=== PATIENT | female | born 1975 | race Two or more races ===

== ENCOUNTER 2024-12-10 07:24 | Emergency (ER) | payer MEDICAID ==
[~2024-12-10] VITALS: Ht 152.4 cm; Wt 82.6 kg
--- NOTE | 2024-12-10 08:17 | ED.PDOC ---
General HPI Comments 49 y/o F, with PMHX of kidney stones and ulcerative colitis presents to the ED for CC of flank pain. Patient states, that she has been experiencing right flank pain with associated hematuria due to displaced nephrostomy tube x5 days. Patient relays, that nephrostomy tube was first placed in August of 2024 at [facility] and was replaced u7ixxal ago. Patient comments on, adequate urinary output that is dark in appearance. Patient endorses that she is allergic to morphine and codeine. Patient denies nausea, vomiting, diarrhea, fever, or chills. No other associated symptoms, modifiers, recent injuries or sick contacts present at this time. Chief Complaint: Flank Pain Time Seen by MD: 07:50 Reviewed notes: Nurses Notes, Medications, Allergies Allergies: Coded Allergies: Codeine (Verified Allergy, Unknown, 12/10/24) Morphine (Verified Allergy, Unknown, 12/10/24) Information Source: Patient Mode of Arrival: Ambulatory Severity: Moderate Inability to void: None Timing: Days Duration: Since onset Prehospital treatment: None Onset: Spontaneous Symptoms: Hematuria History of: Kidney stone Location: (R) Flank Modifying factors: None associated signs and symptoms: Hematuria Past Medical History PAST MEDICAL HISTORY: Kidney Stones Past Medical History (Other): ulcerative colitis Surgical History (Other): right nephrostomy ACCESS LEAD History: Denies all ACCESS LEAD Hx Family History Family History: Unknown Social History Smoker: Non-Smoker Alcohol: Denies ETOH Use Drugs: Denies Drug Use Lives In: Home Constitutional: reports: chills; denies: diaphoresis, fatigue, fever, malaise, sweats, weakness, others EENTM: denies: blurred vision, double vision, ear bleeding, ear discharge, ear drainage, ear pain, ear ringing, eye pain, eye redness, hearing loss, mouth pain, mouth swelling, nasal discharge, nose bleeding, nose congestion, nose pain, photophobia, tearing, throat pain, throat swelling, voice changes, others Respiratory: denies: cough, hemoptysis, orthopnea, SOB at rest, shortness of breath, SOB with excertion, stridor, wheezing, others Cardiovascular: denies: chest pain, dizzy spells, diaphoresis, Dyspnea on exertion, edema, irregular heart beat, left arm pain, lightheadedness, palpitations, PND, syncope, others Gastrointestinal: reports: abdomen distended, constipated, nausea; denies: abdominal pain, blood streaked bowels, diarrhea, dysphagia, difficulty swallowing, hematemesis, melena, poor appetite, poor fluid intake, rectal bleeding, rectal pain, vomiting, others Genitourinary: reports: flank pain; denies: abnormal vagina bleeding, burning, dyspareunia, dysuria, frequency, hematuria, incontinence, pain, , vagina discharge, urgency, others Neurological: denies: dizziness, fainting, headache, left sided numbness, left sided weakness, numbness, paresthesia, pre-existing deficit, right sided numbness, right sided weakness, seizure, speech problems, tingling, tremors, w eakness, others Musculoskeletal: denies: back pain, gout, joint pain, joint swelling, muscle pain, muscle stiffness, neck pain, others Integumetry: denies: bruises, change in color, change in hair/nails, dryness, laceration, lesions, lumps, rash, wounds, others Allergic/Immunocompromised: denies: Difficulty Healing, Frequent Infections, Hives, Itching, others Hematologic/Lymphatic: denies: anemia, blood clots, easy bleeding, easy bruising, swollen glands, others Endocrine: denies: excessive hunger, excessive sweating, excessive thirst, excessive urination, flushing, intolerance to cold, intolerance to heat, unexplained weight gain, unexplained weight loss, others Psychiatric: denies: anxiety, bipolar disorder, depression, hopeless, panic disorder, schizophrenia, sleepless, suicidal, others All Other Systems: Reviewed and Negative Physical Exam General Appearance: No Apparent Distress, Normal HEENT: Normal ENT Inspection, Pharynx Normal, TMs Normal Neck: Full Range of Motion, Non-Tender, Normal, Normal Inspection Respiratory: Chest Non-Tender, Lungs Clear, No Accessory Muscle Use, No Respiratory Distress, Normal Breath Sounds Cardiovascular: No Edema, No Murmur, No Gallop, Normal Peripheral Pulses, Regular Rate/Rhythm Breast Exam: Deferred Gastrointestinal: No Organomegaly, Non Tender, No Pulsatile Mass, Normal Bowel Sounds, Soft, Other (palpable stool in the transverse colon. ) Genitalia: Deferred Pelvic: Deferred Rectal: Deferred Extremities: Normal range of motion, No pedal edema Musculoskeletal : Apperance: Normal Neurologic: No Motor Deficits, Normal Affect, Normal Mood, Other (grossly normal exam) Cerebellar Function: Other (grossly normal) Reflexes: NOT DONE Skin: Normal Color, Warm Lymphatic: NOT DONE Was a procedure done? Was a procedure done?: No Differential Diagnosis Kidney stone (Female): Bowel obstruction, Cholelithiasis, Musculoskeletal pain, Pyelonephritis, Urinary obstruction, Urolithiasis, Other (constipation) X-Ray, Labs, Meds, VS Vital Signs Date Time Temp Pulse Resp B/P (MAP) Pulse Ox O2 Delivery O2 Flow Rate FiO2 12/10/24 08:33 111 20 95 Room Air* 0 21 12/10/24 08:23 111 20 95 Room Air 12/10/24 08:23 98.1 111 20 128/66 (86) 95 98.1 12/10/24 07:30 98.0 117 18 125/78 (94) 96 Lab Test 12/10/24 08:20 12/10/24 08:07 Range/Units Urine Color Light-yellow Yellow Urine Clarity Clear Clear Urine pH 6.5 5.0-9.0 Urine Specific [place] 1.018 1.001-1.035 Urine Protein Trace H Negative Urine Ketones Negative Negative Urine Blood Negative Negative /uL Urine Nitrite Negative Negative Urine Bilirubin Negative Negative Urine Urobilinogen Normal Negative mg/dL Urine Leukocyte Esterase 2+ Negative /uL Urine RBC 3 0 - 4 /hpf Urine Microscopic WBC 15 H 0-5 /HPF Urine Squamous Epithelial Cells Few <5 /hpf Urine Bacteria None seen None Seen /hpf Urine Glucose Normal Normal mg/dL Urine Test Negative Negative White Blood Count 6.3 4.4-10.8 10^3/uL Red Blood Count 4.43 4.0-5.20 10^6/uL Hemoglobin 13.9 12.2-16.2 g/dL Hematocrit 40.5 36.0-46.0 % Mean Corpuscular Volume 91.5 80.0-100.0 fL Mean Corpuscular Hemoglobin 31.5 28.0-32.0 pg Mean Corpuscular Hemoglobin Concent 34.4 32.0-36.0 g/dL Red Cell Distribution Width 13.8 11.8-14.3 % Platelet Count 349 140-450 10^3/uL Mean Platelet Volume 7.4 6.9-10.8 fL Neutrophils (%) (Auto) 57.2 37.0-80.0 % Lymphocytes (%) (Auto) 29.0 10.0-50.0 % Monocytes (%) (Auto) 8.4 0.0-12.0 % Eosinophils (%) (Auto) 4.9 0.0-7.0 % Basophils (%) (Auto) 0.5 0.0-2.0 % Neutrophils # (Auto) 3.6 1.6-8.6 10 ^3/uL Lymphocytes # (Auto) 1.8 0.4-5.4 10 ^3/uL Monocytes # (Auto) 0.5 0-1.3 10 ^3/uL Eosinophils # (Auto) 0.3 0-0.8 10 ^3/uL Basophils # (Auto) 0 0-0.2 10 ^3/uL Nucleated Red Blood Cells 0.1 % Sodium Level 141 136-145 mmol/L Potassium Level 3.8 3.5-5.1 mmol/L Chloride Level 111 H 98-107 mmol/L Carbon Dioxide Level 22 20-31 mmol/L Anion Gap 8 5-15 Blood Urea Nitrogen 13 9-23 mg/dL Creatinine 0.87 0.550-1.02 mg/dL Glomerular Filtration Rate Calc 82 >90 mL/min BUN/Creatinine Ratio 14.9 10.0-20.0 Serum Glucose 129 H 74-106 mg/dL Calcium Level 9.2 8.7-10.4 mg/dL Total Bilirubin 0.2 0.2-1.0 mg/dL Aspartate Amino Transferase (AST) 14 13-40 U/L Alanine Aminotransferase (ALT) 23 7-40 U/L Alkaline Phosphatase 149 H 46-116 U/L Total Protein 7.0 5.7-8.2 g/dL Albumin 4.4 3.2-4.8 g/dL [place] [id number] Ph: [phone] DIAGNOSTIC IMAGING Diagnostic Imaging Report : [id number] Signed PATIENT: KENYA RIVERA ACCT: [id number] UNIT: [id number] : 1975 LOC: ER ROOM / BED: / AGE / SEX: 49 / F ADM STATUS: REG ER SERVICE [id number] ORDERING PHYSICIAN: LA FRAUSTO MD PROCEDURE(s): ABPL - CT AB PEL WO CON-NO ORAL OR IV REASON: RIGHT flank pain ORDER NUMBER(s): [id number], ACCESSION NUMBER(s): [id number] CT ABDOMEN AND PELVIS WITHOUT CONTRAST CLINICAL HISTORY: RIGHT flank pain TECHNIQUE: Multiple contiguous axial images of the abdomen and pelvis without intravenous contrast. The images were reformatted degenerate coronal and sagittal reconstructions. All CT scans at this medical facility are performed using dose modulation techniques as appropriate to a performed exam including the following:Automated exposure control was utilized; adjustment of the MA and/or KV according to patient size; and use of iterative reconstruction technique. Radiation Dose Information: CT Dose: CTDI volume is 16.07 mGy. Dose-length product is 854.75 mGy*cm Comparison: None FINDINGS: Evaluation of the abdomen and pelvis is limited without intravenous contrast. There is a right-sided nephrostomy tube with the pigtail loop in the right renal pelvis. There is a 5 mm calculus in the right ureteropelvic junction. There is no significant hydronephrosis. There is a 3 mm nonobstructive calculus in the lower pole of the left kidney. Gallbladder is surgically absent. The liver, pancreas, lead adrenal glands, and spleen appear within normal limits. There is no gross evidence of abdominal lymphadenopathy. There is no free fluid or free air. The stomach grossly appears unremarkable. The small and large bowel loops demonstrate normal caliber. A normal appearing appendix is seen in the right lower quadrant abdomen. The abdominal aorta and IVC appear within normal limits. There is no evidence of a distal ureteral calculus or hydroureter. The bladder appears unremarkable for the degree of distention. Pelvic organ appears within normal limits. There is no gross evidence of a pelvic mass. There is no free fluid collection. Lung bases are clear. There is no acute osseous abnormality. IMPRESSION: 1. There is a right-sided nephrostomy tube with the pigtail loop in the right renal pelvis. There is a 5 mm calculus at the right ureteropelvic junction. There is no significant hydronephrosis. 2. 3 mm nonobstructive left lower pole renal calculus. HS:Y ATED BY: CHARLES GARCÍA MD DICTATED DATE/TIME: 12/10/24 1001 SIGNED BY: CHARLES GARCÍA MD SIGNED DATE/TIME: 12/10/24 1001 CC: X-Ray, Labs, Meds, VS Comment This 49-year-old female presents secondary to acute on chronic abdominal pain. Patient presents requesting Dilaudid as she was allergic to other narcotics. For description the patient, she was unclear if she takes narcotic pain medication on a chronic basis. Her physical exam is suggestive of stool in the transverse colon. CT shows copious amounts of hard appearing stool throughout the colon, and possible recent oral contrast. Her vitals were normal. Her labs were otherwise benign. As such, discharge the patient home with a prescription for milk of magnesia and Metamucil. She was asked to follow up with the PCP in next 1 2 days or return to the ER for any new/worse/worsening symptoms. Time of 1ST Reevaluation: 08:20 Reevaluation 1ST: Unchanged Time of 2ND Reevaluation: 10:36 Reevaluation 2ND: Unchanged Patient Education/Counseling: Diagnosis, Treatment Family Education/Counseling: No Family Present Departure 1 Departure Time of Disposition: 10:16 Impression: Primary Impression: Abdominal pain Additional Impression: Constipation Disposition: 01 HOME / SELF CARE / HOMELESS Condition: Good Discharged With: Self Critical Care Note Critical Care Time?: No Stability Stability form required: No Heart Score Heart Score: Heart Score Response (Comments) Value History N/A 0 EKG N/A 0 Age N/A 0 Risk Factors N/A 0 Troponin N/A 0 Total 0 I personally scribed for LA FRAUSTO MD ([email or web address]) on 12/10/24 at 08:17. Electronically submitted by Maira Joseph ([email or web address]). I personally scribed for LA FRAUSTO MD ([email or web address]) on 12/10/24 at 10:10. Electronically submitted by Maira Joseph ([email or web address]). LA FRAUSTO MD Dec 10, 2024 08:17
[2024-12-10 08:21] LABS: Basophils # (auto) 0 10 ^3/uL (0-0.2); Basophils % (auto) 0.5 % (0.0-2.0); Eosinophils # (auto) 0.3 10 ^3/uL (0-0.8); Eosinophils % (auto) 4.9 % (0.0-7.0); Hematocrit 40.5 % (36.0-46.0); Hemoglobin 13.9 g/dL (12.2-16.2); Lymphocytes # (auto) 1.8 10 ^3/uL (0.4-5.4); Mean Corpuscular Hemoglobin 31.5 pg (28.0-32.0); Mean Corpuscular Hgb Conc. 34.4 g/dL (32.0-36.0); Mean Corpuscular Volume 91.5 fL (80.0-100.0); Monocytes # (auto) 0.5 10 ^3/uL (0-1.3); Monocytes % (auto) 8.4 % (0.0-12.0); Neutrophils # (auto) 3.6 10 ^3/uL (1.6-8.6); Neutrophils % (auto) 57.2 % (37.0-80.0); Nucleated Red Blood Cells % 0.1 %; Platelet Count (auto) 349 10^3/uL (140-450); Red Blood Cells 4.43 10^6/uL (4.0-5.20); Red Cell Distribution Width 13.8 % (11.8-14.3); White Blood Cell 6.3 10^3/uL (4.4-10.8)
[2024-12-10 08:33] VITALS: PULSE 111; RESP 20; O2SAT 95
[2024-12-10 08:43] LABS: Alanine Aminotransferase 23 U/L (7-40); Albumin 4.4 g/dL (3.2-4.8); Anion Gap 8 (5-15); Aspartate Aminotransferase 14 U/L (13-40); BUN/Creatinine Ratio 14.9 (10.0-20.0); Blood Urea Nitrogen 13 mg/dL (9-23); Calcium 9.2 mg/dL (8.7-10.4); Carbon Dioxide 22 mmol/L (20-31); Potassium 3.8 mmol/L (3.5-5.1); Sodium 141 mmol/L (136-145)
[2024-12-10 08:44] LABS: Alkaline Phosphatase 149 U/L (46-116); Bilirubin, Total 0.2 mg/dL (0.2-1.0); Chloride 111 mmol/L (98-107); Glucose 129 mg/dL (74-106)
[2024-12-10 09:04] LABS: Urine Bacteria None Seen /hpf (None Seen)
[2024-12-10 09:25] LABS: Urine Blood Negative /uL (Negative); Urine Clarity Clear (Clear); Urine Color Light-Yellow (Yellow); Urine Protein, UAD TRACE (Negative); Urine Specific Gravity 1.018 (1.001-1.035); Urine Squamous Epithelial Cell FEW /hpf (<5); Urine Urobilinogen Normal (Negative); Urine WBC 15 /HPF (0-5); Urine pH 6.5 (5.0-9.0)
--- NOTE | 2024-12-10 10:04 | DVH ---
CT ABDOMEN AND PELVIS WITHOUT CONTRAST CLINICAL HISTORY: RIGHT flank pain TECHNIQUE: Multiple contiguous axial images of the abdomen and pelvis without intravenous contrast. T he images were reformatted degenerate coronal and sagittal reconstructions. All CT scans at this medical facility are performed using dose modulation techniques as appropriate t o a performed exam including the following:Automated exposure control was utilized; adjustment of the MA and/or KV according to patient size; and use of iterative reconstruction technique. Radiation Dose Information: CT Dose: CTDI volume is 16.07 mGy. Dose-length product is 854.75 mGy*cm Comparison: None FINDINGS: Evaluation of the abdomen and pelvis is limited without intravenous contrast. There is a right-sided nephrostomy tube with the pigtail loop in the right renal pelvis. There is a 5 mm calculus in the right ureteropelvic junction. There is no significant hydronephrosis. There is a 3 mm nonobstructive calculus in the lower pole of the left kidney. Gallbladder is surgically absent. The liver, pancreas, lead adrenal glands, and spleen appear with in normal limits. There is no gross evidence of abdominal lymphadenopathy. There is no free fluid or free air. The stomach grossly appears unremarkable. The small and large bowel loops demonstrate normal caliber . A normal appearing appendix is seen in the right lower quadrant abdomen. The abdominal aorta and IVC appear within normal limits. There is no evidence of a distal ureteral calculus or hydroureter. The bladder appears unremarkable f or the degree of distention. Pelvic organ appears within normal limits. There is no gross evidence o f a pelvic mass. There is no free fluid collection. Lung bases are clear. There is no acute osseous abnormality. IMPRESSION: 1. There is a right-sided nephrostomy tube with the pigtail loop in the right renal pelvis. There is a 5 mm calculus at the right ureteropelvic junction. There is no significant hydronephrosis. 2. 3 mm nonobstructive left lower pole renal calculus. HS:Y
[2024-12-10] MEDS ORDERED: PSYL1.7W2 PO (10:41)
[2024-12-10] MEDS ORDERED: MAGNSUS48 PO (10:45)
[2024-12-10 10:53] VITALS: BP 113/74; PULSE 103; RESP 18; TEMP 98.1; O2SAT 96
== END 2024-12-10 10:53 | disposition home or self-care (01) ==
LOC: ER 07:24
DX: K59.00 Constipation, unspecified (principal); K51.90 Ulcerative colitis, unspecified, without complications; N20.2 Calculus of kidney with calculus of ureter; Z32.02 Encounter for pregnancy test, result negative; Z88.5 Allergy status to narcotic agent; Z88.8 Allergy status to other drugs, medicaments and biological substances
CPT/HCPCS: 36415; 74176; 80053; 81001; 81025; 85025

== ENCOUNTER 2025-03-18 16:40 | Inpatient (IN) | payer MEDICAID ==
[~2025-03-18] VITALS: Ht 152.4 cm; Wt 89.3 kg
[~2025-03-18 16:40] MED LIST: MAGNSUS48 PO; PSYL1.7W2 PO
--- NOTE | 2025-03-18 17:01 | ED.PDOC ---
General HPI Comments HPI: This is a 49 year old female presenting to the ED with chief complaint of flank pain. Patient reports that she has been experiencing right sided constant flank pain with associated dysuria, fever, chills, diarrhea, and mild suprapubic abdominal pain for the past week. Patient relays that she has history of kidney stones in the right kidney and needed a nephrostomy tube placed 2 months ago, but it has since been removed. Patient states she has history of Crohn's and she believes her abdominal pain could be due to a flare up. Patient denies any N/V, dizziness, chest pain, hematuria, or vaginal bleeding. However she is more concerned about her flank pain for possible kidney stones. Initial Vitals BP: 114/64 HR: 104 RR: 18 O2 Sat: 92% Temp: 97.9F Past Medical history: Crohn's Disease, Kidney Stones Past Surgical history: Rt Nephrostomy, Cholecystectomy Medications: Humira discontinued Social History: Denies smoking, ETOH, and drug use. Allergies: NKDA HPI: Poor Historian. REVIEW OF SYSTEMS: CONSTITUTIONAL: Denies acute: diaphoresis, HEAD: Denies acute: headache, photophobia Eyes: Denies acute: Double vision, vision loss, eye pain, eye discharge. EARS: Denies acute: tinnitus, hearing loss, ear discharge, ear pain, THROAT: Denies acute: sore throat, swelling, difficulty swallowing , pain with swallowing, change in voice. NECK: Denies acute: neck pain, neck swelling, stiff neck. HEART: Denies acute : chest pain, palpitations, LUNGS: Denies acute: SOB, wheezing, cough, hemoptysis ABDOMEN: Denies acute: Vomiting, melena , hematemesis, hematochezia SKIN: Denies acute: rash, redness, lesions, itchiness. EXTREMITIES: Denies acute: calf pain, numbness, tingling, weakness, denies pain in extremity. Denies acute: Low back pain. Neuro: Denies acute: focal neurological deficit, motor or sensory focal neurological deficit, tremors, seizure like activity, confusion, dizziness, change in mental status, loss of bowel or bladder function, cauda equina like symptoms. : Denies acute: hematuria, increase in urinary frequency. PSYCH: Denies acute: hallucination, suicidal ideation, homicidal ideation. FEMALE: Denies acute: abnormal vaginal bleeding, foul odor, unusual discharge. PHYSICAL EXAM: General: -----[id number]---acute distress, awake and alert. Head: normocephalic, atraumatic. Neck: supple, trachea is midline, no swelling. Throat: Normal phonation. Eyes:, no erythema, no purulent discharge, no proptosis, no icterus. Heart: regular rate, regular rhythm, no significant murmur appreciated. Lungs: no apparent respiratory distress, Able to speak in full sentences. No wheezing, no rhonchi, no crackles. No stridors Clear to auscultation bilaterally. Abdomen: Suprapubic tender to palpation, non distended, soft, no guarding, no rebound, + bowel sounds. Neuro: Awake, Alert, oriented to name, self, situation, follows commands GCS=15. Speech is normal. Skin: no petechia, no purpura, no cyanosis, non-pale, not jaundice. Lower extremities: --no - Pitting edema no deformity, no focal swelling, no calf TTP. Makes eye contact. moves all four extremities. Face: no apparent facial droop. Right CVA tenderness to percussion Ambulating in the ED independently. ED COURSE: DISCLAIMER: This medical document was created using an electronic medical record system with voice recognition software and computerized dictation system. Although this document has been carefully reviewed, there might still be some phonetic and typographical errors. Occasional wrong-word or "sound-alike" substitutions may have occurred due to the inherent limitations of voice recognition software. These areas are purely typographical due to imperfections of the software programs and do not reflect any compromise in the patient's medical care. Please read the chart carefully and recognize, using context, where these substitutions have occurred. Time Seen by MD: 16:59 Primary Care Provider: NANCY Reviewed notes: Medications, Allergies Allergies: Coded Allergies: Codeine (Verified Allergy, Unknown, 12/10/24) Morphine (Verified Allergy, Unknown, 12/10/24) Home Meds Active Scripts Magnesium Hydroxide (Milk of Magnesia 400 mg/5Ml) 1 Jerri Jerri, 1 JERRI PO QID for 30 Days, #350 ML Prov:LA FRAUSTO MD 12/10/24 Psyllium (Metamucil) 1.7 Gm Waf, 1.7 GM PO DAILY for 90 Days, #90 MISC Prov:LA FRAUSTO MD 12/10/24 Information Source: Patient Mode of Arrival: Ambulatory Was a procedure done? Was a procedure done?: No Differential Diagnosis Kidney stone (Female): Other (Flank Pain;DDX include Nephrolethiasis, obstructive uropathy, kidney cancer, renal infarct, intraabdominal neoplasm, lower lobe pneumonia, retroperitoneal hemorrhage, pancreatitis, aneurysm, dissection, musculoskeletal, rib contusion/trauma, hematoma, PYLONEPHRITIS, muscle strain, spinal disease. IN A FEMALE) X-Ray, Labs, Meds, VS Vital Signs Date Time Temp Pulse Resp B/P (MAP) Pulse Ox O2 Delivery O2 Flow Rate FiO2 03/18/25 19:17 98.1 98 17 114/62 (79) 99 98.1 03/18/25 16:55 97.9 104 18 114/64 (81) 92 97.9 Lab Test 03/18/25 18:03 03/18/25 17:20 Range/Units Urine Color Light-yellow Yellow Urine Clarity Clear Clear Urine pH 6.0 5.0-9.0 Urine Specific [place] 1.025 1.001-1.035 Urine Protein Trace H Negative Urine Ketones Negative Negative Urine Blood 1+ H Negative /uL Urine Nitrite Negative Negative Urine Bilirubin Negative Negative Urine Urobilinogen Normal Negative mg/dL Urine Leukocyte Esterase 1+ Negative /uL Urine RBC 4 0 - 4 /hpf Urine Microscopic WBC 6 H 0-5 /HPF Urine Squamous Epithelial Cells Few <5 /hpf Urine Bacteria Few H None Seen /hpf Urine Mucus Few None Seen Urine Glucose Normal Normal mg/dL White Blood Count 6.0 4.4-10.8 10^3/uL Red Blood Count 4.94 4.0-5.20 10^6/uL Hemoglobin 15.5 12.2-16.2 g/dL Hematocrit 44.3 36.0-46.0 % Mean Corpuscular Volume 89.7 80.0-100.0 fL Mean Corpuscular Hemoglobin 31.3 28.0-32.0 pg Mean Corpuscular Hemoglobin Concent 34.9 32.0-36.0 g/dL Red Cell Distribution Width 15.3 H 11.8-14.3 % Platelet Count 340 140-450 10^3/uL Mean Platelet Volume 7.1 6.9-10.8 fL Neutrophils (%) (Auto) 65.8 37.0-80.0 % Lymphocytes (%) (Auto) 26.6 10.0-50.0 % Monocytes (%) (Auto) 5.5 0.0-12.0 % Eosinophils (%) (Auto) 1.6 0.0-7.0 % Basophils (%) (Auto) 0.5 0.0-2.0 % Neutrophils # (Auto) 4.0 1.6-8.6 10 ^3/uL Lymphocytes # (Auto) 1.6 0.4-5.4 10 ^3/uL Monocytes # (Auto) 0.3 0-1.3 10 ^3/uL Eosinophils # (Auto) 0.1 0-0.8 10 ^3/uL Basophils # (Auto) 0 0-0.2 10 ^3/uL Nucleated Red Blood Cells 0.1 % Sodium Level 141 136-145 mmol/L Potassium Level 4.1 3.5-5.1 mmol/L Chloride Level 110 H 98-107 mmol/L Carbon Dioxide Level 21 20-31 mmol/L Anion Gap 10 5-15 Blood Urea Nitrogen 11 9-23 mg/dL Creatinine 0.72 0.550-1.02 mg/dL Glomerular Filtration Rate Calc 103 >90 mL/min BUN/Creatinine Ratio 15.3 10.0-20.0 Serum Glucose 115 H 74-106 mg/dL Lactic Acid Level 1.1 0.4-2.0 mmol/L Calcium Level 9.2 8.7-10.4 mg/dL Total Bilirubin 0.6 0.2-1.0 mg/dL Aspartate Amino Transferase (AST) 18 <34 U/L Alanine Aminotransferase (ALT) 26 7-40 U/L Alkaline Phosphatase 133 H 46-116 U/L Troponin I High Sensitivity < 3 L </=34 ng/L Total Protein 6.9 5.7-8.2 g/dL Albumin 4.4 3.2-4.8 g/dL Lipase 22 12-53 U/L [address] [address] Ph: [phone] DIAGNOSTIC IMAGING Diagnostic Imaging Report : [id number] Signed PATIENT: KENYA RIVERA ACCT: [id number] UNIT: [id number] : 1975 LOC: ER ROOM / BED: / AGE / SEX: 49 / F ADM STATUS: REG ER SERVICE [id number] ORDERING PHYSICIAN: GREGORY NOVA DO PROCEDURE(s): ABPL - CT AB PEL WO CON-NO ORAL OR IV REASON: flank pain, urinary symptoms, fever ORDER NUMBER(s): [id number], ACCESSION NUMBER(s): [id number] Indication: flank pain, urinary symptoms, fever Technique: CT axial images of the abdomen and pelvis are obtained without contrast. Coronal and sagittal reformats were obtained. Radiation Dose Information: CTDI volume is 16.15 mGy. Dose-length product is 842.61 mGy*cm Comparison: CT CT AB PEL WO CON-NO ORAL OR IV on DOS: 12/10/24 FINDINGS: There is limited interpretation of the abdomen and pelvis without administration of intravenous contrast. The lung bases demonstrate atelectasis. Adrenal glands, spleen, pancreas unremarkable in shape. Hepatic steatosis. Cholecystectomy. The kidneys demonstrate no hydronephrosis. Nonobstructing right renal calculi measuring up to 8 mm. Nonobstructing left renal calculi up to 3 mm. Right perinephric stranding. Stomach is partially distended. Small bowel loops are normal in caliber. Fatty prominence of the large bowel wall. Normal appendix. Bladder partially distended. No free pelvic fluid. No inguinal lymphadenopathy. Radiopaque shrapnel in the right gluteal soft tissue region measuring 1.7 cm. Aqns-uq-pupsqins thoracolumbar degenerative disc disease. IMPRESSION: Right perinephric stranding could represent urinary tract infection / pyelonephritis. Nonobstructing bilateral renal calculi as described. Fatty prominence of the large bowel wall. Correlate for inflammatory bowel disease. Cholecystectomy. Other findings as described ATED BY: JYOTI TAYLOR MD DICTATED DATE/TIME: 03/18/251756 SIGNED BY: JYOTI TAYLOR MD SIGNED DATE/TIME: 03/18/251756 CC: [place] [address] Ph: [phone] DIAGNOSTIC IMAGING Diagnostic Imaging Report : [id number] Signed PATIENT: KENYA RIVERA ACCT: [id number] UNIT: [id number] : 1975 LOC: ER ROOM / BED: / AGE / SEX: 49 / F ADM STATUS: REG ER SERVICE [id number] ORDERING PHYSICIAN: GREGORY NOVA DO PROCEDURE(s): CXRP - CHEST PORTABLE REASON: flank pain, urinary symptoms, fever ORDER NUMBER(s): [id number], ACCESSION NUMBER(s): [id number] CHEST RADIOGRAPH Indication: flank pain, urinary symptoms, fever Technique: Single frontal view of the chest was obtained COMPARISON: None FINDINGS: Lines and Tubes: None Lungs: Clear Pleura: No effusion. No pneumothorax. Cardiomediastinal contours: Unremarkable Bones: Unremarkable IMPRESSION: 1. No acute disease. ATED BY: DAYSI BALL MD DICTATED DATE/TIME: 03/18/251737 SIGNED BY: DAYSI BALL MD SIGNED DATE/TIME: 03/18/251737 CC: Time of 1ST Reevaluation: 17:58 Reevaluation 1ST: Unchanged Patient Education/Counseling: Diagnosis, Treatment Family Education/Counseling: No Family Present Comments Sepsis protocol was initiated with weight based fluid resuscitation. Patient presented with the above HPI.---flank pain urinary symptoms abdominal pain---workup was initiated. patient was found with the above mentioned diagnosis. the following medications were ordered: please refer to order lists of meds and tests obtained by myself Dr. Nova. Patient ED course and VS have been stabilized. Patient has been reassessed in the ED and remained in a stable condition. Pertinent incidental findings were discussed with the patient and/or family. Patient/family voices understanding and is agreeable with plan. Patient has been observed in the ED adequate length of time to insure improvement/stability. Escalation of care considered: Consideration of escalation to observation or admission Patient was ADMITTED to the medicine team for further evaluation and treatment of their presentation. All the reports of any imaging studies that were ordered by myself were reviewed by myself. Departure 1 Departure Time of Disposition: 18:01 Impression: Primary Impression: Pyelonephritis Additional Impression: Sepsis Disposition: 09 ADMITTED INPATIENT Admit to: Tele Condition: Guarded Discharged With: Self Critical Care Note Critical Care Time?: Yes (45 min-critical care time only) I personally scribed for GREGORY NOVA DO ([email or web address]) on 03/18/25 at 17:01. Electronically submitted by Kayden Gallagher ([email or web address]). I personally scribed for GREGORY NOVA DO ([email or web address]) on 03/18/25 at 17:01. Electronically submitted by Kayden Gallagher ([email or web address]). I personally scribed for GREGORY NOVA DO ([email or web address]) on 03/18/25 at 18:36. Electronically submitted by Kayden Gallagher ([email or web address]). GREGORY NOVA DO Mar 18, 2025 17:01
[2025-03-18] MEDS: SODIUM CHLORIDE 0.9% 1,000 ML IV ONE ×2 (17:30→22:38)
[2025-03-18 17:33] LABS: Basophils # (auto) 0 10 ^3/uL (0-0.2); Basophils % (auto) 0.5 % (0.0-2.0); Eosinophils # (auto) 0.1 10 ^3/uL (0-0.8); Eosinophils % (auto) 1.6 % (0.0-7.0); Hematocrit 44.3 % (36.0-46.0); Hemoglobin 15.5 g/dL (12.2-16.2); Lymphocytes # (auto) 1.6 10 ^3/uL (0.4-5.4); Lymphocytes % (auto) 26.6 % (10.0-50.0); Mean Corpuscular Hemoglobin 31.3 pg (28.0-32.0); Mean Corpuscular Hgb Conc. 34.9 g/dL (32.0-36.0); Mean Corpuscular Volume 89.7 fL (80.0-100.0); Monocytes # (auto) 0.3 10 ^3/uL (0-1.3); Monocytes % (auto) 5.5 % (0.0-12.0); Neutrophils % (auto) 65.8 % (37.0-80.0); Nucleated Red Blood Cells % 0.1 %; Platelet Count (auto) 340 10^3/uL (140-450); Red Blood Cells 4.94 10^6/uL (4.0-5.20); Red Cell Distribution Width 15.3 % (11.8-14.3)
--- NOTE | 2025-03-18 17:41 | DVH ---
CHEST RADIOGRAPH Indication: flank pain, urinary symptoms, fever Technique: Single frontal view of the chest was obtained COMPARISON: None FINDINGS: Lines and Tubes: None Lungs: Clear Pleura: No effusion. No pneumothorax. Cardiomediastinal contours: Unremarkable Bones: Unremarkable IMPRESSION: 1. No acute disease.
[2025-03-18 17:48] LABS: Alanine Aminotransferase 26 U/L (7-40); Albumin 4.4 g/dL (3.2-4.8); Alkaline Phosphatase 133 U/L (46-116); Anion Gap 10 (5-15); Aspartate Aminotransferase 18 U/L (<34); BUN/Creatinine Ratio 15.3 (10.0-20.0); Blood Urea Nitrogen 11 mg/dL (9-23); Calcium 9.2 mg/dL (8.7-10.4); Carbon Dioxide 21 mmol/L (20-31); Chloride 110 mmol/L (98-107); Glucose 115 mg/dL (74-106); Lipase 22 U/L (12-53); Potassium 4.1 mmol/L (3.5-5.1); Sodium 141 mmol/L (136-145); Total Protein 6.9 g/dL (5.7-8.2)
[2025-03-18 17:49] LABS: Bilirubin, Total 0.6 mg/dL (0.2-1.0)
--- NOTE | 2025-03-18 17:58 | DVH ---
Indication: flank pain, urinary symptoms, fever Technique: CT axial images of the abdomen and pelvis are obtained without contrast. Coronal and sagit cody reformats were obtained. Radiation Dose Information: CTDI volume is 16.15 mGy. Dose-length product is 842.61 mGy*cm Comparison: CT CT AB PEL WO CON-NO ORAL OR IV on DOS: 12/10/24 FINDINGS: There is limited interpretation of the abdomen and pelvis without administration of intravenous contr ast. The lung bases demonstrate atelectasis. Adrenal glands, spleen, pancreas unremarkable in shape. Hepatic steatosis. Cholecystectomy. The kidneys demonstrate no hydronephrosis. Nonobstructing right renal calculi measuring up to 8 mm. Nonobstructing left renal calculi up to 3 mm. Right perinephric stranding. Stomach is partially distended. Small bowel loops are normal in caliber. Fatty prominence of the large bowel wall. Normal appendix. Bladder partially distended. No free pelvic fluid. No inguinal lymphadenopathy. Radiopaque shrapnel in the right gluteal soft tissue region measuring 1.7 cm. Sopn-ob-imfalsma thorac olumbar degenerative disc disease. IMPRESSION: Right perinephric stranding could represent urinary tract infection / pyelonephritis. Nonobstructing bilateral renal calculi as described. Fatty prominence of the large bowel wall. Correlate for inflammatory bowel disease. Cholecystectomy. Other findings as described
[2025-03-18 18:32] LABS: Urine Bacteria FEW /hpf (None Seen); Urine Blood 1+ /uL (Negative); Urine Clarity Clear (Clear); Urine Color Light-Yellow (Yellow); Urine Mucus FEW (None Seen); Urine Protein, UAD TRACE (Negative); Urine Specific Gravity 1.025 (1.001-1.035); Urine Squamous Epithelial Cell FEW /hpf (<5); Urine Urobilinogen Normal (Negative); Urine WBC 6 /HPF (0-5)
[2025-03-18] MEDS: cefTRIAXone 1GM/50ML D5W 50 ML IV ONE (22:38)
[2025-03-18] MEDS: fentaNYL CITRATE 100 MCG/2 ML VL IV ONE (22:38)
[2025-03-18] MEDS ORDERED: IBUPROFEN 600 MG TAB PO PRN (23:00)
[2025-03-19] MEDS: SODIUM CHLORIDE 0.9% 1,000 ML IV ONE (01:45)
[2025-03-19] MEDS: HYDROmorphone HCL 2 MG/ML VL/or syr IV PRN ×2 (02:34→13:30)
[2025-03-19] MEDS: ONDANSETRON HCL 4 MG/2 ML VIAL IV PRN (03:08)
[2025-03-19 03:36] VITALS: BP 116/70; PULSE 95; RESP 18; TEMP 98; O2SAT 99
[2025-03-19 04:00] VITALS: BP 116/70; PULSE 95; RESP 18; TEMP 98; O2SAT 99
--- NOTE | 2025-03-19 05:03 | DVHHPRES ---
History of Present Illness Resident Creating Document: JODEECANDICEKISHOR RESIDENT History of Present Illness Patient is a 49-year-old female with a past medical history of Crohn's disease, kidney stones, insomnia, generalized anxiety disorder presented to the ED with a chief complaint of right flank pain in the which started about a week ago. Patient has a history of right kidney stones for which she had a right nephrostomy tube for 6 months which was removed about 2 months ago. She reports having dysuria, fever, chills and suprapubic abdominal pain for the past week. Patient also reports history of Crohn's disease and has been having diarrhea alternating with constipation with the last bowel movement in the morning today which was loose but denies noticing any blood in the stools. Patient reported that in the last 2 days she has severe right flank sharp pain following which she came to the hospital for further evaluation. Patient was diagnosed with Cr ohn's disease and was on Humira but was stopped 2 years ago by her physician. Reported that her last colonoscopy was 2 years ago. Past medical history: As per HPI Past surgical history: Right nephrostomy, cholecystectomy Social history: Patient recently moved to the [facility] and lives with family, denies smoking, alcohol, drug use Home medications: Rhythm 10 mg, trazodone 100 mg, quetiapine 400 mg,, Ativan 0.5 mg q.i.d. Review of Systems Review of Systems Patient seen and examined at the bedside Reports of moderate 6/10 pain in the right flank radiating to her suprapubic region Denies nausea, vomiting Allergies: Coded Allergies: Codeine (Verified Allergy, Unknown, 12/10/24) Morphine (Verified Allergy, Unknown, 12/10/24) Medications Current Medications Medications Dose Ordered Sig/Wanda Route Start Time Stop Time Status Last Admin Dose Admin Pantoprazole Sodium 40 mg DAILY@0600 PO 03/19/25 06:00 Ondansetron HCl 4 mg Q6HPRN PRN IV 03/18/25 23:00 03/19/25 03:08 4 MG Ibuprofen 600 mg Q6HP PRN PO 03/18/25 23:00 Ceftriaxone Sodium 50 ml @ 100 mls/hr DAILY@09 IV 03/19/25 09:00 Metronidazole 100 ml @ 100 mls/hr Q8HR IV 03/19/25 06:00 Hydromorphone HCl 0.5 mg Q6HPRN PRN IV 03/19/25 01:45 03/19/25 02:34 0.5 MG Exam Vital Signs Vital Signs Date Time Temp Pulse Resp B/P (MAP) Pulse Ox O2 Delivery O2 Flow Rate FiO2 03/19/25 03:04 95 14 115/75 03/19/25 00:22 97.7 98 97.7 03/18/25 22:11 Room Air Exam Gen - no pallor, no icterus, no cyanosis, no clubbing, no LAD, no edema . Skin - Patients skin is warm and dry. HEENT - normocephalic, atraumatic, moist mucous membranes. Neck - full ROM, no LAD, no JVD Pulmonary - B/L equal breath sounds, no crackles, no wheezing, no stridor. cardiovascular - regular S1,S2 heard, no added sounds, no murmurs heard. peripheral pulses normal radial 2+, pedal 2+. capillary refill normal <2 secs. GI - soft abdomen with tenderness to palpation in the right flank area and positive right CVA tenderness. no hepatospleenomegaly. Bowel sounds slightly hypoactive Neurological - Patient is A/O X 3 . Bilateral upper extremity strength 5/5, bilateral lower extremity strength 5/5, no facial droop, normal speech, no tremor, no sensory deficiets. Labs/Xrays Labs Test 03/18/25 18:03 03/18/25 17:20 Range/Units Urine Color Light-yellow Yellow Urine Clarity Clear Clear Urine pH 6.0 5.0-9.0 Urine Specific [place] 1.025 1.001-1.035 Urine Protein Trace H Negative Urine Ketones Negative Negative Urine Blood 1+ H Negative /uL Urine Nitrite Negative Negative Urine Bilirubin Negative Negative Urine Urobilinogen Normal Negative mg/dL Urine Leukocyte Esterase 1+ Negative /uL Urine RBC 4 0 - 4 /hpf Urine Microscopic WBC 6 H 0-5 /HPF Urine Squamous Epithelial Cells Few <5 /hpf Urine Bacteria Few H None Seen /hpf Urine Mucus Few None Seen Urine Glucose Normal Normal mg/dL White Blood Count 6.0 4.4-10.8 10^3/uL Red Blood Count 4.94 4.0-5.20 10^6/uL Hemoglobin 15.5 12.2-16.2 g/dL Hematocrit 44.3 36.0-46.0 % Mean Corpuscular Volume 89.7 80.0-100.0 fL Mean Corpuscular Hemoglobin 31.3 28.0-32.0 pg Mean Corpuscular Hemoglobin Concent 34.9 32.0-36.0 g/dL Red Cell Distribution Width 15.3 H 11.8-14.3 % Platelet Count 340 140-450 10^3/uL Mean Platelet Volume 7.1 6.9-10.8 fL Neutrophils (%) (Auto) 65.8 37.0-80.0 % Lymphocytes (%) (Auto) 26.6 10.0-50.0 % Monocytes (%) (Auto) 5.5 0.0-12.0 % Eosinophils (%) (Auto) 1.6 0.0-7.0 % Basophils (%) (Auto) 0.5 0.0-2.0 % Neutrophils # (Auto) 4.0 1.6-8.6 10 ^3/uL Lymphocytes # (Auto) 1.6 0.4-5.4 10 ^3/uL Monocytes # (Auto) 0.3 0-1.3 10 ^3/uL Eosinophils # (Auto) 0.1 0-0.8 10 ^3/uL Basophils # (Auto) 0 0-0.2 10 ^3/uL Nucleated Red Blood Cells 0.1 % Sodium Level 141 136-145 mmol/L Potassium Level 4.1 3.5-5.1 mmol/L Chloride Level 110 H 98-107 mmol/L Carbon Dioxide Level 21 20-31 mmol/L Anion Gap 10 5-15 Blood Urea Nitrogen 11 9-23 mg/dL Creatinine 0.72 0.550-1.02 mg/dL Glomerular Filtration Rate Calc 103 >90 mL/min BUN/Creatinine Ratio 15.3 10.0-20.0 Serum Glucose 115 H 74-106 mg/dL Lactic Acid Level 1.1 0.4-2.0 mmol/L Calcium Level 9.2 8.7-10.4 mg/dL Total Bilirubin 0.6 0.2-1.0 mg/dL Aspartate Amino Transferase (AST) 18 <34 U/L Alanine Aminotransferase (ALT) 26 7-40 U/L Alkaline Phosphatase 133 H 46-116 U/L Troponin I High Sensitivity < 3 L </=34 ng/L Total Protein 6.9 5.7-8.2 g/dL Albumin 4.4 3.2-4.8 g/dL Lipase 22 12-53 U/L Assessment/Plan Assessment/Plan Probable acute pyelonephritis H/O Right kidney stones H/O right nephrostomy - CT abdomen pelvis shows right perinephric stranding, nonobstructing bilateral renal calculi - IV ceftriaxone - IV fluids - pain management Acute abdominal pain History of Crohn's disease Probable acute gastroenteritis - IV ceftriaxone and metronidazole - IV fluids - Protonix H/O Insomnia H/O bipolar disorder H/O generalized anxiety disorder - continued on trazodone 100 mg, quetiapine 400 mg, Ativan 0.5 mg q.i.d., zolp idem 10 mg hs PUD prophylaxis: Protonix Goals of care discussed with the patient for over 23 minutes. Full code Time spent: 39 minutes Plan discussed with Dr. Gant Plan discussed with: Patient My Orders Orders - CELENA ELLSWORTH RESIDENT Procedure Category Date Status Time Admit ADMIT 03/18/25 Transmitted 22:50 Pantoprazole Tablet PHA 03/19/25 In Process (Protonix Tablet) 06:00 Ondansetron Hcl PHA 03/18/25 In Process (Zofran) 23:00 Ibuprofen Tablet PHA 03/18/25 In Process (Motrin Tablet) 23:00 Ceftriaxone 1gm/50ml PHA 03/19/25 In Process D5w (Rocephin) 09:00 Metronidazole PHA 03/19/25 In Process 500mg/100ml (Flagyl 06:00 Hydromorphone PHA 03/19/25 In Process Injection (Dilaudid 01:45 Sodium Chloride 0.9% PHA 03/19/25 In Process 01:45 Quetiapine Fumarate PHA 03/19/25 Logged Tablet (Seroquel Tab 04:30 Quetiapine Fumarate PHA 03/19/25 Logged Tablet (Seroquel Tab 22:00 Trazodone Hcl PHA 03/19/25 Logged (Desyrel) 04:30 Trazodone Hcl PHA 03/19/25 Logged (Desyrel) 22:00 Zolpidem Tartrate PHA 03/19/25 Logged (Ambien) 04:30 Date of Service: Mar 18, 2025 Billing Provider: KRIS GANT MD Common Visit Codes: 17776-VUMJFVN INP/OBS CARE (HIGH) Secondary Visit Codes: 87215-[id number] CARE PLAN 30 MINUTES CELENA ELLSWORTH RESIDENT Mar 19, 2025 05:03
[2025-03-19] MEDS: traZODone HCL 50 MG TAB PO ONE (05:05)
[2025-03-19] MEDS: LORazepam 0.5 MG TAB PO PRN (05:05)
[2025-03-19] MEDS: QUEtiapine FUMARATE 100 MG TAB PO ONE (05:06)
[2025-03-19] MEDS: ZOLPIDEM TARTRATE 5 MG TAB PO PRN (05:06)
[2025-03-19] MEDS: PANTOPRAZOLE 40 MG TAB PO SCH (06:02)
[2025-03-19] MEDS: metroNIDAZOLE 500MG/100ML 100 ML IV SCH (06:03)
[2025-03-19 06:08] VITALS: RESP 17
[2025-03-19] MEDS: cefTRIAXone 1GM/50ML D5W 50 ML IV SCH (08:43)
[2025-03-19 09:00] VITALS: BP 98/50; PULSE 101; RESP 18; TEMP 98.2; O2SAT 96
[2025-03-19 09:35] LABS: Benzodiazephine Screen, Urine Neg (NEGATIVE)
[2025-03-19 09:42] LABS: Basophils # (auto) 0.1 10 ^3/uL (0-0.2); Eosinophils # (auto) 0.1 10 ^3/uL (0-0.8); Eosinophils % (auto) 1.7 % (0.0-7.0); Hematocrit 38.3 % (36.0-46.0); Hemoglobin 13.3 g/dL (12.2-16.2); Lymphocytes # (auto) 2.3 10 ^3/uL (0.4-5.4); Lymphocytes % (auto) 28.4 % (10.0-50.0); Mean Corpuscular Hemoglobin 31.1 pg (28.0-32.0); Mean Corpuscular Hgb Conc. 34.8 g/dL (32.0-36.0); Mean Corpuscular Volume 89.3 fL (80.0-100.0); Monocytes # (auto) 0.6 10 ^3/uL (0-1.3); Monocytes % (auto) 7.3 % (0.0-12.0); Neutrophils % (auto) 61.6 % (37.0-80.0); Platelet Count (auto) 340 10^3/uL (140-450); Red Blood Cells 4.29 10^6/uL (4.0-5.20); Red Cell Distribution Width 15.4 % (11.8-14.3)
[2025-03-19] MEDS ORDERED: HYDROcodone-ACET 7.5/325MG TAB PO PRN (09:45)
[2025-03-19] MEDS: TAMSULOSIN HYDROCHLORIDE 0.4 MG CAP PO ONE (09:45)
[2025-03-19] MEDS ORDERED: HYDROmorphone HCL 2 MG/ML VL/or syr IV PRN (09:45)
[2025-03-19 09:50] LABS: Potassium 3.6 mmol/L (3.5-5.1)
[2025-03-19 09:50] LABS: Amphetamine Screen, Urine Neg (NEGATIVE); Barbiturate Scree,Urine Neg (NEGATIVE); Cannabinoid Screen, Urine Neg (NEGATIVE); Cocaine Screen, Urine Neg (NEGATIVE); Opiate Scree,Urine Neg (NEGATIVE); Phencyclidine Screen, Urine Neg (NEGATIVE)
[2025-03-19 09:51] LABS: Anion Gap 9 (5-15); Calcium 9.2 mg/dL (8.7-10.4); Carbon Dioxide 25 mmol/L (20-31)
[2025-03-19 09:56] LABS: BUN/Creatinine Ratio 12.9 (10.0-20.0); Blood Urea Nitrogen 11 mg/dL (9-23)
[2025-03-19 09:57] LABS: CRP High Sensitivity 0.36 mg/dL (<1.0)
[2025-03-19 10:00] LABS: Chloride 112 mmol/L (98-107); Glucose 125 mg/dL (74-106); Sodium 146 mmol/L (136-145)
[2025-03-19 10:32] LABS: Erythrocyte Sedimentation Rate 4 mm/hr (0-20)
[2025-03-19] MEDS ORDERED: KETOROLAC TROMETH 30 MG/ML 1ML VIAL IV PRN (12:15)
[2025-03-19] MEDS ORDERED: HYDROcodone-ACET 5/325MG TAB PO PRN (12:15)
[2025-03-19] MEDS ORDERED: IBUPROFEN 600 MG TAB PO SCH (14:00)
[2025-03-19 17:00] VITALS: BP 111/76; PULSE 108; RESP 18; TEMP 98.2; O2SAT 96
--- NOTE | 2025-03-19 19:40 | DVHPNRES ---
Progress Note Date Seen: Mar 19, 2025 Resident Creating Document: ANDREW KEN SMILEY Has the PT tested + for MRSA If YES, has PT been informed?: No Medical Necessity Reason Pt with a Central, PICC or Fol: No Subjective Review of Systems Patient is a 49-year-old female with a past medical history of Crohn's disease, kidney stones, insomnia, generalized anxiety disorder presented to the ED with a chief complaint of right flank pain in the which started about a week ago. Patient has a history of right kidney stones for which she had a right nephrostomy tube for 6 months which was removed about 2 months ago. She reports having dysuria, fever, chills and suprapubic abdominal pain for the past week. Patient also reports history of Crohn's disease and has been having diarrhea alternating with constipation with the last bowel movement in the morning today which was loose but denies noticing any blood in the stools. Patient reported that in the last 2 days she has severe right flank sharp pain following which she came to the hospital for further evaluation. Patient was diagnosed with Crohn's disease and was on Humira but was stopped 2 years ago by her physician. Reported that her last colonoscopy was 2 years ago. Past medical history: As per HPI Past surgical history: Right nephrostomy, cholecystectomy Social history: Patient recently moved to the [facility] and lives with family, denies smoking, alcohol, drug use Home medications: Rhythm 10 mg, trazodone 100 mg, quetiapine 400 mg,, Ativan 0.5 mg q.i.d. Visit with the patient is still complaining of flank pain. Patient reports: No new complaints, Feels better Changes from previous H/P or p: Changes Objective vital signs Vital Sign Date Time Temp Pulse Resp B/P (MAP) Pulse Ox O2 Delivery O2 Flow Rate FiO2 03/19/25 18:05 108 16 110/80 03/19/25 17:00 98.2 96 98.2 03/19/25 08:00 Room Air* 0 21 Total Intake and Output 03/18/25 03/18/25 03/19/25 15:00 23:00 07:00 Intake Total 500 ml Balance 500 ml medications Current Medications Medications Dose Ordered Sig/Wanda Route Start Time Stop Time Status Last Admin Dose Admin Pantoprazole Sodium 40 mg DAILY@0600 PO 03/19/25 06:00 03/19/25 06:02 40 MG Ondansetron HCl 4 mg Q6HPRN PRN IV 03/18/25 23:00 03/19/25 03:08 4 MG Ibuprofen 600 mg Q6HP PRN PO 03/18/25 23:00 Cancel Ceftriaxone Sodium 50 ml @ 100 mls/hr DAILY@09 IV 03/19/25 09:00 03/19/25 08:43 100 MLS/HR Quetiapine Fumarate 400 mg HS PO 03/19/25 22:00 Trazodone HCl 100 mg HS PO 03/19/25 22:00 Zolpidem Tartrate 10 mg HSPRN PRN PO 03/19/25 04:30 03/19/25 05:06 10 MG Lorazepam 0.5 mg Q6HP PRN PO 03/19/25 04:45 03/19/25 05:05 0.5 MG Tamsulosin HCl 0.4 mg QPM PO 03/20/25 18:00 Ketorolac Tromethamine 15 mg Q4HPRN PRN IV 03/19/25 12:15 03/24/25 12:14 Acetaminophen/ Hydrocodone Bitart 1 tab Q4HPRN PRN PO 03/19/25 12:15 Hydromorphone HCl 0.5 mg Q4HPRN PRN IV 03/19/25 13:15 03/19/25 17:44 0.5 MG Examination General Appearance: Alert, Oriented X3, Cooperative, No acute distress HEENT: Atraumatic, PERRLA, EOMI, Mucous membrane moist/pink Respiratory: Clear to auscultation, Normal air movement Cardiovascular: Regular rate, Normal S1, Normal S2, No murmurs, no chest wall tenderness Abdominal: Right flank tenderness Extremities: No clubbing, No cyanosis, No edema, Normal pulses, No tenderness/swelling Skin: No rashes, No breakdown, No significant lesion Neuro: Normal gait, Normal speech, Strength at 5/5 X4 ext, Normal tone, Sensation intact, Cranial nerves 3-12 NL, Reflexes 2+ Psych/Mental Status: Mental status NL, Mood NL laboratory and microbiology Laboratory Tests 03/19/25 09:25 Test 03/19/25 09:25 Range/Units Serum Glucose 125 H 74-106 mg/dL Microbiology Date/Time Source Procedure Growth Status 03/18/25 17:20 Blood Blood Culture - Preliminary NO GROWTH AFTER 24 HOURS OF INCUBATION. Resulted Labs and/or images reviewed: Labs reviewed by me, Image(s) reviewed by me Problem List/Assessment/Plan Problem List/Assessment/Plan Intractable abdominal pain, likely due to renal colic/renal stone Bilateral renal stone Complicated UTI/pyelonephritis H/O Insomnia H/O bipolar disorder H/O generalized anxiety disorder History of Crohn's disease Probable acute gastroenteritis H/O Right kidney stones H/O right nephrostomy Ruled out sepsis * Urinalysis shows, UTI picture * Abdominal CT scan shows, right perinephric stranding could represent urinary tract infection / pyelonephritis, nonobstructing bilateral renal calculi as described, fatty prominence of the large bowel wall. Correlate for inflammatory bowel disease Plan/recommendation * Empiric antibiotic, Rocephin * IV fluid * Pain management * Continue home meds including quetiapine, trazodone and zolpidem * Tamsulosin * Urine culture DIET: Regular diet DVT PROPHYLAXIS: Lovenox GI PROPHYLAXIS:: Protonix CODE STATUS: Goal of care discussed for more than 18 minutes, full code DISPOSITION: Med/surge Patient's status and plan discussed with the patient. Case discussed with Dr. Cole. Plan discussed with: Patient, Other (RN) My Orders My Orders Orders - ANDREW KEN Procedure Category Date Status Time Clostridium Difficile JOSIAH 03/19/25 Uncollected Toxin 08:51 Tamsulosin PHA 03/20/25 In Process Hydrochloride (Flomax) 18:00 Ketorolac Injection PHA 03/19/25 In Process (Toradol Injection) 12:15 Hydrocodone-Acet PHA 03/19/25 In Process 5/325mg Tab ([place] 12:15 Hydromorphone PHA 03/19/25 In Process Injection (Dilaudid 13:15 ANDREW KEN RESDIENT Mar 19, 2025 19:40
[2025-03-19 21:00] VITALS: BP 124/55; PULSE 96; RESP 18; TEMP 98; O2SAT 96
[2025-03-19] MEDS: QUEtiapine FUMARATE 100 MG TAB PO SCH (21:59)
[2025-03-19] MEDS: traZODone HCL 50 MG TAB PO SCH (22:00)
[2025-03-20 01:00] VITALS: BP 112/72; PULSE 91; RESP 18; TEMP 97.6; O2SAT 97
[2025-03-20 05:00] VITALS: BP_SYST 115; BP_SYST 91; BP_DIAS 49; BP_DIAS 64; PULSE 107; PULSE 65; RESP 17; RESP 19; TEMP 97.2; TEMP 97.4; O2SAT 93; O2SAT 98
[2025-03-20 06:11] LABS: Basophils # (auto) 0.1 10 ^3/uL (0-0.2); Basophils % (auto) 1.2 % (0.0-2.0); Eosinophils # (auto) 0.2 10 ^3/uL (0-0.8); Eosinophils % (auto) 4.4 % (0.0-7.0); Hematocrit 40.3 % (36.0-46.0); Lymphocytes # (auto) 2.2 10 ^3/uL (0.4-5.4); Lymphocytes % (auto) 40.9 % (10.0-50.0); Mean Corpuscular Hemoglobin 30.9 pg (28.0-32.0); Mean Corpuscular Hgb Conc. 34.7 g/dL (32.0-36.0); Mean Corpuscular Volume 89.1 fL (80.0-100.0); Monocytes # (auto) 0.4 10 ^3/uL (0-1.3); Monocytes % (auto) 6.9 % (0.0-12.0); Neutrophils # (auto) 2.5 10 ^3/uL (1.6-8.6); Neutrophils % (auto) 46.6 % (37.0-80.0); Nucleated Red Blood Cells % 0.2 %; Platelet Count (auto) 320 10^3/uL (140-450); Red Blood Cells 4.53 10^6/uL (4.0-5.20); Red Cell Distribution Width 15.3 % (11.8-14.3); White Blood Cell 5.3 10^3/uL (4.4-10.8)
[2025-03-20 06:12] LABS: Anion Gap 13 (5-15); Carbon Dioxide 24 mmol/L (20-31); Sodium 145 mmol/L (136-145)
[2025-03-20 06:13] LABS: Calcium 9.6 mg/dL (8.7-10.4)
[2025-03-20 06:18] LABS: Blood Urea Nitrogen 10 mg/dL (9-23)
[2025-03-20 06:23] LABS: Chloride 108 mmol/L (98-107); Glucose 137 mg/dL (74-106); Potassium 3.5 mmol/L (3.5-5.1)
[2025-03-20 09:00] VITALS: BP 115/55; PULSE 95; RESP 16; TEMP 98; O2SAT 97
--- NOTE | 2025-03-20 12:06 | DVHPNRES ---
Progress Note Date Seen: Mar 20, 2025 Resident Creating Document: ANDREW KEN SMILEY Has the PT tested + for MRSA If YES, has PT been informed?: No Medical Necessity Reason Pt with a Central, PICC or Fol: No Subjective Review of Systems Patient seen and examined at the bedside. Patient is feeling better since admission, but still complaining of abdominal pain. Objective vital signs Vital Sign Date Time Temp Pulse Resp B/P (MAP) Pulse Ox O2 Delivery O2 Flow Rate FiO2 03/20/25 12:04 91 15 129/75 03/20/25 09:00 98.0 97 98.0 03/20/25 07:30 Room Air* 0 21 Total Intake and Output 03/19/25 03/19/25 03/20/25 15:00 23:00 07:00 Intake Total 50 ml 488 ml 875 ml Balance 50 ml 488 ml 875 ml medications Current Medications Medications Dose Ordered Sig/Wanda Route Start Time Stop Time Status Last Admin Dose Admin Pantoprazole Sodium 40 mg DAILY@0600 PO 03/19/25 06:00 03/20/25 06:38 40 MG Ondansetron HCl 4 mg Q6HPRN PRN IV 03/18/25 23:00 03/19/25 03:08 4 MG Ibuprofen 600 mg Q6HP PRN PO 03/18/25 23:00 Cancel Ceftriaxone Sodium 50 ml @ 100 mls/hr DAILY@09 IV 03/19/25 09:00 03/20/25 09:13 100 MLS/HR Quetiapine Fumarate 400 mg HS PO 03/19/25 22:00 03/19/25 21:59 400 MG Trazodone HCl 100 mg HS PO 03/19/25 22:00 03/19/25 22:00 100 MG Zolpidem Tartrate 10 mg HSPRN PRN PO 03/19/25 04:30 03/19/25 21:59 10 MG Lorazepam 0.5 mg Q6HP PRN PO 03/19/25 04:45 03/19/25 21:59 0.5 MG Tamsulosin HCl 0.4 mg QPM PO 03/20/25 18:00 Ketorolac Tromethamine 15 mg Q4HPRN PRN IV 03/19/25 12:15 03/24/25 12:14 Acetaminophen/ Hydrocodone Bitart 1 tab Q4HPRN PRN PO 03/19/25 12:15 Hydromorphone HCl 0.5 mg Q4HPRN PRN IV 03/19/25 13:15 03/20/25 12:04 0.5 MG Examination General Appearance: Alert, Oriented X3, Cooperative, No acute distress HEENT: Atraumatic, PERRLA, EOMI, Mucous membrane moist/pink Respiratory: Clear to auscultation, Normal air movement Cardiovascular: Regular rate, Normal S1, Normal S2, No murmurs, no chest wall tenderness Abdominal: Right flank tenderness Extremities: No clubbing, No cyanosis, No edema, Normal pulses, No tenderness/swelling Skin: No rashes, No breakdown, No significant lesion Neuro: Normal gait, Normal speech, Strength at 5/5 X4 ext, Normal tone, Sensation intact, Cranial nerves 3-12 NL, Reflexes 2+ Psych/Mental Status: Mental status NL, Mood NL laboratory and microbiology Laboratory Tests 03/20/25 05:10 Test 03/20/25 05:10 Range/Units Serum Glucose 137 H 74-106 mg/dL Microbiology Date/Time Source Procedure Growth Status 03/18/25 17:20 Blood Blood Culture - Preliminary NO GROWTH AFTER 24 HOURS OF INCUBATION. Resulted Labs and/or images reviewed: Labs reviewed by me, Image(s) reviewed by me Problem List/Assessment/Plan Problem List/Assessment/Plan Intractable abdominal pain, likely due to renal colic/renal stone Bilateral renal stone Complicated UTI/pyelonephritis H/O Insomnia H/O bipolar disorder H/O generalized anxiety disorder History of Crohn's disease Probable acute gastroenteritis H/O Right kidney stones H/O right nephrostomy Ruled out sepsis * Urinalysis shows, UTI picture * Abdominal CT scan shows, right perinephric stranding could represent urinary tract infection / pyelonephritis, nonobstructing bilateral renal calculi as described, fatty prominence of the large bowel wall. Correlate for inflammatory bowel disease Plan/recommendation * Empiric antibiotic, Rocephin * IV fluid * Pain management * Continue home meds including quetiapine, trazodone and zolpidem * Tamsulosin * Urine culture DIET: Regular diet DVT PROPHYLAXIS: Lovenox GI PROPHYLAXIS:: Protonix CODE STATUS: Goal of care discussed for more than 18 minutes, full code DISPOSITION: Med/surge Patient's status and plan discussed with the patient. Case discussed with Dr. Cole. Plan discussed with: Patient, Other (RN) My Orders My Orders Orders - ANDREW KEN Procedure Category Date Status Time Ketorolac Injection PHA 03/19/25 In Process (Toradol Injection) 12:15 Hydrocodone-Acet PHA 03/19/25 In Process 5/325mg Tab ([place] 12:15 Hydromorphone PHA 03/19/25 In Process Injection (Dilaudid 13:15 ANDREW KEN RESDIENT Mar 20, 2025 12:06
[2025-03-20 13:00] VITALS: BP 125/75; PULSE 91; RESP 18; TEMP 98.2; O2SAT 96
[2025-03-20] MEDS ORDERED: CEPH250C PO (13:00)
--- NOTE | 2025-03-20 13:01 | DVHDSRES ---
Discharge Summary Date of Admission Resident Creating Document: ANDREW KEN RESDIENT Mar 18, 2025 at 22:50 Date of Discharge: Mar 20, 2025 Admitting Diagnosis Renal colic/UTI Labs/Diagnostic Data: Laboratory Results Test 03/20/25 05:10 03/19/25 23:46 03/19/25 09:25 03/18/25 18:03 White Blood Count 5.3 10^3/uL (4.4-10.8) Red Blood Count 4.53 10^6/uL (4.0-5.20) Hemoglobin 14.0 g/dL (12.2-16.2) Hematocrit 40.3 % (36.0-46.0) Mean Corpuscular Volume 89.1 fL (80.0-100.0) Mean Corpuscular Hemoglobin 30.9 pg (28.0-32.0) Mean Corpuscular Hemoglobin Concent 34.7 g/dL (32.0-36.0) Red Cell Distribution Width 15.3 % (11.8-14.3) Platelet Count 320 10^3/uL (140-450) Mean Platelet Volume 7.5 fL (6.9-10.8) Neutrophils (%) (Auto) 46.6 % (37.0-80.0) Lymphocytes (%) (Auto) 40.9 % (10.0-50.0) Monocytes (%) (Auto) 6.9 % (0.0-12.0) Eosinophils (%) (Auto) 4.4 % (0.0-7.0) Basophils (%) (Auto) 1.2 % (0.0-2.0) Neutrophils # (Auto) 2.5 10 ^3/uL (1.6-8.6) Lymphocytes # (Auto) 2.2 10 ^3/uL (0.4-5.4) Monocytes # (Auto) 0.4 10 ^3/uL (0-1.3) Eosinophils # (Auto) 0.2 10 ^3/uL (0-0.8) Basophils # (Auto) 0.1 10 ^3/uL (0-0.2) Nucleated Red Blood Cells 0.2 % Sodium Level 145 mmol/L (136-145) Potassium Level 3.5 mmol/L (3.5-5.1) Chloride Level 108 mmol/L (98-107) Carbon Dioxide Level 24 mmol/L (20-31) Anion Gap 13 (5-15) Blood Urea Nitrogen 10 mg/dL (9-23) Creatinine 0.83 mg/dL (0.550-1.02) Glomerular Filtration Rate Calc 87 mL/min (>90) BUN/Creatinine Ratio 12.0 (10.0-20.0) Serum Glucose 137 mg/dL (74-106) Calcium Level 9.6 mg/dL (8.7-10.4) Stool for White Cells None seen Erythrocyte Sedimentation Rate 4 mm/hr (0-20) C-Reactive Protein High Sensitivity 0.36 mg/dL (<1.0) Urine Color Light-yellow (Yellow) Urine Clarity Clear (Clear) Urine pH 6.0 (5.0-9.0) Urine Specific [place] 1.025 (1.001-1.035) Urine Protein Trace (Negative) Urine Ketones Negative (Negative) Urine Blood 1+ /uL (Negative) Urine Nitrite Negative (Negative) Urine Bilirubin Negative (Negative) Urine Urobilinogen Normal mg/dL (Negative) Urine Leukocyte Esterase 1+ /uL (Negative) Urine RBC 4 /hpf (0 - 4) Urine Microscopic WBC 6 /HPF (0-5) Urine Squamous Epithelial Cells Few /hpf (<5) Urine Bacteria Few /hpf (None Seen) Urine Mucus Few (None Seen) Urine Glucose Normal mg/dL (Normal) Urine Opiates Screen Neg (NEGATIVE) Urine Fentanyl Screen Neg (NEGATIVE) Urine Barbiturates Screen Neg (NEGATIVE) Urine Phencyclidine Screen Neg (NEGATIVE) Urine Amphetamines Screen Neg (NEGATIVE) Urine Benzodiazepines Screen Neg (NEGATIVE) Urine Cocaine Screen Neg (NEGATIVE) Urine Cannabinoids Screen Neg (NEGATIVE) Test 03/18/25 17:20 Lactic Acid Level 1.1 mmol/L (0.4-2.0) Total Bilirubin 0.6 mg/dL (0.2-1.0) Aspartate Amino Transferase (AST) 18 U/L (<34) Alanine Aminotransferase (ALT) 26 U/L (7-40) Alkaline Phosphatase 133 U/L (46-116) Troponin I High Sensitivity < 3 ng/L (</=34) Total Protein 6.9 g/dL (5.7-8.2) Albumin 4.4 g/dL (3.2-4.8) Lipase 22 U/L (12-53) Other Laboratory Tests 03/20/25 05:10 Brief Hx & Hospital Course: Patient is a 49-year-old female with a past medical history of Crohn's disease, kidney stones, insomnia, generalized anxiety disorder presented to the ED with a chief complaint of right flank pain in the which started about a week ago. Patient has a history of right kidney stones for which she had a right nephrostomy tube for 6 months which was removed about 2 months ago. She reports having dysuria, fever, chills and suprapubic abdominal pain for the past week. Patient also reports history of Crohn's disease and has been having diarrhea alternating with constipation with the last bowel movement in the morning today which was loose but denies noticing any blood in the stools. Patient reported that in the last 2 days she has severe right flank sharp pain following which she came to the hospital for further evaluation. Patient was diagnosed with Crohn's disease and was on Humira but was stopped 2 years ago by her physician. Reported that her last colonoscopy was 2 years ago. Past medical history: As per HPI Past surgical history: Right nephrostomy, cholecystectomy Social history: Patient recently moved to the [facility] and lives with family, denies smoking, alcohol, drug use Home medications: Rhythm 10 mg, trazodone 100 mg, quetiapine 400 mg,, Ativan 0.5 mg q.i.d. Hospital Course: patient was admitted on the line of UTI and renal stone, urinalysis showed UTI picture,Abdominal CT scan shows, right perinephric stranding could represent urinary tract infection / pyelonephritis, nonobstructing bilateral renal calculi as described, fatty prominence of the large bowel wall. the patient was started on empiric antibiotic of Rocephin, IV fluid, pain killer, and Flomax. on 03/20/25, patient was filling better since admission, discharge plan discussed with patient and the patient is discharged home. Discharge plan: Follow up with PCP within one week after discharge Patient has an appointment with Urology next week, follow with urology on outpatient basis keflex 500mg twice daily for 1o days continue home meds Condition at Discharge: Fair Final Diagnosis/Problems List Intractable abdominal pain, likely due to renal colic/renal stone Bilateral renal stone Complicated UTI/pyelonephritis H/O Insomnia H/O bipolar disorder H/O generalized anxiety disorder History of Crohn's disease Probable acute gastroenteritis H/O Right kidney stones H/O right nephrostomy Ruled out sepsis Discharge Disposition: Home Discharge Instruct/Medications Diet: Regular Activity: No Restrictions, As Tolerated Follow Up/Referral: Follow up with PCP within one week of discharge Medications: Keflex 500mg BID for 10 days Discharge Statement: "Patient was advised to return to the ER or call 911 if any headaches, dizziness, shortness of breath, chest pain, abdominal pain, bleeding, fevers, or worsening of medical condition. Patient was counseled about treatment plan, medications, possible side effects, patientverbalized understanding. All questions were answered to the best of my ability. This discharge took greater then 30 minutes in planning, reviewing documentation, counseling the patient, and discussing with other team members." ASSESSMENT ASSESSMENT Assessment Pyelonephritis ANDREW KEN RESJOSEP Mar 20, 2025 13:00
[2025-03-20 13:57] VITALS: BP 135/74; PULSE 91; RESP 18; TEMP 98.2; O2SAT 96
[2025-03-20] MEDS ORDERED: TAMSULOSIN HYDROCHLORIDE 0.4 MG CAP PO SCH (18:00)
== END 2025-03-20 14:30 | disposition home or self-care (01) | DRG 465 ==
LOC: ER 16:46 → OVERFLOW 22:50 → WEST WING 03-19 03:36
PROVIDERS: ADMIT Student in an Organized Health Care Education/Training Program; ATTEND Student in an Organized Health Care Education/Training Program
DX: N20.0 Calculus of kidney (principal); N12 Tubulo-interstitial nephritis, not specified as acute or chronic; F31.9 Bipolar disorder, unspecified; K52.9 Noninfective gastroenteritis and colitis, unspecified; K50.90 Crohn's disease, unspecified, without complications; Z87.442 Personal history of urinary calculi; Z79.899 Other long term (current) drug therapy; Z88.5 Allergy status to narcotic agent; N39.0 Urinary tract infection, site not specified
CPT/HCPCS: 36415; 71045; 74176; 80048; 80053; 80307; 81001; 83605; 83690; 83986; 84484; 85025; 85048; 85652; 86141; 87040; 96365; 96375; 99291; G0378; J2405; J3490

== ENCOUNTER 2025-03-28 17:57 | Emergency (ER) | payer MEDICAID ==
[~2025-03-28] VITALS: Ht 152.4 cm; Wt 85.9 kg
[~2025-03-28 17:57] MED LIST changes: +CEPH250C PO
--- NOTE | 2025-03-28 18:06 | ED.PDOC ---
General HPI Comments PATIENT CAME IN DUE TO RIGHT SIDED FLANK PAIN ASSOCIATED WITH N/V/D AND PAIN WITH URIANATION THE PAST 2-3 DAYS. REPORTS SHE WAS ADMITTED HERE EARLIER THIS MONTH FOR KIDNEY STONES Time Seen by MD: 18:04 Primary Care Provider: NANCY Reviewed notes: Nurses Notes, Medications, Allergies Allergies: Coded Allergies: Codeine (Verified Allergy, Unknown, 12/10/24) Morphine (Verified Allergy, Unknown, 12/10/24) Home Meds Active Scripts Cephalexin (KEFLEX CAPSULE) 250 Mg Cp, 500 MG PO BID for 10 Days, #20 CAP Prov:JAQUIAMYJAQUIYEHUDA RESDIENT 03/20/25 Magnesium Hydroxide (Milk of Magnesia 400 mg/5Ml) 1 Jerri Jerri, 1 JERRI PO QID for 30 Days, #350 ML Prov:LA FRAUSTO MD 12/10/24 Psyllium (Metamucil) 1.7 Gm Waf, 1.7 GM PO DAILY for 90 Days, #90 MISC Prov:LA FRAUSTO MD 12/10/24 Information Source: Patient Past Medical History PAST MEDICAL HISTORY: Kidney Stones Surgical History: Denies all surgeries 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 [employer] OFFICER Hx Family History Family History: Reviewed,noncontributory to illness, Unknown Social History Smoker: Non-Smoker Alcohol: Denies ETOH Use Drugs: Denies Drug Use Lives In: Home Constitutional: denies: chills, diaphoresis, fatigue, fever, malaise, sweats, weakness, others EENTM: denies: blurred vision, double vision, ear bleeding, ear discharge, ear drainage, ear pain, ear ringing, eye pain, eye redness, hearing loss, mouth pain, mouth swelling, nasal discharge, nose bleeding, nose congestion, nose pain, photophobia, tearing, throat pain, throat swelling, voice changes, others Respiratory: denies: cough, hemoptysis, orthopnea, SOB at rest, shortness of breath, SOB with excertion, stridor, wheezing, others Cardiovascular: denies: chest pain, dizzy spells, diaphoresis, Dyspnea on exertion, edema, irregular heart beat, left arm pain, lightheadedness, palpitations, PND, syncope, others Gastrointestinal: reports: diarrhea, nausea, vomiting; denies: abdomen distended, abdominal pain, blood streaked bowels, constipated, dysphagia, difficulty swallowing, hematemesis, melena, poor appetite, poor fluid intake, rectal bleeding, rectal pain, others Genitourinary: reports: flank pain; denies: abnormal vagina bleeding, burning, dyspareunia, dysuria, frequency, hematuria, incontinence, pain, , vagina discharge, urgency, others Neurological: denies: dizziness, fainting, headache, left sided numbness, left sided weakness, numbness, paresthesia, pre-existing deficit, right sided numbness, right sided weakness, seizure, speech problems, tingling, tremors, weakness, others Musculoskeletal: denies: back pain, gout, joint pain, joint swelling, muscle pain, muscle stiffness, neck pain, others Integumetry: denies: bruises, change in color, change in hair/nails, dryness, laceration, lesions, lumps, rash, wounds, others Allergic/Immunocompromised: denies: Difficulty Healing, Frequent Infections, Hives, Itching, others Hematologic/Lymphatic: denies: anemia, blood clots, easy bleeding, easy brui sing, swollen glands, others Endocrine: denies: excessive hunger, excessive sweating, excessive thirst, ex cessive urination, flushing, intolerance to cold, intolerance to heat, unexplained weight gain, unexplained weight loss, others Psychiatric: denies: anxiety, bipolar disorder, depression, hopeless, panic disorder, schizophrenia, sleepless, suicidal, others Physical Exam General Appearance: No Apparent Distress, Normal HEENT: Pharynx Normal Neck: Full Range of Motion, Non-Tender Respiratory: Lungs Clear, No Respiratory Distress, Normal Breath Sounds Cardiovascular: No Murmur, Normal Peripheral Pulses, Regular Rate/Rhythm Breast Exam: Deferred Gastrointestinal: No Organomegaly, No Pulsatile Mass, Normal Bowel Sounds, Soft, Tenderness (right lower abd), Other (Positive CVA tenderness) Genitalia: Deferred Pelvic: Deferred Rectal: Deferred Extremities: Normal capillary refill, Normal inspection, Normal range of motion, Non-tender, No pedal edema Musculoskeletal : Apperance: Normal Neurologic: Alert, No Motor Deficits, Normal Affect, Normal Mood, No Sensory Deficits Cerebellar Function: Normal Reflexes: Normal Skin: Dry, Normal Color, Warm Lymphatic: No Adenopathy Was a procedure done? Was a procedure done?: No Differential Diagnosis Kidney stone (Female): Appendicitis, Bowel obstruction, Cholelithiasis, Musculoskeletal pain, Ovarian torsion, Pyelonephritis, Renal failure, Urinary obstruction, Urolithiasis Urinary Problem (Female): Pyelonephritis, Urolithiasis, UTI, Vaginitis X-Ray, Labs, Meds, VS Vital Signs Date Time Temp Pulse Resp B/P (MAP) Pulse Ox O2 Delivery O2 Flow Rate FiO2 03/28/25 21:11 135/77 03/28/25 21:06 98.3 92 18 135/77 (96) 100 98.3 03/28/25 19:50 88 18 100 Room Air 03/28/25 19:50 98.8 88 18 133/73 (93) 100 98.8 03/28/25 19:49 133/73 03/28/25 18:06 98.8 99 20 123/79 (94) 98 98.8 Lab Test 03/28/25 18:39 03/28/25 18:08 Range/Units White Blood Count 7.2 4.4-10.8 10^3/uL Red Blood Count 4.85 4.0-5.20 10^6/uL Hemoglobin 14.9 12.2-16.2 g/dL Hematocrit 43.5 36.0-46.0 % Mean Corpuscular Volume 89.8 80.0-100.0 fL Mean Corpuscular Hemoglobin 30.8 28.0-32.0 pg Mean Corpuscular Hemoglobin Concent 34.3 32.0-36.0 g/dL Red Cell Distribution Width 15.3 H 11.8-14.3 % Platelet Count 350 140-450 10^3/uL Mean Platelet Volume 7.4 6.9-10.8 fL Neutrophils (%) (Auto) 63.8 37.0-80.0 % Lymphocytes (%) (Auto) 25.3 10.0-50.0 % Monocytes (%) (Auto) 7.2 0.0-12.0 % Eosinophils (%) (Auto) 2.4 0.0-7.0 % Basophils (%) (Auto) 1.3 0.0-2.0 % Neutrophils # (Auto) 4.6 1.6-8.6 10 ^3/uL Lymphocytes # (Auto) 1.8 0.4-5.4 10 ^3/uL Monocytes # (Auto) 0.5 0-1.3 10 ^3/uL Eosinophils # (Auto) 0.2 0-0.8 10 ^3/uL Basophils # (Auto) 0.1 0-0.2 10 ^3/uL Nucleated Red Blood Cells 0.0 % Sodium Level 143 136-145 mmol/L Potassium Level 4.0 3.5-5.1 mmol/L Chloride Level 111 H 98-107 mmol/L Carbon Dioxide Level 21 20-31 mmol/L Anion Gap 11 5-15 Blood Urea Nitrogen 13 9-23 mg/dL Creatinine 0.78 0.550-1.02 mg/dL Glomerular Filtration Rate Calc 94 >90 mL/min BUN/Creatinine Ratio 16.7 10.0-20.0 Serum Glucose 101 74-106 mg/dL Calcium Level 9.0 8.7-10.4 mg/dL Total Bilirubin 0.4 0.2-1.0 mg/dL Aspartate Amino Transferase (AST) 20 <34 U/L Alanine Aminotransferase (ALT) 23 7-40 U/L Alkaline Phosphatase 138 H 46-116 U/L Total Protein 7.1 5.7-8.2 g/dL Albumin 4.4 3.2-4.8 g/dL Lipase 39 12-53 U/L Urine Color Light-yellow Yellow Urine Clarity Clear Clear Urine pH 6.0 5.0-9.0 Urine Specific [place] 1.019 1.001-1.035 Urine Protein Negative Negative Urine Ketones Negative Negative Urine Blood 1+ H Negative /uL Urine Nitrite Negative Negative Urine Bilirubin Negative Negative Urine Urobilinogen Normal Negative mg/dL Urine Leukocyte Esterase Trace Negative /uL Urine RBC 21 0 - 4 /hpf Urine Microscopic WBC 5 0-5 /HPF Urine Squamous Epithelial Cells Few <5 /hpf Urine Bacteria None seen None Seen /hpf Urine Glucose Normal Normal mg/dL Current Medications Medications (Trade) Dose Ordered Sig/Wanda Route Start Time Stop Time Status Last Admin Metoclopramide HCl (Reglan Injection) 5 mg ONCE ONCE IV 03/28/25 18:15 03/28/25 18:16 DC 03/28/25 19:49 Ketorolac Tromethamine (Toradol Injection) 30 mg ONCE ONCE IV 03/28/25 18:15 03/28/25 18:16 DC 03/28/25 19:48 Sodium Chloride 1,000 ml @ 1,000 mls/hr Q1H ONCE IV 03/28/25 19:45 03/28/25 20:44 DC 03/28/25 19:45 Fentanyl Citrate 50 mcg ONCE ONCE IV 03/28/25 19:45 03/28/25 19:46 DC 03/28/25 19:49 Fentanyl Citrate 25 mcg ONCE ONCE IV 03/28/25 21:00 03/28/25 21:01 DC 03/28/25 21:11 Time of 1ST Reevaluation: 18:05 Reevaluation 1ST: Unchanged Patient Education/Counseling: Diagnosis, Treatment, Prognosis, Need For Follow Up Family Education/Counseling: No Family Present SEPSIS Sepsis Screen Physician Orders Ct Ab Pel Wo Con-No Oral Or Iv (03/28/25 18:10) Sodium Chloride 0.9% (03/28/25 18:15) Saline Lock (03/28/25 19:28) Vital Signs Date Time Temp Pulse Resp B/P (MAP) Pulse Ox O2 Delivery O2 Flow Rate FiO2 03/28/25 21:11 135/77 03/28/25 21:06 98.3 92 18 135/77 (96) 100 98.3 03/28/25 19:50 88 18 100 Room Air 03/28/25 19:50 98.8 88 18 133/73 (93) 100 98.8 03/28/25 19:49 133/73 03/28/25 18:06 98.8 99 20 123/79 (94) 98 98.8 Laboratory Tests Test 03/28/25 18:39 White Blood Count 7.2 10^3/uL (4.4-10.8) Medications Medications Dose Ordered Sig/Wanda Route Start Time Stop Time Status Last Admin Dose Admin Fentanyl Citrate 25 mcg ONCE ONCE IV 03/28/25 21:00 03/28/25 21:01 DC 03/28/25 21:11 Fentanyl Citrate 50 mcg ONCE ONCE IV 03/28/25 19:45 03/28/25 19:46 DC 03/28/25 19:49 Ketorolac Tromethamine 30 mg ONCE ONCE IV 03/28/25 18:15 03/28/25 18:16 DC 03/28/25 19:48 Metoclopramide HCl 5 mg ONCE ONCE IV 03/28/25 18:15 03/28/25 18:16 DC 03/28/25 19:49 Sodium Chloride 1,000 ml @ 1,000 mls/hr Q1H ONCE IV 03/28/25 19:45 03/28/25 20:44 DC 03/28/25 19:45 Departure 1 Departure Time of Disposition: 19:21 Impression: Primary Impression: Bilateral renal stones Additional Impression: Flank pain Disposition: 01 HOME / SELF CARE / HOMELESS Condition: Stable Discharged With: Self Critical Care Note Critical Care Time?: No Stability Stability form required: LOREE Thornton Mar 28, 2025 18:06
[2025-03-28 18:25] LABS: Urine Bacteria None Seen /hpf (None Seen)
[2025-03-28 18:31] LABS: Urine Blood 1+ /uL (Negative); Urine Clarity Clear (Clear); Urine Color Light-Yellow (Yellow); Urine Protein, UAD Negative (Negative); Urine Specific Gravity 1.019 (1.001-1.035); Urine Squamous Epithelial Cell FEW /hpf (<5); Urine Urobilinogen Normal (Negative); Urine WBC 5 /HPF (0-5)
[2025-03-28 18:57] LABS: Basophils # (auto) 0.1 10 ^3/uL (0-0.2); Basophils % (auto) 1.3 % (0.0-2.0); Eosinophils # (auto) 0.2 10 ^3/uL (0-0.8); Eosinophils % (auto) 2.4 % (0.0-7.0); Hematocrit 43.5 % (36.0-46.0); Hemoglobin 14.9 g/dL (12.2-16.2); Lymphocytes # (auto) 1.8 10 ^3/uL (0.4-5.4); Lymphocytes % (auto) 25.3 % (10.0-50.0); Mean Corpuscular Hemoglobin 30.8 pg (28.0-32.0); Mean Corpuscular Hgb Conc. 34.3 g/dL (32.0-36.0); Mean Corpuscular Volume 89.8 fL (80.0-100.0); Monocytes # (auto) 0.5 10 ^3/uL (0-1.3); Monocytes % (auto) 7.2 % (0.0-12.0); Neutrophils # (auto) 4.6 10 ^3/uL (1.6-8.6); Neutrophils % (auto) 63.8 % (37.0-80.0); Platelet Count (auto) 350 10^3/uL (140-450); Red Blood Cells 4.85 10^6/uL (4.0-5.20); Red Cell Distribution Width 15.3 % (11.8-14.3); White Blood Cell 7.2 10^3/uL (4.4-10.8)
--- NOTE | 2025-03-28 19:06 | DVH ---
Exam: CT CT AB PEL WO CON-NO ORAL OR IV History: right flank pain Comparison Study: CT CT AB PEL WO CON-NO ORAL OR IV on DOS: 03/18/25, CT CT AB PEL WO CON-NO ORAL OR I V on DOS: 12/10/24 TECHNIQUE: Multidetector CT of the abdomen was performed from lung bases to pubic symphysis. Imaging was performed without IV contrast. Axial, coronal and sagittal multiplanar reformats were obtained fr om the axial data set by the technologist. Radiation Dose Information: CT Dose: CTDI volume is 22.69 mGy. Dose-length product is 1131.69 mGy*cm FINDINGS: Bibasilar atelectasis. Partially visualized heart is unremarkable. Liver, spleen, pancreas and adrenal glands areunremarkable. Status post cholecystectomy. Nonobstructing bilateral renal calculi measuring up to 4 mm on the left and 8 mm on the right. No hyd ronephrosis bilaterally. Bilateral ureters and urinary bladder are unremarkable. Uterus and adnexa ar e unremarkable. Stomach is unremarkable. Small bowel loops unremarkable. Appendix is unremarkable. Submucosal fatty i nfiltration of the ascending colon , descending colon, sigmoid and rectum. Small to moderate amount of fecal material within the colon. Ascending colon diverticulosis without diverticulitis. No evidence of intraperitoneal free air or free fluid. No evidence of aortic aneurysm. Unchanged slightly prominent right lower abdominal quadrant lymph nodes which may be reactive, measur ing up to 0.7 cm in short axis. Tiny fat containing umbilical hernia. Sclerotic focus of the right acetabulum and left pelvic bone wh ich represent small bone islands. No evidence of acute bony abnormalities. IMPRESSION: No evidence of acute abdominopelvic abnormalities. Bilateral renal Nonobstructing calculi. Colonic submucosal fatty infiltration. Correlate for chronic inflammatory bowel disease. Colonic diverticulosis without diverticulitis.
[2025-03-28 19:13] LABS: Alanine Aminotransferase 23 U/L (7-40); Albumin 4.4 g/dL (3.2-4.8); Anion Gap 11 (5-15); Aspartate Aminotransferase 20 U/L (<34); BUN/Creatinine Ratio 16.7 (10.0-20.0); Bilirubin, Total 0.4 mg/dL (0.2-1.0); Blood Urea Nitrogen 13 mg/dL (9-23); Carbon Dioxide 21 mmol/L (20-31); Glucose 101 mg/dL (74-106); Lipase 39 U/L (12-53); Sodium 143 mmol/L (136-145); Total Protein 7.1 g/dL (5.7-8.2)
[2025-03-28 19:14] LABS: Alkaline Phosphatase 138 U/L (46-116); Chloride 111 mmol/L (98-107)
[2025-03-28] MEDS: SODIUM CHLORIDE 0.9% 1,000 ML IV ONE ×2 (19:29→19:45)
[2025-03-28] MEDS ORDERED: MORPHINE SULFATE 4 MG/ML SYR/VIAL IV ONE (19:45)
[2025-03-28] MEDS: KETOROLAC TROMETH 30 MG/ML 1ML VIAL IV ONE (19:48)
[2025-03-28] MEDS: METOCLOPRAMIDE HCL 5MG/ml INJ 2ml VIAL IV ONE (19:49)
[2025-03-28] MEDS: fentaNYL CITRATE 100 MCG/2 ML VL IV ONE ×2 (19:49→21:11)
[2025-03-28] MEDS ORDERED: HYDR-4902 PO (21:56)
[2025-03-28 22:12] VITALS: BP 127/89; PULSE 98; RESP 16; TEMP 98.4; O2SAT 100
== END 2025-03-28 22:16 | disposition home or self-care (01) ==
LOC: ER 17:57
DX: N20.0 Calculus of kidney (principal); R10.9 Unspecified abdominal pain; Z88.5 Allergy status to narcotic agent
CPT/HCPCS: 36415; 74176; 80053; 81001; 83690; 85025; 96361; 96374; 96375; 96376; 99285; J1885; J2765; J3010; J7030

== ENCOUNTER 2025-03-31 14:54 | Inpatient (IN) | payer MEDICAID ==
[~2025-03-31] VITALS: Ht 152.4 cm; Wt 81.0 kg
[~2025-03-31 14:54] MED LIST changes: +HYDR-4902 PO
--- NOTE | 2025-03-31 15:21 | ED.PDOC ---
General HPI Comments 49y F who presents to the ED for chief complaint of R sided flank pain. Pt states she has history of kidney stones from many years ago and states it feels like the stone is passing. Pt states over the past few days, she has noticed increasing R sided flank pain, with pain radiating to the R groin, rating the pain 10/10, sharp in nature, with no associated exacerbating or relieving factors. Pt has associated nausea, vomiting, fever, and chills but otherwise denies any other symptoms. Pt otherwise denies any other symptoms at this time. Pt states she came to [facility] a few days ago and states there was were beds available and pt left AMA. Pt otherwise denies any other symptoms at this time. Chief Complaint: Flank Pain Time Seen by MD: 15:15 Primary Care Provider: UNKNOWN Reviewed notes: Nurses Notes, Medications, Allergies Allergies: Coded Allergies: Codeine (Verified Allergy, Unknown, 12/10/24) Morphine (Verified Allergy, Unknown, 12/10/24) Home Meds Active Scripts Hydrocodone-Acetaminophen (Hydrocodone Bitartrate/AC 5-325 mg) 1 Tab Tab, 1 TAB PO Q6HP PRN for 3 Days, #12 TAB Prov:RICHARD TORIBIO MD 03/28/25 Cephalexin (KEFLEX CAPSULE) 250 Mg Cp, 500 MG PO BID for 10 Days, #20 CAP Prov:ANDREW KEN RESDIENT 03/20/25 Magnesium Hydroxide (Milk of Magnesia 400 mg/5Ml) 1 Jerri Jerri, 1 JERRI PO QID for 30 Days, #350 ML Prov:LA FRAUSTO MD 12/10/24 Psyllium (Metamucil) 1.7 Gm Waf, 1.7 GM PO DAILY for 90 Days, #90 MISC Prov:LA FRAUSTO MD 12/10/24 Information Source: Patient Mode of Arrival: Ambulatory Brought in by: self Severity: Moderate Inability to void: None Timing: Hours, Days Duration: Since onset Prehospital treatment: None Onset: Spontaneous History of: Kidney stone Location: Suprapubic, (R) Flank Modifying factors: None associated signs and symptoms: Fever, Nausea, Vomiting Past Medical History PAST MEDICAL HISTORY: Kidney Stones Surgical History: Denies all surgeries 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 Family History Family History: Reviewed,noncontributory to illness, Unknown Social History Smoker: Non-Smoker Alcohol: Denies ETOH Use Drugs: Denies Drug Use Lives In: Home Constitutional: reports: chills, fever; denies: diaphoresis, fatigue, malaise, sweats, weakness, others EENTM: denies: blurred vision, double vision, ear bleeding, ear discharge, ear drainage, ear pain, ear ringing, eye pain, eye redness, hearing loss, mouth pain, mouth swelling, nasal discharge, nose bleeding, nose congestion, nose pain, photophobia, tearing, throat pain, throat swelling, voice changes, others Respiratory: denies: cough, hemoptysis, orthopnea, SOB at rest, shortness of breath, SOB with excertion, stridor, wheezing, others Cardiovascular: denies: chest pain, dizzy spells, diaphoresis, Dyspnea on exertion, edema, irregular heart beat, left arm pain, lightheadedness, palpitations, PND, syncope, others Gastrointestinal: reports: nausea, vomiting; denies: abdomen distended, a bdominal pain, blood streaked bowels, constipated, diarrhea, dysphagia, difficulty swallowing, hematemesis, melena, poor appetite, poor fluid intake, rectal bleeding, rectal pain, others Genitourinary: denies: abnormal vagina bleeding, burning, dyspareunia, dysuria, flank pain, frequency, hematuria, incontinence, pain, , vagina discharge, urgency, others Neurological: denies: dizziness, fainting, headache, left sided numbness, left sided weakness, numbness, paresthesia, pre-existing deficit, right sided numbness, right sided weakness, seizure, speech problems, tingling, tremors, we akness, others Musculoskeletal: denies: back pain, gout, joint pain, joint swelling, muscle pain, muscle stiffness, neck pain, others Integumetry: denies: bruises, change in color, change in hair/nails, dryness, laceration, lesions, lumps, rash, wounds, others Allergic/Immunocompromised: denies: Difficulty Healing, Frequent Infections, Hives, Itching, others Hematologic/Lymphatic: denies: anemia, blood clots, easy bleeding, easy bruising, swollen glands, others Endocrine: denies: excessive hunger, excessive sweating, excessive thirst, excessive urination, flushing, intolerance to cold, intolerance to heat, unexplained weight gain, unexplained weight loss, others Psychiatric: denies: anxiety, bipolar disorder, depression, hopeless, panic disorder, schizophrenia, sleepless, suicidal, others All Other Systems: Reviewed and Negative Physical Exam General Appearance: Moderate Distress HEENT: Normal ENT Inspection, Pharynx Normal, TMs Normal Neck: Full Range of Motion, Non-Tender, Normal, Normal Inspection Respiratory: Chest Non-Tender, Lungs Clear, No Accessory Muscle Use, No Respiratory Distress, Normal Breath Sounds Cardiovascular: No Edema, No JVD, No Murmur, No Gallop, Normal Peripheral Pulses, Regular Rate/Rhythm Breast Exam: Deferred Gastrointestinal: No Organomegaly, Non Tender, No Pulsatile Mass, Normal Bowel Sounds, Soft Genitalia: Deferred Pelvic: Deferred Rectal: Deferred Extremities: No calf tenderness, Normal capillary refill, No pedal edema Musculoskeletal : Location: Bilateral Extremity Location: Back Apperance: Limited ROM, Tenderness: Moderate Neurologic: Alert, riprap placer II-XII nml as Tested, Motor Weakness, Normal Affect, Normal Mood, No Sensory Deficits Cerebellar Function: Normal Reflexes: Normal Skin: Dry, Normal Color, Warm Lymphatic: No Adenopathy Was a procedure done? Was a procedure done?: No Differential Diagnosis Kidney stone (Female): Cholelithiasis, Musculoskeletal pain, Pyelonephritis, Strain, Urolithiasis, Other (hydronephrosis) X-Ray, Labs, Meds, VS Vital Signs Date Time Temp Pulse Resp B/P (MAP) Pulse Ox O2 Delivery O2 Flow Rate FiO2 03/31/25 19:48 98.1 87 18 137/87 (104) 97 98.1 03/31/25 16:51 98.7 85 17 152/87 (108) 98 98.7 03/31/25 16:35 85 17 152/87 03/31/25 16:05 95 18 121/85 03/31/25 16:00 Room Air* 0 21 03/31/25 16:00 98.7 95 18 121/85 (97) 98 98.7 03/31/25 15:28 98.7 107 16 116/80 (92) 96 98.7 Lab Test 03/31/25 15:33 03/31/25 15:30 Range/Units White Blood Count 7.0 4.4-10.8 10^3/uL Red Blood Count 4.96 4.0-5.20 10^6/uL Hemoglobin 15.3 12.2-16.2 g/dL Hematocrit 44.7 36.0-46.0 % Mean Corpuscular Volume 90.0 80.0-100.0 fL Mean Corpuscular Hemoglobin 30.7 28.0-32.0 pg Mean Corpuscular Hemoglobin Concent 34.1 32.0-36.0 g/dL Red Cell Distribution Width 15.0 H 11.8-14.3 % Platelet Count 362 140-450 10^3/uL Mean Platelet Volume 7.2 6.9-10.8 fL Neutrophils (%) (Auto) 63.3 37.0-80.0 % Lymphocytes (%) (Auto) 26.5 10.0-50.0 % Monocytes (%) (Auto) 6.7 0.0-12.0 % Eosinophils (%) (Auto) 2.0 0.0-7.0 % Basophils (%) (Auto) 1.5 0.0-2.0 % Neutrophils # (Auto) 4.4 1.6-8.6 10 ^3/uL Lymphocytes # (Auto) 1.9 0.4-5.4 10 ^3/uL Monocytes # (Auto) 0.5 0-1.3 10 ^3/uL Eosinophils # (Auto) 0.1 0-0.8 10 ^3/uL Basophils # (Auto) 0.1 0-0.2 10 ^3/uL Nucleated Red Blood Cells 0.0 % Sodium Level 142 136-145 mmol/L Potassium Level 4.1 3.5-5.1 mmol/L Chloride Level 111 H 98-107 mmol/L Carbon Dioxide Level 22 20-31 mmol/L Anion Gap 9 5-15 Blood Urea Nitrogen 17 9-23 mg/dL Creatinine 0.78 0.550-1.02 mg/dL Glomerular Filtration Rate Calc 94 >90 mL/min BUN/Creatinine Ratio 21.8 H 10.0-20.0 Serum Glucose 103 74-106 mg/dL Calcium Level 9.2 8.7-10.4 mg/dL Urine Color Light-yellow Yellow Urine Clarity Clear Clear Urine pH 5.5 5.0-9.0 Urine Specific [place] 1.020 1.001-1.035 Urine Protein Negative Negative Urine Ketones Negative Negative Urine Blood 1+ H Negative /uL Urine Nitrite Negative Negative Urine Bilirubin Negative Negative Urine Urobilinogen Normal Negative mg/dL Urine Leukocyte Esterase 2+ Negative /uL Urine RBC 12 0 - 4 /hpf Urine Microscopic WBC 7 H 0-5 /HPF Urine Squamous Epithelial Cells Few <5 /hpf Urine Bacteria None seen None Seen /hpf Urine Mucus Few None Seen Urine Glucose Normal Normal mg/dL Current Medications Medications (Trade) Dose Ordered Sig/Wanda Route Start Time Stop Time Status Last Admin Ondansetron HCl (Zofran) 4 mg ONCE ONCE IV 03/31/25 15:15 03/31/25 15:19 DC 03/31/25 16:04 Sodium Chloride 1,000 ml @ 1,000 mls/hr Q1H ONCE IVB 03/31/25 15:15 03/31/25 16:14 DC 03/31/25 16:04 Hydromorphone HCl (Dilaudid Injection) 0.5 mg ONCE ONCE IV 03/31/25 15:15 03/31/25 15:19 DC 03/31/25 16:05 Ketorolac Tromethamine (Toradol Injection) 30 mg ONCE ONCE IV 03/31/25 15:15 03/31/25 15:19 DC 03/31/25 16:05 EXAM: CT CT AB PEL WO CON-NO ORAL OR IV IMPRESSION: 1. Nonobstructing bilateral nephrolithiasis. No evidence of urinary tract obstruction bilaterally. 2. Postoperative changes cholecystectomy. 3. Bilateral nonobstructing nephrolithiasis. 4. Fecal retention in the colon suggestive of constipation. 5. Probable fibroid uterus. 6. No evidence of bowel obstruction, acute appendicitis, or other acute process in the abdomen or pelvis. The patient's urine test is positive for UTI The patient is being given Rocephin 1 g IV piggyback The patient was given Zofran for the nausea The patient was also given Dilaudid and ketorolac for the pain The patient did receive some relief but now the patient states that the symptoms are coming back The patient's CBC is within normal limits The chemistry panel is within normal limits The patient is given another dose of Dilaudid The patient will return to the emergency department's the condition worsens Images Reviewed?: Images reviewed and evaluated by me Time of 1ST Reevaluation: 15:45 Reevaluation 1ST: Unchanged Patient Education/Counseling: Diagnosis, Treatment, Prognosis Family Education/Counseling: No Family Present SEPSIS Sepsis Screen Physician Orders Ct Ab Pel Wo Con-No Oral Or Iv (03/31/25 15:13) Heplock Iv (03/31/25 15:13) Vital Signs Date Time Temp Pulse Resp B/P (MAP) Pulse Ox O2 Delivery O2 Flow Rate FiO2 03/31/25 19:48 98.1 87 18 137/87 (104) 97 98.1 03/31/25 16:51 98.7 85 17 152/87 (108) 98 98.7 03/31/25 16:35 85 17 152/87 03/31/25 16:05 95 18 121/85 03/31/25 16:00 Room Air* 0 21 03/31/25 16:00 98.7 95 18 121/85 (97) 98 98.7 03/31/25 15:28 98.7 107 16 116/80 (92) 96 98.7 Laboratory Tests Test 03/31/25 15:33 White Blood Count 7.0 10^3/uL (4.4-10.8) Medications Medications Dose Ordered Sig/Wanda Route Start Time Stop Time Status Last Admin Dose Admin Hydromorphone HCl 0.5 mg ONCE ONCE IV 03/31/25 15:15 03/31/25 15:19 DC 03/31/25 16:05 Ketorolac Tromethamine 30 mg ONCE ONCE IV 03/31/25 15:15 03/31/25 15:19 DC 03/31/25 16:05 Ondansetron HCl 4 mg ONCE ONCE IV 03/31/25 15:15 03/31/25 15:19 DC 03/31/25 16:04 Sodium Chloride 1,000 ml @ 1,000 mls/hr Q1H ONCE IVB 03/31/25 15:15 03/31/25 16:14 DC 03/31/25 16:04 Departure 1 Departure Time of Disposition: 20:03 Impression: Primary Impression: Intractable abdominal pain Additional Impressions: Flank pain Kidney stone Disposition: ADMITTED INPATIENT Admit to: Med Surg Condition: Fair Critical Care Note Critical Care Time?: No Stability Stability form required: Yes Unstable for transfer: ED Physician Assesment (Clinical assesment) Heart Score Heart Score: Heart Score Response (Comments) Value History N/A 0 EKG N/A 0 Age N/A 0 Risk Factors N/A 0 Troponin N/A 0 Total 0 I personally scribed for AMANDA CHO MD ([email or web address]) on 03/31/25 at 15:21. Electronically submitted by Luiz Gamble ([facility]). I personally scribed for AMANDA CHO MD ([email or web address]) on 03/31/25 at 15:32. Electronically submitted by Luiz Gamble ([facility]). I personally scribed for AMANDA CHO MD ([email or web address]) on 03/31/25 at 16:12. Electronically submitted by Luiz Gamble ([facility]). AMANDA CHO MD Mar 31, 2025 15:21
[2025-03-31 15:36] LABS: Urine Protein, UAD Negative (Negative)
[2025-03-31 15:43] LABS: Hematocrit 44.7 % (36.0-46.0); Hemoglobin 15.3 g/dL (12.2-16.2); Mean Corpuscular Hemoglobin 30.7 pg (28.0-32.0); Mean Corpuscular Volume 90.0 fL (80.0-100.0); Nucleated Red Blood Cells % 0.0 %
[2025-03-31 15:52] LABS: Potassium 4.1 mmol/L (3.5-5.1); Sodium 142 mmol/L (136-145)
[2025-03-31 15:53] LABS: Anion Gap 9 (5-15); Carbon Dioxide 22 mmol/L (20-31)
[2025-03-31 15:54] LABS: Calcium 9.2 mg/dL (8.7-10.4)
[2025-03-31 15:56] LABS: Chloride 111 mmol/L (98-107)
[2025-03-31 15:59] LABS: BUN/Creatinine Ratio 21.8 (10.0-20.0); Blood Urea Nitrogen 17 mg/dL (9-23); Glucose 103 mg/dL (74-106)
--- NOTE | 2025-03-31 16:01 | DVH ---
EXAM: CT CT AB PEL WO CON-NO ORAL OR IV HISTORY: right flank pain COMPARISON: CT CT AB PEL WO CON-NO ORAL OR IV on DOS: 03/28/25, CT CT AB PEL WO CON-NO ORAL OR IV on D OS: 03/18/25, CT CT AB PEL WO CON-NO ORAL OR IV on DOS: 12/10/24 TECHNIQUE: Helical CT images of the abdomen and pelvis were performed without contrast. Sagittal and coronal ref ormatted images were obtained. This CT exam was performed using one or more of the following dose red uction techniques: Automated exposure control, adjustment of the mA and/or kV according to patient si ze, or use of iterative reconstruction technique. Radiation Dose: CT Abdomen/Pelvis: CTDIvol 18.51 mGy, DLP 1112.0 mGy*cm. FINDINGS: Urinary tract: There is a right renal inferior pole nonobstructing 8 mm calculus. There is a left re nal inferior pole 4 mm nonobstructing calculus. No ureteral calculi, hydronephrosis, or hydroureter b ilaterally. No urinary bladder calculi. The urinary bladder is decompressed. Miscellaneous: There is mild scarring or atelectasis in the lung bases. The heart is not enlarged. The gallbladder is surgically absent. The noncontrast liver, spleen, pancreas, and adrenal glands are unremarkable. No abdominal aortic aneurysm. No abnormal bowel dilatation, free air, or free fluid. There is fecal retention in the colon. The appendix is not dilated and does not appear inflamed. P robable posterior uterine fibroid. There is lumbar degenerative disc disease, greatest at L2-L3. The re is a lumbosacral transitional vertebrae with partial sacralization of L5. IMPRESSION: 1. Nonobstructing bilateral nephrolithiasis. No evidence of urinary tract obstruction bilaterally. 2. Postoperative changes cholecystectomy. 3. Bilateral nonobstructing nephrolithiasis. 4. Fecal retention in the colon suggestive of constipation. 5. Probable fibroid uterus. 6. No evidence of bowel obstruction, acute appendicitis, or other acute process in the abdomen or pel vis.
[2025-03-31] MEDS: SODIUM CHLORIDE 0.9% 1,000 ML IVB ONE (16:04)
[2025-03-31] MEDS: ONDANSETRON HCL 4 MG/2 ML VIAL IV ONE ×2 (16:04→20:53)
[2025-03-31] MEDS: KETOROLAC TROMETH 30 MG/ML 1ML VIAL IV ONE (16:05)
[2025-03-31] MEDS: HYDROmorphone HCL 2 MG/ML VL/or syr IV ONE ×2 (16:05→20:52)
[2025-03-31] MEDS: cefTRIAXone 1GM/50ML D5W 50 ML IV ONE (21:00)
[2025-03-31] MEDS: SODIUM CHLORIDE 0.9% 1,000 ML IV SCH (21:00)
[2025-03-31] MEDS ORDERED: ONDANSETRON HCL 4 MG/2 ML VIAL IV PRN (21:00)
[2025-03-31] MEDS ORDERED: HYDROcodone-ACET 5/325MG TAB PO PRN (21:00)
--- NOTE | 2025-03-31 21:13 | DVHHP2 ---
History of Present Illness History of Present Illness Patient is 49 years old female with past medical history of Crohn's disease, bipolar disorder, generalized anxiety disorder, renal stone came with a complaint of right flank pain. As per patient she has been having right flank pain for last 7 days which was intermittent initially but for last couple of days it is persistent, 10/10, sharp in nature, radiating to the right groin, no aggravating or relieving factor. Patient also endorsed that over last 48 hours pain got worse. Pain was associated with nausea and patient had vomiting 4 times today, no blood. Patient also endorsed subjective feeling of feverish and chill. On further inquiry patient also reported increased frequency of micturition. Patient with a history of Crohn's disease, having loose motion 5 to 6 times a day, no blood. Urinalysis revealed leukocyte esterase 2+, WBC 7. CT scan of the abdomen revealed bilateral calculi, right 8 mm and left 4 mm renal stone, Probable fibroid uterus. Renal ultrasound revealed bilateral renal calculi. Patient was recently discharged from [facility] on 03/20/2025 due to renal stone/UTI. Past Medical History Crohn's disease, bilateral disorder, generalized anxiety disorder, renal stone Past Surgical History Right nephrostomy, cholecystectomy Past Social History Patient recently moved to the [facility] and lives with family, denies smoking, alcohol, drug use Home medication Ativan 10 mg p.o. daily, Ambien 10 mg p.o. daily, Vraylar 1 mg q.d., quetiapine 50 mg daily, trazodone 100 mg q.h.s., Review of Systems Review of Systems Allergy- codein, morphine Patient was seen today at the bedside. Cardiovascular- deny acute chest pain or shortness of breath or cough or palpitation Respiratory denies cough or short of breath or wheezing Musculoskeletal-denies acute joint swelling or tenderness or redness Neurological- denies acute dysarthria, dysphagia, change in vision Psychiatry- denies depression or SI or HI Skin- denies acute rash or purpura Allergies: Coded Allergies: Codeine (Verified Allergy, Unknown, 12/10/24) Morphine (Verified Allergy, Unknown, 12/10/24) Exam Vital Signs Vital Signs Date Time Temp Pulse Resp B/P (MAP) Pulse Ox O2 Delivery O2 Flow Rate FiO2 03/31/25 20:52 83 16 132/74 03/31/25 19:48 98.1 97 98.1 03/31/25 16:00 Room Air* 0 21 Exam General examination- awake, alert, oriented HEENT- PEERLA, no acute nasal discharge Cardiovascular- S1-S2 audible, rate and rhythm regular, no murmur Respiratory- CTAB, no wheeze or rhonchi Gastrointestinal-nontender, bowel sound+. Nondistended Musculoskeletal-no acute joint swelling or tenderness or redness Renal system-right renal angle tenderness+ Lower extremity- no leg edema Neurological- cranial nerves intact, no acute dysarthria or dysphagia Psychiatry- denies depression or SI or HI Skin- no acute rash or purpura Labs/Xrays Labs Test 03/31/25 15:33 03/31/25 15:30 Range/Units White Blood Count 7.0 4.4-10.8 10^3/uL Red Blood Count 4.96 4.0-5.20 10^6/uL Hemoglobin 15.3 12.2-16.2 g/dL Hematocrit 44.7 36.0-46.0 % Mean Corpuscular Volume 90.0 80.0-100.0 fL Mean Corpuscular Hemoglobin 30.7 28.0-32.0 pg Mean Corpuscular Hemoglobin Concent 34.1 32.0-36.0 g/dL Red Cell Distribution Width 15.0 H 11.8-14.3 % Platelet Count 362 140-450 10^3/uL Mean Platelet Volume 7.2 6.9-10.8 fL Neutrophils (%) (Auto) 63.3 37.0-80.0 % Lymphocytes (%) (Auto) 26.5 10.0-50.0 % Monocytes (%) (Auto) 6.7 0.0-12.0 % Eosinophils (%) (Auto) 2.0 0.0-7.0 % Basophils (%) (Auto) 1.5 0.0-2.0 % Neutrophils # (Auto) 4.4 1.6-8.6 10 ^3/uL Lymphocytes # (Auto) 1.9 0.4-5.4 10 ^3/uL Monocytes # (Auto) 0.5 0-1.3 10 ^3/uL Eosinophils # (Auto) 0.1 0-0.8 10 ^3/uL Basophils # (Auto) 0.1 0-0.2 10 ^3/uL Nucleated Red Blood Cells 0.0 % Sodium Level 142 136-145 mmol/L Potassium Level 4.1 3.5-5.1 mmol/L Chloride Level 111 H 98-107 mmol/L Carbon Dioxide Level 22 20-31 mmol/L Anion Gap 9 5-15 Blood Urea Nitrogen 17 9-23 mg/dL Creatinine 0.78 0.550-1.02 mg/dL Glomerular Filtration Rate Calc 94 >90 mL/min BUN/Creatinine Ratio 21.8 H 10.0-20.0 Serum Glucose 103 74-106 mg/dL Calcium Level 9.2 8.7-10.4 mg/dL Urine Color Light-yellow Yellow Urine Clarity Clear Clear Urine pH 5.5 5.0-9.0 Urine Specific [place] 1.020 1.001-1.035 Urine Protein Negative Negative Urine Ketones Negative Negative Urine Blood 1+ H Negative /uL Urine Nitrite Negative Negative Urine Bilirubin Negative Negative Urine Urobilinogen Normal Negative mg/dL Urine Leukocyte Esterase 2+ Negative /uL Urine RBC 12 0 - 4 /hpf Urine Microscopic WBC 7 H 0-5 /HPF Urine Squamous Epithelial Cells Few <5 /hpf Urine Bacteria None seen None Seen /hpf Urine Mucus Few None Seen Urine Glucose Normal Normal mg/dL Assessment/Plan Assessment/Plan Assessment and plan # acute complicated cystitis -continue ceftriaxone as prescribed -pending urine culture #Suspected acute pyelonephritis/Nephrolithiasis -right flank pain, -CT abdomen and pelvis- bilaterally renal calculi -continue ceftriaxone 2 g IV daily -pending urine culture -continue IV normal saline @125 mL/hour -CT scan of the abdomen and pelvis with contrast -ordered x-ray KUB for 04/02/25 # intractable right flank pain likely due to Nephrolithiasis /acute pyelonephritis -continue pain medication as prescribed -ordered Flomax 0.4 mg p.o. daily -ordered mannitol 100 mL IV stat # intractable nausea and vomiting likely due to pyelonephritis/ Nephrolithiasis -continue IV normal saline as prescribed -continue Zofran PRN # probable fibroid uterus -patient was advised to follow up with the Gynecology and corporate travel coordinator as an out patient # Crohn's disease -patient reports not on any medication at this moment # bipolar disorder -continue quetiapine 50 mg p.o. daily # generalized anxiety disorder -continue Ativan 10 mg p.o. daily -continue Ambien p.o. q.h.s. # obesity -patient was counseled about the effect of obesity, healthy diet, physical activity, weight reduction Goals of care, Code status - Full code ; discussed with >15 minutes PUD prophylaxis: Pantoprazole DVT prophylaxis: Patient ambulating Plan discussed with Dr. Gant , nursing staff, Total time spent on patient evaluation, chart review, assessment and plan, discussion discussion >35 minutes Plan discussed with: Patient, Other (RN) My Orders Orders - ARUNA PADILLA Procedure Category Date Status Time Admit ADMIT 03/31/25 Transmitted 20:54 Code Status CODE 03/31/25 Transmitted 20:54 Sodium Chloride 0.9% PHA 03/31/25 In Process 21:00 Ondansetron Hcl PHA 03/31/25 In Process (Zofran) 21:00 Complete Blood Count LAB 04/01/25 Verified 04:00 Comprehensive LAB 04/01/25 Verified Metabolic Panel 04:00 Clear Liq Diet DIET 04/01/25 Transmitted Breakfast Notify Md Of Changes JEREMIE 03/31/25 In Process From Base 20:54 Hydrocodone-Acet PHA 03/31/25 Verified 5/325mg Tab ([place] 21:00 Date of Service: Mar 31, 2025 Billing Provider: KRIS GANT MD Common Visit Codes: 58929-[id number] INP/OBS CARE (HIGH) Secondary Visit Codes: [id number] CARE PLAN 30 MINUTES ARUNA PADILLA Mar 31, 2025 21:13
[2025-03-31] MEDS: PANTOPRAZOLE 40 MG TAB PO ONE (21:40)
[2025-03-31 22:11] VITALS: BP 112/77; PULSE 77; RESP 17; TEMP 98.1; O2SAT 97; O2SAT 98
[2025-03-31] MEDS: ZOLPIDEM TARTRATE 5 MG TAB PO PRN (22:43)
[2025-03-31] MEDS ORDERED: QUET200T4 PO (23:01)
[2025-03-31] MEDS ORDERED: TRAZ-227 PO (23:03)
[2025-03-31] MEDS ORDERED: LORA-1121 PO (23:04)
[2025-03-31] MEDS ORDERED: ZOLP10TA PO (23:05)
[2025-03-31] MEDS ORDERED: CARI1CAP PO (23:22)
[2025-03-31] MEDS: LORazepam 0.5 MG TAB PO PRN (23:34)
[2025-04-01] VITALS (7 sets, daily range): BP systolic 106–139; BP diastolic 68–88; PULSE 82–100; RESP 16–19; TEMP 97.7–98.6; O2SAT 96–99
[2025-04-01] MEDS: cefTRIAXone 1GM/50ML D5W 50 ML IV ONE (00:21)
[2025-04-01] MEDS: HYDROmorphone HCL 2 MG/ML VL/or syr IV ONE ×2 (00:39→10:26)
--- NOTE | 2025-04-01 02:09 | DVH ---
US KIDNEY HISTORY: Suspected pyelonephritis COMPARISON: None TECHNIQUE: Transverse and longitudinal grayscale and color Doppler images were obtained of the kidney s and bladder. FINDINGS: The right kidney measures 10 cm in length. The left kidney measures 10 cm in length. There is no ev idence of hydronephrosis. Renal cortical echotexture appears normal. Bilateral renal calculi measuring 1.4 cm on the right and 1.0 cm on the left. Bladder: Contracted IMPRESSION: 1. Bilateral renal calculi
[2025-04-01] MEDS ORDERED: KETOROLAC TROMETH 30 MG/ML 1ML VIAL IV ONE (05:30)
[2025-04-01] MEDS: PANTOPRAZOLE 40 MG TAB PO SCH (05:50)
[2025-04-01 07:16] LABS: Alanine Aminotransferase 22 U/L (7-40); Albumin 4.0 g/dL (3.2-4.8); Bilirubin, Total 0.5 mg/dL (0.2-1.0); Glucose 89 mg/dL (74-106); Potassium 3.7 mmol/L (3.5-5.1); Sodium 143 mmol/L (136-145); Total Protein 6.5 g/dL (5.7-8.2)
[2025-04-01 07:20] LABS: Alkaline Phosphatase 122 U/L (46-116); Calcium 8.3 mg/dL (8.7-10.4); Chloride 112 mmol/L (98-107)
[2025-04-01 07:22] LABS: BUN/Creatinine Ratio 14.7 (10.0-20.0); Blood Urea Nitrogen 10 mg/dL (9-23)
[2025-04-01 07:25] LABS: Anion Gap 10 (5-15); Carbon Dioxide 21 mmol/L (20-31)
[2025-04-01 08:49] LABS: Hematocrit 39.6 % (36.0-46.0); Hemoglobin 13.7 g/dL (12.2-16.2); Mean Corpuscular Hemoglobin 31.3 pg (28.0-32.0); Mean Corpuscular Volume 90.8 fL (80.0-100.0); Nucleated Red Blood Cells % 0.1 %
[2025-04-01] MEDS: MANNITOL FTV 25% 12.5 GM/50 ML 100 ML IV ONE (09:45)
[2025-04-01] MEDS ORDERED: TAMSULOSIN HYDROCHLORIDE 0.4 MG CAP PO ONE (09:45)
[2025-04-01] MEDS: cefTRIAXone 2GM/50ML D5W 50 ML IV SCH (10:24)
[2025-04-01] MEDS: SODIUM CHLORIDE 0.9% 1,000 ML IV SCH (10:45)
--- NOTE | 2025-04-01 11:09 | DVH ---
Date: 04/01/2025 10:07 AM Examination: XY KUB ABDOMEN SINGLE VIEW History: renal stone Comparison: None TECHNIQUE: Frontal views of the abdomen was obtained. FINDINGS: Bowel gas pattern is unremarkable. The lung bases are unremarkable. No acute osseous abnormality identified. IMPRESSION: Nonobstructive bowel gas pattern. Bilateral nonobstructing renal calculi measuring up to 2 mm bilateral renal pelvices.
--- NOTE | 2025-04-01 12:13 | DVHINCON2 ---
Date of service: Apr 01, 2025 Referring Physician hospitalist Reason for Consultation kidney stones and recurrent UTIs History of Present Illness History Source: Patient, RN Notes, MD Notes Exam Limitations: No limitations HPI 49 yo female with c/o right flank pain 06/09. CT showed bilateral small non obstructing lower pole renal stones. No hydro. Denies fever, hematuria. Home Meds Active Scripts Hydrocodone-Acetaminophen (Hydrocodone Bitartrate/AC 5-325 mg) 1 Tab Tab, 1 TAB PO Q6HP PRN for 3 Days, #12 TAB Prov:RICHARD TORIBIO MD 03/28/25 Cephalexin (KEFLEX CAPSULE) 250 Mg Cp, 500 MG PO BID for 10 Days, #20 CAP Prov:ANDREW KEN RESDIENT 03/20/25 Magnesium Hydroxide (Milk of Magnesia 400 mg/5Ml) 1 Jerri Jerri, 1 JERRI PO QID for 30 Days, #350 ML Prov:LA FRAUSTO MD 12/10/24 Psyllium (Metamucil) 1.7 Gm Waf, 1.7 GM PO DAILY for 90 Days, #90 MISC Prov:LA FRAUSTO MD 12/10/24 Reported Medications Cariprazine Hydrochloride (Vraylar) 1.5 Mg Cap, 1.5 MG PO, CAP 03/31/25 Zolpidem Tartrate (Ambien) 10 Mg Tab, 10 MG PO HS, TAB 03/31/25 Lorazepam (ATIVAN TABLET) 0.5 Mg Tb, 2 TAB PO DAILY, #30 TAB 03/31/25 Trazodone Hcl (Trazodone Hcl) 50 Mg Tab, 100 MG PO HS, MG 03/31/25 Quetiapine Fumerate (Seroquel Xr) 200 Mg Tab, 400 MG PO QHSP for 30 Days, MG 03/31/25 Past Medical History Renal/: UTI Patient Family History: Asthma G8 MOTHER Diabetes mellitus G8 FATHER FH: hepatic cirrhosis G8 MOTHER Review of Systems Gastrointestinal: Nausea, Vomiting, Abdominal Pain H&P Exam Vital Signs Vital Signs Date Time Temp Pulse Resp B/P (MAP) Pulse Ox O2 Delivery O2 Flow Rate FiO2 04/01/25 10:26 88 18 115/72 04/01/25 09:00 97.7 98 97.7 03/31/25 22:11 Room Air* 0 21 General Appeara: Well developed, Well nourished, Normal Appearance Neuro/Mental St: Alert, Oriented Appearance: Appropriate appearance, Appropriate insight Eye contact/ Speech: Cooperative, Good eye contact, Normal speech Skin Exam: Normal inspection, Normal color, Warm/dry Labs/Xrays [facility] [id number] [facility] [id number] Ph: [phone] DIAGNOSTIC IMAGING Diagnostic Imaging Report : [id number] Signed PATIENT: KENYA RIVERA ACCT: [id number] UNIT: [id number] : 1975 LOC: ER ROOM / BED: / AGE / SEX: 49 / F ADM STATUS: REG ER SERVICE 2491 ORDERING PHYSICIAN: AMANDA CHO MD PROCEDURE(s): ABPL - CT AB PEL WO CON-NO ORAL OR IV REASON: right flank pain ORDER NUMBER(s): [id number], ACCESSION NUMBER(s): [id number] EXAM: CT CT AB PEL WO CON-NO ORAL OR IV HISTORY: right flank pain COMPARISON: CT CT AB PEL WO CON-NO ORAL OR IV on DOS: 03/28/25, CT CT AB PEL WO CON-NO ORAL OR IV on DOS: 03/18/25, CT CT AB PEL WO CON-NO ORAL OR IV on DOS: 12/10/24 TECHNIQUE: Helical CT images of the abdomen and pelvis were performed without contrast. Sagittal and coronal reformatted images were obtained. This CT exam was performe d using one or more of the following dose reduction techniques: Automated exposure control, adjustment of the mA and/or kV according to patient size, or use of iterative reconstruction technique. Radiation Dose: CT Abdomen/Pelvis: CTDIvol 18.51 mGy, DLP 1112.0 mGy*cm. FINDINGS: Urinary tract: There is a right renal inferior pole nonobstructing 8 mm calculus. There is a left renal inferior pole 4 mm nonobstructing calculus. No ureteral calculi, hydronephrosis, or hydroureter bilaterally. No urinary blad jennifer calculi. The urinary bladder is decompressed. Miscellaneous: There is mild scarring or atelectasis in the lung bases. The heart is not enlarged. The gallbladder is surgically absent. The noncontrast liver, spleen, pancreas, and adrenal glands are unremarkable. No abdominal aortic aneurysm. No abnormal bowel dilatation, free air, or free fluid. There is fecal retention in the colon. The appendix is not dilated and does not appear inflamed. Probable posterior uterine fibroid. There is lumbar dege nerative disc disease, greatest at L2-L3. There is a lumbosacral transitional vertebrae with partial sacralization of L5. IMPRESSION: 1. Nonobstructing bilateral nephrolithiasis. No evidence of urinary tract obstruction bilaterally. 2. Postoperative changes cholecystectomy. 3. Bilateral nonobstructing nephrolithiasis. 4. Fecal retention in the colon suggestive of constipation. 5. Probable fibroid uterus. 6. No evidence of bowel obstruction, acute appendicitis, or other acute process in the abdomen or pelvis. ATED BY: ANGELICA GOMEZ MD DICTATED DATE/TIME: 03/31/25 1559 SIGNED BY: ANGELICA GOMEZ MD SIGNED DATE/TIME: 03/31/25 1559 CC: Labs Test 04/01/25 08:15 04/01/25 06:37 03/31/25 15:30 Range/Units White Blood Count 7.6 4.4-10.8 10^3/uL Red Blood Count 4.36 4.0-5.20 10^6/uL Hemoglobin 13.7 12.2-16.2 g/dL Hematocrit 39.6 # 36.0-46.0 % Mean Corpuscular Volume 90.8 80.0-100.0 fL Mean Corpuscular Hemoglobin 31.3 28.0-32.0 pg Mean Corpuscular Hemoglobin Concent 34.5 32.0-36.0 g/dL Red Cell Distribution Width 15.3 H 11.8-14.3 % Platelet Count 309 140-450 10^3/uL Mean Platelet Volume 7.2 6.9-10.8 fL Neutrophils (%) (Auto) 53.2 37.0-80.0 % Lymphocytes (%) (Auto) 37.5 10.0-50.0 % Monocytes (%) (Auto) 5.9 0.0-12.0 % Eosinophils (%) (Auto) 2.7 0.0-7.0 % Basophils (%) (Auto) 0.7 0.0-2.0 % Neutrophils # (Auto) 4.0 1.6-8.6 10 ^3/uL Lymphocytes # (Auto) 2.8 0.4-5.4 10 ^3/uL Monocytes # (Auto) 0.4 0-1.3 10 ^3/uL Eosinophils # (Auto) 0.2 0-0.8 10 ^3/uL Basophils # (Auto) 0 0-0.2 10 ^3/uL Nucleated Red Blood Cells 0.1 % Sodium Level 143 136-145 mmol/L Potassium Level 3.7 3.5-5.1 mmol/L Chloride Level 112 H 98-107 mmol/L Carbon Dioxide Level 21 20-31 mmol/L Anion Gap 10 5-15 Blood Urea Nitrogen 10 9-23 mg/dL Creatinine 0.68 0.550-1.02 mg/dL Glomerular Filtration Rate Calc 107 >90 mL/min BUN/Creatinine Ratio 14.7 10.0-20.0 Serum Glucose 89 74-106 mg/dL Hemoglobin A1c 5.5 <5.7 % A1C Calcium Level 8.3 L 8.7-10.4 mg/dL Total Bilirubin 0.5 0.2-1.0 mg/dL Aspartate Amino Transferase (AST) 19 13-40 U/L Alanine Aminotransferase (ALT) 22 7-40 U/L Alkaline Phosphatase 122 H 46-116 U/L Total Protein 6.5 5.7-8.2 g/dL Albumin 4.0 3.2-4.8 g/dL Vitamin B12 Level 390 211-911 pg/mL Vitamin D 25-Hydroxy 25.9 L 30.0-100 ng/mL Folic Acid 18.38 >5.38 ng/mL Thyroid Stimulating Hormone (TSH) 1.63 0.55-4.78 uIU/mL Urine Color Light-yellow Yellow Urine Clarity Clear Clear Urine pH 5.5 5.0-9.0 Urine Specific [place] 1.020 1.001-1.035 Urine Protein Negative Negative Urine Ketones Negative Negative Urine Blood 1+ H Negative /uL Urine Nitrite Negative Negative Urine Bilirubin Negative Negative Urine Urobilinogen Normal Negative mg/dL Urine Leukocyte Esterase 2+ Negative /uL Urine RBC 12 0 - 4 /hpf Urine Microscopic WBC 7 H 0-5 /HPF Urine Squamous Epithelial Cells Few <5 /hpf Urine Bacteria None seen None Seen /hpf Urine Mucus Few None Seen Urine Glucose Normal Normal mg/dL Assessment/Plan Problem List: (1) Bilateral renal stones (2) Intractable abdominal pain (3) Flank pain Plan no urologic intervention indicated. bilateral stones are small, non obstructive, non infected. This does not explain her severe right flank pain. outpt f/u 2 weeks pain management per primary team Plan discussed with: Patient, Other EVELYN ASHBY NP Apr 01, 2025 12:13
--- NOTE | 2025-04-01 12:38 | DVHPNRES ---
Progress Note Date Seen: Apr 01, 2025 Resident Creating Document: RICHI GREENE RESIDENT Medical Necessity Reason Pt with a Central, PICC or Fol: No Subjective Review of Systems 43-year-old female Kezia Chavis with past medical history of Crohn's disease, bipolar disorder, general anxiety disorder, depression, insomnia, renal stone team with complaints of right flank pain. As per patient she has been having right flank pain for the last 7 days which was intermittent initially but has become persistent specially in the past 48 hours. She rates the pain as 10 x 10 intensity, sharp in nature, radiating to the right groin, no aggravating or relieving factors. Pain is associated with nausea, vomiting- 3 times yesterday, with no blood. Patient reports subjective feeling of fever and chill. On further inquiry patient also reports increased frequency of micturition, no hesitancy dysuria or burning sensation. PMH: Crohn's disease( in remission for 1 year), bipolar disorder, generalized anxiety disorder, depression, insomnia, renal stone(Diagnosed 6 months ago) PSH: Right nephrostomy, cholecystectomy Past social history: Patient recently moved to [facility] and lives with family, denies smoking, alcohol, drug use. Family history : Not significant with current condition Home medications: The patient unable to remember the names but reports taking all medications for her insomnia, bipolar and anxiety disorder Allergies: Codeine, morphine- both cause the patient to have hives and difficulty breathing ROS: Patient was seen and examined today at the bedside. She reports feeling better, flank pain has decreased but she complains that the urinary frequency is still there. Rest of the ROS is negative. Objective vital signs Vital Sign Date Time Temp Pulse Resp B/P (MAP) Pulse Ox O2 Delivery O2 Flow Rate FiO2 04/01/25 10:26 88 18 115/72 04/01/25 09:00 97.7 98 97.7 03/31/25 22:11 Room Air* 0 21 Total Intake and Output 03/31/25 03/31/25 04/01/25 15:00 23:00 07:00 Intake Total 1000 ml 750 ml Balance 1000 ml 750 ml medications Current Medications Medications Dose Ordered Sig/Wanda Route Start Time Stop Time Status Last Admin Dose Admin Ondansetron HCl 4 mg Q4HP PRN IV 03/31/25 21:00 Ceftriaxone Sodium/Dextrose 50 ml @ 50 mls/hr DAILY IV 04/01/25 10:00 04/01/25 10:24 50 MLS/HR Pantoprazole Sodium 40 mg DAILY@0600 PO 04/01/25 06:00 04/01/25 05:50 40 MG Trazodone HCl 100 mg HS PO 03/31/25 22:00 03/31/25 22:42 100 MG Zolpidem Tartrate 10 mg HSPRN PRN PO 03/31/25 21:30 03/31/25 22:43 10 MG Lorazepam 1 mg DAILY PRN PO 03/31/25 21:30 03/31/25 23:34 1 MG Quetiapine Fumarate 400 mg HS PO 04/01/25 22:00 Sodium Chloride 1,000 ml @ 175 mls/hr Q5H43M IV 04/01/25 10:45 04/01/25 10:45 175 MLS/HR Hydromorphone HCl 0.25 mg Q4HPRN PRN IV 04/01/25 10:45 Tamsulosin HCl 0.4 mg QPM PO 04/01/25 18:00 Examination Pt is lying on bed General Appearance: Alert, Oriented X3, Cooperative, Not in acute distress HEENT: Atraumatic, Mucous membranes moist/pink Respiratory: Clear to auscultation, Normal air movement, No added sounds Cardiovascular: Regular rate, Normal S1, Normal S2, No murmurs Abdominal: Active bowel sounds, Soft, no distention, tenderness in suprapubic and right lower quadrant, right flank pain Extremities: No edema, Normal pulses, No tenderness/swelling Skin: No Significant rash, except past surgical scars Neuro: Normal speech, sensorimotor deficits none Psych/Mental Status: Mental status NL, Mood NL Nurse was there as java developer with security clearance during examination laboratory and microbiology Laboratory Tests 04/01/25 08:15 04/01/25 06:37 Test 04/01/25 06:37 Range/Units Serum Glucose 89 74-106 mg/dL Labs and/or images reviewed: Labs reviewed by me, Image(s) reviewed by me Problem List/Assessment/Plan Problem List/Assessment/Plan # B/L nonobstructive nephrolithiasis -USG: Bilateral renal calculi; -CT abd/pel: Nonobstructing bilateral nephrolithiasis. No evidence of urinary tract obstruction bilaterally,and Bilateral nonobstructing nephrolithiasis. -KUB: B/l nonobstructing renal calculi measuring up to 2 mm b/l renal pelvices -IVF administered -Tamsulosin ordered -Urology consultation # Suspected acute pyelonephritis - As seen in urine analysis - IVF administered - Ceftriaxone ordered - Zofran PRN ordered - Urine culture, pending # Low vitamin-D levels deficiency -Supplementation given # Crohn's disease - outpatient follow-up # Bipolar disorder - Resume home medication # Generalized anxiety disorder - Resume home medication # Probable fibroid uterus - As seen in CT abdomen pelvis - Patient was advised to follow-up with gynecology and developmental mathematics professor outpatient # Obesity (BMI 34.9) -Patient was counseled about the effect of obesity, healthy diet, physical activity, weight reduction GI prophylaxis: Protonix DVT prophylaxis: SCD Diet: Renal diet, low sodium, fat free Goals of care discussed with the patient for more than 27 minutes: Full code status Case discussed with Dr. Fontenot patient and nurse. Plan discussed with: Patient, Other (RN) My Orders My Orders Orders - RICHI GREENE RESIDENT Procedure Category Date Status Time * Urology Consult CONS 04/01/25 Transmitted 09:13 Date of Service: Apr 01, 2025 Billing Provider: YVONNE FONETNOT MD Common Visit Codes: [id number] INP/OBS CARE(HIGH) RICHI GREENE RESIDENT Apr 01, 2025 12:38 MAGALIS JASSO RESIDENT Apr 02, 2025 06:22 YVONNE FONTENOT MD Apr 02, 2025 08:34
[2025-04-01] MEDS ORDERED: IOHEXOL 300 MG/ML 100ML BOTTLE IJ ONE (15:36)
[2025-04-01] MEDS: TAMSULOSIN HYDROCHLORIDE 0.4 MG CAP PO SCH (17:02)
[2025-04-01] MEDS: HYDROmorphone HCL 2 MG/ML VL/or syr IV PRN (17:02)
--- NOTE | 2025-04-01 17:26 | DVH ---
Exam: CT CT AB PEL WITH IV CON ONLY History: RT flank pain; pyelonephritis COMPARISON: None Technique: Multidetector spiral CT of the abdomen and pelvis was performed from lung bases to pubic symphysis. Intravenous contrast was administered during this examination. Portal venous imaging was obtained. Axial, coronal and sagittal multiplanar reformats were performed by the technologist on a separate workstation. Radiation Dose : Abdomen/Pelvis: CTDIvol 22.73 mGy, DLP 1171.85 mGy*cm. CONTRAST: Type of contrast: Omni 300 Contrast injected: 100 mL Findings: Lung Bases: No acute or significant lung base finding. Normal heart size. No pleural or pericardial effusion. Liver: The liver is normal in size. No focal lesions. Normal hepatic vascular enhancement. Gallbladder and biliary Tree: Gallbladder is surgically absent. Spleen: Unremarkable Pancreas: The pancreas is normal in appearance without focal lesions or abnormal enhancement. Adrenal Glands: Unremarkable Kidneys: Bilateral renal calculi measuring up to 7 mm. Mild bilateral hydronephrosis. No definite e vidence of pyelonephritis. Left renal cortical thinning and scarring. Bladder: Unremarkable Bowel: The stomach is grossly normal in appearance. Small bowel and colon are normal in caliber and d istribution. Normal appendix is visualized in the right lower quadrant without findings of appendicit is. Rectosigmoid is underdistended and thick walled. Ascites: Absent Lymphadenopathy: No mesenteric, retroperitoneal or periportal lymphadenopathy. Abdominal wall and Mesentery: Unremarkable. Vasculature: The visualized abdominal aorta is normal in size and caliber. Abdominal and pelvic vess els demonstrate normal enhancement. Pelvic Organs: Unremarkable Musculoskeletal: No aggressive focal bony lesions, acute fractures or dislocation. IMPRESSION: 1. No acute abdominal or pelvic finding. Bilateral nonobstructive renal calculi. No definite evidence of pyelonephritis. Mild bilateral hydronephrosis. Left renal cortical thinning and scarring. Rectosi gmoid is under distended and thick-walled. Radiation optimization: All CT scans at this facility use at least one of these dose optimization rajesh hniques: Automated exposure control mA and/or kV adjustment per patient size (includes targeted exams where dose is matched to clinical indication) or iterative reconstruction. HS:Y
[2025-04-01] MEDS ORDERED: TAMSULOSIN HYDROCHLORIDE 0.4 MG CAP PO SCH (18:00)
[2025-04-02 01:00] VITALS: BP 109/65; PULSE 108; RESP 19; TEMP 98.4; O2SAT 95
[2025-04-02 05:00] VITALS: BP 108/65; PULSE 94; RESP 19; TEMP 97.9; O2SAT 97
[2025-04-02 07:00] LABS: Anion Gap 9 (5-15); Carbon Dioxide 26 mmol/L (20-31); Chloride 107 mmol/L (98-107); Potassium 3.7 mmol/L (3.5-5.1); Sodium 142 mmol/L (136-145)
[2025-04-02 07:01] LABS: Calcium 9.1 mg/dL (8.7-10.4)
[2025-04-02 07:06] LABS: BUN/Creatinine Ratio 14.5 (10.0-20.0); Blood Urea Nitrogen 11 mg/dL (9-23); Glucose 102 mg/dL (74-106)
[2025-04-02 08:00] VITALS: PULSE 94; RESP 22; O2SAT 100
[2025-04-02] MEDS: HYDROmorphone HCL 2 MG/ML VL/or syr IV PRN (08:14)
[2025-04-02 09:30] VITALS: BP 140/99; PULSE 94; RESP 22; TEMP 97.4; O2SAT 100
--- NOTE | 2025-04-02 10:47 | DVHPNRES ---
Progress Note Date Seen: Apr 02, 2025 Resident Creating Document: RICHI GREENE RESIDENT Medical Necessity Reason Pt with a Central, PICC or Fol: No Subjective Review of Systems 43-year-old female Kezia Chavis with past medical history of Crohn's disease, bipolar disorder, general anxiety disorder, depression, insomnia, renal stone team with complaints of right flank pain. As per patient she has been having right flank pain for the last 7 days which was intermittent initially but has become persistent specially in the past 48 hours. She rates the pain as 10 x 10 intensity, sharp in nature, radiating to the right groin, no aggravating or relieving factors. Pain is associated with nausea, vomiting- 3 times yesterday, with no blood. Patient reports subjective feeling of fever and chill. On further inquiry patient also reports increased frequency of micturition, no hesitancy dysuria or burning sensation. PMH: Crohn's disease( in remission for 1 year), bipolar disorder, generalized anxiety disorder, depression, insomnia, renal stone(Diagnosed 6 months ago) PSH: Right nephrostomy, cholecystectomy Past social history: Patient recently [facility] and lives with family, denies smoking, alcohol, drug use. Family history : Not significant with current condition Home medications: The patient unable to remember the names but reports taking all medications for her insomnia, bipolar and anxiety disorder Allergies: Codeine, morphine- both cause the patient to have hives and difficulty breathing ROS: Patient was seen and examined today at the bedside. She reports Right flank pain has worsened but that the urinary frequency has decreased. Rest of the ROS is negative. Objective vital signs Vital Sign Date Time Temp Pulse Resp B/P (MAP) Pulse Ox O2 Delivery O2 Flow Rate FiO2 04/02/25 09:30 97.4 94 22 140/99 (113) 100 97.4 04/02/25 08:00 Room Air* 0 21 Total Intake and Output 04/01/25 04/01/25 04/02/25 15:00 23:00 07:00 Intake Total 240 ml 820 ml 620 ml Balance 240 ml 820 ml 620 ml medications Current Medications Medications Dose Ordered Sig/Wanda Route Start Time Stop Time Status Last Admin Dose Admin Ondansetron HCl 4 mg Q4HP PRN IV 03/31/25 21:00 Ceftriaxone Sodium/Dextrose 50 ml @ 50 mls/hr DAILY IV 04/01/25 10:00 04/01/25 10:24 50 MLS/HR Pantoprazole Sodium 40 mg DAILY@0600 PO 04/01/25 06:00 04/02/25 05:52 40 MG Trazodone HCl 100 mg HS PO 03/31/25 22:00 04/01/25 22:01 100 MG Zolpidem Tartrate 10 mg HSPRN PRN PO 03/31/25 21:30 04/01/25 22:10 10 MG Lorazepam 1 mg DAILY PRN PO 03/31/25 21:30 04/01/25 18:24 1 MG Quetiapine Fumarate 400 mg HS PO 04/01/25 22:00 04/01/25 22:01 400 MG Sodium Chloride 1,000 ml @ 175 mls/hr Q5H43M IV 04/01/25 10:45 04/01/25 16:49 175 MLS/HR Tamsulosin HCl 0.4 mg QPM PO 04/01/25 18:00 04/01/25 17:02 0.4 MG Ergocalciferol 50,000 unit Q7D PO 04/02/25 10:00 Hydromorphone HCl 0.5 mg Q4HPRN PRN IV 04/02/25 07:15 04/02/25 08:14 0.5 MG Examination Pt is lying on bed General Appearance: Alert, Oriented X3, Cooperative, Not in acute distress HEENT: Atraumatic, Mucous membranes moist/pink Respiratory: Clear to auscultation, Normal air movement, No added sounds Cardiovascular: Regular rate, Normal S1, Normal S2, No murmurs Abdominal: Active bowel sounds, Soft, no distention, tenderness in right flank Extremities: No edema, Normal pulses, No tenderness/swelling Skin: No Significant rash, except past surgical scars Neuro: Normal speech, sensorimotor deficits none Psych/Mental Status: Mental status NL, Mood NL Nurse was there as farm equipment engine mechanic during examination laboratory and microbiology Laboratory Tests 04/02/25 04:21 04/01/25 08:15 Test 04/02/25 04:21 Range/Units Serum Glucose 102 74-106 mg/dL Microbiology Date/Time Source Procedure Growth Status 04/01/25 06:37 Blood Blood Culture - Preliminary NO GROWTH AFTER 24 HOURS OF INCUBATION. Resulted 03/31/25 15:30 Voided Urine Urine Culture - Preliminary Resulted Labs and/or images reviewed: Labs reviewed by me Problem List/Assessment/Plan Problem List/Assessment/Plan # Suspected acute pyelonephritis - As seen in urine analysis - IVF administered - Ceftriaxone ordered - Zofran PRN ordered - Urine culture, pending # B/L nonobstructive nephrolithiasis -USG: Bilateral renal calculi; -CT abd/pel: Nonobstructing bilateral nephrolithiasis. No evidence of urinary tract obstruction bilaterally,and Bilateral nonobstructing nephrolithiasis. -KUB: B/l nonobstructing renal calculi measuring up to 2 mm b/l renal pelvices -IVF administered -Tamsulosin ordered -Urology consultation, no urologic intervention indicated. bilateral stones are small, non obstructive, non infected # Crohn's disease - outpatient follow-up # Bipolar disorder - Resume home medication # Generalized anxiety disorder - Resume home medication # Probable fibroid uterus - As seen in CT abdomen pelvis - Patient was advised to follow-up with gynecology and dental prosthetist outpatient # Obesity (BMI 34.9) -Patient was counseled about the effect of obesity, healthy diet, physical activity, weight reduction # Low vitamin-D levels deficiency -Supplementation given GI prophylaxis: Protonix DVT prophylaxis: SCD Diet: Renal diet, low sodium, fat free Goals of care discussed with the patient for more than 27 minutes: Full code status Case discussed with Dr. Claire patient and nurse. Plan discussed with: Patient, Other (rn) RICHI GREENE RESIDENT Apr 02, 2025 10:47
[2025-04-02 10:56] LABS: Hepatitis B Surface Antigen Negative (Negative); Hepatitis C Antibody Negative (Negative)
[2025-04-02] MEDS: ERGOCALCIFEROL 50,000 UNIT(1.25MG) CAP PO SCH (11:10)
[2025-04-02] MEDS ORDERED: TAMS-35 PO (12:48)
[2025-04-02] MEDS ORDERED: CEPH250C PO (12:48)
[2025-04-02] MEDS ORDERED: ERGO1CAP23 PO (12:48)
--- NOTE | 2025-04-02 13:09 | DVHDSRES ---
Discharge Summary Date of Admission Resident Creating Document: RICHI GREENE RESIDENT Mar 31, 2025 at 20:54 Date of Discharge: Apr 02, 2025 Admitting Diagnosis # B/L nonobstructive nephrolithiasis Labs/Diagnostic Data: Laboratory Results Test 04/02/25 04:21 04/01/25 08:15 04/01/25 06:37 03/31/25 15:30 Sodium Level 142 mmol/L (136-145) Potassium Level 3.7 mmol/L (3.5-5.1) Chloride Level 107 mmol/L (98-107) Carbon Dioxide Level 26 mmol/L (20-31) Anion Gap 9 (5-15) Blood Urea Nitrogen 11 mg/dL (9-23) Creatinine 0.76 mg/dL (0.550-1.02) Glomerular Filtration Rate Calc 97 mL/min (>90) BUN/Creatinine Ratio 14.5 (10.0-20.0) Serum Glucose 102 mg/dL (74-106) Calcium Level 9.1 mg/dL (8.7-10.4) White Blood Count 7.6 10^3/uL (4.4-10.8) Red Blood Count 4.36 10^6/uL (4.0-5.20) Hemoglobin 13.7 g/dL (12.2-16.2) Hematocrit 39.6 % (36.0-46.0) Mean Corpuscular Volume 90.8 fL (80.0-100.0) Mean Corpuscular Hemoglobin 31.3 pg (28.0-32.0) Mean Corpuscular Hemoglobin Concent 34.5 g/dL (32.0-36.0) Red Cell Distribution Width 15.3 % (11.8-14.3) Platelet Count 309 10^3/uL (140-450) Mean Platelet Volume 7.2 fL (6.9-10.8) Neutrophils (%) (Auto) 53.2 % (37.0-80.0) Lymphocytes (%) (Auto) 37.5 % (10.0-50.0) Monocytes (%) (Auto) 5.9 % (0.0-12.0) Eosinophils (%) (Auto) 2.7 % (0.0-7.0) Basophils (%) (Auto) 0.7 % (0.0-2.0) Neutrophils # (Auto) 4.0 10 ^3/uL (1.6-8.6) Lymphocytes # (Auto) 2.8 10 ^3/uL (0.4-5.4) Monocytes # (Auto) 0.4 10 ^3/uL (0-1.3) Eosinophils # (Auto) 0.2 10 ^3/uL (0-0.8) Basophils # (Auto) 0 10 ^3/uL (0-0.2) Nucleated Red Blood Cells 0.1 % Hemoglobin A1c 5.5 % A1C (<5.7) Total Bilirubin 0.5 mg/dL (0.2-1.0) Aspartate Amino Transferase (AST) 19 U/L (13-40) Alanine Aminotransferase (ALT) 22 U/L (7-40) Alkaline Phosphatase 122 U/L (46-116) Total Protein 6.5 g/dL (5.7-8.2) Albumin 4.0 g/dL (3.2-4.8) Vitamin B12 Level 390 pg/mL (211-911) Vitamin D 25-Hydroxy 25.9 ng/mL (30.0-100) Folic Acid 18.38 ng/mL (>5.38) Thyroid Stimulating Hormone (TSH) 1.63 uIU/mL (0.55-4.78) Hepatitis B Surface Antigen Negative (Negative) Hepatitis C Antibody Negative (Negative) Urine Color Light-yellow (Yellow) Urine Clarity Clear (Clear) Urine pH 5.5 (5.0-9.0) Urine Specific Elliott 1.020 (1.001-1.035) Urine Protein Negative (Negative) Urine Ketones Negative (Negative) Urine Blood 1+ /uL (Negative) Urine Nitrite Negative (Negative) Urine Bilirubin Negative (Negative) Urine Urobilinogen Normal mg/dL (Negative) Urine Leukocyte Esterase 2+ /uL (Negative) Urine RBC 12 /hpf (0 - 4) Urine Microscopic WBC 7 /HPF (0-5) Urine Squamous Epithelial Cells Few /hpf (<5) Urine Bacteria None seen /hpf (None Seen) Urine Mucus Few (None Seen) Urine Glucose Normal mg/dL (Normal) Other Laboratory Tests 04/02/25 04:21 04/01/25 08:15 Brief Hx & Hospital Course: 43-year-old female Kezia Chavis with past medical history of Crohn's disease, bipolar disorder, general anxiety disorder, depression, insomnia, renal stone team with complaints of right flank pain. As per patient she has been having right flank pain for the last 7 days which was intermittent initially but has become persistent specially in the past 48 hours. She rates the pain as 10 x 10 intensity, sharp in nature, radiating to the right groin, no aggravating or relieving factors. Pain is associated with nausea, vomiting- 3 times yesterday, with no blood. Patient reports subjective feeling of fever and chill. On further inquiry patient also reports increased frequency of micturition, no hesitancy dysuria or burning sensation. PMH: Crohn's disease( in remission for 1 year), bipolar disorder, generalized anxiety disorder, depression, insomnia, renal stone(Diagnosed 6 months ago) PSH: Right nephrostomy, cholecystectomy Past social history: Patient recently moved to [facility] and lives with family, denies smoking, alcohol, drug use. Family history : Not significant with current condition Home medications: The patient unable to remember the names but reports taking all medications for her insomnia, bipolar and anxiety disorder Allergies: Codeine, morphine- both cause the patient to have hives and difficulty breathing Brief History of hospital stay: Patient had suspected acute pyelonephritis confirmed by urinalysis. IVF administered and ceftriaxone ordered. Zofran p.r.n. ordered. Urine cultures ordered and pending. Patient have bilateral nonobstructive nephrolithiasis seen CT abdomen pelvis shows nonobstructing bilateral nephrolithiasis. No evidence of urinary tract obstruction bilaterally. me shows bilateral nonobstructing renal alculi measuring up to 2 mm in bilateral renal pelvises. Urology consultation done and no intervention indicated was advised. IVF administered and tamsulosin given.. Patient also has low vitamin-D levels and supplementation was given. For bipolar disorder and generalized anxiety disorder patient asked to resume home medication. For Crohn's disease patient has to follow up outpatient. For probable fibroid uterus seen in CT abdomen pelvis patient was advised to follow up with Gynecology and precision lens technician outpatient. n for patient's obesity(BMI) patient was counseled about the effects of obesity, healthy diet, physical activity, weight reduction. Patient is now stable. Patient will be discharged home, he will continue home medications as prescribed. She will also continue taking self Keflex 500 mg p.o.bid. for 7 days, Flomax 0.4 mg p.o. q.d., pain medication [id number]. We discussed this with the patient extensively for over 32 minutes. Patient agreed with the discharge planning. Pt is lying on bed General Appearance: Alert, Oriented X3, Cooperative, Not in acute distress HEENT: Atraumatic, Mucous membranes moist/pink Respiratory: Clear to auscultation, Normal air movement, No added sounds Cardiovascular: Regular rate, Normal S1, Normal S2, No murmurs Abdominal: Active bowel sounds, Soft, no distention, tenderness in right flank Extremities: No edema, Normal pulses, No tenderness/swelling Skin: No Significant rash, except past surgical scars Neuro: Normal speech, sensorimotor deficits none Psych/Mental Status: Mental status NL, Mood NL Nurse was there as administrator of home health during examination Consults/Reason for consult Urology for nephrolithiasis Operations or Procedures EXAM: CT CT AB PEL WO CON-NO ORAL OR IV HISTORY: right flank pain COMPARISON: CT CT AB PEL WO CON-NO ORAL OR IV on DOS: 03/28/25, CT CT AB PEL WO CON-NO ORAL OR IV on DOS: 03/18/25, CT CT AB PEL WO CON-NO ORAL OR IV on DOS: 12/10/24 IMPRESSION: 1. Nonobstructing bilateral nephrolithiasis. No evidence of urinary tract obstruction bilaterally. 2. Postoperative changes cholecystectomy. 3. Bilateral nonobstructing nephrolithiasis. 4. Fecal retention in the colon suggestive of constipation. 5. Probable fibroid uterus. 6. No evidence of bowel obstruction, acute appendicitis, or other acute process in the abdomen or pelvis. US KIDNEY HISTORY: Suspected pyelonephritis COMPARISON: None TECHNIQUE: Transverse and longitudinal grayscale and color Doppler images were obtained of the kidneys and bladder. IMPRESSION: 1. Bilateral renal calculi Date: 04/01/2025 10:07 AM Examination: XY KUB ABDOMEN SINGLE VIEW History: renal stone Comparison: None IMPRESSION: Nonobstructive bowel gas pattern. Bilateral nonobstructing renal calculi measuring up to 2 mm bilateral renal pelvices. Exam: CT CT AB PEL WITH IV CON ONLY History: RT flank pain; pyelonephritis COMPARISON: None Technique: Multidetector spiral CT of the abdomen and pelvis was performed from lung bases to pubic symphysis. Intravenous contrast was administered during this examination. Portal venous imaging was obtained. Axial, coronal and sagittal multiplanar reformats were performed by the technologist on a separate workstation. Radiation Dose : Abdomen/Pelvis: CTDIvol 22.73 mGy, DLP 1171.85 mGy*cm. CONTRAST: Type of contrast: Omni 300 Contrast injected: 100 mL IMPRESSION: 1. No acute abdominal or pelvic finding. Bilateral nonobstructive renal calculi. No definite evidence of pyelonephritis. Mild bilateral hydronephrosis. Left renal cortical thinning and scarring. Rectosigmoid is under distended and thick- walled. Radiation optimization: All CT scans at this facility use at least one of these dose optimization techniques: Automated exposure control mA and/or kV adjustment per patient size (includes targeted exams where dose is matched to clinical indication) or iterative reconstruction. HS:Y Condition at Discharge: Stable Final Diagnosis/Problems List # Suspected acute pyelonephritis # B/L nonobstructive nephrolithiasis # Crohn's disease # Bipolar disorder # Generalized anxiety disorder # Probable fibroid uterus # Obesity (BMI 34.9) # Low vitamin-D levels deficiency Discharge Disposition: Home Discharge Instruct/Medications Diet: Regular, Consistent carbohydrate, Cardiac 2g Na,low cholest (2 gm sodium, low cholesterol) Activity: No Restrictions, As Tolerated Follow Up/Referral: fu with pcp in 1 week Medications: continue meds as prescribed Scheduled Cephalexin (Keflex Capsule), 500 MG PO BID Cephalexin (Keflex Capsule), 1 CAP PO QID Ergocalciferol (Vitamin D 47919 Unit), 50,000 UNIT PO Q7D Lorazepam (Ativan Tablet), 2 TAB PO DAILY, (Reported) Magnesium Hydroxide (Milk of Magnesia 400 mg/5Ml), 1 ROSIBEL PO QID Psyllium (Metamucil), 1.7 GM PO DAILY Quetiapine Fumerate (Seroquel Xr), 400 MG PO QHSP, (Reported) Tamsulosin Hcl (Flomax), 0.4 MG PO QPM Trazodone Hcl (Trazodone Hcl), 100 MG PO HS, (Reported) Zolpidem Tartrate (Ambien), 10 MG PO HS, (Reported) Scheduled PRN Hydrocodone-Acetaminophen (Hydrocodone Bitartrate/AC 5-325 mg), 1 TAB PO Q6HP PRN Miscellaneous Medications Cariprazine Hydrochloride (Vraylar), 1.5 MG PO, (Reported) Discharge Statement: "Patient was advised to return to the ER or call 911 if any headaches, dizziness, shortness of breath, chest pain, abdominal pain, bleeding, fevers, or worsening of medical condition. Patient was counseled about treatment plan, medications, possible side effects, patientverbalized understanding. All questions were answered to the best of my ability. This discharge took greater then 30 minutes in planning, reviewing documentation, counseling the patient, and discussing with other team members." ASSESSMENT ASSESSMENT Assessment UTI, nephrolithiasis Date of Service: Apr 02, 2025 Billing Provider: YVONNE FONTENOT MD Common Visit Codes: 21664-PXD/OBS DISCH DAY >30min RICHI GREENE RESIDENT Apr 02, 2025 13:09 MAGALIS JASSO RESIDENT Apr 02, 2025 15:06 YVONNE FONTENOT MD Apr 04, 2025 13:25
[2025-04-02 15:05] LABS: Amphetamine Screen, Urine Neg (NEGATIVE); Barbiturate Scree,Urine Neg (NEGATIVE); Benzodiazephine Screen, Urine Neg (NEGATIVE); Cannabinoid Screen, Urine Neg (NEGATIVE); Cocaine Screen, Urine Neg (NEGATIVE); Opiate Scree,Urine Neg (NEGATIVE); Phencyclidine Screen, Urine Neg (NEGATIVE)
== END 2025-04-02 14:22 | disposition home or self-care (01) | DRG 463 ==
LOC: ER 14:54 → OVERFLOW 20:54 → WEST WING 22:00
PROVIDERS: ADMIT Internal Medicine; ATTEND Internal Medicine
DX: N10 Acute pyelonephritis (principal); D25.9 Leiomyoma of uterus, unspecified; K50.90 Crohn's disease, unspecified, without complications; N20.0 Calculus of kidney; F41.1 Generalized anxiety disorder; E66.9 Obesity, unspecified; Z68.34 Body mass index [BMI] 34.0-34.9, adult; E55.9 Vitamin D deficiency, unspecified; F31.9 Bipolar disorder, unspecified; J45.909 Unspecified asthma, uncomplicated; Z87.440 Personal history of urinary (tract) infections; Z88.5 Allergy status to narcotic agent; Z88.6 Allergy status to analgesic agent; Z90.49 Acquired absence of other specified parts of digestive tract
CPT/HCPCS: 36415; 74018; 74176; 74177; 76775; 80048; 80053; 80307; 81001; 82306; 82607; 82746; 83036; 84443; 85025; 86803; 87040; 87086; 87340; 96374; 96375; 96376; G0378; J1885; J2405

== ENCOUNTER 2025-04-10 19:50 | Emergency (ER) | payer MEDICAID ==
[~2025-04-10] VITALS: Ht 152.4 cm; Wt 85.1 kg
[~2025-04-10 19:50] MED LIST changes: +CARI1CAP PO; +ERGO1CAP23 PO; +LORA-1121 PO; +QUET200T4 PO; +TAMS-35 PO; +TRAZ-227 PO; +ZOLP10TA PO
--- NOTE | 2025-04-10 20:38 | ED.PDOC ---
General HPI Comments 49 year old female came to ER due to flank pains. Patient has history of bilateral kidney stones. For the past 5 days, she has been experiencing right flank pains, progressively worsening with nausea, vomiting, fever and chills. Denies any urinary symptoms. Chief Complaint: Flank Pain Time Seen by MD: 20:36 Primary Care Provider: UNKNOWN Reviewed notes: Nurses Notes Allergies: Coded Allergies: Codeine (Verified Allergy, Unknown, 12/10/24) Morphine (Verified Allergy, Unknown, 12/10/24) Home Meds Active Scripts Ibuprofen (Ibuprofen) 600 Mg Tab, 1 TAB PO TID PRN for 5 Days, #15 TAB Prov:MARIA ALEJANDRA FOX MD 04/10/25 Acetaminophen (Acetaminophen Er) 650 Mg Tab, 975 MG PO TIDPRN PRN for 5 Days, #23 TAB Prov:MARIA ALEJANDRA FOX MD 04/10/25 Cephalexin (KEFLEX CAPSULE) 250 Mg Cp, 1 CAP PO QID for 5 Days, #28 CAP Prov:MARY YE 04/02/25 Tamsulosin Hcl (Flomax) 0.4 Mg Cap, 0.4 MG PO QPM for 30 Days, #30 CAP Prov:MARY YE 04/02/25 Ergocalciferol (VITAMIN D 58338 UNIT) 50,000 [place], [address] UNIT PO Q7D for 90 Days, #12 CAP Prov:MARY YE 04/02/25 Hydrocodone-Acetaminophen (Hydrocodone Bitartrate/AC 5-325 mg) 1 Tab Tab, 1 TAB PO Q6HP PRN for 3 Days, #12 TAB Prov:RICHARD TORIBIO MD 03/28/25 Cephalexin (KEFLEX CAPSULE) 250 Mg Cp, 500 MG PO BID for 10 Days, #20 CAP Prov:HEWAANDREW PAZ RESDIENT 03/20/25 Magnesium Hydroxide (Milk of Magnesia 400 mg/5Ml) 1 Jerri Jerri, 1 JERRI PO QID for 30 Days, #350 ML Prov:LA FRAUSTO MD 12/10/24 Psyllium (Metamucil) 1.7 Gm Waf, 1.7 GM PO DAILY for 90 Days, #90 MISC Prov:LA FRAUSTO MD 12/10/24 Reported Medications Cariprazine Hydrochloride (Vraylar) 1.5 Mg Cap, 1.5 MG PO, CAP 03/31/25 Zolpidem Tartrate (Ambien) 10 Mg Tab, 10 MG PO HS, TAB 03/31/25 Lorazepam (ATIVAN TABLET) 0.5 Mg Tb, 2 TAB PO DAILY, #30 TAB 03/31/25 Trazodone Hcl (Trazodone Hcl) 50 Mg Tab, 100 MG PO HS, MG 03/31/25 Quetiapine Fumerate (Seroquel Xr) 200 Mg Tab, 400 MG PO QHSP for 30 Days, MG 03/31/25 Information Source: Patient Mode of Arrival: Ambulatory Severity: Moderate Inability to void: Mild Timing: Days Duration: Intermittent Has not urinated for: Minutes Onset: Spontaneous History of: Kidney stone Location: (R) Flank associated signs and symptoms: Fever, Nausea, Vomiting, Flank Pain, Back Pain Review of Systems REVIEW OF SYSTEMS: General: No fever, no chills, or fatigue HEENT: No sore throat, no earache, no congestion, no neck pain. Cardiac: No chest pain. No palpitations. Lungs: No shortness of breath, no cough. GI: (+) nausea, (+) vomiting, no diarrhea, no constipation, no abdominal pain : No dysuria, frequency, or urgency. No hematuria. (+) right flank pain Musculoskeletal: No joint pain , no joint swelling, no extremity edema. Skin: No rash, no itching. Neuro: No headache, no dizziness, no weakness Vital Signs Vital Signs Date Time Temp Pulse Resp B/P (MAP) Pulse Ox O2 Delivery O2 Flow Rate FiO2 04/11/25 01:02 81 18 96 Room Air* 0 21 04/11/25 01:02 98.1 119/58 (78) 98.1 Physical Exam PHYSICAL EXAM: General: Awake, alert and oriented. No acute distress. Skin: Skin in warm, dry and intact. Appropriate color for ethnicity. HEENT: The head is normocephalic and atraumatic. Conjunctivae are clear without exudates or hemorrhage. Sclera is non-icteric. EOM are intact. No signs of nystagmus. Eyelids are normal in appearance without swelling or lesions. Oral mucosa is pink and moist Neck: The neck is supple with normal range of motion. No JVD. Cardiac: Heart rate and rhythm are normal. No murmurs, gallops, or rubs are auscultated. Respiratory: No signs of respiratory distress. Lung sounds are clear in all lobes bilaterally without rales, rhonchi, or wheezes. Abdominal: Abdomen is soft, positive right flank tenderness. Extremities: Upper and lower extremities are atraumatic in appearance without deformity or edema. Neurological: The patient is awake, alert and oriented to person, place, and time with normal speech. Speech is clear. There is no facial asymmetry. Normal gait Psychiatric: Appropriate mood and affect. Good judgement and insight. Past Medical History PAST MEDICAL HISTORY: Depression, Kidney Stones Surgical History: Cholecystectomy, Denies all surgeries RELIEF OPERATOR History: Denies all RELIEF OPERATOR Hx Family History Family History: Reviewed,noncontributory to illness Social History Smoker: Non-Smoker Alcohol: Denies ETOH Use Drugs: Denies Drug Use Lives In: Home Was a procedure done? Was a procedure done?: No Differential Diagnosis Kidney stone (Female): Musculoskeletal pain, Ovarian torsion, Pancreatitis, Pyelonephritis, Renal failure, Strain, Urinary obstruction, Urolithiasis Urinary Problem (Female): Pyelonephritis, Urinary retention, Urolithiasis, UTI X-Ray, Labs, Meds, VS Vital Signs Date Time Temp Pulse Resp B/P (MAP) Pulse Ox O2 Delivery O2 Flow Rate FiO2 04/11/25 01:02 81 18 96 Room Air* 0 21 04/11/25 01:02 98.1 81 18 119/58 (78) 96 98.1 04/10/25 20:04 98.7 110 16 112/66 (81) 97 98.7 Lab Test 04/10/25 20:37 04/10/25 20:05 Range/Units White Blood Count 7.6 4.4-10.8 10^3/uL Red Blood Count 4.94 4.0-5.20 10^6/uL Hemoglobin 15.4 12.2-16.2 g/dL Hematocrit 44.7 36.0-46.0 % Mean Corpuscular Volume 90.5 80.0-100.0 fL Mean Corpuscular Hemoglobin 31.1 28.0-32.0 pg Mean Corpuscular Hemoglobin Concent 34.4 32.0-36.0 g/dL Red Cell Distribution Width 15.6 H 11.8-14.3 % Platelet Count 381 140-450 10^3/uL Mean Platelet Volume 7.3 6.9-10.8 fL Neutrophils (%) (Auto) 61.0 37.0-80.0 % Lymphocytes (%) (Auto) 31.9 10.0-50.0 % Monocytes (%) (Auto) 5.4 0.0-12.0 % Eosinophils (%) (Auto) 1.3 0.0-7.0 % Basophils (%) (Auto) 0.4 0.0-2.0 % Neutrophils # (Auto) 4.6 1.6-8.6 10 ^3/uL Lymphocytes # (Auto) 2.4 0.4-5.4 10 ^3/uL Monocytes # (Auto) 0.4 0-1.3 10 ^3/uL Eosinophils # (Auto) 0.1 0-0.8 10 ^3/uL Basophils # (Auto) 0 0-0.2 10 ^3/uL Nucleated Red Blood Cells 0.1 % Sodium Level 142 136-145 mmol/L Potassium Level 3.9 3.5-5.1 mmol/L Chloride Level 108 H 98-107 mmol/L Carbon Dioxide Level 24 20-31 mmol/L Anion Gap 10 5-15 Blood Urea Nitrogen 12 9-23 mg/dL Creatinine 0.95 0.550-1.02 mg/dL Glomerular Filtration Rate Calc 74 >90 mL/min BUN/Creatinine Ratio 12.6 10.0-20.0 Serum Glucose 104 74-106 mg/dL Calcium Level 9.9 8.7-10.4 mg/dL Urine Color Light-yellow Yellow Urine Clarity Turbid H Clear Urine pH 6.5 5.0-9.0 Urine Specific [place] 1.019 1.001-1.035 Urine Protein Negative Negative Urine Ketones Negative Negative Urine Blood Trace H Negative /uL Urine Nitrite Negative Negative Urine Bilirubin Negative Negative Urine Urobilinogen Normal Negative mg/dL Urine Leukocyte Esterase 3+ Negative /uL Urine RBC 5 0 - 4 /hpf Urine Microscopic WBC 25 H 0-5 /HPF Urine Squamous Epithelial Cells Few <5 /hpf Urine Bacteria Few H None Seen /hpf Urine Mucus Few None Seen Urine Glucose Normal Normal mg/dL Exam: CT CT AB PEL WO CON-NO ORAL OR IV History: R Flank pain Comparison Study: CT CT AB PEL WO CON-NO ORAL OR IV on DOS: 03/31/25, CT CT AB PEL WO CON-NO ORAL OR IV on DOS: 03/28/25, CT CT AB PEL WO CON-NO ORAL OR IV on DOS: 03/18/25 TECHNIQUE: Multidetector CT of the abdomen and pelvis without IV contrast. Axial, coronal and sagittal multiplanar reformats were obtained from the axial data set by the technologist. Radiation Dose Information: CT Dose: CTDI volume is 14.21 mGy. Dose-length product is 900.18 mGy*cm FINDINGS: Bibasilar atelectasis. Partially visualized heart is normal in size. Trace pericardial effusion. Liver, spleen, pancreas and adrenal glands are unremarkable. Nonobstructing bilateral renal lower pole calculi. No hydro nephrosis. Bilateral ureters and urinary bladder are unremarkable. Uterus and adnexa are unremarkable. Stomach is unremarkable. Small bowel loops unremarkable. Appendix is unremarkable. Mild wall thickening of the ascending colon, transverse colon, and rectum. Small to moderate amount of fecal material within the colon. Ascending colon diverticulosis without diverticulitis. No evidence of intraperitoneal free air or free fluid. No evidence of aortic aneurysm. Small mesenteric lymph nodes of the right lower abdominal quadrant measuring up to 0.6 cm which may be reactive. Tiny fat containing umbilical hernia. No destructive osseous lesions noted. Sclerotic focus of the right acetabulum which may represent a small bone is lands/blastic lesion. Nonspecific 12 mm metallic density with streak artifact over the right paramedian gluteal region subcutaneous fat. IMPRESSION: Colitis involving the ascending colon, transverse colon and rectum. Nonobstructing bilateral renal calculi. Ascending colon diverticulosis without diverticulitis. Additional findings as above. Time of 1ST Reevaluation: 20:33 Reevaluation 1ST: Unchanged Patient Education/Counseling: Need For Follow Up Family Education/Counseling: No Family Present SEPSIS Sepsis Screen Date sepsis recognized/suspect: Apr 10, 2025 Time Sepsis recognized/suspect: 1954 Recent Procedure: No On Antibiotic Therapy: No Respiratory Rate >20: No Heart Rate >90: Yes Temp<36 C (96.8 F) or >38.3 C: No SBP <90 or MAP <65 mmHG: No New Acute Mental Status Change: No Is the patient on CPAP, BIPAP,: No Physician Orders Ct Ab Pel Wo Con-No Oral Or Iv (04/10/25 20:32) Vital Signs Date Time Temp Pulse Resp B/P (MAP) Pulse Ox O2 Delivery O2 Flow Rate FiO2 04/11/25 01:02 81 18 96 Room Air* 0 21 04/11/25 01:02 98.1 81 18 119/58 (78) 96 98.1 04/10/25 20:04 98.7 110 16 112/66 (81) 97 98.7 Laboratory Tests Test 04/10/25 20:37 White Blood Count 7.6 10^3/uL (4.4-10.8) Departure 1 Departure Time of Disposition: 23:47 Impression: Primary Impression: Colitis Disposition: HOME / SELF CARE / HOMELESS Condition: Stable Additional Instructions: ED DISCHARGE INSTRUCTIONS INSTRUCTIONS: PLEASE READ ALL INSTRUCTIONS PROVIDED IN THIS PACKET CAREFULLY. ALTHOUGH YOU HAVE BEEN DISCHARGED FROM THE EMERGENCY DEPARTMENT, THIS DOES NOT MEAN THAT YOU HAVE A "CLEAN BILL OF HEALTH". NO DEFINITIVE DIAGNOSIS FOR YOUR SYMPTOMS HAS BEEN MADE TODAY. IT IS POSSIBLE THAT YOU ARE IN THE PROCESS OF DEVELOPING A SERIOUS ILLNESS. THIS IS WHY YOU MUST RETURN TO THE ED WITHOUT FAIL IF ANY NEW OR WORSENING SYMPTOMS (ESPECIALLY IF YOUR SYMPTOMS INCLUDE CHEST PAIN, TROUBLE BREATHING, ABDOMINAL PAIN, FEVER, HEADACHE, CONFUSION, TROUBLE SEEING, OR TROUBLE WALKING) IT IS ALSO VERY IMPORTANT THAT YOU SEE A PRIMARY CARE PROVIDER (PCP) WITHIN THE NEXT 3-5 DAYS TO FOLLOW UP. IF YOU ARE UNABLE TO GET AN APPOINTMENT, RETURN TO THE ED FOR RE-EVALUATION. Abdominal Pain: Care Instructions Overview Abdominal pain has many possible causes. Some aren't serious and get better on their own in a few days. Others need more testing and treatment. If your pain continues or gets worse, you need to be rechecked and may need more tests to find out what is wrong. You may need surgery to correct the problem. Don't ignore new symptoms, such as fever, nausea and vomiting, urination problems, pain that gets worse, and dizziness. These may be signs of a more serious problem. If you are not getting better, you may need more tests or treatment. The doctor has checked you carefully, but problems can develop later. If you notice any problems or new symptoms, get medical treatment right away. Follow-up care is a go part of your treatment and safety. Be sure to make and go to all appointments, and call your doctor if you are having problems. It's also a good idea to know your test results and keep a list of the medicines you take. How can you care for yourself at home? Rest until you feel better. To prevent dehydration, drink plenty of fluids. Choose water and other clear liquids until you feel better. If you have kidney, heart, or liver disease and have to limit fluids, talk with your doctor before you increase the amount of fluids you drink. When you feel like eating, start with small amounts. Do not have alcohol, caffeine, or spicy, hot, or high-fat foods for a day or two. Avoid anti-inflammatory medicines such as aspirin, ibuprofen (Advil, Motrin), and naproxen (Aleve). These can cause stomach upset. Talk to your doctor if you take daily aspirin for another health problem. When should you call for help? Call 911 anytime you think you may need emergency care. For example, call if: You passed out (lost consciousness). You pass maroon or very bloody stools. You vomit blood or what looks like coffee grounds. You have severe belly pain. Call your doctor now or seek immediate medical care if: Your pain gets worse, especially if it becomes focused in one area of your belly. You have a new or higher fever. Your stools are black and look like tar, or they have streaks of blood. You have unexpected vaginal bleeding. You have symptoms of a urinary tract infection. These may include: Pain when you urinate. Urinating more often than usual. Blood in your urine. You are dizzy or lightheaded, or you feel like you may faint. Watch closely for changes in your health, and be sure to contact your doctor if: You are not getting better as expected. Credits for Abdominal Pain: Care Instructions Current as of: July 18, 2023 Author: [email or web address] Staff Clinical Review Board All [employer] education is reviewed by a team that includes physicians, nurses, advanced practitioners, registered dieticians, and other healthcare professionals. e-Prescriptions Ibuprofen (Ibuprofen) 600 Mg Tab 1 TAB PO TID PRN for 5 Days, #15 TAB Prov: MARIA ALEJANDRA FOX MD 04/10/25 Acetaminophen (Acetaminophen Er) 650 Mg Tab 975 MG PO TIDPRN PRN for 5 Days, #23 TAB Prov: MARIA ALEJANDRA FOX MD 04/10/25 Comments 49-year-old female with right flank pain. Patient is well-appearing, nontoxic. Vital signs stable. Lab results not urgently actionable. Imaging shows colitis, bilateral renal stones. Patient reports she has upcoming consultations with nephrology and GI. Patient is felt stable for discharge home. Patient advised to follow up with primary care provider promptly and return to the emergency department with any new, worsening or concerning symptoms. Critical Care Note Critical Care Time?: No Stability Stability form required: No Heart Score Heart Score: Heart Score Response (Comments) Value History N/A 0 EKG N/A 0 Age N/A 0 Risk Factors N/A 0 Troponin N/A 0 Total 0 I personally scribed for MARIA ALEJANDRA FOX MD ([email or web address]) on 04/10/25 at 20:38. Electronically submitted by Fredreic Castano ([email or web address]). I personally scribed for MARIA ALEJANDRA FOX MD ([email or web address]) on 04/10/25 at 22:47. Electronically submitted by Frederic Castano ([email or web address]). MARIA ALEJANDRA FOX MD Apr 10, 2025 20:38
[2025-04-10 20:53] LABS: Hematocrit 44.7 % (36.0-46.0); Hemoglobin 15.4 g/dL (12.2-16.2); Mean Corpuscular Hemoglobin 31.1 pg (28.0-32.0); Mean Corpuscular Volume 90.5 fL (80.0-100.0); Nucleated Red Blood Cells % 0.1 %
[2025-04-10 21:02] LABS: Potassium 3.9 mmol/L (3.5-5.1); Sodium 142 mmol/L (136-145)
[2025-04-10 21:03] LABS: Calcium 9.9 mg/dL (8.7-10.4); Carbon Dioxide 24 mmol/L (20-31)
[2025-04-10 21:06] LABS: Anion Gap 10 (5-15); Chloride 108 mmol/L (98-107)
[2025-04-10 21:08] LABS: BUN/Creatinine Ratio 12.6 (10.0-20.0); Blood Urea Nitrogen 12 mg/dL (9-23); Glucose 104 mg/dL (74-106)
--- NOTE | 2025-04-10 21:14 | DVH ---
Exam: CT CT AB PEL WO CON-NO ORAL OR IV History: R Flank pain Comparison Study: CT CT AB PEL WO CON-NO ORAL OR IV on DOS: 03/31/25, CT CT AB PEL WO CON-NO ORAL OR IV on DOS: 03/28/25, CT CT AB PEL WO CON-NO ORAL OR IV on DOS: 03/18/25 TECHNIQUE: Multidetector CT of the abdomen and pelvis without IV contrast. Axial, coronal and sagitta l multiplanar reformats were obtained from the axial data set by the technologist. Radiation Dose Information: CT Dose: CTDI volume is 14.21 mGy. Dose-length product is 900.18 mGy*cm FINDINGS: Bibasilar atelectasis. Partially visualized heart is normal in size. Trace pericardial effusion. Liver, spleen, pancreas and adrenal glands are unremarkable. Nonobstructing bilateral renal lower pole calculi. No hydro nephrosis. Bilateral ureters and urinary bladder are unremarkable. Uterus and adnexa are unremarkable. Stomach is unremarkable. Small bowel loops unremarkable. Appendix is unremarkable. Mild wall thickeni ng of the ascending colon, transverse colon, and rectum. Small to moderate amount of fecal material w ithin the colon. Ascending colon diverticulosis without diverticulitis. No evidence of intraperitoneal free air or free fluid. No evidence of aortic aneurysm. Small mesenteric lymph nodes of the right lower abdominal quadrant measuring up to 0.6 cm which may b e reactive. Tiny fat containing umbilical hernia. No destructive osseous lesions noted. Sclerotic focus of the ri ght acetabulum which may represent a small bone islands/blastic lesion. Nonspecific 12 mm metallic de nsity with streak artifact over the right paramedian gluteal region subcutaneous fat. IMPRESSION: Colitis involving the ascending colon, transverse colon and rectum. Nonobstructing bilateral renal calculi. Ascending colon diverticulosis without diverticulitis. Additional findings as above.
[2025-04-10 22:32] LABS: Urine Protein, UAD Negative (Negative)
[2025-04-10] MEDS ORDERED: IBUP-1454 PO (23:50)
[2025-04-10] MEDS ORDERED: ACET650T12 PO (23:50)
[2025-04-11 01:02] VITALS: BP 119/58; PULSE 81; RESP 18; TEMP 98.1; O2SAT 96
[2025-04-11] MEDS: SODIUM CHLORIDE 0.9% 1,000 ML IV ONE (01:13)
[2025-04-11] MEDS: KETOROLAC TROMETH 30 MG/ML 1ML VIAL IV ONE (01:14)
[2025-04-11] MEDS: ACETAMINOPHEN 500 MG TAB or CAP PO ONE (01:14)
== END 2025-04-10 23:50 | disposition home or self-care (01) ==
LOC: ER 19:50
DX: K52.9 Noninfective gastroenteritis and colitis, unspecified (principal); F32.A Depression, unspecified; Z79.899 Other long term (current) drug therapy; Z87.442 Personal history of urinary calculi; Z90.49 Acquired absence of other specified parts of digestive tract; Z88.5 Allergy status to narcotic agent; Z88.8 Allergy status to other drugs, medicaments and biological substances
CPT/HCPCS: 36415; 74176; 80048; 81001; 85025

== ENCOUNTER 2025-04-19 22:32 | Inpatient (IN) | payer MEDICAID ==
[~2025-04-19] VITALS: Ht 152.4 cm; Wt 89.4 kg
[~2025-04-19 22:32] MED LIST changes: +ACET650T12 PO; +IBUP-1454 PO
[2025-04-19 23:25] LABS: Urine Amorphous Crystal FEW /hpf (None Seen); Urine Protein, UAD Negative (Negative)
[2025-04-19 23:28] LABS: Hematocrit 43.6 % (36.0-46.0); Hemoglobin 15.5 g/dL (12.2-16.2); Mean Corpuscular Hemoglobin 32.1 pg (28.0-32.0); Mean Corpuscular Volume 90.4 fL (80.0-100.0); Nucleated Red Blood Cells % 0.1 %
[2025-04-19 23:37] LABS: Potassium 4.3 mmol/L (3.5-5.1); Sodium 140 mmol/L (136-145)
[2025-04-19 23:38] LABS: Anion Gap 10 (5-15); Calcium 9.0 mg/dL (8.7-10.4); Carbon Dioxide 21 mmol/L (20-31)
[2025-04-19 23:43] LABS: BUN/Creatinine Ratio 15.9 (10.0-20.0); Blood Urea Nitrogen 13 mg/dL (9-23); Glucose 99 mg/dL (74-106)
[2025-04-19 23:51] LABS: Chloride 109 mmol/L (98-107)
--- NOTE | 2025-04-19 23:52 | DVH ---
Exam: CT CT AB PEL WO CON-NO ORAL OR IV History: right flank pain Comparison Study: CT CT AB PEL WO CON-NO ORAL OR IV on DOS: 04/10/25, CT CT AB PEL WO CON-NO ORAL OR I V on DOS: 03/31/25, CT CT AB PEL WO CON-NO ORAL OR IV on DOS: 03/28/25, CT CT AB PEL WO CON-NO ORAL OR I V on DOS: 03/18/25, CT CT AB PEL WO CON-NO ORAL OR IV on DOS: 12/10/24 Technique: Multidetector spiral CT of the abdomen was performed from lung bases to pubic symphysis. I maging was performed without IV contrast. Axial, coronal and sagittal multiplanar reformats were obta ined from the axial data set by the technologist. Radiation Dose : 1. Abdomen/Pelvis: CTDIvol 14.78 mGy, DLP 786.64 mGy*cm. Findings: Evaluation of solid organs is limited due to lack of intravenous contrast use. Lung Bases: No acute or significant lung base finding. Normal heart size. Trace pericardial effusion . No pleural effusion. Liver: The liver is normal in size. No focal lesions. Gallbladder and Biliary Tree: Status post cholecystectomy. Spleen: Unremarkable Pancreas: The pancreas is grossly normal in appearance. Adrenal Glands: Unremarkable Kidneys: Nonobstructive bilateral nephrolithiasis. No evidence of hydronephrosis. Bladder: Grossly unremarkable for degree of distention. Bowel: The stomach is grossly normal in appearance. Moderate circumferential intramural edema of the sigmoid colon and rectum which may be related to colitis / proctitis. Small bowel and colon are other tovar normal in caliber and distribution. The appendix is normal. Ascites: Absent Lymphadenopathy: No mesenteric, retroperitoneal or periportal lymphadenopathy. Abdominal Wall and Mesentery: Unremarkable. Vasculature: The visualized abdominal aorta is normal in size and caliber. Evaluation of abdominal a nd pelvic vessels is limited due to lack of intravenous contrast. Pelvic Organs: Unremarkable Musculoskeletal: No aggressive focal bony lesions, acute fractures or dislocation. IMPRESSION: 1. No acute abdominal or pelvic findings. 2. Nonobstructive bilateral nephrolithiasis. 3. Suspected colitis/ proctitis. Radiation optimization: All CT scans at this facility use at least one of these dose optimization rajesh hniques: automated exposure control mA and/or kV adjustment per patient size (includes targeted exam s where dose is matched to clinical indication) or iterative reconstruction.
--- NOTE | 2025-04-19 23:54 | ED.PDOC ---
History of Present Illness HPI Comments 49 y/o obese F presents with c/c nonradiating, right flank pain, with associated nausea and dysuria. Pertinent medical history of bilateral nephrolithiasis s/p right nephrostomy, Crohn's disease, cholecystectomy, and pyelonephritis. Patient endorses on having pain for 'several months,' intermittently, and states on coming in following most recent episode onset, due to inability to tolerate pain, today. Pain is sharp and shooting in quality. No endorsement of any trauma, injuries, travel, sick contact, or lifestyle changes. Patient denies having any vomiting, diarrhea, hematuria, fever, chills, or further associated symptoms. Chief Complaint: Flank Pain Time Seen by MD: 22:50 Primary Care Provider: UNKNOWN Reviewed Notes: Nurses Notes, Medications, Allergies Allergies: Coded Allergies: Codeine (Verified Allergy, Unknown, 12/10/24) Morphine (Verified Allergy, Unknown, 12/10/24) Home Meds Active Scripts Ibuprofen (Ibuprofen) 600 Mg Tab, 1 TAB PO TID PRN for 5 Days, #15 TAB Prov:MARIA ALEJANDRA FOX MD 04/10/25 Acetaminophen (Acetaminophen Er) 650 Mg Tab, 975 MG PO TIDPRN PRN for 5 Days, #23 TAB Prov:MARIA ALEJANDRA FOX MD 04/10/25 Cephalexin (KEFLEX CAPSULE) 250 Mg Cp, 1 CAP PO QID for 5 Days, #28 CAP Prov:MARY YE 04/02/25 Tamsulosin Hcl (Flomax) 0.4 Mg Cap, 0.4 MG PO QPM for 30 Days, #30 CAP Prov:MARY YE 04/02/25 Ergocalciferol (VITAMIN D 18920 UNIT) 50,000 [place], [address] UNIT PO Q7D for 90 Days, #12 CAP Prov:MARY YE 04/02/25 Hydrocodone-Acetaminophen (Hydrocodone Bitartrate/AC 5-325 mg) 1 Tab Tab, 1 TAB PO Q6HP PRN for 3 Days, #12 TAB Prov:RICHARD TORIBIO MD 03/28/25 Cephalexin (KEFLEX CAPSULE) 250 Mg Cp, 500 MG PO BID for 10 Days, #20 CAP Prov:ANDREW KEN 03/20/25 Magnesium Hydroxide (Milk of Magnesia 400 mg/5Ml) 1 Jerri Jerri, 1 JERRI PO QID for 30 Days, #350 ML Prov:AL FRAUSTO MD 12/10/24 Psyllium (Metamucil) 1.7 Gm Waf, 1.7 GM PO DAILY for 90 Days, #90 MISC Prov:LA FRAUSTO MD 12/10/24 Reported Medications Cariprazine Hydrochloride (Vraylar) 1.5 Mg Cap, 1.5 MG PO, CAP 03/31/25 Zolpidem Tartrate (Ambien) 10 Mg Tab, 10 MG PO HS, TAB 03/31/25 Lorazepam (ATIVAN TABLET) 0.5 Mg Tb, 2 TAB PO DAILY, #30 TAB 03/31/25 Trazodone Hcl (Trazodone Hcl) 50 Mg Tab, 100 MG PO HS, MG 03/31/25 Quetiapine Fumerate (Seroquel Xr) 200 Mg Tab, 400 MG PO QHSP for 30 Days, MG 03/31/25 Mode of Arrival: Ambulatory Past Medical History PAST MEDICAL HISTORY: Anxiety, Depression, Kidney Stones (bilateral ), UTI'S (Pyelonephritis) Past Medical History (Other): Bipolar disorder Crohn's disease Insomnia Obesity Surgical History: Cholecystectomy Surgical History (Other): Right nephrostomy 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 Family History Family History: Reviewed,noncontributory to illness Social History Smoker: Non-Smoker Alcohol: Denies ETOH Use Drugs: Denies Drug Use Lives In: Home All Other Systems: Reviewed and Negative (Comprehensive systems review obtained and negative except for what is stated in the HPI.) Physical Exam General Appearance: No Apparent Distress, Obese HEENT: Normal ENT Inspection, Pharynx Normal, TMs Normal Neck: Full Range of Motion, Non-Tender, Normal, Normal Inspection Respiratory: Chest Non-Tender, Lungs Clear, No Accessory Muscle Use, No Respiratory Distress, Normal Breath Sounds Cardiovascular: No Edema, No JVD, No Murmur, No Gallop, Normal Peripheral Pulses, Regular Rate/Rhythm Breast Exam: Deferred Gastrointestinal: No Organomegaly, Non Tender, No Pulsatile Mass, Normal Bowel Sounds, Soft Genitalia: Deferred Pelvic: Deferred Rectal: Deferred Extremities: No calf tenderness, Normal capillary refill, Normal inspection, Normal range of motion, Non-tender, No pedal edema Musculoskeletal : Apperance: Normal Neurologic: Alert, assembler engine II-XII nml as Tested, No Motor Deficits, Normal Affect, Normal Mood, No Sensory Deficits Cerebellar Function: Normal Reflexes: Normal Skin: Dry, Normal Color, Warm Lymphatic: No Adenopathy Was a procedure done? Was a procedure done?: No Differential Dx Considerations may include: nephrolithiasis, pyelonephritis, cystitis, ovarian cysts/torsion, PID, musculoskeletal pain, among others X-Ray, Labs, Meds, VS Vital Signs Date Time Temp Pulse Resp B/P (MAP) Pulse Ox O2 Delivery O2 Flow Rate FiO2 04/19/25 22:32 98.5 99 18 131/78 (95) 97 98.5 Lab Test 04/19/25 23:17 04/19/25 22:10 Range/Units White Blood Count 7.2 4.4-10.8 10^3/uL Red Blood Count 4.82 4.0-5.20 10^6/uL Hemoglobin 15.5 12.2-16.2 g/dL Hematocrit 43.6 36.0-46.0 % Mean Corpuscular Volume 90.4 80.0-100.0 fL Mean Corpuscular Hemoglobin 32.1 H 28.0-32.0 pg Mean Corpuscular Hemoglobin Concent 35.5 32.0-36.0 g/dL Red Cell Distribution Width 15.4 H 11.8-14.3 % Platelet Count 336 140-450 10^3/uL Mean Platelet Volume 7.0 6.9-10.8 fL Neutrophils (%) (Auto) 61.3 37.0-80.0 % Lymphocytes (%) (Auto) 29.3 10.0-50.0 % Monocytes (%) (Auto) 5.9 0.0-12.0 % Eosinophils (%) (Auto) 2.4 0.0-7.0 % Basophils (%) (Auto) 1.1 0.0-2.0 % Neutrophils # (Auto) 4.4 1.6-8.6 10 ^3/uL Lymphocytes # (Auto) 2.1 0.4-5.4 10 ^3/uL Monocytes # (Auto) 0.4 0-1.3 10 ^3/uL Eosinophils # (Auto) 0.2 0-0.8 10 ^3/uL Basophils # (Auto) 0.1 0-0.2 10 ^3/uL Nucleated Red Blood Cells 0.1 % Sodium Level 140 136-145 mmol/L Potassium Level 4.3 3.5-5.1 mmol/L Chloride Level 109 H 98-107 mmol/L Carbon Dioxide Level 21 20-31 mmol/L Anion Gap 10 5-15 Blood Urea Nitrogen 13 9-23 mg/dL Creatinine 0.82 0.550-1.02 mg/dL Glomerular Filtration Rate Calc 88 >90 mL/min BUN/Creatinine Ratio 15.9 10.0-20.0 Serum Glucose 99 74-106 mg/dL Calcium Level 9.0 8.7-10.4 mg/dL Urine Color Light-yellow Yellow Urine Clarity Turbid H Clear Urine pH 7.0 5.0-9.0 Urine Specific [place] 1.021 1.001-1.035 Urine Protein Negative Negative Urine Ketones Negative Negative Urine Blood 1+ H Negative /uL Urine Nitrite Negative Negative Urine Bilirubin Negative Negative Urine Urobilinogen Normal Negative mg/dL Urine Leukocyte Esterase Negative Negative /uL Urine RBC 13 0 - 4 /hpf Urine Microscopic WBC 3 0-5 /HPF Urine Squamous Epithelial Cells Few <5 /hpf Urine Amorphous Crystals Few None Seen /hpf Urine Bacteria None seen None Seen /hpf Urine Hyaline Casts Few 0 - 2 /lpf Urine Glucose Normal Normal mg/dL Time of 1ST Reevaluation: 23:20 Reevaluation 1ST: Unchanged Patient Education/Counseling: Diagnosis, Treatment Family Education/Counseling: No Family Present Additional Information Previous visits reviewed: December 10, 2024, March 18, 2025, March 28, 2025, March 31, 2205, and April 10, 2025 encounters for abdominal pain, acute abdominal pain, bilateral renal stones, suspected pyelonephritis, and right sided flank pain, respectively. The following tests were ordered, and results were reviewed by me: CT abdomen/pelvis w/o contrast, UA, CBC, BMP Additional Information was gathered from interviewing the following independent historians: N/A I reviewed and agreed with the following test results read by other providers: CT abdomen/pelvis w/o contrast I discussed treatment and results with medical personnel and: patient SEPSIS Sepsis Screen Date sepsis recognized/suspect: Apr 19, 2025 Time Sepsis recognized/suspect: 2231 Recent Procedure: No On Antibiotic Therapy: No Respiratory Rate >20: No Heart Rate >90: No Temp<36 C (96.8 F) or >38.3 C: No SBP <90 or MAP <65 mmHG: No New Acute Mental Status Change: No Is the patient on CPAP, BIPAP,: No Physician Orders Ct Ab Pel Wo Con-No Oral Or Iv (04/19/25 22:56) Vital Signs Date Time Temp Pulse Resp B/P (MAP) Pulse Ox O2 Delivery O2 Flow Rate FiO2 04/19/25 22:32 98.5 99 18 131/78 (95) 97 98.5 Laboratory Tests Test 04/19/25 23:17 White Blood Count 7.2 10^3/uL (4.4-10.8) Departure 1 Departure Time of Disposition: 00:08 (Patient presented with abdominal pain that was concerning for possible appendicits, gastritis, cholecystitis, colitis, gastroenteritis, sbo, or orther possible surgical emergency. Data: 1. I ordered and reviewed the result of at least 3 labs including a CBC, BMP, and Urinalysis. 2. I independently interpreted the following tests: CT Abdoment and Pelvis is concerning for colitis .Risk:This patient has a high risk of morbidity due to further diagnostic testing or treatment and may suffer from an acute abdominal process disorder. Workup reveals intractable abdominal pain and colitis and patient should be admitted for further workup. and possible expert consultation. ) Impression: Primary Impression: Intractable abdominal pain Additional Impression: Colitis Disposition: ADMITTED INPATIENT Admit to: Med Surg Condition: Serious Critical Care Note Critical Care Time?: Yes Critical care comment: Intractable abdominal pain Authorized and Performed by: Antonio Singh MD Total critical care time: Approximately 39 minutes Due to a high probability of clinically significant, life threatening deterioration, the patient required my highest level of preparedness to int ervene emergently and I personally spent this critical care time directly and personally managing the patient. This critical care time included obtaining a history; examining the patient; pulse oximetry; ordering and review of studies; arranging urgent treatment with development of a management plan; evaluation of patient's response to treatment; frequent reassessment; and, discussions with other providers. This critical care time was performed to assess and manage the high probability of imminent, life-threatening deterioration that could result in multi-organ failure. It was exclusive of separately billable procedures and treating other patients and teaching time. Please see my other sections and the rest of the note for further information on patient assessment and treatment. Stability Stability form required: No Heart Score Heart Score: Heart Score Response (Comments) Value History N/A 0 EKG N/A 0 Age N/A 0 Risk Factors N/A 0 Troponin N/A 0 Total 0 I personally scribed for ANTONIO SINGH MD ([email or web address]) on 04/19/25 at 23:54. E lectronically submitted by Huy Canales ([email or web address]). ANTONIO SINGH MD Apr 19, 2025 23:54
[2025-04-20] MEDS ORDERED: NITROGLYCERIN 0.4 MG SL TAB SL PRN (01:00)
--- NOTE | 2025-04-20 01:21 | DVHHP2 ---
History of Present Illness History of Present Illness This is a 49-year-old female with past medical history of anxiety, depression, bipolar disorder, bilateral renal stone s/p right nephrostomy removal on December 2024, pyelonephritis, Crohn's disease came to ER with the complain of right flank pain associated with back pain for 3 months but the right flank pain worsen for last 2 days which is 9/10 intensity, dull in nature, aggravated lying on right lateral position and during urination, pain radiates to groin to urethra, tried Tylenol but it is does not helps a lot. Patient also complain nausea and vomiting same duration, vomitus contained food materials but not mixed with blood. Patient above symptoms associated with headache, feeling feverish, chill, malaise and generalized weakness. Denies any recent trauma, injury, sick contact. Patient having history of anxiety disorder and she is very worried about her current medical condition. Denies any chest pain, SOB, vertigo, hematuria or any focal weakness. PAST MEDICAL HISTORY: Anxiety, Depression, Kidney Stones (bilateral ), UTI'S (P yelonephritis, Bipolar disorder ,Crohn's disease, Insomnia, Obesity Surgical History: Cholecystectomy, bilateral tubal ligation on 2004, Right nephrostomy placed on August 2024 and removal December 2024 Social history: Denies any EtOH use, substance use Allergy: Morphine, codeine PCP: Nash Bautista MD Review of Systems Constitutional: Yes: Fever, Chills, Malaise; No: Sweats, Weakness, Other Eyes: No: Pain, Vision change, Conjunctivae inflammation, Eyelid inflammation, Other, Redness ENT: No: Ear pain, Ear discharge, Nose pain, Nose discharge, Nose congestion, Mouth pain, Mouth swelling, Throat pain, Throat swelling, Other Respiratory: No: Cough, Dry, Shortness of breath, SOB with excertion, Wheezing, Hemoptysis, Pleuritic Pain, Sputum, Wheezing, Other Cardiovascular: No: Chest Pain, Palpitations, Orthopnea, Paroxysmal Noc. Dyspnea, Edema, Lt Headedness, Other Gastrointestinal: Nausea, Vomiting, Abdominal Pain, Other (RIGHT FLANK PAIN); No: Diarrhea, Constipation, Melena, Hematochezia Genitourinary: No Dysuria, No Frequency, No Incontinence, No Hematuria, No Retention, No Other Musculoskeletal: No: other, neck pain, shoulder pain, arm pain, back pain, hand pain, leg pain, foot pain Skin: No: Rash, Lesions, Jaundice, Bruising, Other Allergies: Coded Allergies: Codeine (Verified Allergy, Unknown, 12/10/24) Morphine (Verified Allergy, Unknown, 12/10/24) Exam Vital Signs Vital Signs Date Time Temp Pulse Resp B/P (MAP) Pulse Ox O2 Delivery O2 Flow Rate FiO2 04/19/25 22:32 98.5 99 18 131/78 (95) 97 98.5 Exam Scar laverne present on right flank region status post removal of right nephrostomy tube. General Appearance: Oriented X3, Cooperative, mild distress HEENT: Atraumatic, PERRLA Respiratory: Clear to auscultation, Normal air movement Cardiovascular: Regular rate, Normal S1, Normal S2 Abdominal: Normal bowel sounds, Soft, No tenderness, Other (RIGHT COSTOVERTEBRAL ANGLE TENDERNESS ON DEEP PALPATION) Extremities: No clubbing, No cyanosis, No edema, Normal pulses Skin: No rashes, No breakdown Neuro: Normal gait, Normal speech, Strength at 5/5 X4 ext Labs/Xrays Labs Test 04/19/25 23:17 04/19/25 22:10 Range/Units White Blood Count 7.2 4.4-10.8 10^3/uL Red Blood Count 4.82 4.0-5.20 10^6/uL Hemoglobin 15.5 12.2-16.2 g/dL Hematocrit 43.6 36.0-46.0 % Mean Corpuscular Volume 90.4 80.0-100.0 fL Mean Corpuscular Hemoglobin 32.1 H 28.0-32.0 pg Mean Corpuscular Hemoglobin Concent 35.5 32.0-36.0 g/dL Red Cell Distribution Width 15.4 H 11.8-14.3 % Platelet Count 336 140-450 10^3/uL Mean Platelet Volume 7.0 6.9-10.8 fL Neutrophils (%) (Auto) 61.3 37.0-80.0 % Lymphocytes (%) (Auto) 29.3 10.0-50.0 % Monocytes (%) (Auto) 5.9 0.0-12.0 % Eosinophils (%) (Auto) 2.4 0.0-7.0 % Basophils (%) (Auto) 1.1 0.0-2.0 % Neutrophils # (Auto) 4.4 1.6-8.6 10 ^3/uL Lymphocytes # (Auto) 2.1 0.4-5.4 10 ^3/uL Monocytes # (Auto) 0.4 0-1.3 10 ^3/uL Eosinophils # (Auto) 0.2 0-0.8 10 ^3/uL Basophils # (Auto) 0.1 0-0.2 10 ^3/uL Nucleated Red Blood Cells 0.1 % Sodium Level 140 136-145 mmol/L Potassium Level 4.3 3.5-5.1 mmol/L Chloride Level 109 H 98-107 mmol/L Carbon Dioxide Level 21 20-31 mmol/L Anion Gap 10 5-15 Blood Urea Nitrogen 13 9-23 mg/dL Creatinine 0.82 0.550-1.02 mg/dL Glomerular Filtration Rate Calc 88 >90 mL/min BUN/Creatinine Ratio 15.9 10.0-20.0 Serum Glucose 99 74-106 mg/dL Calcium Level 9.0 8.7-10.4 mg/dL Urine Color Light-yellow Yellow Urine Clarity Turbid H Clear Urine pH 7.0 5.0-9.0 Urine Specific [place] 1.021 1.001-1.035 Urine Protein Negative Negative Urine Ketones Negative Negative Urine Blood 1+ H Negative /uL Urine Nitrite Negative Negative Urine Bilirubin Negative Negative Urine Urobilinogen Normal Negative mg/dL Urine Leukocyte Esterase Negative Negative /uL Urine RBC 13 0 - 4 /hpf Urine Microscopic WBC 3 0-5 /HPF Urine Squamous Epithelial Cells Few <5 /hpf Urine Amorphous Crystals Few None Seen /hpf Urine Bacteria None seen None Seen /hpf Urine Hyaline Casts Few 0 - 2 /lpf Urine Glucose Normal Normal mg/dL SEPSIS Sepsis Screen Date sepsis recognized/suspect: Apr 19, 2025 Time Sepsis recognized/suspect: 2231 Recent Procedure: No On Antibiotic Therapy: No Respiratory Rate >20: No Heart Rate >90: No Temp<36 C (96.8 F) or >38.3 C: No SBP <90 or MAP <65 mmHG: No New Acute Mental Status Change: No Is the patient on CPAP, BIPAP,: No Physician Orders Ct Ab Pel Wo Con-No Oral Or Iv (04/19/25 22:56) Admit (04/20/25 00:47) Nitroglycerin Sublingual (Ntrostat Subli (04/20/25 01:00) Regular Diet (04/20/25 Breakfast) NS (04/20/25 01:00) Vital Signs Date Time Temp Pulse Resp B/P (MAP) Pulse Ox O2 Delivery O2 Flow Rate FiO2 04/19/25 22:32 98.5 99 18 131/78 (95) 97 98.5 Laboratory Tests Test 04/19/25 23:17 White Blood Count 7.2 10^3/uL (4.4-10.8) Assessment/Plan Assessment/Plan # ABDOMINAL PAIN LIKELY CROHN'S DISEASE -patient came with abdominal pain, nausea, vomiting. -Not on any medication for Crohn's disease. -CT -Moderate circumferential intramural edema of the sigmoid colon and rectum which may be related to colitis / proctitis. -start ceftriaxone 1 g IV daily -metronidazole 500 mg IV q.8h -IBD panel -ESR, CRP -GI consult due to recurrent abdominal pain without explanation? Crohn's disease. -Methylprednisolone 40 mg IV stat dose given. If the patient responds with the treatment can can start oral prednisone 40 mg and taper accordingly. -Hydromorphone 0.5 mg q.6 p.r.n. --Schedule follow-up with GI after 2 weeks -as per patient # INTRACTABLE ABDOMINAL PAIN DUE TO BILATERAL NEPHROLITHIASIS -Patient came with abdominal pain, nausea, vomiting -On examination right costovertebral angle tenderness -UA no leukocyte, bacteria -ABDOMEN AND PELVIS WITHOUT CONTRAST:No acute abdominal or pelvic findings. Non obstructive bilateral nephrolithiasis. -In ER patient received ketorolac, ondansetron, NSS -NSS 100 cc/hours -Hydromorphone 0.5 mg q.6 p.r.n. -Urology consult # ANXIETY AND DEPRESSION -Home medicine- Quetiapine 400 mg p.o. daily, started quetiapine 200 mg p.o. daily -Home medication-lorazepam 0.5 mg p.o. q.6 p.r.n. # BIPOLAR DISORDER --Cariprazine 1.5 mg po daily # INSOMNIA -Home medication- trazodone 100 mg, Hold Ambien 10 mg bedtime. Diet: Regular GI prophylaxis: Pantoprazole 40 mg p.o. daily DVT prophylaxis: Patient ambulating. Goals of care discussions, more than 27 minute spent with patient. Full code status Case discussed with Dr. Cano. Plan discussed with: Patient, Other (NURSE) My Orders Orders - TAMARA AGOSTO Procedure Category Date Status Time Admit ADMIT 04/20/25 Transmitted 00:47 Nitroglycerin PHA 04/20/25 Transmitted Sublingual (Ntrostat 01:00 Regular Diet DIET 04/20/25 Transmitted Breakfast NS PHA 04/20/25 Transmitted 01:00 Date of Service: Apr 20, 2025 Billing Provider: KRIS CANO MD Common Visit Codes: [id number] INP/OBS CARE (HIGH) Secondary Visit Codes: [id number] CARE PLAN 30 MINUTES TAMARA AGOSTO Apr 20, 2025 01:21
[2025-04-20] MEDS ORDERED: KETOROLAC TROMETH 30 MG/ML 1ML VIAL IV PRN (02:15)
[2025-04-20] MEDS: SODIUM CHLORIDE 0.9% 1,000 ML IV ONE ×2 (03:24→03:25)
[2025-04-20] MEDS: SODIUM CHLORIDE 0.9% 1,000 ML IV SCH (03:30)
[2025-04-20] MEDS: KETOROLAC TROMETH 30 MG/ML 1ML VIAL IV ONE (03:39)
[2025-04-20] MEDS: ONDANSETRON HCL 4 MG/2 ML VIAL IV ONE (03:39)
[2025-04-20 04:30] VITALS: PULSE 95; RESP 22; O2SAT 95
[2025-04-20] MEDS: HYDROmorphone HCL 2 MG/ML VL/or syr IV ONE (05:49)
[2025-04-20] MEDS: LORazepam 0.5 MG TAB PO PRN (06:56)
[2025-04-20 09:44] VITALS: BP 112/63; PULSE 94; RESP 16; TEMP 98.2; O2SAT 96
[2025-04-20] MEDS: HYDROmorphone HCL 2 MG/ML VL/or syr IV PRN (12:30)
[2025-04-20 12:45] VITALS: BP 121/75; PULSE 91; RESP 16; TEMP 98.2; O2SAT 99
--- NOTE | 2025-04-20 14:28 | DVHINCON2 ---
GI Consult Consult Note GI consult note Date of Consultation: 04/20/2025 Chief Complaint: Recurrent abdominal pain Referring Physician: Dr. Mondragon H&P: 49-year-old patient admitted with right flank pain and right upper quadrant on and off for the past two months. Denies nausea vomiting. Denies melena or red blood in stool. Patient has been admitted multiple times with similar symptoms in the last two months. Patient has history of Crohn's colitis treated at [facility], was taking Humira which she stopped two years ago since her symptoms were improving. Last colonoscopy two years ago at [place]. Patient has not been followed up with GI in the last few years Status post EGD three years ago diagnosed with gastritis Past Medical History: Anxiety, Depression, Kidney Stones (bilateral ), UTI'S (Pyelonephritis) Bipolar disorder Crohn's disease Insomnia Obesity Past Surgical History: Cholecystectomy, right nephrostomy Social History: NO smoking, drinking ETOH and use of illegal drugs. Family History: Noncontributory Review of Systems: Constitutional: no fever, chill, weight loss HEENT: no eye pain, no hearing loss, no oral lesion, no scleral icterus Heart: no chest pain, no chest pressure Lung: no cough, no dyspnea with exertion Abdomen: see HPI Physical exam: General: NAD, AAOX3 Chest: lung moreno clear to auscultation Heart: RRR, no murmur Abdomen: Right upper quadrant tenderness to palpation, +BS Labs: Labs Test 04/20/25 06:16 04/19/25 23:17 04/19/25 22:10 Range/Units Erythrocyte Sedimentation Rate 2 0-20 mm/hr C-Reactive Protein High Sensitivity 0.32 <1.0 mg/dL White Blood Count 7.2 4.4-10.8 10^3/uL Red Blood Count 4.82 4.0-5.20 10^6/uL Hemoglobin 15.5 12.2-16.2 g/dL Hematocrit 43.6 36.0-46.0 % Mean Corpuscular Volume 90.4 80.0-100.0 fL Mean Corpuscular Hemoglobin 32.1 H 28.0-32.0 pg Mean Corpuscular Hemoglobin Concent 35.5 32.0-36.0 g/dL Red Cell Distribution Width 15.4 H 11.8-14.3 % Platelet Count 336 140-450 10^3/uL Mean Platelet Volume 7.0 6.9-10.8 fL Neutrophils (%) (Auto) 61.3 37.0-80.0 % Lymphocytes (%) (Auto) 29.3 10.0-50.0 % Monocytes (%) (Auto) 5.9 0.0-12.0 % Eosinophils (%) (Auto) 2.4 0.0-7.0 % Basophils (%) (Auto) 1.1 0.0-2.0 % Neutrophils # (Auto) 4.4 1.6-8.6 10 ^3/uL Lymphocytes # (Auto) 2.1 0.4-5.4 10 ^3/uL Monocytes # (Auto) 0.4 0-1.3 10 ^3/uL Eosinophils # (Auto) 0.2 0-0.8 10 ^3/uL Basophils # (Auto) 0.1 0-0.2 10 ^3/uL Nucleated Red Blood Cells 0.1 % Sodium Level 140 136-145 mmol/L Potassium Level 4.3 3.5-5.1 mmol/L Chloride Level 109 H 98-107 mmol/L Carbon Dioxide Level 21 20-31 mmol/L Anion Gap 10 5-15 Blood Urea Nitrogen 13 9-23 mg/dL Creatinine 0.82 0.550-1.02 mg/dL Glomerular Filtration Rate Calc 88 >90 mL/min BUN/Creatinine Ratio 15.9 10.0-20.0 Serum Glucose 99 74-106 mg/dL Calcium Level 9.0 8.7-10.4 mg/dL Urine Color Light-yellow Yellow Urine Clarity Turbid H Clear Urine pH 7.0 5.0-9.0 Urine Specific [place] 1.021 1.001-1.035 Urine Protein Negative Negative Urine Ketones Negative Negative Urine Blood 1+ H Negative /uL Urine Nitrite Negative Negative Urine Bilirubin Negative Negative Urine Urobilinogen Normal Negative mg/dL Urine Leukocyte Esterase Negative Negative /uL Urine RBC 13 0 - 4 /hpf Urine Microscopic WBC 3 0-5 /HPF Urine Squamous Epithelial Cells Few <5 /hpf Urine Amorphous Crystals Few None Seen /hpf Urine Bacteria None seen None Seen /hpf Urine Hyaline Casts Few 0 - 2 /lpf Urine Glucose Normal Normal mg/dL Imaging: CT abdomen pelvis IMPRESSION: 1. No acute abdominal or pelvic findings. 2. Nonobstructive bilateral nephrolithiasis. 3. Suspected colitis/ proctitis. Assessment: Abdominal pain History of Crohn's Bilateral nonobstructive nephrolithiasis Plan: Discussed with Dr. Pringle Possible colonoscopy discussed with patient, which patient is deferring at this moment and would like to have medical treatment Mesalamine Prednisone 20 mg p.o. daily Patient is strongly recommended to follow-up in GI clinic for possible colonoscopy to be planned on an outpatient basis Recommend patient to be discharged with mesalamine and prednisone Discussed plan with patient and RN Thank you for this consult Date of Service: Apr 20, 2025 Billing Provider: ZACARIAS FRANKS Common Visit Codes: CONSULT ONLY Consultation Codes: [id number] CONSULT <60MIN ZACARIAS FRANKS Apr 20, 2025 14:28
--- NOTE | 2025-04-20 16:18 | DVHPNRES ---
Progress Note Date Seen: Apr 20, 2025 Resident Creating Document: EDWAR LYLES RESIDENT Medical Necessity Reason Pt with a Central, PICC or Fol: No Subjective Review of Systems Patient is a 49-year-old female with past medical history of anxiety, depression, bipolar disease, bilateral renal stones with removal of right nephrostomy tube in December but she did not undergo lithotripsy, pyelonephritis, history of recurrent UTIs, obesity, Crohn's disease for which she took Humira 2 years ago and stopped due to lack of insurance, but has not had symptoms since 2 years. She came to the ED yesterday with chief complaints of fever, nausea, vomiting, chills, dizziness, headache, right back pain which was 9/10 in intensity, dull in nature, radiating to the right lower quadrant and right groin. she complains of burning sensation in the urine, but denies any hematuria, or blood in the stool. She also states that she has alternating diarrhea and constipation for a long time. Patient is seen at bedside. She is alert, in mild distress, has generalized weakness, right flank pain, 7/10 in intensity, which is radiating to the lower right quadrant and the right groin, she also complains of epigastric pain and heartburn. for her Crohn's disease she states that her last flare up was 2 years ago and has been fine without taking any medication. she still complains of burning sensation in her urine but denies any fever, chills, nausea, vomiting, diarrhea, constipation. She denies any recent travel, sick contacts. CT abdomen shows No acute abdominal or pelvic findings, Nonobstructive bilateral nephrolithiasis, Suspected colitis/ proctitis. GI was consulted and stated to give Mesalamine, Prednisone 20 mg p.o. daily. Patient is strongly recommended to follow-up in GI clinic for possible colonoscopy to be planned on an outpatient basis. Recommend patient to be discharged with mesalamine and prednisone Constitutional: Denies weight loss, fever and chills. HEENT: Denies changes in vision and hearing. Respiratory: Denies shortness of breath and cough Cardiovascular: Denies chest discomfort or palpitations GI: Right flank pain, epigastric pain : Burning sensation in urine Musculoskeletal: Denies myalgias and joint pain Skin: Denies rash and pruritus. Neurological: Denies dizziness, headache, vision or hearing problems Objective vital signs Vital Sign Date Time Temp Pulse Resp B/P (MAP) Pulse Ox O2 Delivery O2 Flow Rate FiO2 04/20/25 13:00 94 16 119/79 04/20/25 09:44 98.2 96 98.2 04/20/25 04:30 Room Air* 0 21 medications Current Medications Medications Dose Ordered Sig/Wanda Route Start Time Stop Time Status Last Admin Dose Admin Nitroglycerin 0.4 mg Q5MINP PRN SL 04/20/25 01:00 Sodium Chloride 1,000 ml @ 100 mls/hr Q10H IV 04/20/25 02:00 04/20/25 13:13 100 MLS/HR Quetiapine Fumarate 200 mg HS PO 04/20/25 22:00 Tamsulosin HCl 0.4 mg QPM PO 04/20/25 18:00 Trazodone HCl 100 mg HS PO 04/20/25 22:00 Lorazepam 0.5 mg Q6HP PRN PO 04/20/25 02:00 04/20/25 13:53 0.5 MG Ketorolac Tromethamine 15 mg Q6HPRN PRN IV 04/20/25 02:15 04/25/25 02:14 Hydromorphone HCl 0.5 mg Q4HPRN PRN IV 04/20/25 12:00 04/20/25 12:30 0.5 MG Mesalamine 800 mg TID PO 04/20/25 22:00 Prednisone 20 mg DAILY PO 04/21/25 10:00 Examination General: Patient alert and oriented in person, place and time. Patient following commands. HEENT: Normocephalic, atraumatic, moist mucous membranes Respiratory/pulmonary: Clear lungs bilaterally, vesicular murmurs present in almost all lung moreno, no associated crackles or wheezes. Cardiovascular: Normal heart sounds S1 and S2 with no associated murmurs Abdomen: Abdomen nondistended, Right flank pain radiating to the right lower quadrent and right groin on palpation, obese abdomen Extremities: There is no peripheral edema present at the lower extremities. Peripheral Pulses: 3+ Radial (R). 3+ Radial (L). 3+ Dorsalis pedis (R). 3+ Dorsalis pedis(L) Skin: No rashes or pruritus, there is no sacral edema present at this time. Neurological: Intact cranial nerves with no focal neurologic deficits laboratory and microbiology Laboratory Tests 04/19/25 23:17 Test 04/19/25 23:17 Range/Units Serum Glucose 99 74-106 mg/dL Problem List/Assessment/Plan Problem List/Assessment/Plan # Abdominal pain Likely due to Crohn's disease #Intractable Abdominal pain due to bilateral nephrolithiasis - he is not on any medication for Crohn's disease. - abdominal CT shows No acute abdominal or pelvic findings, Nonobstructive bilateral nephrolithiasis, Suspected colitis/ proctitis. - GI was consulted and stated to give Mesalamine, Prednisone 20 mg p.o. daily and Patient is strongly recommended to follow-up in GI clinic for possible colonoscopy to be planned on an outpatient basis, Recommend patient to be discharged with mesalamine and prednisone - prednisone 20 mg p.o. mesalamine 800mg, hydromorphone 0.5 Q4 PRN given - For bilateral nephrolithiasis, Recommended outpatient follow-up - CDAI score- 169 Active disease #GERD - given Protonix # Anxiety / Deppression - continue home meds - Quetiapine 200mp po - Lorazepam 0.5 mg po # Bipolar disorder - continue home meds # Insomina - continue home meds - Trazadone 100mg DVT PPX: Ambulatory PPI PPX: Protonix Goals of care discussed with the patient for 27 minutes: Full code ' Case discussed with Dr. Sandoval Plan discussed with: Patient Date of Service: Apr 20, 2025 Billing Provider: JANNY SANDOVAL MD Common Visit Codes: [id number] INP/OBS CARE(HIGH) EDWAR LYLES Apr 20, 2025 16:18 JANNY SANDOVAL MD Apr 22, 2025 14:30
[2025-04-20 17:00] VITALS: BP 114/74; PULSE 91; RESP 18; TEMP 98.1; O2SAT 98
[2025-04-20] MEDS: TAMSULOSIN HYDROCHLORIDE 0.4 MG CAP PO SCH (17:12)
[2025-04-20 20:00] VITALS: PULSE 87; RESP 18; O2SAT 97
[2025-04-20 21:00] VITALS: BP 123/90; PULSE 87; RESP 18; TEMP 98; O2SAT 97
[2025-04-20] MEDS: MESALAMINE 400mg Delayed Release Cap PO SCH (21:30)
[2025-04-21 01:00] VITALS: BP 102/61; PULSE 100; RESP 17; TEMP 97.4; O2SAT 94
[2025-04-21 05:00] VITALS: BP 96/65; PULSE 90; RESP 17; TEMP 97.5; O2SAT 97
[2025-04-21] MEDS: PANTOPRAZOLE 40 MG TAB PO SCH (05:52)
[2025-04-21 06:48] LABS: Hematocrit 43.8 % (36.0-46.0); Hemoglobin 14.8 g/dL (12.2-16.2); Mean Corpuscular Hemoglobin 31.9 pg (28.0-32.0); Mean Corpuscular Volume 94.2 fL (80.0-100.0); Nucleated Red Blood Cells % 0.1 %
[2025-04-21 06:49] LABS: Potassium 3.9 mmol/L (3.5-5.1); Sodium 142 mmol/L (136-145)
[2025-04-21 06:50] LABS: Anion Gap 9 (5-15); Calcium 9.1 mg/dL (8.7-10.4); Carbon Dioxide 24 mmol/L (20-31)
[2025-04-21 06:55] LABS: BUN/Creatinine Ratio 11.8 (10.0-20.0); Blood Urea Nitrogen 9 mg/dL (9-23); Glucose 94 mg/dL (74-106)
[2025-04-21 07:01] LABS: Chloride 109 mmol/L (98-107)
[2025-04-21 08:53] VITALS: BP 128/88; PULSE 89; RESP 16; TEMP 97.7; O2SAT 97
[2025-04-21] MEDS ORDERED: HYDR-4902 PO (09:55)
[2025-04-21] MEDS: predniSONE 20 MG TAB PO SCH (10:14)
[2025-04-21] MEDS ORDERED: PRED20TA2 PO (12:02)
[2025-04-21] MEDS ORDERED: MESA800T9 PO (12:02)
[2025-04-21 13:00] VITALS: BP 97/61; PULSE 95; RESP 16; TEMP 97.7; O2SAT 97
--- NOTE | 2025-04-21 13:52 | DVHPN2 ---
Progress Note - Dictate Date Seen: Apr 21, 2025 Medical Necessity Reason Pt with a Central, PICC or Fol: No Subjective No new complaints Patient resting comfortably Abdominal pain has improved vital signs Vital Sign Date Time Temp Pulse Resp B/P (MAP) Pulse Ox O2 Delivery O2 Flow Rate FiO2 04/21/25 13:00 97.7 95 16 97/61 (73) 97 97.7 04/20/25 20:00 Room Air* 0 21 Total Intake and Output 04/20/25 04/20/25 04/21/25 15:00 23:00 07:00 Intake Total 1600 ml 1450 ml Balance 1600 ml 1450 ml medications Current Medications Medications Dose Ordered Sig/Wanda Route Start Time Stop Time Status Last Admin Dose Admin Nitroglycerin 0.4 mg Q5MINP PRN SL 04/20/25 01:00 Sodium Chloride 1,000 ml @ 100 mls/hr Q10H IV 04/20/25 02:00 04/21/25 08:00 100 MLS/HR Quetiapine Fumarate 200 mg HS PO 04/20/25 22:00 04/20/25 21:31 200 MG Tamsulosin HCl 0.4 mg QPM PO 04/20/25 18:00 04/20/25 17:12 0.4 MG Trazodone HCl 100 mg HS PO 04/20/25 22:00 04/20/25 21:30 100 MG Lorazepam 0.5 mg Q6HP PRN PO 04/20/25 02:00 04/20/25 13:53 0.5 MG Ketorolac Tromethamine 15 mg Q6HPRN PRN IV 04/20/25 02:15 04/25/25 02:14 Hydromorphone HCl 0.5 mg Q4HPRN PRN IV 04/20/25 12:00 04/21/25 10:14 0.5 MG Mesalamine 800 mg TID PO 04/20/25 22:00 04/21/25 05:53 800 MG Prednisone 20 mg DAILY PO 04/21/25 10:00 04/21/25 10:14 20 MG Pantoprazole Sodium 40 mg DAILY@0600 PO 04/21/25 06:00 04/21/25 05:52 40 MG objective General: NAD, AAOX3 Chest: lung moreno clear to auscultation Heart: RRR, no murmur Abdomen: Right upper quadrant tenderness to palpation, +BS Extremities without clubbing cyanosis or edema laboratory and microbiology Laboratory Tests 04/21/25 05:48 Test 04/21/25 05:48 Range/Units Serum Glucose 94 74-106 mg/dL Problems(with codes): (1) Intractable abdominal pain (2) Colitis Prognosis Plan Mesalamine Prednisone 20 mg p.o. daily Patient will follow up with her scada engineer to arrange outpatient elective colonoscopy Recommend patient to be discharged with mesalamine and prednisone 20 mg p.o. daily for one or a Medrol Dosepak Thank you for this consult Plan discussed with: Patient PHONG CONRAD MD Apr 21, 2025 13:52
[2025-04-21 14:17] VITALS: BP 115/71; PULSE 96; RESP 17; TEMP 36.5; O2SAT 96
--- NOTE | 2025-04-21 16:14 | DVHDSRES ---
Discharge Summary Date of Admission Resident Creating Document: EDWAR LYLES RESIDENT Apr 20, 2025 at 01:19 Date of Discharge: Apr 21, 2025 Admitting Diagnosis # Abdominal pain Likely due to Crohn's disease Labs/Diagnostic Data: Laboratory Results Test 04/21/25 05:48 04/20/25 06:16 04/19/25 22:10 White Blood Count 7.3 10^3/uL (4.4-10.8) Red Blood Count 4.65 10^6/uL (4.0-5.20) Hemoglobin 14.8 g/dL (12.2-16.2) Hematocrit 43.8 % (36.0-46.0) Mean Corpuscular Volume 94.2 fL (80.0-100.0) Mean Corpuscular Hemoglobin 31.9 pg (28.0-32.0) Mean Corpuscular Hemoglobin Concent 33.8 g/dL (32.0-36.0) Red Cell Distribution Width 15.4 % (11.8-14.3) Platelet Count 326 10^3/uL (140-450) Mean Platelet Volume 6.9 fL (6.9-10.8) Neutrophils (%) (Auto) 59.7 % (37.0-80.0) Lymphocytes (%) (Auto) 29.4 % (10.0-50.0) Monocytes (%) (Auto) 7.1 % (0.0-12.0) Eosinophils (%) (Auto) 2.8 % (0.0-7.0) Basophils (%) (Auto) 1.0 % (0.0-2.0) Neutrophils # (Auto) 4.3 10 ^3/uL (1.6-8.6) Lymphocytes # (Auto) 2.1 10 ^3/uL (0.4-5.4) Monocytes # (Auto) 0.5 10 ^3/uL (0-1.3) Eosinophils # (Auto) 0.2 10 ^3/uL (0-0.8) Basophils # (Auto) 0.1 10 ^3/uL (0-0.2) Nucleated Red Blood Cells 0.1 % Sodium Level 142 mmol/L (136-145) Potassium Level 3.9 mmol/L (3.5-5.1) Chloride Level 109 mmol/L (98-107) Carbon Dioxide Level 24 mmol/L (20-31) Anion Gap 9 (5-15) Blood Urea Nitrogen 9 mg/dL (9-23) Creatinine 0.76 mg/dL (0.550-1.02) Glomerular Filtration Rate Calc 97 mL/min (>90) BUN/Creatinine Ratio 11.8 (10.0-20.0) Serum Glucose 94 mg/dL (74-106) Calcium Level 9.1 mg/dL (8.7-10.4) Erythrocyte Sedimentation Rate 2 mm/hr (0-20) C-Reactive Protein High Sensitivity 0.32 mg/dL (<1.0) Urine Color Light-yellow (Yellow) Urine Clarity Turbid (Clear) Urine pH 7.0 (5.0-9.0) Urine Specific [place] 1.021 (1.001-1.035) Urine Protein Negative (Negative) Urine Ketones Negative (Negative) Urine Blood 1+ /uL (Negative) Urine Nitrite Negative (Negative) Urine Bilirubin Negative (Negative) Urine Urobilinogen Normal mg/dL (Negative) Urine Leukocyte Esterase Negative /uL (Negative) Urine RBC 13 /hpf (0 - 4) Urine Microscopic WBC 3 /HPF (0-5) Urine Squamous Epithelial Cells Few /hpf (<5) Urine Amorphous Crystals Few /hpf (None Seen) Urine Bacteria None seen /hpf (None Seen) Urine Hyaline Casts Few /lpf (0 - 2) Urine Glucose Normal mg/dL (Normal) Other Laboratory Tests 04/21/25 05:48 Brief Hx & Hospital Course: Patient is a 49-year-old female with past medical history of anxiety, depression, bipolar disease, bilateral renal stones with removal of right nephrostomy tube in December but she did not undergo lithotripsy, pyelonephritis, history of recurrent UTIs, obesity, Crohn's disease for which she took Humira 2 years ago and stopped due to lack of insurance, but has not had symptoms since 2 years. She came to the ED yesterday with chief complaints of fever, nausea, vomiting, chills, dizziness, headache, right back pain which was 9/10 in intensity, dull in nature, radiating to the right lower quadrant and right groin. she complains of burning sensation in the urine, but denies any hematuria, or blood in the stool. She also states that she has alternating diarrhea and constipation for a long time. Brief Hospital course: Patient has abdominal pain likely due to Crohn's disease and she is not taking any medication for Crohn's disease the abdominal CT shows No acute abdominal or pelvic findings, Nonobstructive bilateral nephrolithiasis, Suspected colitis/ proctitis. GI was consulted as stated to give Mesalamine, Prednisone 20 mg p.o. daily and Patient is strongly recommended to follow-up in GI clinic for possible colonoscopy to be planned on an outpatient basis, Recommend patient to be discharged with mesalamine and prednisone. CDAI score was 169 contributing to active disease. For her bilateral nephrolithiasis patient was recommended to follow-up outpatient. Pain management hydromorphone 0 point 5q4 p.r.n. was given. For her GERD Protonix was given. For her anxiety/depression patient was recommended to continue home medications quetiapine and lorazepam. Patient was recommended to continue home medication for insomnia. Patient was getting and tolerating well, stated that she felt better than yesterday. She is stable for discharge and was recommended to follow-up with GI outpatient. Patient was discharged with mesalamine 800 mg and hydromorphone for 3 days. Patient c ommunicated understanding of her condition and discharge plan and agreed. General: Patient alert and oriented in person, place and time. Patient following commands. HEENT: Normocephalic, atraumatic, moist mucous membranes Respiratory/pulmonary: Clear lungs bilaterally, vesicular murmurs present in almost all lung moreno, no associated crackles or wheezes. Cardiovascular: Normal heart sounds S1 and S2 with no associated murmurs Abdomen: Abdomen nondistended, there is no pain to palpation in any of the abdominal quadrants, no palpable masses. Extremities: There is no peripheral edema present at the lower extremities. Peripheral Pulses: 3+ Radial (R). 3+ Radial (L). 3+ Dorsalis pedis (R). 3+ Dorsalis pedis(L) Skin: No rashes or pruritus, there is no sacral edema present at this time. Neurological: Intact cranial nerves with no focal neurologic deficits Operations or Procedures ORDERING PHYSICIAN: ANTONIO MILLS MD PROCEDURE(s): ABPL - CT AB PEL WO CON-NO ORAL OR IV REASON: right flank pain ORDER NUMBER(s): [id number], ACCESSION NUMBER(s): [id number] Exam: CT CT AB PEL WO CON-NO ORAL OR IV History: right flank pain Comparison Study: CT CT AB PEL WO CON-NO ORAL OR IV on DOS: 04/10/25, CT CT AB PEL WO CON-NO ORAL OR IV on DOS: 03/31/25, CT CT AB PEL WO CON-NO ORAL OR IV on DOS: 03/28/25, CT CT AB PEL WO CON-NO ORAL OR IV on DOS: 03/18/25, CT CT AB PEL WO CON-NO ORAL OR IV on DOS: 12/10/24 Technique: Multidetector spiral CT of the abdomen was performed from lung bases to pubic symphysis. Imaging was performed without IV contrast. Axial, coronal and sagittal multiplanar reformats were obtained from the axial data set by the technologist. Radiation Dose : 1. Abdomen/Pelvis: CTDIvol 14.78 mGy, DLP 786.64 mGy*cm. Findings: Evaluation of solid organs is limited due to lack of intravenous contrast use. Lung Bases: No acute or significant lung base finding. Normal heart size. Trace pericardial effusion. No pleural effusion. Liver: The liver is normal in size. No focal lesions. Gallbladder and Biliary Tree: Status post cholecystectomy. Spleen: Unremarkable Pancreas: The pancreas is grossly normal in appearance. Adrenal Glands: Unremarkable Kidneys: Nonobstructive bilateral nephrolithiasis. No evidence of hydronephrosis. Bladder: Grossly unremarkable for degree of distention. Bowel: The stomach is grossly normal in appearance. Moderate circumferential intramural edema of the sigmoid colon and rectum which may be related to colitis / proctitis. Small bowel and colon are otherwise normal in caliber and distribution. The appendix is normal. Ascites: Absent Lymphadenopathy: No mesenteric, retroperitoneal or periportal lymphadenopathy. Abdominal Wall and Mesentery: Unremarkable. Vasculature: The visualized abdominal aorta is normal in size and caliber. Evaluation of abdominal and pelvic vessels is limited due to lack of intravenous contrast. Pelvic Organs: Unremarkable Musculoskeletal: No aggressive focal bony lesions, acute fractures or dislocation. IMPRESSION: 1. No acute abdominal or pelvic findings. 2. Nonobstructive bilateral nephrolithiasis. 3. Suspected colitis/ proctitis. Radiation optimization: All CT scans at this facility use at least one of these dose optimization techniques: automated exposure control mA and/or kV adjustment per patient size (includes targeted exams where dose is matched to clinical indication) or iterative reconstruction. Condition at Discharge: Stable Final Diagnosis/Problems List #Abdominal pain Likely due to Crohn's disease #Intractable Abdominal pain due to bilateral nephrolithiasis #GERD #Anxiety / Deppression #Bipolar disorder #Insomina Discharge Disposition: Home Discharge Instruct/Medications Diet: Regular Activity: No Restrictions, As Tolerated Follow Up/Referral: Follow up with discharge clinic in 1-2 weeks Medications: As per EMR Scheduled Ergocalciferol (Vitamin D 01830 Unit), 50,000 UNIT PO Q7D Lorazepam (Ativan Tablet), 2 TAB PO DAILY, (Reported) Mesalamine (Mesalamine Dr), 800 MG PO TID Prednisone (Prednisone), 20 MG PO DAILY Quetiapine Fumerate (Seroquel Xr), 400 MG PO QHSP, (Reported) Trazodone Hcl (Trazodone Hcl), 100 MG PO HS, (Reported) Scheduled PRN Hydrocodone-Acetaminophen (Hydrocodone Bitartrate/AC 5-325 mg), 1 TAB PO Q6HP PRN Ibuprofen (Ibuprofen), 1 TAB PO TID PRN Miscellaneous Medications Cariprazine Hydrochloride (Vraylar), 1.5 MG PO, (Reported) Discontinued Medications Zolpidem Tartrate (Ambien), 10 MG PO HS, (Reported) Discharge Statement: "Patient was advised to return to the ER or call 911 if any headaches, dizziness, shortness of breath, chest pain, abdominal pain, bleeding, fevers, or worsening of medical condition. Patient was counseled about treatment plan, medications, possible side effects, patientverbalized understanding. All questions were answered to the best of my ability. This discharge took greater then 30 minutes in planning, reviewing documentation, counseling the patient, and discussing with other team members." ASSESSMENT ASSESSMENT Assessment Abdominal pain due to Crohn's disease EDWAR LYLES RESIDENT Apr 21, 2025 16:14
== END 2025-04-21 15:10 | disposition home or self-care (01) | DRG 245 ==
LOC: ER 22:32 → OVERFLOW 04-20 01:19 → EAST 04-20 18:50
PROVIDERS: ADMIT Student in an Organized Health Care Education/Training Program; ATTEND Emergency Medicine
DX: K50.90 Crohn's disease, unspecified, without complications (principal); E66.9 Obesity, unspecified; Z68.34 Body mass index [BMI] 34.0-34.9, adult; F31.9 Bipolar disorder, unspecified; N20.0 Calculus of kidney; F41.9 Anxiety disorder, unspecified; G47.00 Insomnia, unspecified; K21.9 Gastro-esophageal reflux disease without esophagitis; Z93.6 Other artificial openings of urinary tract status; Z87.442 Personal history of urinary calculi; Z79.899 Other long term (current) drug therapy; Z90.49 Acquired absence of other specified parts of digestive tract; Z88.5 Allergy status to narcotic agent
CPT/HCPCS: 36415; 74176; 80048; 81001; 85025; 85652; 86141; 86256; 86671; 87081; 96361; 96374; 96375; 99291; G0378; J1885; J2405

== ENCOUNTER 2025-05-04 06:19 | Inpatient (IN) | payer MEDICAID ==
[~2025-05-04] VITALS: Ht 152.4 cm; Wt 88.2 kg
[~2025-05-04 06:19] MED LIST changes: -ACET650T12 PO; -CEPH250C PO; -MAGNSUS48 PO; +MESA800T9 PO; +PRED20TA2 PO; -PSYL1.7W2 PO; -TAMS-35 PO; -ZOLP10TA PO
--- NOTE | 2025-05-04 07:23 | ED.PDOC ---
GI ASSESSMENT HPI Comments 49 y/o F, with PMHx of Crohn's disease presents to the ED for CC of abdominal pain. Patient states, she has been experiencing epigastric abdominal pain with associated symptoms of nausea, vomiting, and diarrhea x3days. Patient reports, that she believes to be having a Crohn's flare up d/t symptoms being similar to those in the past. Patient c/o current 9/10 abdominal pain. Patient denies melena, fever, chills, sweats, or faintness. No other associated symptoms, modifiers, recent injuries or sick contacts present at this time. Chief Complaint: Abdominal Pain Time Seen by MD: 07:15 Primary Care Provider: UNKNOWN Reviewed Notes: Nurses Notes, Medications, Allergies Allergies: Coded Allergies: Codeine (Verified Allergy, Unknown, 12/10/24) Morphine (Verified Allergy, Unknown, 12/10/24) Home Meds Active Scripts Prednisone (Prednisone) 20 Mg Tab, 20 MG PO DAILY for 30 Days, #30 TAB Prov:MAYA POWER RESIDENT 04/21/25 Mesalamine (Mesalamine Dr) 800 Mg Tab, 800 MG PO TID for 30 Days, #90 TAB Prov:MAYA POWER RESIDENT 04/21/25 Hydrocodone-Acetaminophen (Hydrocodone Bitartrate/AC 5-325 mg) 1 Tab Tab, 1 TAB PO Q6HP PRN for 3 Days, #12 TAB Prov:JANNY SANDOVAL MD 04/21/25 Ibuprofen (Ibuprofen) 600 Mg Tab, 1 TAB PO TID PRN for 5 Days, #15 TAB Prov:MARIA ALEJANDRA FOX MD 04/10/25 Ergocalciferol (VITAMIN D 19407 UNIT) 50,000 [place], [address] UNIT PO Q7D for 90 Days, #12 CAP Prov:MARY YE RESIDENT 04/02/25 Reported Medications Cariprazine Hydrochloride (Vraylar) 1.5 Mg Cap, 1.5 MG PO, CAP 03/31/25 Lorazepam (ATIVAN TABLET) 0.5 Mg Tb, 2 TAB PO DAILY, #30 TAB 03/31/25 Trazodone Hcl (Trazodone Hcl) 50 Mg Tab, 100 MG PO HS, MG 03/31/25 Quetiapine Fumerate (Seroquel Xr) 200 Mg Tab, 400 MG PO QHSP for 30 Days, MG 03/31/25 Information Source: Patient Mode of Arrival: Ambulatory Timing: Days Duration: Since onset Prehospital treatment: None Quality: None Vomitus: Watery Stool: Watery Severity: Moderate Recent: None Recent Hx of: None Pain Location: Epigastric Modifying Factors: Nothing Associated sign and symptoms: Nausea, Vomiting, Diarrhea, Abdominal Pain Past Medical History PAST MEDICAL HISTORY: Anxiety, Depression, Kidney Stones, UTI'S Surgical History: Cholecystectomy [employer] History: Denies all [employer] Hx Family History Family History: Reviewed,noncontributory to illness Social History Smoker: Non-Smoker Alcohol: Denies ETOH Use Drugs: Denies Drug Use Lives In: Home Constitutional: denies: chills, diaphoresis, fatigue, fever, malaise, sweats, weakness, others EENTM: denies: blurred vision, double vision, ear bleeding, ear discharge, ear drainage, ear pain, ear ringing, eye pain, eye redness, hearing loss, mouth pain, mouth swelling, nasal discharge, nose bleeding, nose congestion, nose pain, photophobia, tearing, throat pain, throat swelling, voice changes, others Respiratory: denies: cough, hemoptysis, orthopnea, SOB at rest, shortness of breath, SOB with excertion, stridor, wheezing, others Cardiovascular: denies: chest pain, dizzy spells, diaphoresis, Dyspnea on exertion, edema, irregular heart beat, left arm pain, lightheadedness, palpitations, PND, syncope, others Gastrointestinal: reports: abdominal pain, diarrhea, nausea, vomiting; denies: abdomen distended, blood streaked bowels, constipated, dysphagia, difficulty swallowing, hematemesis, melena, poor appetite, poor fluid intake, rectal bleeding, rectal pain, others Genitourinary: denies: abnormal vagina bleeding, burning, dyspareunia, dysuria, flank pain, frequency, hematuria, incontinence, pain, , vagina discharge, urgency, others Neurological: denies: dizziness, fainting, headache, left sided numbness, left sided weakness, numbness, paresthesia, pre-existing deficit, right sided numbness, right sided weakness, seizure, speech problems, tingling, tremors, weakness, others Musculoskeletal: denies: back pain, gout, joint pain, joint swelling, muscle pain, muscle stiffness, neck pain, others Integumetry: denies: bruises, change in color, change in hair/nails, dryness, laceration, lesions, lumps, rash, wounds, others Allergic/Immunocompromised: denies: Difficulty Healing, Frequent Infections, Hives, Itching, others Hematologic/Lymphatic: denies: anemia, blood clots, easy bleeding, easy bruising, swollen glands, others Endocrine: denies: excessive hunger, excessive sweating, excessive thirst, excessive urination, flushing, intolerance to cold, intolerance to heat, unexplained weight gain, unexplained weight loss, others Psychiatric: denies: anxiety, bipolar disorder, depression, hopeless, panic disorder, schizophrenia, sleepless, suicidal, others All Other Systems: Reviewed and Negative Physical Exam General Appearance: Moderate Distress HEENT: Normal ENT Inspection, Pharynx Normal, TMs Normal Neck: Full Range of Motion, Non-Tender, Normal, Normal Inspection Respiratory: Chest Non-Tender, Lungs Clear, No Accessory Muscle Use, No Respiratory Distress, Normal Breath Sounds Cardiovascular: No Edema, No JVD, No Murmur, No Gallop, Normal Peripheral Pulses, Regular Rate/Rhythm Breast Exam: Deferred Gastrointestinal: Diffuse Genitalia: Deferred Pelvic: Deferred Rectal: Deferred Extremities: No calf tenderness, Normal capillary refill, Normal inspection, Normal range of motion, Non-tender, No pedal edema Musculoskeletal : Apperance: Normal Neurologic: Alert, rn production II-XII nml as 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 Was a procedure done?: No GI differential Dx Differential Diagnosis: Constipation, Diverticular disease, Esophagitis, Gastritis/PUD, Gastroenteritis, Inflammatory BD, Electrolyte Imbalance, Food Poisoning, Bacterial, Viral, Other (chrons flare) X-Ray, Labs, Meds, VS Vital Signs Date Time Temp Pulse Resp B/P (MAP) Pulse Ox O2 Delivery O2 Flow Rate FiO2 05/04/25 06:21 98.2 96 18 140/79 96 98.2 Lab Test 05/04/25 07:20 05/04/25 00:00 Range/Units White Blood Count 9.6 4.4-10.8 10^3/uL Red Blood Count 5.09 4.0-5.20 10^6/uL Hemoglobin 16.7 H 12.2-16.2 g/dL Hematocrit 46.2 H 36.0-46.0 % Mean Corpuscular Volume 90.8 80.0-100.0 fL Mean Corpuscular Hemoglobin 32.7 H 28.0-32.0 pg Mean Corpuscular Hemoglobin Concent 36.1 H 32.0-36.0 g/dL Red Cell Distribution Width 14.8 H 11.8-14.3 % Platelet Count 357 140-450 10^3/uL Mean Platelet Volume 7.2 6.9-10.8 fL Neutrophils (%) (Auto) 67.2 37.0-80.0 % Lymphocytes (%) (Auto) 24.1 10.0-50.0 % Monocytes (%) (Auto) 6.2 0.0-12.0 % Eosinophils (%) (Auto) 1.0 0.0-7.0 % Basophils (%) (Auto) 1.5 0.0-2.0 % Neutrophils # (Auto) 6.5 1.6-8.6 10 ^3/uL Lymphocytes # (Auto) 2.3 0.4-5.4 10 ^3/uL Monocytes # (Auto) 0.6 0-1.3 10 ^3/uL Eosinophils # (Auto) 0.1 0-0.8 10 ^3/uL Basophils # (Auto) 0.1 0-0.2 10 ^3/uL Nucleated Red Blood Cells 0.0 % Prothrombin Time 10.6 9.3-11.8 sec Prothrombin Time INR 1.00 0.9-1.15 Activated Partial Thromboplast Time 27.7 24.5-34.5 SEC Sodium Level 140 136-145 mmol/L Potassium Level 3.4 L 3.5-5.1 mmol/L Chloride Level 106 98-107 mmol/L Carbon Dioxide Level 22 20-31 mmol/L Anion Gap 12 5-15 Blood Urea Nitrogen 9 9-23 mg/dL Creatinine 0.82 0.550-1.02 mg/dL Glomerular Filtration Rate Calc 88 >90 mL/min BUN/Creatinine Ratio 11.0 10.0-20.0 Serum Glucose 114 H 74-106 mg/dL Lactic Acid Level 1.9 0.4-2.0 mmol/L Calcium Level 10.5 H 8.7-10.4 mg/dL Total Bilirubin 0.6 0.2-1.0 mg/dL Aspartate Amino Transferase (AST) 16 13-40 U/L Alanine Aminotransferase (ALT) 21 7-40 U/L Alkaline Phosphatase 138 H 46-116 U/L Total Protein 7.7 5.7-8.2 g/dL Albumin 4.9 H 3.2-4.8 g/dL Urine Color Light-yellow Yellow Urine Clarity Clear Clear Urine pH 6.5 5.0-9.0 Urine Specific [place] 1.015 1.001-1.035 Urine Protein Negative Negative Urine Ketones Negative Negative Urine Blood 1+ H Negative /uL Urine Nitrite Negative Negative Urine Bilirubin Negative Negative Urine Urobilinogen Normal Negative mg/dL Urine Leukocyte Esterase 2+ Negative /uL Urine RBC 4 0 - 4 /hpf Urine Microscopic WBC 12 H 0-5 /HPF Urine Squamous Epithelial Cells Few <5 /hpf Urine Bacteria None seen None Seen /hpf Urine Glucose Normal Normal mg/dL Patient alert. Complaining of abdominal pain. Urinalysis shows UTI. WBC within normal limits. Hemoglobin elevated. History of Crohn's disease. Continues to have abdominal pain. Sepsis protocol. Reviewed her history pain Explained to the patient. Continue monitoring. [place] [id number] Ph: [phone] DIAGNOSTIC IMAGING Diagnostic Imaging Report : [id number] Signed PATIENT: KENYA RIVERA ACCT: [id number] UNIT: [id number] : 1975 LOC: ER ROOM / BED: / AGE / SEX: 49 / F ADM STATUS: REG ER SERVICE [id number] ORDERING PHYSICIAN: RUSSELL POOL MD PROCEDURE(s): CXRP - CHEST PORTABLE REASON: sob ORDER NUMBER(s): [id number], ACCESSION NUMBER(s): [id number] INDICATION: sob TECHNIQUE: Frontal view of the chest. COMPARISON: XY CHEST PORTABLE on DOS: 03/18/25 FINDINGS: . The heart and mediastinal contours are grossly unremarkable. There is no evidence of pleural disease. The lungs are clear. The bony structures of the chest are intact without fracture. IMPRESSION: 1. No evidence of acute disease. ATED BY: RANJANA RING MD DICTATED DATE/TIME: 05/04/25834 SIGNED BY: RANJANA RING MD SIGNED DATE/TIME: 05/04/25834 CC: Time of 1ST Reevaluation: 07:45 Reevaluation 1ST: Unchanged Patient Education/Counseling: Diagnosis, Treatment Family Education/Counseling: No Family Present SEPSIS Sepsis Screen Date sepsis recognized/suspect: May 04, 2025 Time Sepsis recognized/suspect: 623 Recent Procedure: No On Antibiotic Therapy: No Respiratory Rate >20: No Heart Rate >90: Yes Temp<36 C (96.8 F) or >38.3 C: No SBP <90 or MAP <65 mmHG: No New Acute Mental Status Change: No Is the patient on CPAP, BIPAP,: No Physician Orders Sodium Chloride 0.9% (05/04/25 07:30) Chest Portable (05/04/25 07:18) Accucheck (05/04/25 07:18) Blood Culture (05/04/25 07:18) Lactic Acid W/ Reflex Order (05/04/25 10:00) Cefepime 1gm/ 50ml (Maxipime 1gm/50ml) (05/04/25 14:00) Notify Md If Map <65 Or Bp<90 (05/04/25 07:18) If Map<65 Start Vasopressor (05/04/25 07:18) Sepsis Reassesment After Fluid (05/04/25 08:18) Vital Signs Date Time Temp Pulse Resp B/P (MAP) Pulse Ox O2 Delivery O2 Flow Rate FiO2 05/04/25 06:21 98.2 96 18 140/79 96 98.2 Laboratory Tests Test 05/04/25 07:20 Lactic Acid Level 1.9 mmol/L (0.4-2.0) White Blood Count 9.6 10^3/uL (4.4-10.8) Departure 1 Departure Time of Disposition: 08:30 Impression: Primary Impression: Acute abdominal pain Additional Impression: Sepsis due to urinary tract infection Disposition: ADMITTED INPATIENT Admit to: Med Surg Condition: Guarded Critical Care Note Critical Care Time?: No Stability Stability form required: No Heart Score Heart Score: Heart Score Response (Comments) Value History N/A 0 EKG N/A 0 Age N/A 0 Risk Factors N/A 0 Troponin N/A 0 Total 0 I personally scribed for RUSSELL POOL MD ([email or web address]) on 05/04/25 at 07:23. Electronically submitted by Maira Joseph ([email or web address]). I personally scribed for RUSSELL POOL MD ([email or web address]) on 05/04/25 at 09:23. Electronically submitted by Maira Joseph ([email or web address]). RUSSELL POOL MD May 04, 2025 07:23
[2025-05-04 07:50] LABS: Hematocrit 46.2 % (36.0-46.0); Hemoglobin 16.7 g/dL (12.2-16.2); Mean Corpuscular Hemoglobin 32.7 pg (28.0-32.0); Mean Corpuscular Volume 90.8 fL (80.0-100.0); Nucleated Red Blood Cells % 0.0 %
[2025-05-04 08:04] LABS: Alanine Aminotransferase 21 U/L (7-40); Anion Gap 12 (5-15); BUN/Creatinine Ratio 11.0 (10.0-20.0); Blood Urea Nitrogen 9 mg/dL (9-23); Carbon Dioxide 22 mmol/L (20-31); Chloride 106 mmol/L (98-107); INR 1.0 (0.9-1.15); Partial Thromboplastin Time 27.7 SEC (24.5-34.5); Prothrombin Time 10.6 sec (9.3-11.8); Sodium 140 mmol/L (136-145); Total Protein 7.7 g/dL (5.7-8.2)
[2025-05-04 08:05] LABS: Albumin 4.9 g/dL (3.2-4.8); Alkaline Phosphatase 138 U/L (46-116); Bilirubin, Total 0.6 mg/dL (0.2-1.0); Calcium 10.5 mg/dL (8.7-10.4); Glucose 114 mg/dL (74-106); Potassium 3.4 mmol/L (3.5-5.1)
[2025-05-04 08:20] LABS: Urine Protein, UAD Negative (Negative)
--- NOTE | 2025-05-04 08:38 | DVH ---
INDICATION: sob TECHNIQUE: Frontal view of the chest. COMPARISON: XY CHEST PORTABLE on DOS: 03/18/25 FINDINGS: . The heart and mediastinal contours are grossly unremarkable. There is no evidence of pleural disea se. The lungs are clear. The bony structures of the chest are intact without fracture. IMPRESSION: 1. No evidence of acute disease.
[2025-05-04] MEDS: SODIUM CHLORIDE 0.9% 1,000 ML IVB ONE (10:42)
[2025-05-04] MEDS: ONDANSETRON HCL 4 MG/2 ML VIAL IV ONE (10:50)
[2025-05-04] MEDS: CEFEPIME 1GM/ 50ML 50 ML IV SCH (10:50)
[2025-05-04] MEDS: HYDROmorphone HCL 2 MG/ML VL/or syr IV ONE ×2 (10:56→20:37)
[2025-05-04] MEDS ORDERED: ACETAMINOPHEN 325 MG TAB PO PRN (14:30)
[2025-05-04] MEDS ORDERED: DOCUSATE SOD 100 MG CAP PO PRN (14:30)
[2025-05-04] MEDS ORDERED: MORPHINE SULFATE INJ 2 MG/ml SYRG IV PRN (14:30)
[2025-05-04] MEDS ORDERED: ZOLP10TA6 PO (14:33)
[2025-05-04] MEDS ORDERED: PATIENTS OWN MEDICATION (Zolpidem Tartrate 1 TAB) PO PRN (14:45)
--- NOTE | 2025-05-04 14:50 | DVHHP2 ---
History of Present Illness Reason for Visit: Abdominal pain History of Present Illness Kezia Chavis is a 49-year-old female with past medical history of Crohn's disease, anxiety, depression, and kidney stones, who came to the hospital due to abdominal pain. Patient states her symptoms began last Saturday05/01/2025, with nausea, vomiting, diarrhea, and abdominal pain. She states she has had intermittent blood in her stool as well. She was diagnosed with Crohn's disease around 2014, and states this feel similar to when she has had a flair up in the past. She was on Humira for numerous years, but weaned off about 5 years ago due to her symptoms improving. She is working on an outpatient referral for GI. GI: Inflam bowel disease (Crohn's disease) Psych: Anxiety, Depression Past Surgical History: Cholecystectomy Smoke: No ALCOHOL: none Drugs: None Lives: with Family Domestic Violence: Neg Review of Systems Constitutional: No: Fever, Chills, Sweats, Weakness, Malaise, Other Eyes: No: Pain, Vision change, Conjunctivae inflammation, Eyelid inflammation, Other, Redness ENT: No: Ear pain, Ear discharge, Nose pain, Nose discharge, Nose congestion, Mouth pain, Mouth swelling, Throat pain, Throat swelling, Other Respiratory: No: Cough, Dry, Shortness of breath, SOB with excertion, Wheezing, Hemoptysis, Pleuritic Pain, Sputum, Wheezing, Other Cardiovascular: No: Chest Pain, Palpitations, Orthopnea, Paroxysmal Noc. Dyspnea, Edema, Lt Headedness, Other Gastrointestinal: Nausea, Vomiting, Diarrhea; No: Abdominal Pain, Constipation, Melena, Hematochezia, Other Genitourinary: No Dysuria, No Frequency, No Incontinence, No Hematuria, No Retention, No Other Musculoskeletal: No: other, neck pain, shoulder pain, arm pain, back pain, hand pain, leg pain, foot pain Skin: No: Rash, Lesions, Jaundice, Bruising, Other Neurological: No: Weakness, Numbness, Incoordination, Change in speech, Confusion, Seizures, Other Allergies: Coded Allergies: Codeine (Verified Allergy, Unknown, 12/10/24) Morphine (Verified Allergy, Unknown, 12/10/24) Medications Current Medications Medications Dose Ordered Sig/Wanda Route Start Time Stop Time Status Last Admin Dose Admin Cefepime HCl 50 ml @ 12.5 mls/hr Q8HR IV 05/04/25 14:00 05/04/25 10:50 12.5 MLS/HR Acetaminophen/ Hydrocodone Bitart 1 tab Q4HP PRN PO 05/04/25 14:30 UNV Ondansetron HCl 4 mg Q4HP PRN IV 05/04/25 14:30 UNV Docusate Sodium 100 mg BIDPRN PRN PO 05/04/25 14:30 UNV Acetaminophen 650 mg Q6HP PRN PO 05/04/25 14:30 UNV Morphine Sulfate 2 mg Q4HPRN PRN IV 05/04/25 14:30 UNV Lorazepam 1 mg DAILY PO 05/05/25 10:00 UNV Patient Own Medication 400 mg QHSP PO 05/04/25 22:00 UNV Exam Vital Signs Vital Signs Date Time Temp Pulse Resp B/P (MAP) Pulse Ox O2 Delivery O2 Flow Rate FiO2 05/04/25 11:04 98.6 89 18 127/83 (98) 97 98.6 05/04/25 11:04 Room Air General Appearance: Alert, Oriented X3, Cooperative, moderate distress HEENT: Atraumatic, PERRLA Respiratory: Clear to auscultation, Normal air movement Cardiovascular: Regular rate, Normal S1, Normal S2, No murmurs Abdominal: Normal bowel sounds, Soft, Other (Pain) Extremities: No clubbing, No cyanosis, No edema, Normal pulses, No tenderness/swelling Skin: No rashes, No breakdown, No significant lesion Neuro: Normal gait, Normal speech, Strength at 5/5 X4 ext, Normal tone Psych/Mental Status: Mental status NL, Mood NL Labs/Xrays Labs Test 05/04/25 10:15 05/04/25 07:20 05/04/25 00:00 Range/Units Lactic Acid Level 1.2 0.4-2.0 mmol/L White Blood Count 9.6 4.4-10.8 10^3/uL Red Blood Count 5.09 4.0-5.20 10^6/uL Hemoglobin 16.7 H 12.2-16.2 g/dL Hematocrit 46.2 H 36.0-46.0 % Mean Corpuscular Volume 90.8 80.0-100.0 fL Mean Corpuscular Hemoglobin 32.7 H 28.0-32.0 pg Mean Corpuscular Hemoglobin Concent 36.1 H 32.0-36.0 g/dL Red Cell Distribution Width 14.8 H 11.8-14.3 % Platelet Count 357 140-450 10^3/uL Mean Platelet Volume 7.2 6.9-10.8 fL Neutrophils (%) (Auto) 67.2 37.0-80.0 % Lymphocytes (%) (Auto) 24.1 10.0-50.0 % Monocytes (%) (Auto) 6.2 0.0-12.0 % Eosinophils (%) (Auto) 1.0 0.0-7.0 % Basophils (%) (Auto) 1.5 0.0-2.0 % Neutrophils # (Auto) 6.5 1.6-8.6 10 ^3/uL Lymphocytes # (Auto) 2.3 0.4-5.4 10 ^3/uL Monocytes # (Auto) 0.6 0-1.3 10 ^3/uL Eosinophils # (Auto) 0.1 0-0.8 10 ^3/uL Basophils # (Auto) 0.1 0-0.2 10 ^3/uL Nucleated Red Blood Cells 0.0 % Prothrombin Time 10.6 9.3-11.8 sec Prothrombin Time INR 1.00 0.9-1.15 Activated Partial Thromboplast Time 27.7 24.5-34.5 SEC Sodium Level 140 136-145 mmol/L Potassium Level 3.4 L 3.5-5.1 mmol/L Chloride Level 106 98-107 mmol/L Carbon Dioxide Level 22 20-31 mmol/L Anion Gap 12 5-15 Blood Urea Nitrogen 9 9-23 mg/dL Creatinine 0.82 0.550-1.02 mg/dL Glomerular Filtration Rate Calc 88 >90 mL/min BUN/Creatinine Ratio 11.0 10.0-20.0 Serum Glucose 114 H 74-106 mg/dL Calcium Level 10.5 H 8.7-10.4 mg/dL Total Bilirubin 0.6 0.2-1.0 mg/dL Aspartate Amino Transferase (AST) 16 13-40 U/L Alanine Aminotransferase (ALT) 21 7-40 U/L Alkaline Phosphatase 138 H 46-116 U/L Total Protein 7.7 5.7-8.2 g/dL Albumin 4.9 H 3.2-4.8 g/dL Urine Color Light-yellow Yellow Urine Clarity Clear Clear Urine pH 6.5 5.0-9.0 Urine Specific [place] 1.015 1.001-1.035 Urine Protein Negative Negative Urine Ketones Negative Negative Urine Blood 1+ H Negative /uL Urine Nitrite Negative Negative Urine Bilirubin Negative Negative Urine Urobilinogen Normal Negative mg/dL Urine Leukocyte Esterase 2+ Negative /uL Urine RBC 4 0 - 4 /hpf Urine Microscopic WBC 12 H 0-5 /HPF Urine Squamous Epithelial Cells Few <5 /hpf Urine Bacteria None seen None Seen /hpf Urine Glucose Normal Normal mg/dL TECHNIQUE: Frontal view of the chest. FINDINGS: The heart and mediastinal contours are grossly unremarkable. There is no evidence of pleural disease. The lungs are clear. The bony structures of the chest are intact without fracture. IMPRESSION: 1. No evidence of acute disease. SEPSIS Sepsis Screen Date sepsis recognized/suspect: May 04, 2025 Time Sepsis recognized/suspect: 623 Recent Procedure: No On Antibiotic Therapy: No Respiratory Rate >20: No Heart Rate >90: Yes Temp<36 C (96.8 F) or >38.3 C: No SBP <90 or MAP <65 mmHG: No New Acute Mental Status Change: No Is the patient on CPAP, BIPAP,: No Physician Orders Chest Portable (05/04/25 07:18) Accucheck (05/04/25 07:18) Blood Culture (05/04/25 07:18) Cefepime 1gm/ 50ml (Maxipime 1gm/50ml) (05/04/25 14:00) Notify Md If Map <65 Or Bp<90 (05/04/25 07:18) If Map<65 Start Vasopressor (05/04/25 07:18) Sepsis Reassesment After Fluid (05/04/25 08:18) Admit (05/04/25 14:30) Code Status (05/04/25 14:30) Hydrocodone-Acet 5/325mg Tab ([place] 32 (05/04/25 14:30) Ondansetron Hcl (Zofran) (05/04/25 14:30) Docusate Sodium Capsule (Colace Capsule) (05/04/25 14:30) Complete Blood Count (05/05/25 04:00) Comprehensive Metabolic Panel (05/05/25 04:00) Condition: Serious (05/04/25 14:30) Acetaminophen Tablet (Tylenol Tablet) (05/04/25 14:30) Clear Liq Diet (05/04/25 Dinner) Morphine Sulfate Injection (05/04/25 14:30) Lorazepam Tablet (Ativan Tablet) (05/05/25 10:00) (Nf) Quetiapine Fumerate (Seroquel Xr) (05/04/25 22:00) Ct Ab Pel With Iv Con Only (05/04/25 14:33) Test, Urine (05/04/25 14:33) (Nf) Zolpidem Tartrate (05/04/25 14:45) Vital Signs Date Time Temp Pulse Resp B/P (MAP) Pulse Ox O2 Delivery O2 Flow Rate FiO2 05/04/25 11:04 98.6 89 18 127/83 (98) 97 98.6 05/04/25 11:04 89 18 97 Room Air 05/04/25 10:56 89 14 127/83 Laboratory Tests Test 05/04/25 07:20 05/04/25 10:15 Lactic Acid Level 1.9 mmol/L (0.4-2.0) 1.2 mmol/L (0.4-2.0) White Blood Count 9.6 10^3/uL (4.4-10.8) Medications Medications Dose Ordered Sig/Wanda Route Start Time Stop Time Status Last Admin Dose Admin Cefepime HCl 50 ml @ 12.5 mls/hr Q8HR IV 05/04/25 14:00 05/04/25 10:50 12.5 MLS/HR Hydromorphone HCl 1 mg ONCE ONCE IV 05/04/25 07:30 05/04/25 07:31 DC 05/04/25 10:56 1 MG Ondansetron HCl 4 mg ONCE ONCE IV 05/04/25 07:30 05/04/25 07:31 DC 05/04/25 10:50 4 MG Sodium Chloride 1,000 ml @ 1,000 mls/hr Q1H ONCE IVB 05/04/25 07:30 05/04/25 08:29 DC 05/04/25 10:42 1,000 MLS/HR Assessment/Plan Assessment/Plan Assessment: Intractable abdominal pain, Possible Crohn's disease flair, Anxiety, Depression, Insomnia, Plan: Admit to Med-Surg, GI consult, IV antibiotics, IV hydration, Clear liquid diet, Stool for occult blood, CT abdomen/pelvis, pending IV Protonix, Home medications reconciled, Plan discussed with: Patient My Orders Orders - CARYN HI Procedure Category Date Status Time Admit ADMIT 05/04/25 Transmitted 14:30 Code Status CODE 05/04/25 Transmitted 14:30 Hydrocodone-Acet PHA 05/04/25 Logged 5/325mg Tab ([place] 14:30 Ondansetron Hcl PHA 05/04/25 Logged (Zofran) 14:30 Docusate Sodium PHA 05/04/25 Logged Capsule (Colace 14:30 Complete Blood Count LAB 05/05/25 Verified 04:00 Comprehensive LAB 05/05/25 Verified Metabolic Panel 04:00 Condition: Serious JEREMIE 05/04/25 In Process 14:30 Acetaminophen Tablet PHA 05/04/25 Logged (Tylenol Tablet) 14:30 Clear Liq Diet DIET 05/04/25 Transmitted Dinner Morphine Sulfate PHA 05/04/25 Logged Injection 14:30 Lorazepam Tablet PHA 05/05/25 Logged (Ativan Tablet) 10:00 (Nf) Quetiapine PHA 05/04/25 Logged Fumerate (Seroquel Xr) 22:00 Ct Ab Pel With Iv Con CT 05/04/25 Logged Only 14:33 Test, Urine LAB 05/04/25 Transmitted 14:33 (Nf) Zolpidem Tartrate PHA 05/04/25 Transmitted 14:45 Date of Service: May 04, 2025 Billing Provider: CARYN HI Common Visit Codes: [id number] INP/OBS CARE (MOD) CARYN HI May 04, 2025 14:50
[2025-05-04] MEDS: VANCOMYCIN 1GM/200ML PM 200 ML IV ONE (14:55)
[2025-05-04] MEDS ORDERED: TEMAZEPAM 15 MG CAP PO PRN (15:00)
[2025-05-04] MEDS: HYDROcodone-ACET 5/325MG TAB PO PRN (15:02)
--- NOTE | 2025-05-04 16:02 | DVHINCON2 ---
Date of service: May 04, 2025 Referring Physician Higinio Garcia Reason for Consultation Abdominal pain nausea vomiting History of Present Illness Kezia Chavis is a 49-year-old female with past medical history of Crohn's disease, anxiety, depression, and kidney stones, who came to the hospital due to epigastric abdominal pain. Patient states her symptoms began last Saturday05/01/2025, with nausea, bili vomiting, some diarrhea, and epigastric abdominal pain. She states she has had intermittent blood in her stool as well. She was diagnosed with Crohn's disease around 2014, and states this feel similar to when she has had a flair up in the past. She was on Humira for numerous years, but weaned off about 5 years ago due to her symptoms improving. She is working on an outpatient referral for GI. She had seen in my ER recently and CT of the abdomen was reviewed Her IBD panel was negative. Patient's main complaint appears to be epigastric discomfort and some dyspepsia today Past Medical History GI: Inflam bowel disease (Crohn's disease) Psych: Anxiety, Depression Past Surgical History Past Surgical History: Cholecystectomy Family History: Asthma G8 MOTHER Diabetes mellitus G8 FATHER FH: hepatic cirrhosis G8 MOTHER Social History Smoke: No ALCOHOL: none Drugs: None Lives: with Family Domestic Violence: Neg Allergies: Coded Allergies: Codeine (Verified Allergy, Unknown, 12/10/24) Morphine (Verified Allergy, Unknown, 12/10/24) Home Meds Active Scripts Mesalamine (Mesalamine Dr) 800 Mg Tab, 800 MG PO TID for 30 Days, #90 TAB Prov:MAYA POWER RESIDENT 04/21/25 Ergocalciferol (VITAMIN D 95491 UNIT) 50,000 [place], [address] UNIT PO Q7D for 90 Days, #12 CAP Prov:MARY YE RESIDENT 04/02/25 Reported Medications Zolpidem Tartrate (Zolpidem Tartrate) 10 Mg Tab, 1 TAB PO QHSP PRN 05/04/25 Cariprazine Hydrochloride (Vraylar) 1.5 Mg Cap, 1.5 MG PO, CAP 03/31/25 Lorazepam (ATIVAN TABLET) 0.5 Mg Tb, 2 TAB PO DAILY, #30 TAB 03/31/25 Quetiapine Fumerate (Seroquel Xr) 200 Mg Tab, 400 MG PO QHSP for 30 Days, MG 03/31/25 Discontinued Reported Medications Trazodone Hcl (Trazodone Hcl) 50 Mg Tab, 100 MG PO HS, MG 03/31/25 Discontinued Scripts Prednisone (Prednisone) 20 Mg Tab, 20 MG PO DAILY for 30 Days, #30 TAB Prov:MAYA POWER 04/21/25 Hydrocodone-Acetaminophen (Hydrocodone Bitartrate/AC 5-325 mg) 1 Tab Tab, 1 TAB PO Q6HP PRN for 3 Days, #12 TAB Prov:JANNY SANDOVAL MD 04/21/25 Ibuprofen (Ibuprofen) 600 Mg Tab, 1 TAB PO TID PRN for 5 Days, #15 TAB Prov:MARIA ALEJANDRA FOX MD 04/10/25 Current Medications Current Medications Medications (Trade) Dose Ordered Sig/Wanda Route PRN Reason Start Time Stop Time Status Last Admin Cefepime HCl 50 ml @ 12.5 mls/hr Q8HR IV 05/04/25 14:00 05/04/25 10:50 Acetaminophen/ Hydrocodone Bitart ([place] 5/325MG Tab) 1 tab Q4HP PRN PO MODERATE PAIN (4-6 PAIN SCALE) 05/04/25 14:30 05/04/25 15:02 Ondansetron HCl (Zofran) 4 mg Q4HP PRN IV NAUSEA / VOMITING 05/04/25 14:30 Docusate Sodium (Colace Capsule) 100 mg BIDPRN PRN PO FOR CONSTIPATION 05/04/25 14:30 Acetaminophen (Tylenol Tablet) 650 mg Q6HP PRN PO PAIN SCALE 1-3 OR TEMP>100.4 05/04/25 14:30 Morphine Sulfate 2 mg Q4HPRN PRN IV SEVERE PAIN (7-10 PAIN SCALE) 05/04/25 14:30 Lorazepam (Ativan Tablet) 1 mg DAILY PO 05/05/25 10:00 Patient Own Medication 400 mg QHSP PO 05/04/25 22:00 UNV Patient Own Medication 1 tab QHSP PRN PO FOR INSOMNIA 05/04/25 14:45 UNV Metronidazole 100 ml @ 100 mls/hr Q8HR IV 05/04/25 22:00 Ceftriaxone Sodium 50 ml @ 100 mls/hr DAILY@09 IV 05/05/25 09:00 Temazepam (Restoril) 30 mg QHSP PRN PO FOR INSOMNIA 05/04/25 15:00 Cancel Zolpidem Tartrate (Ambien) 10 mg QHSP PRN PO FOR INSOMNIA 05/04/25 15:00 Quetiapine Fumarate (SEROquel TABLET) 400 mg QHSP PRN PO DEPRESSION 05/04/25 15:15 Vital Signs Vital Signs Date Time Temp Pulse Resp B/P (MAP) Pulse Ox O2 Delivery O2 Flow Rate FiO2 05/04/25 11:04 98.6 89 18 127/83 (98) 97 98.6 05/04/25 11:04 Room Air Physical Exam General Appearance: Alert, Oriented X3, Cooperative, mild distress HEENT: Atraumatic, PERRLA Respiratory: Clear to auscultation, Normal air movement Cardiovascular: Regular rate, Normal S1, Normal S2, No murmurs Abdominal: Normal bowel sounds, Soft, Other (Pain) Extremities: No clubbing, No cyanosis, No edema, Normal pulses, No tenderness/swelling Skin: No rashes, No breakdown, No significant lesion Neuro: Normal gait, Normal speech, Strength at 5/5 X4 ext, Normal tone Psych/Mental Status: Mental status NL, Mood NL Labs/Diagnostic Data Labs Test 05/04/25 10:15 05/04/25 07:20 05/04/25 00:00 Range/Units Lactic Acid Level 1.2 0.4-2.0 mmol/L White Blood Count 9.6 4.4-10.8 10^3/uL Red Blood Count 5.09 4.0-5.20 10^6/uL Hemoglobin 16.7 H 12.2-16.2 g/dL Hematocrit 46.2 H 36.0-46.0 % Mean Corpuscular Volume 90.8 80.0-100.0 fL Mean Corpuscular Hemoglobin 32.7 H 28.0-32.0 pg Mean Corpuscular Hemoglobin Concent 36.1 H 32.0-36.0 g/dL Red Cell Distribution Width 14.8 H 11.8-14.3 % Platelet Count 357 140-450 10^3/uL Mean Platelet Volume 7.2 6.9-10.8 fL Neutrophils (%) (Auto) 67.2 37.0-80.0 % Lymphocytes (%) (Auto) 24.1 10.0-50.0 % Monocytes (%) (Auto) 6.2 0.0-12.0 % Eosinophils (%) (Auto) 1.0 0.0-7.0 % Basophils (%) (Auto) 1.5 0.0-2.0 % Neutrophils # (Auto) 6.5 1.6-8.6 10 ^3/uL Lymphocytes # (Auto) 2.3 0.4-5.4 10 ^3/uL Monocytes # (Auto) 0.6 0-1.3 10 ^3/uL Eosinophils # (Auto) 0.1 0-0.8 10 ^3/uL Basophils # (Auto) 0.1 0-0.2 10 ^3/uL Nucleated Red Blood Cells 0.0 % Prothrombin Time 10.6 9.3-11.8 sec Prothrombin Time INR 1.00 0.9-1.15 Activated Partial Thromboplast Time 27.7 24.5-34.5 SEC Sodium Level 140 136-145 mmol/L Potassium Level 3.4 L 3.5-5.1 mmol/L Chloride Level 106 98-107 mmol/L Carbon Dioxide Level 22 20-31 mmol/L Anion Gap 12 5-15 Blood Urea Nitrogen 9 9-23 mg/dL Creatinine 0.82 0.550-1.02 mg/dL Glomerular Filtration Rate Calc 88 >90 mL/min BUN/Creatinine Ratio 11.0 10.0-20.0 Serum Glucose 114 H 74-106 mg/dL Calcium Level 10.5 H 8.7-10.4 mg/dL Total Bilirubin 0.6 0.2-1.0 mg/dL Aspartate Amino Transferase (AST) 16 13-40 U/L Alanine Aminotransferase (ALT) 21 7-40 U/L Alkaline Phosphatase 138 H 46-116 U/L Total Protein 7.7 5.7-8.2 g/dL Albumin 4.9 H 3.2-4.8 g/dL Urine Color Light-yellow Yellow Urine Clarity Clear Clear Urine pH 6.5 5.0-9.0 Urine Specific [place] 1.015 1.001-1.035 Urine Protein Negative Negative Urine Ketones Negative Negative Urine Blood 1+ H Negative /uL Urine Nitrite Negative Negative Urine Bilirubin Negative Negative Urine Urobilinogen Normal Negative mg/dL Urine Leukocyte Esterase 2+ Negative /uL Urine RBC 4 0 - 4 /hpf Urine Microscopic WBC 12 H 0-5 /HPF Urine Squamous Epithelial Cells Few <5 /hpf Urine Bacteria None seen None Seen /hpf Urine Glucose Normal Normal mg/dL CT scan abdomen pelvis 04/19/2025 IMPRESSION: 1. No acute abdominal or pelvic findings. 2. Nonobstructive bilateral nephrolithiasis. 3. Suspected colitis/ proctitis. Problems(with codes): (1) Intractable abdominal pain (2) Sepsis due to urinary tract infection (3) Acute abdominal pain Plan/Recommendation Plan Check stool tests including WBC occult blood IV Protonix and oral Carafate Broad-spectrum antibiotics Clear liquid diet Possible EGD on 05/05/2025 to rule out peptic ulcer disease If the EGD is nondiagnostic then the patient may need colonoscopy for evaluation Plan discussed with: Patient PHONG CONRAD MD May 04, 2025 16:02
[2025-05-04] MEDS ORDERED: IOHEXOL 300 MG/ML 100ML BOTTLE IJ ONE (16:38)
[2025-05-04] MEDS: SUCRALFATE 1 GM/10 ML ORAL SUSP PO SCH (17:00)
--- NOTE | 2025-05-04 17:57 | DVH ---
Exam: CT CT AB PEL WITH IV CON ONLY History: pain. Crohn's COMPARISON: CT CT AB PEL WO CON-NO ORAL OR IV on DOS: 04/19/25, CT CT AB PEL WO CON-NO ORAL OR IV on D OS: 04/10/25, CT CT AB PEL WITH IV CON ONLY on DOS: 04/01/25, CT CT AB PEL WO CON-NO ORAL OR IV on DOS: 03/31/25, CT CT AB PEL WO CON-NO ORAL OR IV on DOS: 03/28/25 Technique: Multidetector spiral CT of the abdomen and pelvis was performed from lung bases to pubic s ymphysis. Intravenous contrast was administered during this examination. Portal venous imaging was obtained. Axial, coronal and sagittal multiplanar reformats were performed by the technologist on a separate workstation. Radiation Dose : 1. Abdomen/Pelvis: CTDIvol 17.25mGy, DLP 917 mGy*cm. CONTRAST: Type of contrast: Omnipaque 300 Contrast injected: 85 ml Findings: Lung Bases: No acute or significant lung base finding. Normal heart size. No pleural or pericardial effusion. Liver: The liver is normal in size. No focal lesions. Normal hepatic vascular enhancement. Liver gagandeep atosis. Gallbladder and Biliary Tree: Unremarkable Spleen: Unremarkable Pancreas: The pancreas is normal in appearance without focal lesions or abnormal enhancement. Adrenal Glands: Unremarkable Kidneys: No hydronephrosis. Bilateral nephrolithiasis, for example a 7 mm stone in the lower pole of the right kidney. Bladder: Unremarkable Bowel: The stomach is grossly normal in appearance. Concentric wall thickening of the distal colon wi th fatty wall deposition, suggestive of inflammatory bowel disease . The appendix is not visualized; however, no secondary findings of acute appendicitis identified. Ascites: Absent Lymphadenopathy: No mesenteric, retroperitoneal or periportal lymphadenopathy. Abdominal Wall and Mesentery: Unremarkable. Vasculature: The visualized abdominal aorta is normal in size and caliber. Abdominal and pelvic vess els demonstrate normal enhancement. Pelvic Organs: Unremarkable Musculoskeletal: No aggressive focal bony lesions, acute fractures or dislocation. IMPRESSION: 1. Concentric wall thickening of the distal colon with fatty wall deposition, suggestive of inflammat ory bowel disease . 2. Bilateral nephrolithiasis without hydronephrosis Radiation optimization: All CT scans at this facility use at least one of these dose optimization rajesh hniques: automated exposure control mA and/or kV adjustment per patient size (includes targeted exam s where dose is matched to clinical indication) or iterative reconstruction.
--- NOTE | 2025-05-04 17:57 | MEDREC ---
[facility] ASP Intervention Section I [facility] ASP Intervention: Duplication of therapy (PLEASE CONSIDER D/C CEFEPIME OR CEFTRIAXONE (DUPLICATE) ) JEFF REESE PHARMACIST May 04, 2025 17:57
[2025-05-04 18:10] VITALS: BP 128/78; PULSE 88; RESP 16; TEMP 97.7; O2SAT 96
[2025-05-04] MEDS: SODIUM CHLORIDE 0.9% 1,000 ML IV ONE (18:10)
[2025-05-04] MEDS: ONDANSETRON HCL 4 MG/2 ML VIAL IV PRN (20:10)
[2025-05-04 21:25] VITALS: BP 114/70; PULSE 94; RESP 20; TEMP 97.7; O2SAT 97
[2025-05-04] MEDS ORDERED: PANTOPRAZOLE 40 MG/10 ML VIAL INJ IV SCH (22:00)
[2025-05-04] MEDS ORDERED: QUETIAPINE FUMERATE 400 MG PO SCH (22:00)
[2025-05-04] MEDS: PANTOPRAZOLE 40 MG/10 ML VIAL INJ IV SCH (22:01)
[2025-05-04] MEDS: GOLYTELY 4L KIT PO ONE (22:27)
[2025-05-04] MEDS: cefTRIAXone 1GM/50ML D5W 50 ML IV SCH (23:24)
[2025-05-05] VITALS (10 sets, daily range): BP systolic 101–122; BP diastolic 67–90; PULSE 76–129; RESP 12–20; TEMP 96.8–98.2; O2SAT 95–100
[2025-05-05] MEDS: ZOLPIDEM TARTRATE 5 MG TAB PO PRN (00:42)
[2025-05-05] MEDS: MAGNESIUM CITRATE SOLUTION 300 ML BTL PO ONE (05:32)
[2025-05-05] MEDS: GOLYTELY 4L KIT PO ONE (05:32)
[2025-05-05 07:45] LABS: Hematocrit 48.3 % (36.0-46.0); Hemoglobin 17.1 g/dL (12.2-16.2); Mean Corpuscular Hemoglobin 32.7 pg (28.0-32.0); Mean Corpuscular Volume 92.1 fL (80.0-100.0); Nucleated Red Blood Cells % 0.1 %
[2025-05-05 08:16] LABS: Alanine Aminotransferase 21 U/L (7-40); Anion Gap 13 (5-15); BUN/Creatinine Ratio 9.0 (10.0-20.0); Calcium 9.8 mg/dL (8.7-10.4); Carbon Dioxide 21 mmol/L (20-31); Glucose 98 mg/dL (74-106); Sodium 143 mmol/L (136-145); Total Protein 7.8 g/dL (5.7-8.2)
[2025-05-05 08:17] LABS: Bilirubin, Total 0.7 mg/dL (0.2-1.0)
[2025-05-05 08:19] LABS: Albumin 5.1 g/dL (3.2-4.8); Alkaline Phosphatase 140 U/L (46-116); Blood Urea Nitrogen 8 mg/dL (9-23); Chloride 109 mmol/L (98-107); Potassium 3.4 mmol/L (3.5-5.1)
[2025-05-05] MEDS: LORazepam 0.5 MG TAB PO SCH (08:51)
[2025-05-05 12:02] LABS: INR 1.04 (0.9-1.15); Partial Thromboplastin Time 28.8 SEC (24.5-34.5); Prothrombin Time 11.0 sec (9.3-11.8)
[2025-05-05] MEDS ORDERED: ONDANSETRON HCL 4 MG/2 ML VIAL ONE (12:52)
[2025-05-05] MEDS ORDERED: LIDOCAINE 2% (LOCAL ANESTH.) PF 5ml SDV ONE (12:52)
[2025-05-05] MEDS ORDERED: PROPOFOL 10 MG/ML 20 ML IV ONE ×2 (12:54→13:06)
--- NOTE | 2025-05-05 13:36 | DVHOP2 ---
Operative Report DATE OF OPERATION: 05/05/25 PROCEDURE: Upper Endoscopy with biopsy. PREOPERATIVE INDICATION: The patient is a 49 -year-old female undergoing endoscopy for epigastric and substernal chest pain POSTOPERATIVE DIAGNOSES: 1. Patient had a 1 cm sliding-type hiatal hernia with the acute erosive esophagitis grade B with the 2 cm esophageal ulcer at the GE junction and some linear ulcers extending into the distal esophagus 2. Mild gastritis otherwise normal examination up to the 2nd and 3rd part of the duodenum with good bile drainage and no active bleeding PROCEDURE PERFORMED BY: Nancy Pringle GI NURSE: Mitzi SCOPE: Olympus videoendoscope. ASA CLASS: 3. PREOPERATIVE MEDICATIONS: Mac sedation, Jasper Kingston PROCEDURE IN DETAIL: After obtaining an informed consent, the patient was placed on left lateral decubitus position. The patient was then sedated with the above medications. A bite block was placed between her teeth. The endoscope was then passed through the oropharynx, into the esophagus, and through the stomach and pylorus up to the second and third part of the duodenum. The endoscope was then withdrawn. The 2nd and 3rd part of the duodenum were normal. There was good bile drainage. Duodenal bulb was normal. Duodenal biopsies were obtained The pre-pyloric area antrum and body showed mild gastritis. Gastric biopsies were obtained. On retroflexion the fundus and cardia were normal. The endoscope was then withdrawn the distal esophagus where the patient had a 1- 2 cm sliding-type hiatal hernia with the acute erosive esophagitis Patient had a 2 cm ulcer at the diaphragmatic impingement and also some linear ulcers extending into the distal esophagus from which biopsies were obtained The remaining distal and proximal esophagus and oropharynx were unremarkable The patient tolerated the procedure well without difficulty. COMPLICATIONS : None SPECIMENS: Duodenal Biopsies Gastric biopsies Distal esophageal biopsies DISPOSITION: Transfer back to the floor Stable PLAN: 1. Await for biopsy result 2. Will place pt on Protonix 40 mg bid 3. Carafate 1 g p.o. 4 times a day 4. DC aspirin NSAIDs smoking alcohol 5. Resume GI soft diet advance as tolerated NANCY PRINGLE MD May 05, 2025 13:36
--- NOTE | 2025-05-05 13:40 | DVHOP2 ---
Operative Report DATE OF OPERATION: 05/05/25 PROCEDURE: Colonoscopy with cold biopsy polypectomy. PREOPERATIVE INDICATION: The patient is a 49 -year-old female undergoing colonoscopy for evaluation of chronic diarrhea and history of colitis POSTOPERATIVE DIAGNOSES: 1. There was a 2 mm benign-appearing hyperplastic type rectal polyp that was seen and removed by cold biopsy forceps 2. Patient had minimal nonspecific colitis with loss of haustration overall colitis appeared to be in remission and random colon biopsies were obtained 3. Otherwise normal examination up to the cecum and terminal ileum PROCEDURE PERFORMED BY: Phong Pringle M.D. SCOPE: Olympus videocolonoscope. ASA CLASS: 3 PREOPERATIVE MEDICATIONS: Mac sedation, Jasper Kingston PROCEDURE IN DETAIL: After obtaining an informed consent, the patient was placed on left lateral decubitus position. She was then sedated with the above medications. A rectal examination was performed that was normal. The colonoscope was then passed through the anus into the rectosigmoid and through the descending, transverse, and ascending colon up to the cecum with visualization of the appendiceal orifice, base of the cecum and the ileocecal valve. The colonoscope was then withdrawn. The distal 10 cm of the terminal ileum were normal The colon appeared to show changes possibly a previous ulcerative colitis however it appeared mostly to be in remission There was some loss of haustration and smooth lining of the colonic mucosa. There was minimal residual nonspecific colitis Random colon biopsies were obtained to rule out microscopic colitis On retroflexion and straight on view the patient had trace to 1+ internal hemorrhoids The patient tolerated the procedure well without difficulty. WITHDRAWAL TIME: 6 minutes QUALITY OF THE PREP: Otis Bowel Prep score: 8. COMPLICATIONS : None SPECIMENS: Random colon biopsies DISPOSITION: Transfer back to the floor Stable PLAN: 1. Repeat colonoscopy base on biopsy result likely in five years 2. Resume GI soft diet advance as tolerated 3. Await biopsy results 4. Outpatient follow up with me in 4-6 weeks to review results and discuss further management 5. If the patient continues to be symptomatic we can start her on mesalamine 800 mg p.o. twice a day PHONG PRINGLE MD May 05, 2025 13:40
--- NOTE | 2025-05-05 14:20 | DVHPN2 ---
Reviewed: Care Plan, H&P, Labs, Medications, Previous Orders, Radiology Changes from previous H/P or p: No Changes Eyes: No Pain, No Vision change, No Conjunctivae inflammation, No Eyelid inflammation, No Other, No Redness ENT: No Ear pain, No Ear discharge, No Nose pain, No Nose discharge, No Nose congestion, No Mouth pain, No Mouth swelling, No Throat pain, No Throat swelling, No Other Cardiovascular: No Chest Pain, No Palpitations, No Orthopnea, No Paroxysmal Noc. Dyspnea, No Edema, No Lt Headedness, No Other Respiratory: No Cough, No Dry, No Shortness of breath, No SOB with excertion, No Wheezing, No Hemoptysis, No Pleuritic Pain, No Sputum, No Other Gastrointestinal: Nausea, Vomiting; No Abdominal Pain; Diarrhea; No Constipation, No Melena, No Hematochezia, No Other Genitourinary: No Dysuria, No Frequency, No Incontinence, No Hematuria, No Retention, No Other Musculoskeletal: No other, No neck pain, No shoulder pain, No arm pain, No back pain, No hand pain, No leg pain, No foot pain Skin: No Rash, No Lesions, No Jaundice, No Bruising, No Other Objective Vitals Vital Signs Date Time Temp Pulse Resp B/P (MAP) Pulse Ox O2 Delivery O2 Flow Rate FiO2 05/05/25 13:34 87 21 91/47 (62) 99 05/05/25 13:24 Room Air 0 05/05/25 13:24 95 05/05/25 13:14 98.4 98.4 Intake/Output Intake and Output 05/05/25 07:00 Intake Total 1450 ml Balance 1450 ml Intake Oral 1200 ml IV Total 250 ml # Voids 2 Medications Current Medications Medications Dose Ordered Sig/Wanda Route Start Time Stop Time Status Last Admin Dose Admin Acetaminophen/ Hydrocodone Bitart 1 tab Q4HP PRN PO 05/04/25 14:30 05/05/25 06:17 1 TAB Ondansetron HCl 4 mg Q4HP PRN IV 05/04/25 14:30 05/04/25 20:10 4 MG Docusate Sodium 100 mg BIDPRN PRN PO 05/04/25 14:30 Acetaminophen 650 mg Q6HP PRN PO 05/04/25 14:30 Morphine Sulfate 2 mg Q4HPRN PRN IV 05/04/25 14:30 Lorazepam 1 mg DAILY PO 05/05/25 10:00 Patient Own Medication 400 mg QHSP PO 05/04/25 22:00 UNV Patient Own Medication 1 tab QHSP PRN PO 05/04/25 14:45 UNV Metronidazole 100 ml @ 100 mls/hr Q8HR IV 05/04/25 22:00 05/05/25 05:31 100 MLS/HR Ceftriaxone Sodium 50 ml @ 100 mls/hr DAILY@09 IV 05/04/25 21:07 05/05/25 08:41 100 MLS/HR Temazepam 30 mg QHSP PRN PO 05/04/25 15:00 Cancel Zolpidem Tartrate 10 mg QHSP PRN PO 05/04/25 15:00 05/05/25 00:42 10 MG Quetiapine Fumarate 400 mg QHSP PRN PO 05/04/25 15:15 05/04/25 23:24 400 MG Pantoprazole Sodium 40 mg BID IV 05/04/25 22:00 05/05/25 08:41 40 MG Sucralfate 1 gm QID@0600,1130,1700,2200 PO 05/04/25 17:00 05/05/25 05:32 1 GM Sucralfate 1 gm QID@0600,1130,1700,2200 PO 05/05/25 17:00 Mesalamine 800 mg TID PO 05/05/25 14:00 Laboratory Results Laboratory Tests 05/05/25 06:57 Chemistry Test 05/05/25 06:57 Albumin 5.1 g/dL (3.2-4.8) H Calcium Level 9.8 mg/dL (8.7-10.4) Total Protein 7.8 g/dL (5.7-8.2) Coagulation Test 05/05/25 11:20 Prothrombin Time 11.0 sec (9.3-11.8) Prothrombin Time INR 1.04 (0.9-1.15) Activated Partial Thromboplast Time 28.8 SEC (24.5-34.5) LFT Test 05/05/25 06:57 Alanine Aminotransferase (ALT) 21 U/L (7-40) Alkaline Phosphatase 140 U/L (46-116) H Aspartate Amino Transferase (AST) 17 U/L (13-40) Total Bilirubin 0.7 mg/dL (0.2-1.0) Urinalysis Test 05/04/25 00:00 05/04/25 08:05 Urine Color Light-yellow (Yellow) Urine Clarity Clear (Clear) Urine pH 6.5 (5.0-9.0) Urine Specific [place] 1.015 (1.001-1.035) Urine Protein Negative (Negative) Urine Ketones Negative (Negative) Urine Blood 1+ /uL (Negative) H Urine Nitrite Negative (Negative) Urine Bilirubin Negative (Negative) Urine Urobilinogen Normal mg/dL (Negative) Urine Leukocyte Esterase 2+ /uL (Negative) Urine RBC 4 /hpf (0 - 4) Urine Microscopic WBC 12 /HPF (0-5) H Urine Squamous Epithelial Cells Few /hpf (<5) Urine Bacteria None seen /hpf (None Seen) Urine Glucose Normal mg/dL (Normal) Urine Test Negative (Negative) Microbiology Microbiology Date/Time Source Procedure Growth Status 05/04/25 07:30 Blood Blood Culture - Preliminary NO GROWTH AFTER 24 HOURS OF INCUBATION. Resulted Labs and/or images reviewed: Labs reviewed by me, Image(s) reviewed by me Assessment/Plan Assessment/Plan INTRACTABLE ABDOMINAL PAIN GRADE B ESOPHAGITIS AND GASTRITIS BY EGD BY DR. Shabana CONRAD: PANTOPRAZOLE CARAFATE RECTAL POLYP BY COLONOSCOPY STATUS POST REMOVED SEPSIS SECONDARY TO URINARY TRACT INFECTION: URINE CULTURES ROCEPHIN Plan discussed with: Patient Date of Service: May 05, 2025 Billing Provider: ALYSSA FRANKS MD Common Visit Codes: [id number] INP/OBS CARE(HIGH) ALYSSA FRANKS MD May 05, 2025 14:20
[2025-05-05] MEDS: MESALAMINE 400mg Delayed Release Cap PO SCH (14:25)
[2025-05-05] MEDS: HYDROcodone-ACET 10/325MG TAB PO PRN (15:55)
[2025-05-05] MEDS: SUCRALFATE 1 GM/10 ML ORAL SUSP PO SCH (17:28)
[2025-05-06 01:00] VITALS: BP 121/76; PULSE 89; RESP 17; TEMP 97.3; O2SAT 93
[2025-05-06 05:00] VITALS: BP 128/52; PULSE 98; RESP 19; TEMP 97.2; O2SAT 99
[2025-05-06 07:50] VITALS: RESP 19
[2025-05-06 09:14] VITALS: BP 97/72; PULSE 91; RESP 18; TEMP 97.6; O2SAT 96
[2025-05-06] MEDS ORDERED: LEVO500T91 PO (10:54)
[2025-05-06] MEDS ORDERED: TRAM-626 PO (10:54)
[2025-05-06] MEDS ORDERED: PANT40T PO (10:54)
[2025-05-06] MEDS ORDERED: SUCR1TAB31 PO (10:54)
--- NOTE | 2025-05-06 10:58 | DVHPN2 ---
Reviewed: Care Plan, H&P, Labs, Medications, Previous Orders, Radiology Changes from previous H/P or p: No Changes Eyes: No Pain, No Vision change, No Conjunctivae inflammation, No Eyelid inflammation, No Other, No Redness ENT: No Ear pain, No Ear discharge, No Nose pain, No Nose discharge, No Nose congestion, No Mouth pain, No Mouth swelling, No Throat pain, No Throat swelling, No Other Cardiovascular: No Chest Pain, No Palpitations, No Orthopnea, No Paroxysmal Noc. Dyspnea, No Edema, No Lt Headedness, No Other Respiratory: No Cough, No Dry, No Shortness of breath, No SOB with excertion, No Wheezing, No Hemoptysis, No Pleuritic Pain, No Sputum, No Other Gastrointestinal: Nausea, Vomiting; No Abdominal Pain; Diarrhea; No Constipation, No Melena, No Hematochezia, No Other Genitourinary: No Dysuria, No Frequency, No Incontinence, No Hematuria, No Retention, No Other Musculoskeletal: No other, No neck pain, No shoulder pain, No arm pain, No back pain, No hand pain, No leg pain, No foot pain Skin: No Rash, No Lesions, No Jaundice, No Bruising, No Other Objective Vitals Vital Signs Date Time Temp Pulse Resp B/P (MAP) Pulse Ox O2 Delivery O2 Flow Rate FiO2 05/06/25 09:14 97.6 91 18 97/72 (80) 96 97.6 05/06/25 07:50 Room Air* 0 21 Intake/Output Intake and Output 05/06/25 07:00 Intake Total 1300 ml Balance 1300 ml Intake Oral 850 ml IV Total 450 ml # Voids 4 # Bowel Movements 3 Medications Current Medications Medications Dose Ordered Sig/Wanda Route Start Time Stop Time Status Last Admin Dose Admin Ondansetron HCl 4 mg Q4HP PRN IV 05/04/25 14:30 05/04/25 20:10 4 MG Docusate Sodium 100 mg BIDPRN PRN PO 05/04/25 14:30 Acetaminophen 650 mg Q6HP PRN PO 05/04/25 14:30 Morphine Sulfate 2 mg Q4HPRN PRN IV 05/04/25 14:30 Lorazepam 1 mg DAILY PO 05/05/25 10:00 05/06/25 08:24 1 MG Patient Own Medication 400 mg QHSP PO 05/04/25 22:00 UNV Patient Own Medication 1 tab QHSP PRN PO 05/04/25 14:45 UNV Metronidazole 100 ml @ 100 mls/hr Q8HR IV 05/04/25 22:00 05/06/25 05:36 100 MLS/HR Ceftriaxone Sodium 50 ml @ 100 mls/hr DAILY@09 IV 05/04/25 21:07 05/06/25 08:23 100 MLS/HR Temazepam 30 mg QHSP PRN PO 05/04/25 15:00 Cancel Zolpidem Tartrate 10 mg QHSP PRN PO 05/04/25 15:00 05/05/25 22:27 10 MG Quetiapine Fumarate 400 mg QHSP PRN PO 05/04/25 15:15 05/05/25 22:28 400 MG Pantoprazole Sodium 40 mg BID IV 05/04/25 22:00 05/06/25 08:24 40 MG Sucralfate 1 gm QID@0600,1130,1700,2200 PO 05/05/25 17:00 05/06/25 05:37 1 GM Mesalamine 800 mg TID PO 05/05/25 14:00 05/06/25 05:37 800 MG Acetaminophen/ Hydrocodone Bitart 1 tab Q6HP PRN PO 05/05/25 15:45 05/06/25 08:25 1 TAB Laboratory Results Laboratory Tests 05/05/25 06:57 Coagulation Test 05/05/25 11:20 Prothrombin Time 11.0 sec (9.3-11.8) Prothrombin Time INR 1.04 (0.9-1.15) Activated Partial Thromboplast Time 28.8 SEC (24.5-34.5) Urinalysis Test 05/04/25 00:00 05/04/25 08:05 Urine Color Light-yellow (Yellow) Urine Clarity Clear (Clear) Urine pH 6.5 (5.0-9.0) Urine Specific [place] 1.015 (1.001-1.035) Urine Protein Negative (Negative) Urine Ketones Negative (Negative) Urine Blood 1+ /uL (Negative) H Urine Nitrite Negative (Negative) Urine Bilirubin Negative (Negative) Urine Urobilinogen Normal mg/dL (Negative) Urine Leukocyte Esterase 2+ /uL (Negative) Urine RBC 4 /hpf (0 - 4) Urine Microscopic WBC 12 /HPF (0-5) H Urine Squamous Epithelial Cells Few /hpf (<5) Urine Bacteria None seen /hpf (None Seen) Urine Glucose Normal mg/dL (Normal) Urine Test Negative (Negative) Microbiology Microbiology Date/Time Source Procedure Growth Status 05/04/25 07:30 Blood Blood Culture - Preliminary NO GROWTH AFTER 48 HOURS OF INCUBATION. Resulted Labs and/or images reviewed: Labs reviewed by me, Image(s) reviewed by me Assessment/Plan Assessment/Plan INTRACTABLE ABDOMINAL PAIN GRADE B ESOPHAGITIS AND GASTRITIS BY EGD BY DR. Shabana CONRAD: PANTOPRAZOLE CARAFATE RECTAL POLYP BY COLONOSCOPY STATUS POST REMOVED SEPSIS SECONDARY TO URINARY TRACT INFECTION: treated with rocephin Plan discussed with: Patient My Orders Orders - ALYSSA FRANKS MD Procedure Category Date Status Time Hydrocodone-Acet PHA 05/05/25 In Process 10/325mg Tab ([place] 15:45 Date of Service: May 06, 2025 Billing Provider: ALYSSA FRANKS MD Common Visit Codes: [id number] INP/OBS CARE(HIGH) ALYSSA FRANKS MD May 06, 2025 10:58
--- NOTE | 2025-05-06 11:09 | DVHDS2 ---
Discharge Summary Date of Admission May 04, 2025 at 14:30 Date of Discharge: May 06, 2025 Admitting Diagnosis Abdominal pain Wounds: EGD Colonoscopy Labs/Diagnostic Data: Laboratory Results Test 05/05/25 11:20 05/05/25 06:57 05/04/25 10:15 05/04/25 08:05 Prothrombin Time 11.0 sec (9.3-11.8) Prothrombin Time INR 1.04 (0.9-1.15) Activated Partial Thromboplast Time 28.8 SEC (24.5-34.5) White Blood Count 8.4 10^3/uL (4.4-10.8) Red Blood Count 5.25 10^6/uL (4.0-5.20) Hemoglobin 17.1 g/dL (12.2-16.2) Hematocrit 48.3 % (36.0-46.0) Mean Corpuscular Volume 92.1 fL (80.0-100.0) Mean Corpuscular Hemoglobin 32.7 pg (28.0-32.0) Mean Corpuscular Hemoglobin Concent 35.5 g/dL (32.0-36.0) Red Cell Distribution Width 15.0 % (11.8-14.3) Platelet Count 346 10^3/uL (140-450) Mean Platelet Volume 7.4 fL (6.9-10.8) Neutrophils (%) (Auto) 64.2 % (37.0-80.0) Lymphocytes (%) (Auto) 26.9 % (10.0-50.0) Monocytes (%) (Auto) 6.6 % (0.0-12.0) Eosinophils (%) (Auto) 1.4 % (0.0-7.0) Basophils (%) (Auto) 0.9 % (0.0-2.0) Neutrophils # (Auto) 5.4 10 ^3/uL (1.6-8.6) Lymphocytes # (Auto) 2.3 10 ^3/uL (0.4-5.4) Monocytes # (Auto) 0.6 10 ^3/uL (0-1.3) Eosinophils # (Auto) 0.1 10 ^3/uL (0-0.8) Basophils # (Auto) 0.1 10 ^3/uL (0-0.2) Nucleated Red Blood Cells 0.1 % Sodium Level 143 mmol/L (136-145) Potassium Level 3.4 mmol/L (3.5-5.1) Chloride Level 109 mmol/L (98-107) Carbon Dioxide Level 21 mmol/L (20-31) Anion Gap 13 (5-15) Blood Urea Nitrogen 8 mg/dL (9-23) Creatinine 0.89 mg/dL (0.550-1.02) Glomerular Filtration Rate Calc 80 mL/min (>90) BUN/Creatinine Ratio 9.0 (10.0-20.0) Serum Glucose 98 mg/dL (74-106) Calcium Level 9.8 mg/dL (8.7-10.4) Total Bilirubin 0.7 mg/dL (0.2-1.0) Aspartate Amino Transferase (AST) 17 U/L (13-40) Alanine Aminotransferase (ALT) 21 U/L (7-40) Alkaline Phosphatase 140 U/L (46-116) Total Protein 7.8 g/dL (5.7-8.2) Albumin 5.1 g/dL (3.2-4.8) Lactic Acid Level 1.2 mmol/L (0.4-2.0) Urine Test Negative (Negative) Test 05/04/25 00:00 Urine Color Light-yellow (Yellow) Urine Clarity Clear (Clear) Urine pH 6.5 (5.0-9.0) Urine Specific [place] 1.015 (1.001-1.035) Urine Protein Negative (Negative) Urine Ketones Negative (Negative) Urine Blood 1+ /uL (Negative) Urine Nitrite Negative (Negative) Urine Bilirubin Negative (Negative) Urine Urobilinogen Normal mg/dL (Negative) Urine Leukocyte Esterase 2+ /uL (Negative) Urine RBC 4 /hpf (0 - 4) Urine Microscopic WBC 12 /HPF (0-5) Urine Squamous Epithelial Cells Few /hpf (<5) Urine Bacteria None seen /hpf (None Seen) Urine Glucose Normal mg/dL (Normal) Other Laboratory Tests 05/05/25 06:57 Brief Hx & Hospital Course: 49-year-old female came in with abdominal pain. Found to have grade B esophagitis and gastritis by EGD by Dr. Shabana Pringle biopsies done. Placed on pantoprazole and Carafate also had rectal polyps which has been removed by colonoscopy by Dr. Shabana Pringle. Patient feels better and being discharged home on pantoprazole and Carafate. LUPE Reyes at bedside during discussion about discharge plan. At the time of discharge patient is tolerating regular diet stable vital signs abdomen is soft Consults/Reason for consult GI Dr. Shabana Pringle Operations or Procedures EGD Colonoscopy Condition at Discharge: Fair Final Diagnosis/Problems List INTRACTABLE ABDOMINAL PAIN GRADE B ESOPHAGITIS AND GASTRITIS BY EGD BY DR. Shabana PRINGLE: PANTOPRAZOLE CARAFATE RECTAL POLYP BY COLONOSCOPY STATUS POST REMOVED SEPSIS SECONDARY TO URINARY TRACT INFECTION: treated with rocephin Discharge Disposition: Home Discharge Instruct/Medications Diet: Regular Activity: Light activity Follow Up/Referral: Follow up with the primary Dr in one week Follow up with the GI Dr. Shabana Pringle in two weeks for the biopsy result Medications: Pantoprazole Carafate Tramadol Transmitted to pharmacy Scheduled Ergocalciferol (Vitamin D 54589 Unit), 50,000 UNIT PO Q7D Levofloxacin Hemihydrate (Levaquin 500 Mg), 1 TAB PO DAILY Lorazepam (Ativan Tablet), 2 TAB PO DAILY, (Reported) Mesalamine (Mesalamine Dr), 800 MG PO TID Pantoprazole Sodium Sesquihydr (Pantoprazole Sodium), 40 MG PO BID Quetiapine Fumerate (Seroquel Xr), 400 MG PO QHSP, (Reported) Sucralfate (Carafate), 1 GM PO QID Scheduled PRN Tramadol HCl (Tramadol HCl), 50 MG PO QID PRN Zolpidem Tartrate (Zolpidem Tartrate), 1 TAB PO QHSP PRN, (Reported) Miscellaneous Medications Cariprazine Hydrochloride (Vraylar), 1.5 MG PO, (Reported) Discontinued Medications Hydrocodone-Acetaminophen (Hydrocodone Bitartrate/AC 5-325 mg), 1 TAB PO Q6HP PRN Ibuprofen (Ibuprofen), 1 TAB PO TID PRN Prednisone (Prednisone), 20 MG PO DAILY Trazodone Hcl (Trazodone Hcl), 100 MG PO HS, (Reported) 39 (Time taken for discharge summary 39 minutes) Discharge Statement: "Patient was advised to return to the ER or call 911 if any headaches, dizziness, shortness of breath, chest pain, abdominal pain, bleeding, fevers, or worsening of medical condition. Patient was counseled about treatment plan, medications, possible side effects, patientverbalized understanding. All questions were answered to the best of my ability. This discharge took greater then 30 minutes in planning, reviewing documentation, counseling the patient, and discussing with other team members." ASSESSMENT ASSESSMENT Hospital Course Improved Assessment INTRACTABLE ABDOMINAL PAIN GRADE B ESOPHAGITIS AND GASTRITIS BY EGD BY DR. Shabana PRINGLE: PANTOPRAZOLE CARAFATE RECTAL POLYP BY COLONOSCOPY STATUS POST REMOVED SEPSIS SECONDARY TO URINARY TRACT INFECTION: treated with rocephin Date of Service: May 06, 2025 Billing Provider: ALYSSA FRANKS MD Common Visit Codes: 89636-ROO/OBS DISCH DAY >30min ALYSSA FRANKS MD May 06, 2025 11:09
[2025-05-06 11:16] VITALS: BP 97/72; PULSE 91; RESP 18; TEMP 97.6; O2SAT 96
--- NOTE | 2025-05-06 19:15 | DVHPN2 ---
Progress Note - Dictate Date Seen: May 06, 2025 (Late entryTime of visit 10 am ) Medical Necessity Reason Pt with a Central, PICC or Fol: No Subjective No new complaints Feeling better vital signs Vital Sign Date Time Temp Pulse Resp B/P (MAP) Pulse Ox O2 Delivery O2 Flow Rate FiO2 05/06/25 11:16 97.6 91 18 96 05/06/25 09:14 97/72 (80) 05/06/25 07:50 Room Air* 0 21 Total Intake and Output 05/05/25 05/05/25 05/06/25 15:00 23:00 07:00 Intake Total 150 ml 200 ml 950 ml Balance 150 ml 200 ml 950 ml medications Current Medications Medications Dose Ordered Sig/Wanda Route Start Time Stop Time Status Last Admin Dose Admin Patient Own Medication 400 mg QHSP PO 05/04/25 22:00 UNV Patient Own Medication 1 tab QHSP PRN PO 05/04/25 14:45 UNV Temazepam 30 mg QHSP PRN PO 05/04/25 15:00 Cancel objective General Appearance: Alert, Oriented X3, Cooperative, no distress HEENT: Atraumatic, PERRLA Respiratory: Clear to auscultation, Normal air movement Cardiovascular: Regular rate, Normal S1, Normal S2, No murmurs Abdominal: Normal bowel sounds, Soft, Other (Pain) Extremities: No clubbing, No cyanosis, No edema, Normal pulses, No tenderness/swelling Skin: No rashes, No breakdown, No significant lesion Neuro: Normal gait, Normal speech, Strength at 5/5 X4 ext, Normal tone Psych/Mental Status: Mental status NL, Mood NL laboratory and microbiology Laboratory Tests 05/05/25 06:57 Test 05/05/25 06:57 Range/Units Serum Glucose 98 74-106 mg/dL Problems(with codes): (1) Esophageal ulcer (2) Hiatal hernia with gastroesophageal reflux disease and esophagitis (3) Intractable abdominal pain (4) Colitis Prognosis PLAN Advance diet as tolerated Protonix 40 mg p.o. twice a day Carafate 1 g p.o. 4 times a day DC aspirin NSAIDs smoking alcohol Mesalamine 800 mg p.o. twice a day Outpatient follow up with me in 2-4 weeks to review results and discuss further management Discharge planning is in progress Plan discussed with: Patient PHONG CONRAD MD May 06, 2025 19:15
== END 2025-05-06 11:38 | disposition home or self-care (01) | DRG 720 ==
LOC: ER 06:19 → OVERFLOW 14:30 → WEST WING 20:57
PROVIDERS: ADMIT Family Medicine; ATTEND Family Medicine
PROC: 0DB68ZX Excision of Stomach, Via Natural or Artificial Opening Endoscopic, Diagnostic (ICD-10-PCS; 2025-05-05)
PROC: 0DBP8ZX Excision of Rectum, Via Natural or Artificial Opening Endoscopic, Diagnostic (ICD-10-PCS; 2025-05-05)
PROC: 0DBK8ZX Excision of Ascending Colon, Via Natural or Artificial Opening Endoscopic, Diagnostic (ICD-10-PCS; 2025-05-05)
PROC: 0DBL8ZX Excision of Transverse Colon, Via Natural or Artificial Opening Endoscopic, Diagnostic (ICD-10-PCS; 2025-05-05)
PROC: 0DBN8ZX Excision of Sigmoid Colon, Via Natural or Artificial Opening Endoscopic, Diagnostic (ICD-10-PCS; 2025-05-05)
PROC: 0DBM8ZX Excision of Descending Colon, Via Natural or Artificial Opening Endoscopic, Diagnostic (ICD-10-PCS; 2025-05-05)
PROC: 0DBH8ZX Excision of Cecum, Via Natural or Artificial Opening Endoscopic, Diagnostic (ICD-10-PCS; 2025-05-05)
PROC: 0DB38ZX Excision of Lower Esophagus, Via Natural or Artificial Opening Endoscopic, Diagnostic (ICD-10-PCS; principal; 2025-05-05 12:48)
PROC: 0DB98ZX Excision of Duodenum, Via Natural or Artificial Opening Endoscopic, Diagnostic (ICD-10-PCS; 2025-05-05 12:48)
DX: A41.9 Sepsis, unspecified organism (principal); K22.10 Ulcer of esophagus without bleeding; K28.9 Gastrojejunal ulcer, unspecified as acute or chronic, without hemorrhage or perforation; F32.A Depression, unspecified; F41.9 Anxiety disorder, unspecified; G47.00 Insomnia, unspecified; K52.9 Noninfective gastroenteritis and colitis, unspecified; K62.1 Rectal polyp; K44.9 Diaphragmatic hernia without obstruction or gangrene; K29.70 Gastritis, unspecified, without bleeding; N30.00 Acute cystitis without hematuria; K51.90 Ulcerative colitis, unspecified, without complications; Z88.5 Allergy status to narcotic agent; Z87.442 Personal history of urinary calculi; Z83.3 Family history of diabetes mellitus; Z82.5 Family history of asthma and other chronic lower respiratory diseases
CPT/HCPCS: 36415; 71045; 74177; 80053; 81001; 81025; 83605; 85025; 85610; 85730; 86850; 86900; 86901; 87040; 96365; 96375; G0378; J2003; J2405; J2470; J2704; J3490

== ENCOUNTER 2025-05-19 17:36 | Emergency (ER) | payer MEDICAID ==
[~2025-05-19] VITALS: Ht 162.6 cm; Wt 81.8 kg
[~2025-05-19 17:36] MED LIST changes: -HYDR-4902 PO; -IBUP-1454 PO; +LEVO500T91 PO; +PANT40T PO; -PRED20TA2 PO; +SUCR1TAB31 PO; +TRAM-626 PO; -TRAZ-227 PO; +ZOLP10TA6 PO
[2025-05-19] MEDS ORDERED: PERCOT PO (18:29)
--- NOTE | 2025-05-19 18:30 | ED.PDOC ---
Psychiatric HPI Comments 41-YEAR-OLD FEMALE PRESENTS TO ER WITH COMPLAINTS OF ANXIETY X1 DAY. PATIENT PRESENTS VIA EMS WITH PMH SIGNIFICANT FOR ANXIETY REPORTING THAT SHE HAS BEEN FEELING VERY ANXIOUS AND TEARFUL X1 DAY. NOTES THAT SHE DID RUN OUT OF HER ATIVAN MEDICATION THAT SHE TAKES NEEDED FOR ANXIETY 5 DAYS AGO AND IS AWAITING FOR HER NEW PRESCRIPTION OF ATIVAN MEDICATION TO COME IN THE MAIL IN "2 DAYS". 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 PATIENT PRESENTS TO ER IN NO DISTRESS. DENIES FEVER, SHORTNESS OF BREATH, CHEST PAIN, PALPITATIONS, N/V, SI/HI OR ANY FURTHER SYMPTOMS/COMPLAINTS Chief Complaint: Anxiety Time Seen by MD: 18:06 Primary Care Provider: UNKNOWN Reviewed Notes: Nurses Notes, Medications, Allergies Information Source: Patient Mode of Arrival: EMS Past Medical History PAST MEDICAL HISTORY: Anxiety, Depression, Kidney Stones, UTI'S Past Medical History (Other): CROHN'S DISEASE Surgical History: Cholecystectomy MATLAB DEVELOPER History: Denies all MATLAB DEVELOPER Hx Family History Family History: Unknown Social History Smoker: Non-Smoker Alcohol: Denies ETOH Use Drugs: Denies Drug Use Lives In: Home Constitutional: denies: chills, diaphoresis, fatigue, fever, malaise, sweats, weakness, others EENTM: denies: blurred vision, double vision, ear bleeding, ear discharge, ear drainage, ear pain, ear ringing, eye pain, eye redness, hearing loss, mouth pain, mouth swelling, nasal discharge, nose bleeding, nose congestion, nose pain, photophobia, tearing, throat pain, throat swelling, voice changes, others Respiratory: denies: cough, hemoptysis, orthopnea, SOB at rest, shortness of breath, SOB with excertion, stridor, wheezing, others Cardiovascular: denies: chest pain, dizzy spells, diaphoresis, Dyspnea on exertion, edema, irregular heart beat, left arm pain, lightheadedness, palpita tions, PND, syncope, others Gastrointestinal: reports: others ( STATED IN HPI) Genitourinary: denies: abnormal vagina bleeding, burning, dyspareunia, dysuria, flank pain, frequency, hematuria, incontinence, pain, , vagina discharge, urgency, others Neurological: denies: dizziness, fainting, headache, left sided numbness, left sided weakness, numbness, paresthesia, pre-existing deficit, right sided numbness, right sided weakness, seizure, speech problems, tingling, tremors, weakness, others Musculoskeletal: denies: back pain, gout, joint pain, joint swelling, muscle pain, muscle stiffness, neck pain, others Integumetry: denies: bruises, change in color, change in hair/nails, dryness, laceration, lesions, lumps, rash, wounds, others Allergic/Immunocompromised: denies: Difficulty Healing, Frequent Infections, Hives, Itching, others Hematologic/Lymphatic: denies: anemia, blood clots, easy bleeding, easy bruising, swollen glands, others Endocrine: denies: excessive hunger, excessive sweating, excessive thirst, excessive urination, flushing, intolerance to cold, intolerance to heat, unexplained weight gain, unexplained weight loss, others Psychiatric: reports: others ( STATED IN HPI) Physical Exam General Appearance: No Apparent Distress, Obese HEENT: PERRL/EOMI Neck: Full Range of Motion, Non-Tender, Normal Respiratory: Chest Non-Tender, Lungs Clear, No Accessory Muscle Use, No Respiratory Distress, Normal Breath Sounds Cardiovascular: No Murmur, No Gallop, Regular Rate/Rhythm Breast Exam: Deferred Gastrointestinal: Epigastric (SLIGHT TTP NOTED. NO REBOUND/GUARDING NOTED), No Organomegaly, No Pulsatile Mass, Normal Bowel Sounds, Soft Genitalia: Deferred Pelvic: Deferred Rectal: Deferred Extremities: Normal capillary refill, Normal range of motion Neurologic: Alert, sweatband decorating machine operator II-XII nml as Tested, No Motor Deficits, Normal Affect, Normal Mood, No Sensory Deficits Cerebellar Function: Normal Reflexes: Normal Skin: Dry, Normal Color, Warm Lymphatic: No Adenopathy Was a procedure done? Was a procedure done?: No Sedation Sedation?: No Psych Differential Dx Intoxication Differential Dx: Hallucinations, Seizures, Electrolyte Imbalance, Medical Noncompliance X-Ray, Labs, Meds, VS Vital Signs Date Time Temp Pulse Resp B/P (MAP) Pulse Ox O2 Delivery O2 Flow Rate FiO2 05/19/25 18:40 98.0 101 18 133/89 (104) 97 98.0 05/19/25 18:40 101 18 97 Room Air 05/19/25 17:47 114 05/19/25 17:43 98.4 110 17 133/89 97 98.4 Current Medications Medications (Trade) Dose Ordered Sig/Wanda Route Start Time Stop Time Status Last Admin Lorazepam (Ativan Tablet) 1 mg ONCE ONCE PO 05/19/25 18:30 05/19/25 18:31 DC 05/19/25 18:34 ATIVAN 1 MG P.O. ORDERED PATIENT HAD IMPROVEMENT IN SYMPTOMS AND IN NO DISTRESS PRIOR TO DISCHARGE ADVISED TO DRINK PLENTY OF FLUIDS CURES CHECKED PREVIOUS CHART VISITS REVIEWED ADVISED TO FOLLOW UP WITH PCP, PSYCHIATRIST AND RAILROAD OPERATING ENGINEER/PAIN MANAGEMENT IN 1-2 DAYS PATIENT ALERT AND ORIENTED X4 PRIOR TO DISCHARGE. PATIENT VERBALIZED UNDERSTANDING AND AGREEABLE WITH CURRENT PLAN OF CARE ADVISED TO RETURN TO ER IMMEDIATELY IF SYMPTOMS WORSEN Time of 1ST Reevaluation: 18:02 Reevaluation 1ST: N/A Patient Education/Counseling: Diagnosis, Treatment, Prognosis, Need For Follow Up Family Education/Counseling: No Family Present Departure 1 Departure Time of Disposition: 18:22 Impression: Primary Impression: Anxiety Additional Impressions: Hx of Crohn's disease Chronic abdominal pain Disposition: 01 HOME / SELF CARE / HOMELESS Condition: Stable e-Prescriptions Oxycodone W/ Acetaminophen (Percocet 5/325MG) 1 Tab Tb 1 TAB PO QID, #10 TAB 0 Refills Prov: CARMELA SALCIDO 05/19/25 Discharged With: Friend Critical Care Note Critical Care Time?: No Stability Stability form required: No Heart Score Heart Score: Heart Score Response (Comments) Value History N/A 0 EKG N/A 0 Age N/A 0 Risk Factors N/A 0 Troponin N/A 0 Total 0 CARMELA SALCIDO May 19, 2025 18:30
[2025-05-19] MEDS: LORazepam 0.5 MG TAB PO ONE (18:34)
[2025-05-19 18:40] VITALS: BP 133/89; PULSE 101; RESP 18; TEMP 98; O2SAT 97
--- NOTE | 2025-05-20 09:12 | ECG ---
[facility] Test Date: 2025-05-19 Test Time: 17:43:43 Pat Name: KENYA RIVERA Department: [facility] ED Patient ID: [id number] Room: Gender: F Portfolio Consultant: ANN : 1975 Requested By: CARMELA SALCIDO Order Number: [id number] Reading MD: Measurements Intervals [place] Rate: 114 P: 37 OK: 168 QRS: 48 QRSD: 90 T: -2 QT: 306 QTc: 422 Interpretive Statements Sinus tachycardia Low voltage, precordial leads Borderline T abnormalities, anterior leads Please click the below link to view image of tracing.
[2025-05-21] MEDS ORDERED: CEPH250C PO (16:50)
[2025-05-21] MEDS ORDERED: SULF500T37 PO (20:32)
[2025-05-21] MEDS ORDERED: FOLI-119 PO (20:46)
== END 2025-05-19 18:41 | disposition home or self-care (01) ==
LOC: EDBD 17:36 → ER 17:36
DX: F41.9 Anxiety disorder, unspecified (principal); K50.90 Crohn's disease, unspecified, without complications; G89.29 Other chronic pain; F32.A Depression, unspecified; Z87.440 Personal history of urinary (tract) infections; Z87.442 Personal history of urinary calculi; Z90.49 Acquired absence of other specified parts of digestive tract
CPT/HCPCS: 93005

== ENCOUNTER 2025-05-19 18:53 | Inpatient (IN) | payer MEDICAID ==
[~2025-05-19] VITALS: Ht 152.4 cm; Wt 88.8 kg
[~2025-05-19 18:53] MED LIST changes: +PERCOT PO
--- NOTE | 2025-05-19 19:47 | ED.PDOC ---
GI ASSESSMENT HPI Comments discharge diagnosis from 05/06/25 INTRACTABLE ABDOMINAL PAIN GRADE B ESOPHAGITIS AND GASTRITIS BY EGD BY DR. 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 Patient was admitted to [facility] and discharged on 05/06/25 for similar symptoms, was seen in this ED today, 05/19/25, was by a different provider, was requesting medication for anxiety and pain medication for abdominal pain. 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 For the past 3 days, she has been experiencing abdominal pain, perium bilical region, for the past 2 days has been experiencing nausea, vomiting, diarrhea.Denies fever, chills, headache, dizziness, chest pain, shortness of breath, hematemesis, hematuria, dysuria. No other symptoms or modifying factors present at this time. Initial Vitals BP: 105/83 HR: 112 RR: 18 O2 Sat: 97% Temp: 98.3 F Past Medical history: anxiety, depression, kidney stones, UTI, Crohn's disease, bipolar Past Surgical history: cholecystectomy, tubal ligation, nephrostomy tube Social History: Denies smoking, ETOH, and drug use. Allergies: Morphine, Codeine HPI: Poor Historian. REVIEW OF SYSTEMS: CONSTITUTIONAL: Denies acute: fever, diaphoresis, chills, HEAD: Denies acute: headache, photophobia Eyes: Denies acute: Double vision, vision loss, eye pain, eye discharge. EARS: Denies acute: tinnitus, hearing loss, ear discharge, ear pain, THROAT: Denies acute: sore throat, swelling, difficulty swallowing , pain with swallowing, change in voice. NECK: Denies acute: neck pain, neck swelling, stiff neck. HEART: Denies acute : chest pain, palpitations, LUNGS: Denies acute: SOB, wheezing, cough, hemoptysis ABDOMEN: Denies acute: melena , hematemesis, hematochezia SKIN: Denies acute: rash, redness, lesions, itchiness. EXTREMITIES: Denies acute: calf pain, numbness, tingling, weakness, denies pain in extremity. Denies acute: Low back pain. Neuro: Denies acute: focal neurological deficit, motor or sensory focal neurological deficit, tremors, seizure like activity, confusion, dizziness, change in mental status, loss of bowel or bladder function, cauda equina like symptoms. : Denies acute: dysuria, hematuria, flank pain, increase in urinary frequency. PSYCH: Denies acute: hallucination, suicidal ideation, homicidal ideation. FEMALE: Denies acute: abnormal vaginal bleeding, foul odor, unusual discharge. PHYSICAL EXAM: General: ----mild----acute distress, awake and alert. Head: normocephalic, atraumatic. Neck: supple, trachea is midline, no swelling. Throat: Normal phonation. Eyes:, no erythema, no purulent discharge, no proptosis, no icterus. Heart: regular rate, regular rhythm, no significant murmur appreciated. Lungs: no apparent respiratory distress, Able to speak in full sentences. No wheezing, no rhonchi, no crackles. No stridors Clear to auscultation bilaterally. Abdomen: Periumbilical tender to palpation, non distended, soft, no guarding, no rebound, + bowel sounds. Obese Neuro: Awake, Alert, oriented to name, self, situation, follows commands GCS=15. Speech is normal. Skin: no petechia, no purpura, no cyanosis, non-pale, not jaundice. Lower extremities: --no - Pitting edema no deformity, no focal swelling, no calf TTP. Makes eye contact. moves all four extremities. Face: no apparent facial droop. Ambulating in the ED independently. ED COURSE: DISCLAIMER: This medical document was created using an electronic medical record system with voice recognition software and computerized dictation system. Although this document has been carefully reviewed, there might still be some phonetic and typographical errors. Occasional wrong-word or "sound-alike" substitutions may have occurred due to the inherent limitations of voice recognition software. These areas are purely typographical due to imperfections of the software programs and do not reflect any compromise in the patient's medical care. Please read the chart carefully and recognize, using context, where these substitutions have occurred. Chief Complaint: Abdominal Pain Time Seen by MD: 19:35 Primary Care Provider: UNKNOWN Reviewed Notes: Medications, Allergies Allergies: Coded Allergies: Codeine (Verified Allergy, Unknown, 12/10/24) Morphine (Verified Allergy, Unknown, 12/10/24) Home Meds Active Scripts Oxycodone W/ Acetaminophen (Percocet 5/325MG) 1 Tab Tb, 1 TAB PO QID, #10 TAB 0 Refills Prov:CARMELA SALCIDO 05/19/25 Tramadol HCl (Tramadol HCl) 50 Mg Tab, 50 MG PO QID PRN, #30 TAB Prov:ALYSSA FRANKS MD 05/06/25 Levofloxacin Hemihydrate (LEVAQUIN 500 MG) 500 Mg Tab, 1 TAB PO DAILY, #7 TAB Prov:ALYSSA FRANKS MD 05/06/25 Sucralfate (CARAFATE) 1 Gm Tab, 1 GM PO QID, #120 TAB Prov:ALYSSA FRANKS MD 05/06/25 Pantoprazole Sodium Sesquihydr (Pantoprazole Sodium) 40 Mg Tab, 40 MG PO BID, #60 TAB Prov:ALYSSA FRANKS MD 05/06/25 Mesalamine (Mesalamine Dr) 800 Mg Tab, 800 MG PO TID for 30 Days, #90 TAB Prov:MAYA POWER RESIDENT 04/21/25 Ergocalciferol (VITAMIN D 15470 UNIT) 50,[address] [place], [address] UNIT PO Q7D for 90 Days, #12 CAP Prov:MARY YE RESIDENT 04/02/25 Reported Medications Zolpidem Tartrate (Zolpidem Tartrate) 10 Mg Tab, 1 TAB PO QHSP PRN 05/04/25 Cariprazine Hydrochloride (Vraylar) 1.5 Mg Cap, 1.5 MG PO, CAP 03/31/25 Lorazepam (ATIVAN TABLET) 0.5 Mg Tb, 2 TAB PO DAILY, #30 TAB 03/31/25 Quetiapine Fumerate (Seroquel Xr) 200 Mg Tab, 400 MG PO QHSP for 30 Days, MG 03/31/25 Information Source: Patient Mode of Arrival: Ambulatory Timing: Days Duration: Since onset Prehospital treatment: None Quality: Sharp Stool: Brown Severity: Moderate Recent: None Recent Hx of: None Pain Location: Periumbilical Modifying Factors: Nothing Associated sign and symptoms: Nausea, Vomiting, Diarrhea, Abdominal Pain Past Medical History PAST MEDICAL HISTORY: Anxiety, Depression, Kidney Stones, UTI'S Past Medical History (Other): crohn's disease Surgical History: Cholecystectomy, Tubal Ligation [employer] SAL[employer]ATE History: Denies all [employer]ATE Hx Family History Family History: Reviewed,noncontributory to illness Social History Smoker: Non-Smoker Alcohol: Denies ETOH Use Drugs: Denies Drug Use Lives In: Home Was a procedure done? Was a procedure done?: No X-Ray, Labs, Meds, VS Vital Signs Date Time Temp Pulse Resp B/P (MAP) Pulse Ox O2 Delivery O2 Flow Rate FiO2 05/19/25 21:08 98.2 98 16 123/82 (96) 99 98.2 05/19/25 21:07 123/82 05/19/25 18:55 98.3 112 18 105/83 97 98.3 Lab Test 05/19/25 19:48 05/19/25 19:42 Range/Units White Blood Count 9.0 4.4-10.8 10^3/uL Red Blood Count 5.19 4.0-5.20 10^6/uL Hemoglobin 16.7 H 12.2-16.2 g/dL Hematocrit 48.5 H 36.0-46.0 % Mean Corpuscular Volume 93.4 80.0-100.0 fL Mean Corpuscular Hemoglobin 32.1 H 28.0-32.0 pg Mean Corpuscular Hemoglobin Concent 34.4 32.0-36.0 g/dL Red Cell Distribution Width 14.6 H 11.8-14.3 % Platelet Count 391 140-450 10^3/uL Mean Platelet Volume 7.4 6.9-10.8 fL Neutrophils (%) (Auto) 61.9 37.0-80.0 % Lymphocytes (%) (Auto) 30.0 10.0-50.0 % Monocytes (%) (Auto) 5.7 0.0-12.0 % Eosinophils (%) (Auto) 1.5 0.0-7.0 % Basophils (%) (Auto) 0.9 0.0-2.0 % Neutrophils # (Auto) 5.6 1.6-8.6 10 ^3/uL Lymphocytes # (Auto) 2.7 0.4-5.4 10 ^3/uL Monocytes # (Auto) 0.5 0-1.3 10 ^3/uL Eosinophils # (Auto) 0.1 0-0.8 10 ^3/uL Basophils # (Auto) 0.1 0-0.2 10 ^3/uL Nucleated Red Blood Cells 0.0 % Sodium Level 142 136-145 mmol/L Potassium Level 4.1 3.5-5.1 mmol/L Chloride Level 108 H 98-107 mmol/L Carbon Dioxide Level 21 20-31 mmol/L Anion Gap 13 5-15 Blood Urea Nitrogen 9 9-23 mg/dL Creatinine 0.83 0.550-1.02 mg/dL Glomerular Filtration Rate Calc 87 >90 mL/min BUN/Creatinine Ratio 10.8 10.0-20.0 Serum Glucose 87 74-106 mg/dL Lactic Acid Level 1.4 0.4-2.0 mmol/L Calcium Level 9.9 8.7-10.4 mg/dL Total Bilirubin 0.4 0.2-1.0 mg/dL Aspartate Amino Transferase (AST) 22 13-40 U/L Alanine Aminotransferase (ALT) 23 7-40 U/L Alkaline Phosphatase 146 H 46-116 U/L Troponin I High Sensitivity < 3 L </=34 ng/L Total Protein 7.6 5.7-8.2 g/dL Albumin 4.7 3.2-4.8 g/dL Lipase 34 12-53 U/L Urine Color Light-yellow Yellow Urine Clarity Clear Clear Urine pH 6.5 5.0-9.0 Urine Specific [place] 1.019 1.001-1.035 Urine Protein Negative Negative Urine Ketones Negative Negative Urine Blood Trace H Negative /uL Urine Nitrite Negative Negative Urine Bilirubin Negative Negative Urine Urobilinogen Normal Negative mg/dL Urine Leukocyte Esterase 1+ Negative /uL Urine RBC 4 0 - 4 /hpf Urine Microscopic WBC 6 H 0-5 /HPF Urine Squamous Epithelial Cells Few <5 /hpf Urine Calcium Oxalate Crystals Few None Seen Urine Bacteria None seen None Seen /hpf Urine Mucus Few None Seen Urine Glucose Normal Normal mg/dL Current Medications Medications (Trade) Dose Ordered Sig/Wanda Route Start Time Stop Time Status Last Admin Sodium Chloride 1,000 ml @ 1,000 mls/hr Q1H ONCE IV 05/19/25 19:45 05/19/25 20:44 DC 05/19/25 21:01 Fentanyl Citrate 100 mcg ONCE ONCE IV 05/19/25 19:45 05/19/25 19:46 DC 05/19/25 21:07 Ondansetron HCl (Zofran) 8 mg ONCE ONCE IV 05/19/25 19:45 05/19/25 19:46 DC 05/19/25 21:02 Ceftriaxone Sodium 50 ml @ 100 mls/hr ONCE ONCE IV 05/19/25 20:45 05/19/25 21:24 DC 05/19/25 21:41 [place] [address] Ph: [phone] DIAGNOSTIC IMAGING Diagnostic Imaging Report : [id number] Signed PATIENT: KENYA RIVERA ACCT: [id number] UNIT: [id number] : 1975 LOC: ER ROOM / BED: / AGE / SEX: 49 / F ADM STATUS: REG ER SERVICE 32 ORDERING PHYSICIAN: GREGORY NOVA DO PROCEDURE(s): ABPLIV - CT AB PEL WITH IV CON ONLY REASON: abd pain n/v/d h/o crohns ORDER NUMBER(s): [id number], ACCESSION NUMBER(s): [id number] CLINICAL HISTORY: abd pain n/v/d h/o crohns TECHNIQUE: CT of the abdomen and pelvis was performed with IV contrast. This exam was performed according to our departmental dose optimization program. Up-to-date CT equipment and radiation dose reduction techniques are utilized as appropriate. CTDI 19.8 DLP 1182.4 COMPARISON: CT CT AB PEL WITH IV CON ONLY on DOS: 05/04/25, CT CT AB PEL WO CON-NO ORAL OR IV on DOS: 04/19/25, CT CT AB PEL WO CON-NO ORAL OR IV on DOS: 04/10/25, CT CT AB PEL WITH IV CON ONLY on DOS: 04/01/25, CT CT AB PEL WO CON-NO ORAL OR IV on DOS: 03/31/25 FINDINGS: Abdomen/Pelvis: The spleen, pancreas, adrenal glands, liver, and uterus are unremarkable. The gallbladder is absent. The bladder is not well distended and therefore not well evaluated. There are bilateral nonobstructing renal calculi, measuring up to 9 mm on the right. There is mild left and chair renal cortical volume loss / scarring. The abdominal aorta is normal in course and caliber. There are no significant atherosclerotic calcifications. There is no free intraperitoneal air or fluid. There is no enlarged abdominal or pelvic lymph node. There is no bowel wall thickening or dilatation. The appendix is normal. There is submucosal fat within the rectum, compatible with an old infectious and or inflammatory process. There is ascending colon diverticulosis. Other: The imaged lower thorax demonstrates a few strands of right middle lobe atelectasis bile. No acute osseous abnormality is evident. IMPRESSION: No acute CT abnormality of the abdomen / pelvis. Bilateral nonobstructing renal calculi. Ascending colon diverticulosis. Cholycystectomy. ATED BY: RANJANA RING MD DICTATED DATE/TIME: 05/19/252108 SIGNED BY: RANJANA RING MD SIGNED DATE/TIME: 05/19/252108 CC: Time of 1ST Reevaluation: 20:05 Reevaluation 1ST: Unchanged Patient Education/Counseling: Diagnosis, Treatment Family Education/Counseling: No Family Present Comments MDM: patient presented with the above HPI.---GI symptoms---workup was initiated. patient was found with the above mentioned diagnosis. the following medications were ordered: please refer to order lists of meds and tests obtained by myself Dr. Nova. Patient ED course and VS have been stabilized. Patient has been reassessed in t he ED and remained in a stable condition. Patient has been observed in the ED adequate length of time to insure improvemen t/stability. Escalation of care considered: Consideration of escalation to observation or admission Apparently patient was here an hour earlier before I saw her and she was here seen in the fast track and evaluated for complaint of anxiety. She did not communicate to the provider any of her GI symptoms that she mentioned to me in my encounter. Patient's main concern is that she is not able to afford the pain medicine or her Crohn's medication because insurance is not covering it. She was discharged from the hospital recently. Patient is not having any nausea or vomiting here in the ED. Patient was DISCHARGED home in a stable condition. All the reports of any imaging studies that were ordered by myself were reviewed by myself. Departure 1 Departure Time of Disposition: 23:01 Impression: Primary Impression: Urinary tract infection Additional Impressions: Acute abdominal pain Nausea vomiting and diarrhea Disposition: ADMITTED INPATIENT Admit to: Tele Condition: Guarded Additional Instructions: [address] [address] Ph: [phone] DIAGNOSTIC IMAGING Diagnostic Imaging Report : [id number] Signed PATIENT: KENYA RIVERA ACCT: [id number] UNIT: [id number] : 1975 LOC: ER ROOM / BED: / AGE / SEX: 49 / F ADM STATUS: REG ER SERVICE 32 ORDERING PHYSICIAN: GREGORY NOVA DO PROCEDURE(s): ABPLIV - CT AB PEL WITH IV CON ONLY REASON: abd pain n/v/d h/o crohns ORDER NUMBER(s): [id number], ACCESSION NUMBER(s): [id number] CLINICAL HISTORY: abd pain n/v/d h/o crohns TECHNIQUE: CT of the abdomen and pelvis was performed with IV contrast. This exam was performed according to our departmental dose optimization program. Up-to-date CT equipment and radiation dose reduction techniques are utilized as appropriate. CTDI 19.8 DLP 1182.4 COMPARISON: CT CT AB PEL WITH IV CON ONLY on DOS: 05/04/25, CT CT AB PEL WO CON-NO ORAL OR IV on DOS: 04/19/25, CT CT AB PEL WO CON-NO ORAL OR IV on DOS: 04/10/25, CT CT AB PEL WITH IV CON ONLY on DOS: 04/01/25, CT CT AB PEL WO CON-NO ORAL OR IV on DOS: 03/31/25 FINDINGS: Abdomen/Pelvis: The spleen, pancreas, adrenal glands, liver, and uterus are unremarkable. The gallbladder is absent. The bladder is not well distended and therefore not well evaluated. There are bilateral nonobstructing renal calculi, measuring up to 9 mm on the right. There is mild left and chair renal cortical volume loss / scarring. The abdominal aorta is normal in course and caliber. There are no significant atherosclerotic calcifications. There is no free intraperitoneal air or fluid. There is no enlarged abdominal or pelvic lymph node. There is no bowel wall thickening or dilatation. The appendix is normal. There is submucosal fat within the rectum, compatible with an old infectious and or inflammatory process. There is ascending colon diverticulosis. Other: The imaged lower thorax demonstrates a few strands of right middle lobe atelectasis bile. No acute osseous abnormality is evident. IMPRESSION: No acute CT abnormality of the abdomen / pelvis. Bilateral nonobstructing renal calculi. Ascending colon diverticulosis. Cholycystectomy. ATED BY: RANJANA RING MD DICTATED DATE/TIME: 05/19/252108 SIGNED BY: RANJANA RING MD SIGNED DATE/TIME: 05/19/252108 CC: Discharged With: Self Critical Care Note Critical Care Time?: No I personally scribed for GREGORY NOVA DO ([email or web address]) on 05/19/25 at 19:47. Electronically submitted by Sophia Byers ([email or web address]). I personally scribed for GREGORY NOVA DO ([email or web address]) on 05/19/25 at 22:12. Electronically submitted by Sophia Byers ([email or web address]). GREGORY NOVA DO May 19, 2025 19:47
[2025-05-19 20:09] LABS: Hematocrit 48.5 % (36.0-46.0); Hemoglobin 16.7 g/dL (12.2-16.2); Mean Corpuscular Hemoglobin 32.1 pg (28.0-32.0); Mean Corpuscular Volume 93.4 fL (80.0-100.0); Nucleated Red Blood Cells % 0.0 %
[2025-05-19 20:12] LABS: Urine Protein, UAD Negative (Negative)
[2025-05-19 20:20] LABS: Alanine Aminotransferase 23 U/L (7-40); Albumin 4.7 g/dL (3.2-4.8); Anion Gap 13 (5-15); BUN/Creatinine Ratio 10.8 (10.0-20.0); Blood Urea Nitrogen 9 mg/dL (9-23); Calcium 9.9 mg/dL (8.7-10.4); Carbon Dioxide 21 mmol/L (20-31); Glucose 87 mg/dL (74-106); Lipase 34 U/L (12-53); Potassium 4.1 mmol/L (3.5-5.1); Sodium 142 mmol/L (136-145); Total Protein 7.6 g/dL (5.7-8.2)
[2025-05-19 20:21] LABS: Alkaline Phosphatase 146 U/L (46-116); Bilirubin, Total 0.4 mg/dL (0.2-1.0); Chloride 108 mmol/L (98-107)
[2025-05-19] MEDS: IOHEXOL 300 MG/ML 100ML BOTTLE IJ ONE (20:37)
[2025-05-19] MEDS: SODIUM CHLORIDE 0.9% 1,000 ML IV ONE (21:01)
[2025-05-19] MEDS: ONDANSETRON HCL 4 MG/2 ML VIAL IV ONE (21:02)
[2025-05-19] MEDS: fentaNYL CITRATE 100 MCG/2 ML VL IV ONE (21:07)
--- NOTE | 2025-05-19 21:12 | DVH ---
CLINICAL HISTORY: abd pain n/v/d h/o crohns TECHNIQUE: CT of the abdomen and pelvis was performed with IV contrast. This exam was performed accor ding to our departmental dose optimization program. Up-to-date CT equipment and radiation dose reduct ion techniques are utilized as appropriate. CTDI 19.8 DLP 1182.4 COMPARISON: CT CT AB PEL WITH IV CON ONLY on DOS: 05/04/25, CT CT AB PEL WO CON-NO ORAL OR IV on DOS: , CT CT AB PEL WO CON-NO ORAL OR IV on DOS: 04/10/25, CT CT AB PEL WITH IV CON ONLY on DOS: , CT CT AB PEL WO CON-NO ORAL OR IV on DOS: 03/31/25 FINDINGS: Abdomen/Pelvis: The spleen, pancreas, adrenal glands, liver, and uterus are unremarkable. The gallbladder is absent. The bladder is not well distended and therefore not well evaluated. There are bilateral nonobstructing renal calculi, measuring up to 9 mm on the right. There is mild le ft and chair renal cortical volume loss / scarring. The abdominal aorta is normal in course and caliber. There are no significant atherosclerotic calcifi cations. There is no free intraperitoneal air or fluid. There is no enlarged abdominal or pelvic lymph node. There is no bowel wall thickening or dilatation. The appendix is normal. There is submucosal fat with in the rectum, compatible with an old infectious and or inflammatory process. There is ascending colo n diverticulosis. Other: The imaged lower thorax demonstrates a few strands of right middle lobe atelectasis bile. No acute osseous abnormality is evident. IMPRESSION: No acute CT abnormality of the abdomen / pelvis. Bilateral nonobstructing renal calculi. Ascending colon diverticulosis. Cholycystectomy.
[2025-05-19] MEDS: cefTRIAXone 1GM/50ML D5W 50 ML IV ONE (21:41)
[2025-05-20] MEDS ORDERED: TEMAZEPAM 15 MG CAP PO PRN (00:30)
--- NOTE | 2025-05-20 00:33 | DVHHP2 ---
History of Present Illness Reason for Visit: Abdominal pain History of Present Illness 49-year-old female presents for evaluation of abdominal pain. Patient endorses a two day history of diffuse abdominal pain with associated nausea, vomiting and diarrhea. She reports her chest burning when she swallows food. Patient reports recently discharged yet she has not been able to get her medications due to medications not being covered by her insurance. Past Medical History Kidney stones, depression, Crohn's disease Past Surgical History Cholecystectomy, tubal ligation, nephrostomy tube Family History Noncontributory Smoke: No ALCOHOL: none Drugs: None Lives: with Family Review of Systems Review of Systems Review of systems are currently negative otherwise addressed in HPI. Allergies: Coded Allergies: Codeine (Verified Allergy, Unknown, 12/10/24) Morphine (Verified Allergy, Unknown, 12/10/24) Exam Vital Signs Vital Signs Date Time Temp Pulse Resp B/P (MAP) Pulse Ox O2 Delivery O2 Flow Rate FiO2 05/19/25 23:19 98.2 96 16 126/85 (99) 99 98.2 Exam Gen: 49-year-old female in mild distress Skin: Warm, dry, normal color and texture, no rash. HEENT: Normocephalic atraumatic, mucous membranes moist and pink. Neck: Cervical and supraclavicular nodes normal without enlargement, trachea is midline, thyroid gland is normal without masses. Pulmonary: Clear to auscultation and percussion bilaterally. Cardiac: Regular rate and rhythm. No murmur Abdomen: Soft, diffuse tenderness, nondistended, bowel sounds present all 4 quadrants, no guarding, no rigidity, no organomegaly. Extremities: No cyanosis, clubbing, no edema Neuro: Cranial nerves II through XII grossly intact, normal affect and speech, no focal motor deficits. Labs/Xrays ORDERING PHYSICIAN: GREGORY NOVA DO PROCEDURE(s): ABPLIV - CT AB PEL WITH IV CON ONLY REASON: abd pain n/v/d h/o crohns ORDER NUMBER(s): [id number], ACCESSION NUMBER(s): [id number] CLINICAL HISTORY: abd pain n/v/d h/o crohns TECHNIQUE: CT of the abdomen and pelvis was performed with IV contrast. This exam was performed according to our departmental dose optimization program. Up-to-date CT equipment and radiation dose reduction techniques are utilized as appropriate. CTDI 19.8 DLP 1182.4 COMPARISON: CT CT AB PEL WITH IV CON ONLY on DOS: 05/04/25, CT CT AB PEL WO CON-NO ORAL OR IV on DOS: 04/19/25, CT CT AB PEL WO CON-NO ORAL OR IV on DOS: 04/10/25, CT CT AB PEL WITH IV CON ONLY on DOS: 04/01/25, CT CT AB PEL WO CON-NO ORAL OR IV on DOS: 03/31/25 FINDINGS: Abdomen/Pelvis: The spleen, pancreas, adrenal glands, liver, and uterus are unremarkable. The gallbladder is absent. The bladder is not well distended and therefore not well evaluated. There are bilateral nonobstructing renal calculi, measuring up to 9 mm on the right. There is mild left and chair renal cortical volume loss / scarring. The abdominal aorta is normal in course and caliber. There are no significant atherosclerotic calcifications. There is no free intraperitoneal air or fluid. There is no enlarged abdominal or pelvic lymph node. There is no bowel wall thickening or dilatation. The appendix is normal. There is submucosal fat within the rectum, compatible with an old infectious and or inflammatory process. There is ascending colon diverticulosis. Other: The imaged lower thorax demonstrates a few strands of right middle lobe atelectasis bile. No acute osseous abnormality is evident. IMPRESSION: No acute CT abnormality of the abdomen / pelvis. Bilateral nonobstructing renal calculi. Ascending colon diverticulosis. Cholycystectomy. Labs Test 05/19/25 19:48 05/19/25 19:42 Range/Units White Blood Count 9.0 4.4-10.8 10^3/uL Red Blood Count 5.19 4.0-5.20 10^6/uL Hemoglobin 16.7 H 12.2-16.2 g/dL Hematocrit 48.5 H 36.0-46.0 % Mean Corpuscular Volume 93.4 80.0-100.0 fL Mean Corpuscular Hemoglobin 32.1 H 28.0-32.0 pg Mean Corpuscular Hemoglobin Concent 34.4 32.0-36.0 g/dL Red Cell Distribution Width 14.6 H 11.8-14.3 % Platelet Count 391 140-450 10^3/uL Mean Platelet Volume 7.4 6.9-10.8 fL Neutrophils (%) (Auto) 61.9 37.0-80.0 % Lymphocytes (%) (Auto) 30.0 10.0-50.0 % Monocytes (%) (Auto) 5.7 0.0-12.0 % Eosinophils (%) (Auto) 1.5 0.0-7.0 % Basophils (%) (Auto) 0.9 0.0-2.0 % Neutrophils # (Auto) 5.6 1.6-8.6 10 ^3/uL Lymphocytes # (Auto) 2.7 0.4-5.4 10 ^3/uL Monocytes # (Auto) 0.5 0-1.3 10 ^3/uL Eosinophils # (Auto) 0.1 0-0.8 10 ^3/uL Basophils # (Auto) 0.1 0-0.2 10 ^3/uL Nucleated Red Blood Cells 0.0 % Sodium Level 142 136-145 mmol/L Potassium Level 4.1 3.5-5.1 mmol/L Chloride Level 108 H 98-107 mmol/L Carbon Dioxide Level 21 20-31 mmol/L Anion Gap 13 5-15 Blood Urea Nitrogen 9 9-23 mg/dL Creatinine 0.83 0.550-1.02 mg/dL Glomerular Filtration Rate Calc 87 >90 mL/min BUN/Creatinine Ratio 10.8 10.0-20.0 Serum Glucose 87 74-106 mg/dL Lactic Acid Level 1.4 0.4-2.0 mmol/L Calcium Level 9.9 8.7-10.4 mg/dL Total Bilirubin 0.4 0.2-1.0 mg/dL Aspartate Amino Transferase (AST) 22 13-40 U/L Alanine Aminotransferase (ALT) 23 7-40 U/L Alkaline Phosphatase 146 H 46-116 U/L Troponin I High Sensitivity < 3 L </=34 ng/L Total Protein 7.6 5.7-8.2 g/dL Albumin 4.7 3.2-4.8 g/dL Lipase 34 12-53 U/L Urine Color Light-yellow Yellow Urine Clarity Clear Clear Urine pH 6.5 5.0-9.0 Urine Specific [place] 1.019 1.001-1.035 Urine Protein Negative Negative Urine Ketones Negative Negative Urine Blood Trace H Negative /uL Urine Nitrite Negative Negative Urine Bilirubin Negative Negative Urine Urobilinogen Normal Negative mg/dL Urine Leukocyte Esterase 1+ Negative /uL Urine RBC 4 0 - 4 /hpf Urine Microscopic WBC 6 H 0-5 /HPF Urine Squamous Epithelial Cells Few <5 /hpf Urine Calcium Oxalate Crystals Few None Seen Urine Bacteria None seen None Seen /hpf Urine Mucus Few None Seen Urine Glucose Normal Normal mg/dL SEPSIS Sepsis Screen Date sepsis recognized/suspect: May 19, 2025 Time Sepsis recognized/suspect: 1854 Recent Procedure: No On Antibiotic Therapy: No Respiratory Rate >20: No Heart Rate >90: Yes Temp<36 C (96.8 F) or >38.3 C: No SBP <90 or MAP <65 mmHG: No New Acute Mental Status Change: No Is the patient on CPAP, BIPAP,: No Physician Orders Imaging Scheduler (05/19/25 ) Electrocardigram (05/19/25 19:33) Ct Ab Pel With Iv Con Only (05/19/25 19:33) Admit (05/19/25 23:59) Mesalamine Dr Capsule (Delzicol Delayed (05/20/25 10:00) Pantoprazole Tablet (Protonix Tablet) (05/20/25 06:00) Sucralfate Tab (Carafate Tab) (05/20/25 07:00) Ceftriaxone 1gm/50ml D5w (Rocephin) (05/20/25 09:00) * [facility] (05/20/25 00:19) Basic Metabolic Panel (05/21/25 04:00) Hydrocodone-Acet 5/325mg Tab ([place] 5/32 (05/20/25 00:30) Temazepam (Restoril) (05/20/25 00:30) Ondansetron Hcl (Zofran) (05/20/25 00:30) Condition: Stable (05/20/25 00:19) Clear Liq Diet (05/20/25 Breakfast) Bedrest With Bathroom Privileg (05/20/25 00:19) Hydromorphone Injection (Dilaudid Inject (05/20/25 00:30) Vital Signs Date Time Temp Pulse Resp B/P (MAP) Pulse Ox O2 Delivery O2 Flow Rate FiO2 05/19/25 23:19 98.2 96 16 126/85 (99) 99 98.2 05/19/25 21:08 98.2 98 16 123/82 (96) 99 98.2 05/19/25 21:07 123/82 05/19/25 18:55 98.3 112 18 105/83 97 98.3 Laboratory Tests Test 05/19/25 19:48 Lactic Acid Level 1.4 mmol/L (0.4-2.0) White Blood Count 9.0 10^3/uL (4.4-10.8) Medications Medications Dose Ordered Sig/Wanda Route Start Time Stop Time Status Last Admin Dose Admin Ceftriaxone Sodium 50 ml @ 100 mls/hr ONCE ONCE IV 05/19/25 20:45 05/19/25 21:24 DC 05/19/25 21:41 100 MLS/HR Fentanyl Citrate 100 mcg ONCE ONCE IV 05/19/25 19:45 05/19/25 19:46 DC 05/19/25 21:07 100 MCG Ondansetron HCl 8 mg ONCE ONCE IV 05/19/25 19:45 05/19/25 19:46 DC 05/19/25 21:02 8 MG Sodium Chloride 1,000 ml @ 1,000 mls/hr Q1H ONCE IV 05/19/25 19:45 05/19/25 20:44 DC 05/19/25 21:01 1,000 MLS/HR Assessment/Plan Assessment/Plan Assessment Acute abdominal pain Urinary tract infection Esophagitis Plan Admit the patient to [facility] to the hospitalist Protonix/Carafate/mesalamine GI consultation Pain management Clear liquid diet Continue treatment per orders. Plan discussed with: Patient My Orders Orders - YOHAN HAYS Procedure Category Date Status Time Admit ADMIT 05/19/25 Transmitted 23:[address] Capsule PHA 05/20/25 Logged (Delzicol Delayed 10:00 Pantoprazole Tablet PHA 05/20/25 Logged (Protonix Tablet) 06:00 Sucralfate Tab PHA 05/20/25 Logged (Carafate Tab) 07:00 Ceftriaxone 1gm/50ml PHA 05/20/25 Logged D5w (Rocephin) 09:00 * [facility] CONS 05/20/25 Transmitted 00:19 Basic Metabolic Panel LAB 05/21/25 Verified 04:00 Hydrocodone-Acet PHA 05/20/25 Transmitted 5/325mg Tab ([place] 00:30 Temazepam (Restoril) PHA 05/20/25 Transmitted 00:30 Ondansetron Hcl PHA 05/20/25 Transmitted (Zofran) 00:30 Condition: Stable JEREMIE 05/20/25 In Process 00:19 Clear Liq Diet DIET 05/20/25 Transmitted Breakfast Bedrest With Bathroom JEREMIE 05/20/25 In Process Privileg 00:19 Hydromorphone PHA 05/20/25 Transmitted Injection (Dilaudid 00:30 Date of Service: May 19, 2025 Billing Provider: YOHAN HAYS Common Visit Codes: [id number] INP/OBS CARE (MOD) YOHAN HAYS May 20, 2025 00:33
[2025-05-20] MEDS: HYDROmorphone HCL 2 MG/ML VL/or syr IV PRN (00:56)
[2025-05-20] MEDS: HYDROcodone-ACET 5/325MG TAB PO PRN (04:18)
[2025-05-20 05:00] VITALS: PULSE 90; RESP 13; O2SAT 96
[2025-05-20] MEDS: PANTOPRAZOLE 40 MG TAB PO SCH (05:47)
[2025-05-20] MEDS: SUCRALFATE 1 GM TAB PO SCH (06:34)
[2025-05-20 08:44] LABS: Hematocrit 46.3 % (36.0-46.0); Hemoglobin 15.5 g/dL (12.2-16.2); Mean Corpuscular Hemoglobin 31.7 pg (28.0-32.0); Mean Corpuscular Volume 94.8 fL (80.0-100.0); Nucleated Red Blood Cells % 0.1 %
[2025-05-20 08:58] VITALS: PULSE 82; RESP 13; O2SAT 96
[2025-05-20 09:01] LABS: Alanine Aminotransferase 20 U/L (7-40); Albumin 4.1 g/dL (3.2-4.8); Anion Gap 12 (5-15); BUN/Creatinine Ratio 15.1 (10.0-20.0); Bilirubin, Total 0.6 mg/dL (0.2-1.0); Blood Urea Nitrogen 11 mg/dL (9-23); Calcium 8.7 mg/dL (8.7-10.4); Carbon Dioxide 20 mmol/L (20-31); Glucose 97 mg/dL (74-106); Potassium 3.9 mmol/L (3.5-5.1); Sodium 141 mmol/L (136-145); Total Protein 6.2 g/dL (5.7-8.2)
[2025-05-20 09:04] LABS: Alkaline Phosphatase 123 U/L (46-116); Chloride 109 mmol/L (98-107)
[2025-05-20] MEDS: TAMSULOSIN HYDROCHLORIDE 0.4 MG CAP PO ONE (09:58)
[2025-05-20] MEDS: LORazepam 0.5 MG TAB PO SCH (09:58)
[2025-05-20] MEDS: MESALAMINE 400mg Delayed Release Cap PO SCH (09:58)
[2025-05-20] MEDS: ONDANSETRON HCL 4 MG/2 ML VIAL IV PRN (11:09)
--- NOTE | 2025-05-20 11:22 | DVHPNRES ---
Progress Note Date Seen: May 20, 2025 Resident Creating Document: RICHI GREENE RESIDENT Medical Necessity Reason Pt with a Central, PICC or Fol: No Subjective Review of Systems 43-year-old female Kezia Chavis with past medical history of Crohn's disease, bipolar disorder, general anxiety disorder, depression, insomnia, recurrent renal stones, recurrent UTIs, obesity, came for evaluation of abdominal pain. Patient endorses a two day history of diffuse abdominal pain with associated nausea, 3 episodes of vomiting and over 5 episodes of diarrhea. She reports her chest dave when she swallows food and was diagnosed of esophagitis and gastritis in her last visit by Dr. Pringle. Patient reports recently been discharged yet she has not been able to get her medications due to medications as its not being covered by her insurance. PMH: Crohn's disease( in remission for 1 year), bipolar disorder, generalized anxiety disorder, depression, insomnia, renal stone(Diagnosed 6 months ago) PSH: Right nephrostomy, cholecystectomy, tubal ligation Past social history: Patient recently moved [facility] and lives with family, denies smoking, alcohol, drug use. Family history : Not significant with current condition Home medications: The patient unable to remember the names but reports taking all medications for her insomnia, bipolar and anxiety disorder Allergies: Codeine, morphine- both cause the patient to have hives and difficulty breathing 05/20: Patient seen by me in the emergency bedside. patient reports that she still has the abdominal pain And diarrhea. she says she is still nauseous. CT abdomen pelvis shows no acute CT abnormality of the abdomen/pelvis, bilateral nonobstructing renal Calculi. patient has been noncompliant to medication as insurance has not approved it for her Crohn's disease. We are giving her mesalamine 800 mg b.i.d. per orally and started IV metronidazole 500 mg chew 8. Stool WBC has been sent, pending. We are also giving her Protonix, Carafate, Zofran and pain management drugs. GI consult is pending. For her UTI we are treating her with ceftriaxone intravenously and awaiting urine cultures. We are Also resuming all her home medications. Objective vital signs Vital Sign Date Time Temp Pulse Resp B/P (MAP) Pulse Ox O2 Delivery O2 Flow Rate FiO2 05/20/25 11:13 94 15 120/76 05/20/25 08:58 96 Room Air* 0 21 05/20/25 05:04 98.2 98.2 Total Intake and Output 05/19/25 05/19/25 05/20/25 15:00 23:00 07:00 Intake Total 1000 ml Balance 1000 ml medications Current Medications Medications Dose Ordered Sig/Wanda Route Start Time Stop Time Status Last Admin Dose Admin Mesalamine 800 mg BID PO 05/20/25 10:00 05/20/25 09:58 800 MG Pantoprazole Sodium 40 mg BID@0600,1700 PO 05/20/25 06:00 05/20/25 05:47 40 MG Sucralfate 1 gm QIDACHS PO 05/20/25 07:00 05/20/25 06:34 1 GM Ceftriaxone Sodium 50 ml @ 100 mls/hr DAILY@2200 IV 05/20/25 22:00 Acetaminophen/ Hydrocodone Bitart 1 tab Q4HP PRN PO 05/20/25 00:30 05/20/25 04:18 1 TAB Temazepam 15 mg QHSP PRN PO 05/20/25 00:30 Ondansetron HCl 4 mg Q4HP PRN IV 05/20/25 00:30 05/20/25 11:13 4 MG Hydromorphone HCl 0.25 mg Q4HPRN PRN IV 05/20/25 00:30 05/20/25 11:13 0.25 MG Tamsulosin HCl 0.4 mg QPM PO 05/20/25 18:00 Lorazepam 1 mg DAILY PO 05/20/25 10:00 05/20/25 09:58 1 MG Quetiapine Fumarate 400 mg HS PO 05/20/25 22:00 Zolpidem Tartrate 10 mg QHSP PRN PO 05/20/25 22:00 Metronidazole 100 ml @ 100 mls/hr Q8HR IV 05/20/25 14:00 Examination Gen: 49-year-old female in mild distress Skin: Warm, dry, normal color and texture, no rash. HEENT: Normocephalic atraumatic, mucous membranes moist and pink. Neck: Cervical and supraclavicular nodes normal without enlargement, trachea is midline, thyroid gland is normal without masses. Pulmonary: Clear to auscultation and percussion bilaterally. Cardiac: Regular rate and rhythm. No murmur Abdomen: Soft, diffuse tenderness, nondistended, bowel sounds present all 4 quadrants, no guarding, no rigidity, no organomegaly. Extremities: No cyanosis, clubbing, no edema Neuro: Cranial nerves II through XII grossly intact, normal affect and speech, no focal motor deficits. laboratory and microbiology Laboratory Tests 05/20/25 08:15 Test 05/20/25 08:15 Range/Units Serum Glucose 97 74-106 mg/dL Labs and/or images reviewed: Labs reviewed by me, Image(s) reviewed by me Problem List/Assessment/Plan Problem List/Assessment/Plan #Abdominal pain Likely due to Flare up of Crohn's disease vs gastroenteritis #Intractable Abdominal pain due to bilateral nephrolithiasis #Esophagitis #Gastritis -Esophagitis & Gastritis diagnosed in her last visit 05/05/2025 -Sucralfate 1 g q.i.d. per orally -Protonix 40 mg b.i.d. per orally -Zofran 4 mg q.4 PRN -Mesalamine 800 mg b.i.d. per orally -IV metronidazole 500 mg Q 8 -[place] 5/325 mg q.4 PRN for moderate pain -Dilaudid 0.25 mg q.4 PRN for severe pain -GI consultation, pending -CT abdomen and pelvis shows: No acute CT abnormality of the abdomen / pelvis; Bilateral nonobstructing renal calculi. - stool WBC, pending -IV fluids # acute complicated cystitis -UA shows trace blood, +1 leukocyte esterase, urine RBC 4+, urine WBC 6 +, few epithelial cells, few calcium oxalate crystals, urine mucus few -Urine culture, pending -tamsulosin 0.4mg po daily -ceftriaxone 1 g IV daily # Anxiety / Depression - continue home meds - Quetiapine 200mp po - Lorazepam 0.5 mg po # Bipolar disorder - continue home meds # Insomina - continue home meds - zolpidem tartrate 10mh hs #obesity BMI 36.8 - patient counseled regarding need for weight loss, healthier lifestyle, exercise #Ascending colon diverticulosis. -CT abdomen and pelvis - Outpatient follow up GI prophylaxis: Protonix 40 mg per orally b.i.d. daily DVT prophylaxis: Lovenox 40 mg sc daily Diet: Clear liquid diet Goals of care discussed with the patient for more than 27 minutes: Full code status Case discussed with Dr. Aziz, patient and nurse. Plan discussed with: Patient, Other (rn) My Orders My Orders Orders - RICHI GREENE Procedure Category Date Status Time Lorazepam Tablet PHA 05/20/25 In Process (Ativan Tablet) 10:00 Quetiapine Fumarate PHA 05/20/25 In Process Tablet (Seroquel Tab 22:00 Zolpidem Tartrate PHA 05/20/25 In Process (Ambien) 22:00 Sequential JEREMIE 05/20/25 In Process Compression Device 11:15 Date of Service: May 20, 2025 Billing Provider: HEAVENLY DELACRUZ MD Common Visit Codes: [id number] INP/OBS CARE(HIGH) RICHI GREENE May 20, 2025 11:22 HEAVENLY DELACRUZ MD May 23, 2025 16:52
[2025-05-20] MEDS: LACTATED RINGER'S 1,000 ML IV ONE (12:30)
--- NOTE | 2025-05-20 13:35 | DVHINCON2 ---
GI Consult Consult Note GI consult note Date of Consultation: 05/20/2025 Chief Complaint: Abdominal pain Referring Physician: Xiang TATE H&P: 49-year-old female is seen in ER bed two for complains of abdominal pain. Patient complaining of diffuse abdominal pain for the past three days. Patient has nausea and vomiting. Denies hematemesis. No melena or red blood in stool. Last bowel movement was yesterday soft stool but not watery. Patient has history of Crohn's disease and ran out of mesalamine. Patient is status post EGD and colonoscopy 05/05/2025 DATE OF OPERATION: 05/05/25 PROCEDURE: Colonoscopy with cold biopsy polypectomy. PREOPERATIVE INDICATION: The patient is a 49 -year-old female undergoing colonoscopy for evaluation of chronic diarrhea and history of colitis POSTOPERATIVE DIAGNOSES: 1. There was a 2 mm benign-appearing hyperplastic type rectal polyp that was seen and removed by cold biopsy forceps 2. Patient had minimal nonspecific colitis with loss of haustration overall colitis appeared to be in remission and random colon biopsies were obtained 3. Otherwise normal examination up to the cecum and terminal ileum Pathology mild chronic inactive gastritis No evidence of chronic, active or microscopic colitis Pathology report put in the chart Past Medical History: Kidney stones, depression, Crohn's disease Past Surgical History: Cholecystectomy, tubal ligation, nephrostomy tube Social History: NO smoking, drinking ETOH and use of illegal drugs. Family History: Noncontributory Review of Systems: Constitutional: no fever, chill, weight loss HEENT: no eye pain, no hearing loss, no oral lesion, no scleral icterus Heart: no chest pain, no chest pressure Lung: no cough, no dyspnea with exertion Abdomen: see HPI Physical exam: General: NAD, AAOX3 Chest: lung moreno clear to auscultation Heart: RRR, no murmur Abdomen: non-distended, mild tenderness to palpation, +BS Labs: Labs Test 05/20/25 12:45 05/20/25 08:15 05/19/25 19:48 05/19/25 19:42 Range/Units White Blood Count 8.8 4.4-10.8 10^3/uL Red Blood Count 4.89 4.0-5.20 10^6/uL Hemoglobin 15.5 12.2-16.2 g/dL Hematocrit 46.3 H 36.0-46.0 % Mean Corpuscular Volume 94.8 80.0-100.0 fL Mean Corpuscular Hemoglobin 31.7 28.0-32.0 pg Mean Corpuscular Hemoglobin Concent 33.5 32.0-36.0 g/dL Red Cell Distribution Width 14.5 H 11.8-14.3 % Platelet Count 276 140-450 10^3/uL Mean Platelet Volume 7.7 6.9-10.8 fL Neutrophils (%) (Auto) 60.7 37.0-80.0 % Lymphocytes (%) (Auto) 29.6 10.0-50.0 % Monocytes (%) (Auto) 6.5 0.0-12.0 % Eosinophils (%) (Auto) 2.4 0.0-7.0 % Basophils (%) (Auto) 0.8 0.0-2.0 % Neutrophils # (Auto) 5.3 1.6-8.6 10 ^3/uL Lymphocytes # (Auto) 2.6 0.4-5.4 10 ^3/uL Monocytes # (Auto) 0.6 0-1.3 10 ^3/uL Eosinophils # (Auto) 0.2 0-0.8 10 ^3/uL Basophils # (Auto) 0.1 0-0.2 10 ^3/uL Nucleated Red Blood Cells 0.1 % Sodium Level 141 136-145 mmol/L Potassium Level 3.9 3.5-5.1 mmol/L Chloride Level 109 H 98-107 mmol/L Carbon Dioxide Level 20 20-31 mmol/L Anion Gap 12 5-15 Blood Urea Nitrogen 11 9-23 mg/dL Creatinine 0.73 0.550-1.02 mg/dL Glomerular Filtration Rate Calc 101 >90 mL/min BUN/Creatinine Ratio 15.1 10.0-20.0 Serum Glucose 97 74-106 mg/dL Calcium Level 8.7 8.7-10.4 mg/dL Total Bilirubin 0.6 0.2-1.0 mg/dL Aspartate Amino Transferase (AST) 20 13-40 U/L Alanine Aminotransferase (ALT) 20 7-40 U/L Alkaline Phosphatase 123 H 46-116 U/L B-Type Natriuretic Peptide 0.80 0-100 pg/mL Total Protein 6.2 5.7-8.2 g/dL Albumin 4.1 3.2-4.8 g/dL Lactic Acid Level 1.4 0.4-2.0 mmol/L Troponin I High Sensitivity < 3 L </=34 ng/L Lipase 34 12-53 U/L Urine Color Light-yellow Yellow Urine Clarity Clear Clear Urine pH 6.5 5.0-9.0 Urine Specific [place] 1.019 1.001-1.035 Urine Protein Negative Negative Urine Ketones Negative Negative Urine Blood Trace H Negative /uL Urine Nitrite Negative Negative Urine Bilirubin Negative Negative Urine Urobilinogen Normal Negative mg/dL Urine Leukocyte Esterase 1+ Negative /uL Urine RBC 4 0 - 4 /hpf Urine Microscopic WBC 6 H 0-5 /HPF Urine Squamous Epithelial Cells Few <5 /hpf Urine Calcium Oxalate Crystals Few None Seen Urine Bacteria None seen None Seen /hpf Urine Mucus Few None Seen Urine Glucose Normal Normal mg/dL Imaging: CT abdomen pelvis IMPRESSION: No acute CT abnormality of the abdomen / pelvis. Bilateral nonobstructing renal calculi. Ascending colon diverticulosis. Cholycystectomy. Assessment: Abdominal pain History of Crohn's disease Gastritis Plan: Discussed with Dr. Pringle Protonix BID, Carafate q.i.d. Mesalamine Full liquid diet advanced as tolerated Outpatient GI follow-up in 4-6 weeks Thank you for this consult Date of Service: May 20, 2025 Billing Provider: ZACARIAS FRANKS Common Visit Codes: CONSULT ONLY Consultation Codes: [id number] CONSULT <45MIN ZACARIAS FRANKS May 20, 2025 13:35
[2025-05-20 13:37] LABS: COVID19 ANTIGEN SOFIA FIA NEGATIVE (NEGATIVE)
[2025-05-20 18:19] VITALS: BP 113/73; PULSE 109; RESP 18; TEMP 98.6; O2SAT 94
[2025-05-20] MEDS: TAMSULOSIN HYDROCHLORIDE 0.4 MG CAP PO SCH (18:44)
[2025-05-20 20:00] VITALS: PULSE 75; RESP 18; O2SAT 98
[2025-05-20] MEDS: ZOLPIDEM TARTRATE 5 MG TAB PO PRN ×2 (20:51→21:46)
[2025-05-20 21:00] VITALS: BP 114/75; PULSE 71; RESP 18; TEMP 97.8; O2SAT 99
[2025-05-20] MEDS: cefTRIAXone 1GM/50ML D5W 50 ML IV SCH (21:27)
[2025-05-21 01:00] VITALS: BP 106/60; PULSE 116; RESP 17; TEMP 98; O2SAT 90
[2025-05-21] MEDS: HYDROmorphone HCL 2 MG/ML VL/or syr IV ONE (04:17)
[2025-05-21 05:00] VITALS: BP_SYST 108; BP_SYST 129; BP_DIAS 65; BP_DIAS 88; PULSE 113; RESP 17; TEMP 98; O2SAT 93; O2SAT 94
[2025-05-21 06:12] LABS: Chloride 107 mmol/L (98-107); Potassium 3.7 mmol/L (3.5-5.1); Sodium 139 mmol/L (136-145)
[2025-05-21 06:14] LABS: Anion Gap 8 (5-15); Carbon Dioxide 24 mmol/L (20-31)
[2025-05-21 06:19] LABS: BUN/Creatinine Ratio 7.4 (10.0-20.0)
[2025-05-21 06:32] LABS: Blood Urea Nitrogen 6 mg/dL (9-23); Calcium 8.7 mg/dL (8.7-10.4); Glucose 123 mg/dL (74-106)
[2025-05-21 06:41] LABS: INR 1.03 (0.9-1.15); Partial Thromboplastin Time 31.2 SEC (24.5-34.5); Prothrombin Time 10.9 sec (9.3-11.8)
[2025-05-21 08:00] VITALS: PULSE 101; RESP 18; O2SAT 95
[2025-05-21 09:00] VITALS: BP 113/68; PULSE 101; RESP 17; TEMP 98.1; O2SAT 95
[2025-05-21] MEDS: ENOXAPARIN SOD 40 MG/0.4 ML SYRINGE SC SCH (09:54)
[2025-05-21] MEDS: PROCHLORPERAZINE EDISYLATE 5 MG/ML 2ML VIAL IV ONE (12:05)
[2025-05-21] MEDS: HYDROmorphone HCL 2 MG/ML VL/or syr IV PRN (12:06)
--- NOTE | 2025-05-21 12:24 | DVHPN2 ---
Subjective Patient has slightly improving abdominal pain Would like to eat regular food Also asking if she can be discharged home Changes from previous H/P or p: No Changes Objective Vitals Vital Signs Date Time Temp Pulse Resp B/P (MAP) Pulse Ox O2 Delivery O2 Flow Rate FiO2 05/21/25 12:06 96 18 116/76 05/21/25 09:00 98.1 95 98.1 05/21/25 08:00 Room Air* 0 21 Intake/Output Intake and Output 05/21/25 07:00 Intake Total 950 ml Balance 950 ml Intake Oral 400 ml IV Total 550 ml # Voids 3 General Appearance: Alert, Oriented X3, Cooperative, No acute distress, mild distress, moderate distress, severe distress, Other Lungs: Clear to auscultation, Normal air movement, Other Cardiovascular: Regular rate, Normal S1, Normal S2, No murmurs, Gallops, Rubs, Other Abdomen: Normal bowel sounds, Soft, No tenderness, No hepatospenomegaly, No masses, Other Medications Current Medications Medications Dose Ordered Sig/Wanda Route Start Time Stop Time Status Last Admin Dose Admin Mesalamine 800 mg BID PO 05/20/25 10:00 05/21/25 09:54 800 MG Pantoprazole Sodium 40 mg BID@0600,1700 PO 05/20/25 06:00 05/21/25 05:36 40 MG Sucralfate 1 gm QIDACHS PO 05/20/25 07:00 05/21/25 12:04 1 GM Ceftriaxone Sodium 50 ml @ 100 mls/hr DAILY@2200 IV 05/20/25 22:00 05/20/25 21:27 100 MLS/HR Acetaminophen/ Hydrocodone Bitart 1 tab Q4HP PRN PO 05/20/25 00:30 05/20/25 21:26 1 TAB Ondansetron HCl 4 mg Q4HP PRN IV 05/20/25 00:30 05/20/25 23:10 4 MG Tamsulosin HCl 0.4 mg QPM PO 05/20/25 18:00 05/20/25 18:44 0.4 MG Lorazepam 1 mg DAILY PO 05/20/25 10:00 05/21/25 09:54 1 MG Quetiapine Fumarate 400 mg HS PO 05/20/25 22:00 05/20/25 21:26 400 MG Metronidazole 100 ml @ 100 mls/hr Q8HR IV 05/20/25 14:00 05/21/25 05:36 100 MLS/HR Enoxaparin Sodium 40 mg DAILY SC 05/21/25 10:00 05/21/25 09:54 40 MG Zolpidem Tartrate 10 mg QHSP PRN PO 05/20/25 21:45 05/20/25 21:46 10 MG Hydromorphone HCl 0.5 mg Q4HPRN PRN IV 05/21/25 11:45 05/21/25 12:06 0.5 MG Laboratory Results Laboratory Tests 05/20/25 08:15 05/21/25 05:20 Chemistry Test 05/21/25 05:20 Calcium Level 8.7 mg/dL (8.7-10.4) Coagulation Test 05/21/25 05:20 Prothrombin Time 10.9 sec (9.3-11.8) Prothrombin Time INR 1.03 (0.9-1.15) Activated Partial Thromboplast Time 31.2 SEC (24.5-34.5) Urinalysis Test 05/19/25 19:42 Urine Color Light-yellow (Yellow) Urine Clarity Clear (Clear) Urine pH 6.5 (5.0-9.0) Urine Specific [place] 1.019 (1.001-1.035) Urine Protein Negative (Negative) Urine Ketones Negative (Negative) Urine Blood Trace /uL (Negative) H Urine Nitrite Negative (Negative) Urine Bilirubin Negative (Negative) Urine Urobilinogen Normal mg/dL (Negative) Urine Leukocyte Esterase 1+ /uL (Negative) Urine RBC 4 /hpf (0 - 4) Urine Microscopic WBC 6 /HPF (0-5) H Urine Squamous Epithelial Cells Few /hpf (<5) Urine Calcium Oxalate Crystals Few (None Seen) Urine Bacteria None seen /hpf (None Seen) Urine Mucus Few (None Seen) Urine Glucose Normal mg/dL (Normal) Assessment/Plan Assessment/Plan Abdominal pain History of Crohn's disease Gastritis Plan: Discussed with Dr. Pringle Advance to regular diet Patient can be discharged home with Zofran Protonix and Carafate Outpatient GI follow-up in 4-6 weeks Plan discussed with: Patient, Other (RN) My Orders Orders - ZACARIAS FRANKS Procedure Category Date Status Time Full Liq Diet DIET 05/20/25 Transmitted Lunch Date of Service: May 21, 2025 Billing Provider: ZACARIAS FRANKS Common Visit Codes: [id number] INP/OBS CARE(HIGH) ZACARIAS FRANKS May 21, 2025 12:24
[2025-05-21 13:00] VITALS: BP 116/76; PULSE 96; RESP 16; TEMP 98.2; O2SAT 96
--- NOTE | 2025-05-21 13:29 | DVHDSRES ---
Discharge Summary Date of Admission Resident Creating Document: RICHI GREENE RESIDENT May 19, 2025 at 23:59 Date of Discharge: May 21, 2025 Admitting Diagnosis abdominal pain Labs/Diagnostic Data: Laboratory Results Test 05/21/25 08:18 05/21/25 05:20 05/20/25 12:45 05/20/25 08:15 Erythrocyte Sedimentation Rate 7 mm/hr (0-20) C-Reactive Protein High Sensitivity 2.00 mg/dL (<1.0) Prothrombin Time 10.9 sec (9.3-11.8) Prothrombin Time INR 1.03 (0.9-1.15) Activated Partial Thromboplast Time 31.2 SEC (24.5-34.5) Sodium Level 139 mmol/L (136-145) Potassium Level 3.7 mmol/L (3.5-5.1) Chloride Level 107 mmol/L (98-107) Carbon Dioxide Level 24 mmol/L (20-31) Anion Gap 8 (5-15) Blood Urea Nitrogen 6 mg/dL (9-23) Creatinine 0.81 mg/dL (0.550-1.02) Glomerular Filtration Rate Calc 89 mL/min (>90) BUN/Creatinine Ratio 7.4 (10.0-20.0) Serum Glucose 123 mg/dL (74-106) Calcium Level 8.7 mg/dL (8.7-10.4) Influenza Type A Antigen Negative (Negative) Influenza Type B Antigen Negative (Negative) SARS-CoV-2 Antigen (Rapid) Negative (NEGATIVE) White Blood Count 8.8 10^3/uL (4.4-10.8) Red Blood Count 4.89 10^6/uL (4.0-5.20) Hemoglobin 15.5 g/dL (12.2-16.2) Hematocrit 46.3 % (36.0-46.0) Mean Corpuscular Volume 94.8 fL (80.0-100.0) Mean Corpuscular Hemoglobin 31.7 pg (28.0-32.0) Mean Corpuscular Hemoglobin Concent 33.5 g/dL (32.0-36.0) Red Cell Distribution Width 14.5 % (11.8-14.3) Platelet Count 276 10^3/uL (140-450) Mean Platelet Volume 7.7 fL (6.9-10.8) Neutrophils (%) (Auto) 60.7 % (37.0-80.0) Lymphocytes (%) (Auto) 29.6 % (10.0-50.0) Monocytes (%) (Auto) 6.5 % (0.0-12.0) Eosinophils (%) (Auto) 2.4 % (0.0-7.0) Basophils (%) (Auto) 0.8 % (0.0-2.0) Neutrophils # (Auto) 5.3 10 ^3/uL (1.6-8.6) Lymphocytes # (Auto) 2.6 10 ^3/uL (0.4-5.4) Monocytes # (Auto) 0.6 10 ^3/uL (0-1.3) Eosinophils # (Auto) 0.2 10 ^3/uL (0-0.8) Basophils # (Auto) 0.1 10 ^3/uL (0-0.2) Nucleated Red Blood Cells 0.1 % Total Bilirubin 0.6 mg/dL (0.2-1.0) Aspartate Amino Transferase (AST) 20 U/L (13-40) Alanine Aminotransferase (ALT) 20 U/L (7-40) Alkaline Phosphatase 123 U/L (46-116) B-Type Natriuretic Peptide 0.80 pg/mL (0-100) Total Protein 6.2 g/dL (5.7-8.2) Albumin 4.1 g/dL (3.2-4.8) Test 05/19/25 19:48 05/19/25 19:42 Lactic Acid Level 1.4 mmol/L (0.4-2.0) Troponin I High Sensitivity < 3 ng/L (</=34) Lipase 34 U/L (12-53) Urine Color Light-yellow (Yellow) Urine Clarity Clear (Clear) Urine pH 6.5 (5.0-9.0) Urine Specific [place] 1.019 (1.001-1.035) Urine Protein Negative (Negative) Urine Ketones Negative (Negative) Urine Blood Trace /uL (Negative) Urine Nitrite Negative (Negative) Urine Bilirubin Negative (Negative) Urine Urobilinogen Normal mg/dL (Negative) Urine Leukocyte Esterase 1+ /uL (Negative) Urine RBC 4 /hpf (0 - 4) Urine Microscopic WBC 6 /HPF (0-5) Urine Squamous Epithelial Cells Few /hpf (<5) Urine Calcium Oxalate Crystals Few (None Seen) Urine Bacteria None seen /hpf (None Seen) Urine Mucus Few (None Seen) Urine Glucose Normal mg/dL (Normal) Other Laboratory Tests 05/21/25 05:20 05/20/25 08:15 Brief Hx & Hospital Course: 43-year-old female Kezia Chavis with past medical history of Crohn's disease, bipolar disorder, general anxiety disorder, depression, insomnia, recurrent renal stones, recurrent UTIs, obesity, came for evaluation of abdominal pain. Patient endorses a two day history of diffuse abdominal pain with associated nausea, 3 episodes of vomiting and over 5 episodes of diarrhea. She reports her chest dave when she swallows food and was diagnosed of esophagitis and gastritis in her last visit by Dr. Pringle. Patient reports recently been discharged yet she has not been able to get her medications due to medications as its not being covered by her insurance. PMH: Crohn's disease( in remission for 1 year), bipolar disorder, generalized anxiety disorder, depression, insomnia, renal stone(Diagnosed 6 months ago) PSH: Right nephrostomy, cholecystectomy, tubal ligation Past social history: Patient recently moved to [facility] and lives with family, denies smoking, alcohol, drug use. Family history : Not significant with current condition Home medications: The patient unable to remember the names but reports taking all medications for her insomnia, bipolar and anxiety disorder Allergies: Codeine, morphine- both cause the patient to have hives and difficulty breathing Brief history of hospitalization: Patient came in with abdominal pain which is likely due to flare-up of Crohn's disease and gastroenteritis. It could also be due to bilateral nephrolithiasis that was seen on CT abdomen and pelvis. Patient has been having esophagitis and gastritis was diagnosed in her last visit 05/05/25. We continued with her sucralfate 1 g q.i.d. and Protonix 40 mg b.i.d. per orally. Patient was also nauseous so we gave Zofran 4 mg q.4 PRN. Since patient has Crohn's disease and has not been able to take mesalamine due to her insurance, patient was started on mesalamine 800 mg b.i.d. per orally as well. We started IV metronidazole 500 mg Q 8 for her gastroenteritis and we have been giving patient [place] 5/325 mg Q 4 p.r.n. for moderate pain and, Dilaudid 0.25 mg q.4 PRN for severe pain. Patient complained she had increased pain so Dilaudid was changed to 0.5 mg per orally once. She also complained of migraine pain. We added Compazine 10 mg IV once we gave the patient IV fluids and CT results showed no acute CT abnormalities of the abdomen/pelvis, bilateral nonobstructive renal calculi. A GI consult was done suggested Protonix twice a day, Carafate 4 times, mesalamine full liquid diet which has been advanced as tolerated. GI has also counseled the patient regarding outpatient follow up in 4-6 weeks. Do hospitalization we checked the patient's urine upon arrival and saw that she has acute complicated cystitis, likely due to her renal stone. Urine culture has been sent. We gave the patient ceftriaxone 1 g IV daily and tamsulosin 0.4 mg per orally daily as well. For patient's anxiety, depression and bipolar disorder as well as insomnia we continued her home medications. We also found ascending colon diverticulosis in her CT abdomen and pelvis and patient is to follow up output with primary care physician regarding it. Patient has obesity with a BMI of 36.8 and she has been counseled regarding need for weight loss, healthy lifestyle and exercise. Patient is now stable for discharge, she has no nausea, vomiting or diarrhea episodes and reports feeling much better. We are discharging her with home medication of mesalamine and cephalexin. Patient has been counseled regarding discharge and has verbalized understanding and agreed to the discharge plan. Gen: 49-year-old female in mild distress Skin: Warm, dry, normal color and texture, no rash. HEENT: Normocephalic atraumatic, mucous membranes moist and pink. Neck: Cervical and supraclavicular nodes normal without enlargement, trachea is midline, thyroid gland is normal without masses. Pulmonary: Clear to auscultation and percussion bilaterally. Cardiac: Regular rate and rhythm. No murmur Abdomen: Soft, no tenderness, nondistended, bowel sounds present all 4 quadrants, no guarding, no rigidity, no organomegaly. Extremities: No cyanosis, clubbing, no edema Neuro: Cranial nerves II through XII grossly intact, normal affect and speech, no focal motor deficits Instructions: Avoid any spicy food, food rich in fibers, we gave food Follow up with primary care physician within 10 days Follow up at discharge clinic within 1 week Follow up with [facility] in 4-6 weeks as suggested Continue mesalamine 800 mg twice a day Continue cephalexin 500 mg twice a day for 5 days discharge medication mesalamine not covered by patient's insurance - spoke with Dr. Pringle GI - recommended sulfasalazine 3 g per day in divided doses - medications sulfasalazine 1500 mg twice daily prescribed along with folic acid daily, patient was called at 8:[address] Yeh and made aware of the change, side effects and outpatient follow with GI for further management, patient rationalized understanding. Operations or Procedures PROCEDURE(s): ABPLIV - CT AB PEL WITH IV CON ONLY IMPRESSION: No acute CT abnormality of the abdomen / pelvis. Bilateral nonobstructing renal calculi. Ascending colon diverticulosis. Cholycystectomy. Condition at Discharge: Stable Final Diagnosis/Problems List # Abdominal pain Likely due to Flare up of Crohn's/UC disease and gastroenteritis # Intractable Abdominal pain due to bilateral nephrolithiasis # Esophagitis # Gastritis # acute complicated cystitis # Anxiety / Depression # Bipolar disorder # Insomina # obesity BMI 36.8 # Ascending colon diverticulosis. Discharge Disposition: Home Discharge Instruct/Medications Diet: Consistent carbohydrate, Cardiac 2g Na,low cholest Diet comment: Avoid high fat food, high-fiber food, spicy food Activity: No Restrictions, As Tolerated Follow Up/Referral: Follow up with primary care physician within 10 days Follow up at discharge clinic within 7 days Follow up with Gastroenterology doctor outpatient within 4-6 weeks Medications: Mesalamine 800 mg twice a day continue Cephalexin 500 mg twice a day continue for 5 days Resume all home medication Scheduled Cephalexin (Keflex Capsule), 500 MG PO BID Ergocalciferol (Vitamin D 86389 Unit), 50,000 UNIT PO Q7D Folic Acid (Folic Acid), 1 MG PO DAILY Lorazepam (Ativan Tablet), 2 TAB PO DAILY, (Reported) Oxycodone W/ Acetaminophen (Percocet 5/325MG), 1 TAB PO QID Pantoprazole Sodium Sesquihydr (Pantoprazole Sodium), 40 MG PO BID Quetiapine Fumerate (Seroquel Xr), 400 MG PO QHSP, (Reported) Sucralfate (Carafate), 1 GM PO QID Sulfasalazine (Sulfasalazine), 1,500 MG PO BID Scheduled PRN Tramadol HCl (Tramadol HCl), 50 MG PO QID PRN Zolpidem Tartrate (Zolpidem Tartrate), 1 TAB PO QHSP PRN, (Reported) Miscellaneous Medications Cariprazine Hydrochloride (Vraylar), 1.5 MG PO, (Reported) Discontinued Medications Levofloxacin Hemihydrate (Levaquin 500 Mg), 1 TAB PO DAILY Mesalamine (Mesalamine Dr), 800 MG PO TID Discharge Statement: "Patient was advised to return to the ER or call 911 if any headaches, dizziness, shortness of breath, chest pain, abdominal pain, bleeding, fevers, or worsening of medical condition. Patient was counseled about treatment plan, medications, possible side effects, patientverbalized understanding. All questions were answered to the best of my ability. This discharge took greater then 30 minutes in planning, reviewing documentation, counseling the patient, and discussing with other team members." ASSESSMENT ASSESSMENT Assessment #Abdominal pain Likely due to Flare up of Crohn's disease and gastroenteritis #Intractable Abdominal pain due to bilateral nephrolithiasis Date of Service: May 21, 2025 Billing Provider: HEAVENLY DELACRUZ MD Common Visit Codes: [id number] DISCH DAY >30min RICHI GREENE RESIDENT May 21, 2025 13:29 JOHN YEH RESIDENT May 21, 2025 20:35 HEAVENLY DELACRUZ MD May 23, 2025 17:41
[2025-05-21 14:19] VITALS: BP 112/60; PULSE 103; RESP 18; TEMP 98; O2SAT 100
[2025-05-21] MEDS ORDERED: CEPH250C PO ×2 (16:50)
[2025-05-21] MEDS ORDERED: MESA800T9 PO (16:50)
[2025-05-21] MEDS ORDERED: SULF500T37 PO ×2 (20:32)
[2025-05-21] MEDS ORDERED: FOLI-119 PO ×2 (20:46)
== END 2025-05-21 15:06 | disposition home or self-care (01) | DRG 245 ==
LOC: ER 18:53 → OVERFLOW 23:59 → WEST WING 05-20 18:51
PROVIDERS: ADMIT Student in an Organized Health Care Education/Training Program; ATTEND Emergency Medicine
DX: K50.90 Crohn's disease, unspecified, without complications (principal); A04.9 Bacterial intestinal infection, unspecified; E66.9 Obesity, unspecified; N20.0 Calculus of kidney; F31.9 Bipolar disorder, unspecified; Z68.36 Body mass index [BMI] 36.0-36.9, adult; Z20.822 Contact with and (suspected) exposure to COVID-19; N30.00 Acute cystitis without hematuria; G47.00 Insomnia, unspecified; K29.70 Gastritis, unspecified, without bleeding; F41.9 Anxiety disorder, unspecified; K20.90 Esophagitis, unspecified without bleeding; K57.30 Diverticulosis of large intestine without perforation or abscess without bleeding; Z90.49 Acquired absence of other specified parts of digestive tract; Z93.6 Other artificial openings of urinary tract status; Z88.5 Allergy status to narcotic agent
CPT/HCPCS: 36415; 74177; 80048; 80053; 81001; 83605; 83690; 83880; 84484; 85025; 85610; 85652; 85730; 86141; 87426; 87804; 96361; 96374; 96375; G0378; J2405; J3490

== ENCOUNTER 2025-05-22 13:14 | Emergency (ER) | payer MEDICAID ==
[~2025-05-22] VITALS: Ht 152.4 cm; Wt 85.6 kg
[~2025-05-22 13:14] MED LIST changes: +CEPH250C PO; +FOLI-119 PO; +SULF500T37 PO
--- NOTE | 2025-05-22 14:11 | ED.PDOC ---
History of Present Illness HPI Comments A 49-YEAR-OLD FEMALE WITH PMHX RENAL STONES PRESENTS WITH A CHIEF COMPLAINT OF REQUEST OF DILAUDID PAIN MANAGEMENT. PATIENT WAS ADMITTED TO HOSPITAL FOR KIDNEY STONE AND DISCHARGED FROM UP STAIRS YESTERDAY. PT STATES SHE STILL HAS PAIN ON RIGHT LOWER BACK AND LOWER ABD. TODAY, SHE F/U ER AND REQUESTS DILAUDID PAIN INJECTION. PT DENIES FEVER, SOB, CHEST PAIN, NAUSEA, VOMITING AND OTHER COMPLAINTS. NO OTHER SYMPTOMS REPORTED AT THIS TIME OF CARE. Chief Complaint: Abdominal Pain Time Seen by MD: 13:53 Primary Care Provider: UNKNOWN Reviewed Notes: Nurses Notes, Medications, Allergies Allergies: Coded Allergies: Codeine (Verified Allergy, Unknown, 12/10/24) Morphine (Verified Allergy, Unknown, 12/10/24) Home Meds Active Scripts Folic Acid (Folic Acid) 1 Mg Tab, 1 MG PO DAILY for 30 Days, #30 TAB Prov:JOHN ABAD RESIDENT 05/21/25 Sulfasalazine (Sulfasalazine) 500 Mg Tab, 1500 MG PO BID for 30 Days, #180 TAB Prov:JOHN ABAD 05/21/25 Cephalexin (KEFLEX CAPSULE) 250 Mg Cp, 500 MG PO BID for 5 Days, #20 CAP Prov:JOHN ABAD 05/21/25 Oxycodone W/ Acetaminophen (Percocet 5/325MG) 1 Tab Tb, 1 TAB PO QID, #10 TAB 0 Refills Prov:CARMELA SALCIDO 05/19/25 Tramadol HCl (Tramadol HCl) 50 Mg Tab, 50 MG PO QID PRN, #30 TAB Prov:ALYSSA FRANKS MD 05/06/25 Sucralfate (CARAFATE) 1 Gm Tab, 1 GM PO QID, #120 TAB Prov:ALYSSA FRANKS MD 05/06/25 Pantoprazole Sodium Sesquihydr (Pantoprazole Sodium) 40 Mg Tab, 40 MG PO BID, #60 TAB Prov:ALYSSA FRANKS MD 05/06/25 Ergocalciferol (VITAMIN D 92513 UNIT) 50,000 [place], [address] UNIT PO Q7D for 90 Days, #12 CAP Prov:MARY YE RESIDENT 04/02/25 Reported Medications Zolpidem Tartrate (Zolpidem Tartrate) 10 Mg Tab, 1 TAB PO QHSP PRN 05/04/25 Cariprazine Hydrochloride (Vraylar) 1.5 Mg Cap, 1.5 MG PO, CAP 03/31/25 Lorazepam (ATIVAN TABLET) 0.5 Mg Tb, 2 TAB PO DAILY, #30 TAB 03/31/25 Quetiapine Fumerate (Seroquel Xr) 200 Mg Tab, 400 MG PO QHSP for 30 Days, MG 03/31/25 Discontinued Scripts Mesalamine (Mesalamine Dr) 800 Mg Tab, 800 MG PO TID for 30 Days, #90 TAB Prov:JOHN ABAD RESIDENT 05/21/25 Levofloxacin Hemihydrate (LEVAQUIN 500 MG) 500 Mg Tab, 1 TAB PO DAILY, #7 TAB Prov:ALYSSA FRANKS MD 05/06/25 Information Source: Patient Mode of Arrival: Ambulatory Severity: Moderate Timing: Days Duration: Since onset Prehospital treatment: None Medication Refill: For: Pain (RIGHT LOWER BACK AND ABD, PAIN MANAGEMENT ) Past Medical History PAST MEDICAL HISTORY: Anxiety, Depression, Kidney Stones, UTI'S Surgical History: Cholecystectomy, Tubal Ligation OBSTETRICS GYNECOLOGY MD History: Denies all OBSTETRICS GYNECOLOGY MD Hx Family History Family History: Reviewed,noncontributory to illness Social History Smoker: Non-Smoker Alcohol: Denies ETOH Use Drugs: Denies Drug Use Lives In: Home Constitutional: denies: chills, diaphoresis, fatigue, fever, malaise, sweats, weakness, others EENTM: denies: blurred vision, double vision, ear bleeding, ear discharge, ear drainage, ear pain, ear ringing, eye pain, eye redness, hearing loss, mouth pain, mouth swelling, nasal discharge, nose bleeding, nose congestion, nose pain, photophobia, tearing, throat pain, throat swelling, voice changes, others Respiratory: denies: cough, hemoptysis, orthopnea, SOB at rest, shortness of breath, SOB with excertion, stridor, wheezing, others Cardiovascular: denies: chest pain, dizzy spells, diaphoresis, Dyspnea on exertion, edema, irregular heart beat, left arm pain, lightheadedness, palp itations, PND, syncope, others Gastrointestinal: denies: abdomen distended, abdominal pain, blood streaked bowels, constipated, diarrhea, dysphagia, difficulty swallowing, hematemesis, melena, nausea, poor appetite, poor fluid intake, rectal bleeding, rectal pain, vomiting, others Genitourinary: reports: flank pain; denies: abnormal vagina bleeding, burning, dyspareunia, dysuria, frequency, hematuria, incontinence, pain, , vagina discharge, urgency, others Neurological: denies: dizziness, fainting, headache, left sided numbness, left sided weakness, numbness, paresthesia, pre-existing deficit, right sided numbness, right sided weakness, seizure, speech problems, tingling, tremors, weakness, others Musculoskeletal: denies: back pain, gout, joint pain, joint swelling, muscle pain, muscle stiffness, neck pain, others Integumetry: denies: bruises, change in color, change in hair/nails, dryness, laceration, lesions, lumps, rash, wounds, others Allergic/Immunocompromised: denies: Difficulty Healing, Frequent Infections, Hives, Itching, others Hematologic/Lymphatic: denies: anemia, blood clots, easy bleeding, easy bruising, swollen glands, others Endocrine: denies: excessive hunger, excessive sweating, excessive thirst, excessive urination, flushing, intolerance to cold, intolerance to heat, unexplained weight gain, unexplained weight loss, others Psychiatric: denies: anxiety, bipolar disorder, depression, hopeless, panic disorder, schizophrenia, sleepless, suicidal, others All Other Systems: Reviewed and Negative Physical Exam General Appearance: No Apparent Distress, Obese HEENT: Normal ENT Inspection, PERRL/EOMI, Pharynx Normal, TMs Normal Neck: Full Range of Motion, Non-Tender, Normal, Normal Inspection Respiratory: Chest Non-Tender, Lungs Clear, No Accessory Muscle Use, No Respiratory Distress, Normal Breath Sounds Cardiovascular: No Edema, No JVD, No Murmur, No Gallop, Normal Peripheral Pulses, Regular Rate/Rhythm Breast Exam: Deferred Gastrointestinal: No Organomegaly, No Pulsatile Mass, Normal Bowel Sounds, Soft, Tenderness (RIGHT FLANK, NO GUARDING AND REBOUND TENDERNESS. ) Genitalia: Deferred Pelvic: Deferred Rectal: Deferred Extremities: No calf tenderness, Normal capillary refill, Normal inspection, Normal range of motion, Non-tender, No pedal edema Musculoskeletal : Apperance: Normal Neurologic: Alert, deputy coroner investigator II-XII nml as Tested, No Motor Deficits, Normal Affect, Normal Mood, No Sensory Deficits Cerebellar Function: Normal Reflexes: Normal Skin: Dry, Normal Color, Warm Peripheral Pulses: 2+ carotid (R), 2+ carotid (L) Lymphatic: No Adenopathy Was a procedure done? Was a procedure done?: No Differential Dx Considerations may include: PAIN MANAGEMENT, HX OF RIGHT KIDNEY STONE. X-Ray, Labs, Meds, VS Vital Signs Date Time Temp Pulse Resp B/P (MAP) Pulse Ox O2 Delivery O2 Flow Rate FiO2 05/22/25 14:14 118 18 122/68 05/22/25 13:16 98.4 115 16 112/81 95 98.4 Current Medications Medications (Trade) Dose Ordered Sig/Wanda Route Start Time Stop Time Status Last Admin Hydromorphone HCl (Dilaudid Injection) 2 mg ONCE ONCE IM 05/22/25 14:00 05/22/25 14:01 DC 05/22/25 14:14 Ondansetron HCl (Zofran Po) 4 mg ONCE ONCE PO 05/22/25 14:00 05/22/25 14:01 DC 05/22/25 14:14 X-Ray, Labs, Meds, VS Comment EXTERNAL MEDICAL RECORDS REVIEWED: [NONE] INDEPENDENT HISTORIANS: [NONE] SOCIAL DETERMINANTS OF HEALTH: [NONE] LABS ORDERED: NONE REVIEWED AND INTERPRETED RESULTS: NONE IMAGING ORDERED: NONE TREATMENTS ORDERED: DILAUDID 0.1MG IM PROCEDURES PERFORMED: NONE CRITICAL CARE TIME: NONE I HAVE DISCUSSED THE PATIENT WITH THE ATTENDING PHYSICIAN, DR. LEIGHA VERNON, AND SHE AGREES WITH THE PATIENT'S PLAN OF CARE AND DISPOSITION. BASED ON HISTORY OF PRESENT ILLNESS, AND PHYSICAL EXAM, PATIENT WILL BE DISCHARGED HOME. DISCUSSED PLAN FOR DISCHARGE HOME WITH RX []. MEDICATION WARNINGS GIVEN. SHARED DECISION MAKING: DISCUSSED WITH PATIENT THAT THEIR WORKUP WAS NORMAL. PATIENT INSTRUCTED TO FOLLOW UP WITH PRIMARY CARE PROVIDER IN 1-2 DAYS FOR RE- EVALUATION OF SYMPTOMS. PATIENT VERBALIZES UNDERSTANDING TO RETURN TO ED FOR NEW OR WORSENING SYMPTOMS OR IF FOLLOW UP WITH PCP CANNOT BE OBTAINED. PATIENT FEELS COMFORTABLE GOING HOME AT THIS TIME. ALL QUESTIONS ADDRESSED AT TIME OF DISCHARGE Time of 1ST Reevaluation: 15:00 Reevaluation 1ST: Improved Patient Education/Counseling: Diagnosis, Treatment, Need For Follow Up Family Education/Counseling: Diagnosis, Treatment, Need For Follow Up Medical Screening: No EMC Exist At This Time SEPSIS Sepsis Screen Date sepsis recognized/suspect: May 22, 2025 Time Sepsis recognized/suspect: 1318 Recent Procedure: No On Antibiotic Therapy: Yes Respiratory Rate >20: No Heart Rate >90: Yes Temp<36 C (96.8 F) or >38.3 C: No SBP <90 or MAP <65 mmHG: No New Acute Mental Status Change: No Is the patient on CPAP, BIPAP,: No Vital Signs Date Time Temp Pulse Resp B/P (MAP) Pulse Ox O2 Delivery O2 Flow Rate FiO2 05/22/25 14:14 118 18 122/68 05/22/25 13:16 98.4 115 16 112/81 95 98.4 Medications Medications Dose Ordered Sig/Wanda Route Start Time Stop Time Status Last Admin Dose Admin Hydromorphone HCl 2 mg ONCE ONCE IM 05/22/25 14:00 05/22/25 14:01 DC 05/22/25 14:14 Ondansetron HCl 4 mg ONCE ONCE PO 05/22/25 14:00 05/22/25 14:01 DC 05/22/25 14:14 Departure 1 Departure Time of Disposition: 15:00 Impression: Primary Impression: Encounter for pain management Additional Impression: Hx of renal calculi Disposition: HOME / SELF CARE / HOMELESS Condition: Stable Additional Instructions: FOLLOW-UP WITH PCP IN 1 TO 2 DAYS. TAKE MEDICATIONS PRESCRIBED. RETURN TO ED FOR ANY NEW OR WORSENING SYMPTOMS. Discharged With: Self, Relative Critical Care Note Critical Care Time?: No Stability Stability form required: No Heart Score Heart Score: Heart Score Response (Comments) Value History N/A 0 EKG N/A 0 Age N/A 0 Risk Factors N/A 0 Troponin N/A 0 Total 0 I personally scribed for WENDY LAND ([email or web address]) on 05/22/25 at 14:11. Electronically submitted by Luis Tenorio ([email or web address]). WENDY LAND May 22, 2025 14:11
[2025-05-22] MEDS: ONDANSETRON ODT 4 MG TAB PO ONE (14:14)
[2025-05-22] MEDS: HYDROmorphone HCL 2 MG/ML VL/or syr IM ONE (14:14)
[2025-05-22 15:03] VITALS: BP 109/79; PULSE 112; RESP 18; TEMP 98; O2SAT 94
== END 2025-05-22 15:05 | disposition home or self-care (01) ==
LOC: ER 13:14
DX: R10.30 Lower abdominal pain, unspecified (principal); M54.59 Other low back pain; Z87.442 Personal history of urinary calculi; F41.9 Anxiety disorder, unspecified; F32.A Depression, unspecified; Z79.899 Other long term (current) drug therapy; Z87.440 Personal history of urinary (tract) infections; Z88.5 Allergy status to narcotic agent; Z90.49 Acquired absence of other specified parts of digestive tract; Z98.51 Tubal ligation status
CPT/HCPCS: 96372; 99283; J1171; Q0162

== ENCOUNTER 2025-05-25 13:20 | Inpatient (IN) | payer MEDICAID ==
[~2025-05-25] VITALS: Ht 152.4 cm; Wt 84.0 kg
[~2025-05-25 13:20] MED LIST changes: -LEVO500T91 PO; -MESA800T9 PO
[2025-05-25 13:22] VITALS: TEMP 99.2
--- NOTE | 2025-05-25 13:48 | ED.PDOC ---
General HPI Comments 49-year-old female who comes in with chief complaint of right-sided flank pain for 1-1/2 weeks. The patient also states that the pain is a 9/10 and associated with nausea but no vomiting. There has been a frequency as well as dysuria. There has been no fever or chills. The patient denies any trauma but she states that she has has a history of kidney stones in the past. The patient also states that she has had a nephrostomy for kidney stones in the past. She was able to ambulate into the emergency department's without any difficulty. Chief Complaint: Flank Pain Time Seen by MD: 13:23 Primary Care Provider: UNKNOWN Reviewed notes: Nurses Notes, Medications, Allergies (Allergies listed above) Allergies: Coded Allergies: Codeine (Verified Allergy, Unknown, 12/10/24) Morphine (Verified Allergy, Unknown, 12/10/24) Home Meds Active Scripts Folic Acid (Folic Acid) 1 Mg Tab, 1 MG PO DAILY for 30 Days, #30 TAB Prov:JOHN ABAD 05/21/25 Sulfasalazine (Sulfasalazine) 500 Mg Tab, 1500 MG PO BID for 30 Days, #180 TAB Prov:JOHN ABAD 05/21/25 Cephalexin (KEFLEX CAPSULE) 250 Mg Cp, 500 MG PO BID for 5 Days, #20 CAP Prov:JOHN ABAD 05/21/25 Oxycodone W/ Acetaminophen (Percocet 5/325MG) 1 Tab Tb, 1 TAB PO QID, #10 TAB 0 Refills Prov:CARMELA SALCIDO 05/19/25 Tramadol HCl (Tramadol HCl) 50 Mg Tab, 50 MG PO QID PRN, #30 TAB Prov:ALYSSA FRANKS MD 05/06/25 Sucralfate (CARAFATE) 1 Gm Tab, 1 GM PO QID, #120 TAB Prov:ALYSSA FRANKS MD 05/06/25 Pantoprazole Sodium Sesquihydr (Pantoprazole Sodium) 40 Mg Tab, 40 MG PO BID, #60 TAB Prov:ALYSSA FRANKS MD 05/06/25 Ergocalciferol (VITAMIN D 52662 UNIT) 50,000 [place], [address] UNIT PO Q7D for 90 Days, #12 CAP Prov:MARY YE 04/02/25 Reported Medications Zolpidem Tartrate (Zolpidem Tartrate) 10 Mg Tab, 1 TAB PO QHSP PRN 05/04/25 Cariprazine Hydrochloride (Vraylar) 1.5 Mg Cap, 1.5 MG PO, CAP 03/31/25 Lorazepam (ATIVAN TABLET) 0.5 Mg Tb, 2 TAB PO DAILY, #30 TAB 03/31/25 Quetiapine Fumerate (Seroquel Xr) 200 Mg Tab, 400 MG PO QHSP for 30 Days, MG 03/31/25 Discontinued Scripts Mesalamine (Mesalamine Dr) 800 Mg Tab, 800 MG PO TID for 30 Days, #90 TAB Prov:JOHN ABAD 05/21/25 Levofloxacin Hemihydrate (LEVAQUIN 500 MG) 500 Mg Tab, 1 TAB PO DAILY, #7 TAB Prov:ALYSSA FRANKS MD 05/06/25 Information Source: Patient Mode of Arrival: Ambulatory Severity: Moderate Inability to void: None Timing: Days Duration: Since onset Prehospital treatment: None Onset: Spontaneous Symptoms: Dysuria, Frequency History of: Kidney stone Location: (R) Flank Modifying factors: None associated signs and symptoms: Abdominal Pain, Nausea, Flank Pain (Right-sided flank pain) Past Medical History PAST MEDICAL HISTORY: Anxiety, Depression, Kidney Stones, UTI'S Surgical History: Cholecystectomy, Tubal Ligation Surgical History (Other): Previous right nephrostomy WEB ART DIRECTOR History: Denies all WEB ART DIRECTOR Hx Family History Family History: Family hx of DM, Family hx of heart khoa Social History Smoker: Non-Smoker Alcohol: Denies ETOH Use Drugs: Denies Drug Use Lives In: Home Constitutional: denies: chills, diaphoresis, fatigue, fever, malaise, sweats, weakness, others EENTM: denies: blurred vision, double vision, ear bleeding, ear discharge, ear drainage, ear pain, ear ringing, eye pain, eye redness, hearing loss, mouth pain, mouth swelling, nasal discharge, nose bleeding, nose congestion, nose pain, photophobia, tearing, throat pain, throat swelling, voice changes, others Respiratory: denies: cough, hemoptysis, orthopnea, SOB at rest, shortness of breath, SOB with excertion, stridor, wheezing, others Cardiovascular: denies: chest pain, dizzy spells, diaphoresis, Dyspnea on exertion, edema, irregular heart beat, left arm pain, lightheadedness, palpitations, PND, syncope, others Gastrointestinal: reports: nausea; denies: abdomen distended, abdominal pain, blood streaked bowels, constipated, diarrhea, dysphagia, difficulty swallowing, hematemesis, melena, poor appetite, poor fluid intake, rectal bleeding, rectal pain, vomiting, others Genitourinary: reports: flank pain (Right-sided flank pain); denies: abnormal vagina bleeding, burning, dyspareunia, dysuria, frequency, hematuria, incontinence, pain, , vagina discharge, urgency, others Neurological: denies: dizziness, fainting, headache, left sided numbness, left sided weakness, numbness, paresthesia, pre-existing deficit, right sided numbness, right sided weakness, seizure, speech problems, tingling, tremors, weakness, others Musculoskeletal: denies: back pain, gout, joint pain, joint swelling, muscle pain, muscle stiffness, neck pain, others Integumetry: denies: bruises, change in color, change in hair/nails, dryness, laceration, lesions, lumps, rash, wounds, others Allergic/Immunocompromised: denies: Difficulty Healing, Frequent Infections, Hives, Itching, others Hematologic/Lymphatic: denies: anemia, blood clots, easy bleeding, easy bruising, swollen glands, others Endocrine: denies: excessive hunger, excessive sweating, excessive thirst, excessive urination, flushing, intolerance to cold, intolerance to heat, unexplained weight gain, unexplained weight loss, others Psychiatric: denies: anxiety, bipolar disorder, depression, hopeless, panic disorder, schizophrenia, sleepless, suicidal, others Physical Exam General Appearance: Moderate Distress HEENT: Normal ENT Inspection, Pharynx Normal, TMs Normal Neck: Full Range of Motion, Non-Tender, Normal, Normal Inspection Respiratory: Chest Non-Tender, Lungs Clear, No Accessory Muscle Use, No Respiratory Distress, Normal Breath Sounds Cardiovascular: No Edema, No JVD, No Murmur, No Gallop, Normal Peripheral Pulses, Regular Rate/Rhythm Breast Exam: Deferred Gastrointestinal: No Organomegaly, Non Tender, No Pulsatile Mass, Normal Bowel Sounds, Soft Genitalia: Deferred Pelvic: Deferred Rectal: Deferred Extremities: No calf tenderness, Normal capillary refill, Normal inspection, Normal range of motion, Non-tender, No pedal edema Musculoskeletal : Apperance: Normal Neurologic: Alert, senior painter II-XII nml as Tested, No Motor Deficits, Normal Affect, Normal Mood, No Sensory Deficits Cerebellar Function: Normal Reflexes: Normal Skin: Dry, Normal Color, Warm Lymphatic: No Adenopathy Was a procedure done? Was a procedure done?: No Differential Diagnosis Kidney stone (Female): Pancreatitis, Renal failure, Strain, Urolithiasis X-Ray, Labs, Meds, VS Vital Signs Date Time Temp Pulse Resp B/P (MAP) Pulse Ox O2 Delivery O2 Flow Rate FiO2 05/25/25 13:22 99.2 96 16 131/79 98 99.2 Lab Test 05/25/25 14:11 Range/Units White Blood Count 6.0 # 4.4-10.8 10^3/uL Red Blood Count 4.74 4.0-5.20 10^6/uL Hemoglobin 15.2 12.2-16.2 g/dL Hematocrit 43.8 36.0-46.0 % Mean Corpuscular Volume 92.3 80.0-100.0 fL Mean Corpuscular Hemoglobin 32.1 H 28.0-32.0 pg Mean Corpuscular Hemoglobin Concent 34.8 32.0-36.0 g/dL Red Cell Distribution Width 14.4 H 11.8-14.3 % Platelet Count 381 140-450 10^3/uL Mean Platelet Volume 7.4 6.9-10.8 fL Neutrophils (%) (Auto) 53.4 37.0-80.0 % Lymphocytes (%) (Auto) 36.3 10.0-50.0 % Monocytes (%) (Auto) 6.6 0.0-12.0 % Eosinophils (%) (Auto) 2.5 0.0-7.0 % Basophils (%) (Auto) 1.2 0.0-2.0 % Neutrophils # (Auto) 3.2 1.6-8.6 10 ^3/uL Lymphocytes # (Auto) 2.2 0.4-5.4 10 ^3/uL Monocytes # (Auto) 0.4 0-1.3 10 ^3/uL Eosinophils # (Auto) 0.1 0-0.8 10 ^3/uL Basophils # (Auto) 0.1 0-0.2 10 ^3/uL Nucleated Red Blood Cells 0.0 % Sodium Level 143 136-145 mmol/L Potassium Level 3.8 3.5-5.1 mmol/L Chloride Level 111 H 98-107 mmol/L Carbon Dioxide Level 22 20-31 mmol/L Anion Gap 10 5-15 Blood Urea Nitrogen 10 9-23 mg/dL Creatinine 0.71 0.550-1.02 mg/dL Glomerular Filtration Rate Calc 105 >90 mL/min BUN/Creatinine Ratio 14.1 10.0-20.0 Serum Glucose 109 H 74-106 mg/dL Calcium Level 9.3 8.7-10.4 mg/dL IV Hep-Lock was established. The patient was given Dilaudid 0.5 mg IV push for the pain The patient is given Zofran 4 mg IV push for the nausea The patient was given normal saline at 1 L bolus. The CAT scan of the abdomen and pelvis shows: IMPRESSION: 1. imal possible asymmetric right inferior perinephric edema. Superimposed pyelonephritis not excluded without intravenous contrast. Otherwise, correlate for recently passed stone. The patient is being started on Levaquin 500 mg IV piggyback IV The patient is being admitted with a diagnosis of intractable abdominal pain and pyelonephritis Images Reviewed?: Images reviewed and evaluated by me Time of 1ST Reevaluation: 13:47 Reevaluation 1ST: Unchanged Patient Education/Counseling: Diagnosis, Treatment, Prognosis Family Education/Counseling: No Family Present SEPSIS Sepsis Screen Date sepsis recognized/suspect: May 25, 2025 Time Sepsis recognized/suspect: 1322 Recent Procedure: No On Antibiotic Therapy: No Respiratory Rate >20: No Heart Rate >90: Yes Temp<36 C (96.8 F) or >38.3 C: No SBP <90 or MAP <65 mmHG: No New Acute Mental Status Change: No Is the patient on CPAP, BIPAP,: No Physician Orders Urinalysis (05/25/25 13:43) Ct Ab Pel Wo Con-No Oral Or Iv (05/25/25 13:43) Heplock Iv (05/25/25 13:43) Vital Signs Date Time Temp Pulse Resp B/P (MAP) Pulse Ox O2 Delivery O2 Flow Rate FiO2 05/25/25 13:22 99.2 96 16 131/79 98 99.2 Laboratory Tests Test 05/25/25 14:11 White Blood Count 6.0 10^3/uL (4.4-10.8) # Departure 1 Departure Time of Disposition: 14:52 Impression: Primary Impression: Acute abdominal pain Additional Impressions: Right flank pain Pyelonephritis Disposition: ADMITTED INPATIENT Admit to: Med Surg Condition: Fair Critical Care Note Critical Care Time?: No Stability Stability form required: Yes Unstable for transfer: ED Physician Assesment (Clinical assesment) Heart Score Heart Score: Heart Score Response (Comments) Value History N/A 0 EKG N/A 0 Age N/A 0 Risk Factors N/A 0 Troponin N/A 0 Total 0 AMANDA CHO MD May 25, 2025 13:48
--- NOTE | 2025-05-25 14:24 | DVH ---
EXAM: CT CT AB PEL WO CON-NO ORAL OR IV INDICATION: right flank pain TECHNIQUE: Volumetric multidetector CT images of the abdomen and pelvis were obtained without contras t. All CT scans at this facility use dose modulation, iterative reconstruction, and/or weight based d osing when appropriate to reduce radiation dose to as low as reasonably achievable. COMPARISON: CT CT AB PEL WITH IV CON ONLY on DOS: 05/19/25 FINDINGS: [LOWER CHEST]: The partially visualized lung bases are clear without a pleural effusion. The cardiac size is normal without pericardial effusion. [LIVER]: Normal hepatic size without suspicious focal lesion. [GALLBLADDER AND BILIARY TREE]: Gallbladder is surgically absent. [SPLEEN]: Unremarkable. [PANCREAS]: Unremarkable. [ADRENAL GLANDS]: Unremarkable [KIDNEYS]: No hydronephrosis. Multiple nonobstructive bilateral renal caliceal stones no definitive d istal ureteral stone. Minimal possible asymmetric right inferior perinephric edema. Superimposed pyel onephritis not excluded without intravenous contrast. Otherwise, correlate for recently passed stone. [BLADDER]: Decompressed [REPRODUCTIVE ORGANS]: Unremarkable. [BOWEL/MESENTERY]: Stomach is normal. No CT evidence of bowel obstruction. Normal appendix. Mild-to- moderate stool burden. [ASCITES]: Absent [LYMPHADENOPATHY]: No pathologically enlarged lymph nodes by CT size criteria [VASCULATURE]: No aneurysmal dilatation. [ABDOMINAL WALL]: Unremarkable. [MUSCULOSKELETAL]: No acute fracture or aggressive focal osseous lesion. Multifocal degenerative leavitt ge of the visualized spine. IMPRESSION: 1. imal possible asymmetric right inferior perinephric edema. Superimposed pyelonephritis not exclude d without intravenous contrast. Otherwise, correlate for recently passed stone.
[2025-05-25 14:26] LABS: Hematocrit 43.8 % (36.0-46.0); Hemoglobin 15.2 g/dL (12.2-16.2); Mean Corpuscular Hemoglobin 32.1 pg (28.0-32.0); Mean Corpuscular Volume 92.3 fL (80.0-100.0); Nucleated Red Blood Cells % 0.0 %
[2025-05-25 14:35] LABS: Potassium 3.8 mmol/L (3.5-5.1); Sodium 143 mmol/L (136-145)
[2025-05-25 14:36] LABS: Anion Gap 10 (5-15); Calcium 9.3 mg/dL (8.7-10.4); Carbon Dioxide 22 mmol/L (20-31)
[2025-05-25 14:38] LABS: Chloride 111 mmol/L (98-107)
[2025-05-25 14:41] LABS: BUN/Creatinine Ratio 14.1 (10.0-20.0); Blood Urea Nitrogen 10 mg/dL (9-23); Glucose 109 mg/dL (74-106)
[2025-05-25 15:18] LABS: Urine Protein, UAD Negative (Negative)
[2025-05-25] MEDS: HYDROmorphone HCL 2 MG/ML VL/or syr IV ONE (17:50)
[2025-05-25] MEDS: ONDANSETRON HCL 4 MG/2 ML VIAL IV ONE (17:50)
[2025-05-25 18:01] VITALS: BP 137/87; PULSE 88; RESP 18; O2SAT 96
[2025-05-25] MEDS: SODIUM CHLORIDE 0.9% 1,000 ML IVB ONE (18:31)
[2025-05-25] MEDS ORDERED: ACETAMINOPHEN 325 MG TAB PO PRN (19:30)
[2025-05-25] MEDS ORDERED: OXYCODONE W/ ACETAMINOPHEN 5/325MG TABLET PO PRN (19:30)
[2025-05-25] MEDS ORDERED: ONDANSETRON HCL 4 MG/2 ML VIAL IV PRN (19:30)
--- NOTE | 2025-05-25 22:14 | DVHHP2 ---
History of Present Illness Reason for Visit: Right flank pain History of Present Illness 49-year-old female presents for evaluation of right flank pain. Patient reports a two day history of right-sided flank pain with associated dysuria and chills. Denies nausea or vomiting. She also states having mild lower abdominal pain. She reports a history of kidney stones. Past Medical History Depression, kidney stones, anxiety Past Surgical History Nephrostomy tube Family History Noncontributory Smoke: No ALCOHOL: none Drugs: None Lives: with Family Review of Systems Review of Systems Review of systems are currently negative otherwise addressed in HPI. Allergies: Coded Allergies: Codeine (Verified Allergy, Unknown, 12/10/24) Morphine (Verified Allergy, Unknown, 12/10/24) Medications Current Medications Medications Dose Ordered Sig/Wanda Route Start Time Stop Time Status Last Admin Dose Admin Oxycodone/ Acetaminophen 2 tab Q6HP PRN PO 05/25/25 19:30 UNV Ceftriaxone Sodium 50 ml @ 100 mls/hr DAILY@09 IV 05/26/25 09:00 Folic Acid 1 mg DAILY PO 05/26/25 10:00 Pantoprazole Sodium 40 mg DAILY@0600 PO 05/26/25 06:00 Quetiapine Fumarate 400 mg HS PO 05/25/25 22:00 Ondansetron HCl 4 mg Q4HP PRN IV 05/25/25 19:30 Acetaminophen 650 mg Q6HP PRN PO 05/25/25 19:30 Exam Vital Signs Vital Signs Date Time Temp Pulse Resp B/P (MAP) Pulse Ox O2 Delivery O2 Flow Rate FiO2 05/25/25 18:01 88 18 96 Room Air* 0 21 05/25/25 18:01 137/87 (104) 05/25/25 13:22 99.2 99.2 Exam Gen: 49-year-old female in mild distress Skin: Warm, dry, normal color and texture, no rash. HEENT: Normocephalic atraumatic, mucous membranes moist and pink. Neck: Cervical and supraclavicular nodes normal without enlargement, trachea is midline, thyroid gland is normal without masses. Pulmonary: Clear to auscultation and percussion bilaterally. Cardiac: Regular rate and rhythm. No murmur Abdomen: Soft, I CVA tenderness. nondistended, bowel sounds present all 4 quadrants, no guarding, no rigidity, no organomegaly. Extremities: No cyanosis, clubbing, no edema Neuro: Cranial nerves II through XII grossly intact, normal affect and speech, no focal motor deficits. Labs/Xrays ORDERING PHYSICIAN: AMANDA CHO MD PROCEDURE(s): ABPL - CT AB PEL WO CON-NO ORAL OR IV REASON: right flank pain ORDER NUMBER(s): [id number], ACCESSION NUMBER(s): [id number] EXAM: CT CT AB PEL WO CON-NO ORAL OR IV INDICATION: right flank pain TECHNIQUE: Volumetric multidetector CT images of the abdomen and pelvis were obtained without contrast. All CT scans at this facility use dose modulation, iterative reconstruction, and/or weight based dosing when appropriate to reduce radiation dose to as low as reasonably achievable. COMPARISON: CT CT AB PEL WITH IV CON ONLY on DOS: 05/19/25 FINDINGS: [LOWER CHEST]: The partially visualized lung bases are clear without a pleural effusion. The cardiac size is normal without pericardial effusion. [LIVER]: Normal hepatic size without suspicious focal lesion. [GALLBLADDER AND BILIARY TREE]: Gallbladder is surgically absent. [SPLEEN]: Unremarkable. [PANCREAS]: Unremarkable. [ADRENAL GLANDS]: Unremarkable [KIDNEYS]: No hydronephrosis. Multiple nonobstructive bilateral renal caliceal stones no definitive distal ureteral stone. Minimal possible asymmetric right inferior perinephric edema. Superimposed pyelonephritis not excluded without intravenous contrast. Otherwise, correlate for recently passed stone. [BLADDER]: Decompressed [REPRODUCTIVE ORGANS]: Unremarkable. [BOWEL/MESENTERY]: Stomach is normal. No CT evidence of bowel obstruction. Normal appendix. [id number] stool burden. [ASCITES]: Absent [LYMPHADENOPATHY]: No pathologically enlarged lymph nodes by CT size criteria [VASCULATURE]: No aneurysmal dilatation. [ABDOMINAL WALL]: Unremarkable. [MUSCULOSKELETAL]: No acute fracture or aggressive focal osseous lesion. Multifocal degenerative change of the visualized spine. IMPRESSION: 1. imal possible asymmetric right inferior perinephric edema. Superimposed pyelonephritis not excluded without intravenous contrast. Otherwise, correlate for recently passed stone. Labs Test 05/25/25 15:03 05/25/25 14:11 Range/Units Urine Color Light-yellow Yellow Urine Clarity Clear Clear Urine pH 6.0 5.0-9.0 Urine Specific Roulette 1.021 1.001-1.035 Urine Protein Negative Negative Urine Ketones Negative Negative Urine Blood 1+ H Negative /uL Urine Nitrite Negative Negative Urine Bilirubin Negative Negative Urine Urobilinogen Normal Negative mg/dL Urine Leukocyte Esterase 2+ Negative /uL Urine RBC 4 0 - 4 /hpf Urine Microscopic WBC 8 H 0-5 /HPF Urine Squamous Epithelial Cells Few <5 /hpf Urine Bacteria None seen None Seen /hpf Urine Mucus Few None Seen Urine Glucose Normal Normal mg/dL White Blood Count 6.0 # 4.4-10.8 10^3/uL Red Blood Count 4.74 4.0-5.20 10^6/uL Hemoglobin 15.2 12.2-16.2 g/dL Hematocrit 43.8 36.0-46.0 % Mean Corpuscular Volume 92.3 80.0-100.0 fL Mean Corpuscular Hemoglobin 32.1 H 28.0-32.0 pg Mean Corpuscular Hemoglobin Concent 34.8 32.0-36.0 g/dL Red Cell Distribution Width 14.4 H 11.8-14.3 % Platelet Count 381 140-450 10^3/uL Mean Platelet Volume 7.4 6.9-10.8 fL Neutrophils (%) (Auto) 53.4 37.0-80.0 % Lymphocytes (%) (Auto) 36.3 10.0-50.0 % Monocytes (%) (Auto) 6.6 0.0-12.0 % Eosinophils (%) (Auto) 2.5 0.0-7.0 % Basophils (%) (Auto) 1.2 0.0-2.0 % Neutrophils # (Auto) 3.2 1.6-8.6 10 ^3/uL Lymphocytes # (Auto) 2.2 0.4-5.4 10 ^3/uL Monocytes # (Auto) 0.4 0-1.3 10 ^3/uL Eosinophils # (Auto) 0.1 0-0.8 10 ^3/uL Basophils # (Auto) 0.1 0-0.2 10 ^3/uL Nucleated Red Blood Cells 0.0 % Sodium Level 143 136-145 mmol/L Potassium Level 3.8 3.5-5.1 mmol/L Chloride Level 111 H 98-107 mmol/L Carbon Dioxide Level 22 20-31 mmol/L Anion Gap 10 5-15 Blood Urea Nitrogen 10 9-23 mg/dL Creatinine 0.71 0.550-1.02 mg/dL Glomerular Filtration Rate Calc 105 >90 mL/min BUN/Creatinine Ratio 14.1 10.0-20.0 Serum Glucose 109 H 74-106 mg/dL Calcium Level 9.3 8.7-10.4 mg/dL SEPSIS Sepsis Screen Date sepsis recognized/suspect: May 25, 2025 Time Sepsis recognized/suspect: 1800 Recent Procedure: No On Antibiotic Therapy: No Respiratory Rate >20: No Heart Rate >90: No Temp<36 C (96.8 F) or >38.3 C: No SBP <90 or MAP <65 mmHG: No New Acute Mental Status Change: No Is the patient on CPAP, BIPAP,: No Physician Orders Admit (05/25/25 19:19) Oxycodone W/ Acet 5/325mg Tab (Percocet (05/25/25 19:30) Ceftriaxone 1gm/50ml D5w (Rocephin) (05/26/25 09:00) Folic Acid Tablet (05/26/25 10:00) Pantoprazole Tablet (Protonix Tablet) (05/26/25 06:00) Quetiapine Fumarate Tablet (Seroquel Tab (05/25/25 22:00) Basic Metabolic Panel (05/26/25 04:00) Ondansetron Hcl (Zofran) (05/25/25 19:30) Cardiac Diet-2gna,Lofat,Lochol (05/26/25 Breakfast) Condition: Stable (05/25/25 19:21) Acetaminophen Tablet (Tylenol Tablet) (05/25/25 19:30) Bedrest With Bathroom Privileg (05/25/25 19:21) Vital Signs Date Time Temp Pulse Resp B/P (MAP) Pulse Ox O2 Delivery O2 Flow Rate FiO2 05/25/25 18:01 88 18 96 Room Air* 0 21 05/25/25 18:01 88 18 137/87 (104) 96 05/25/25 17:50 88 18 137/87 Laboratory Tests Test 05/25/25 14:11 White Blood Count 6.0 10^3/uL (4.4-10.8) # Medications Medications Dose Ordered Sig/Wanda Route Start Time Stop Time Status Last Admin Dose Admin Hydromorphone HCl 0.5 mg ONCE ONCE IV 05/25/25 13:45 05/25/25 13:46 DC 05/25/25 17:50 0.5 MG Levofloxacin/ Dextrose 100 ml @ 100 mls/hr ONCE ONCE IV 05/25/25 15:00 05/25/25 15:59 DC 05/25/25 17:50 100 MLS/HR Ondansetron HCl 4 mg ONCE ONCE IV 05/25/25 13:45 05/25/25 13:46 DC 05/25/25 17:50 4 MG Assessment/Plan Assessment/Plan Assessment Acute pyelonephritis Chronic pain syndrome Plan Admit the patient to [facility] to the hospitalist Any Pain management Resume home medications Continue treatment per orders. Plan discussed with: Patient My Orders Orders - YOHAN HAYS Procedure Category Date Status Time Admit ADMIT 05/25/25 Transmitted 19:19 Oxycodone W/ Acet PHA 05/25/25 Logged 5/325mg Tab (Percocet 19:30 Ceftriaxone 1gm/50ml PHA 05/26/25 In Process D5w (Rocephin) 09:00 Folic Acid Tablet PHA 05/26/25 In Process 10:00 Pantoprazole Tablet PHA 05/26/25 In Process (Protonix Tablet) 06:00 Quetiapine Fumarate PHA 05/25/25 In Process Tablet (Seroquel Tab 22:00 Basic Metabolic Panel LAB 05/26/25 Verified 04:00 Ondansetron Hcl PHA 05/25/25 In Process (Zofran) 19:30 Cardiac DIET 05/26/25 Transmitted Diet-2gna,Lofat,Lochol Breakfast Condition: Stable JEREMIE 05/25/25 In Process 19:21 Acetaminophen Tablet PHA 05/25/25 In Process (Tylenol Tablet) 19:30 Bedrest With Bathroom JEREMIE 05/25/25 In Process Privileg 19:21 Date of Service: May 25, 2025 Billing Provider: YOHAN HAYS Common Visit Codes: [id number] INP/OBS CARE (MOD) YOHAN HAYS May 25, 2025 22:14
[2025-05-26] MEDS ORDERED: PANTOPRAZOLE 40 MG TAB PO SCH (06:00)
[2025-05-26] MEDS ORDERED: FOLIC ACID 1 MG TAB PO SCH (10:00)
== END 2025-05-25 20:45 | disposition left against medical advice (07) | DRG 463 ==
LOC: ER 13:20 → OVERFLOW 19:19
PROVIDERS: ADMIT Nurse Practitioner; ATTEND Nurse Practitioner
DX: N10 Acute pyelonephritis (principal); F32.A Depression, unspecified; F41.9 Anxiety disorder, unspecified; Z53.21 Procedure and treatment not carried out due to patient leaving prior to being seen by health care provider; G89.4 Chronic pain syndrome; Z83.3 Family history of diabetes mellitus; Z87.442 Personal history of urinary calculi; Z88.5 Allergy status to narcotic agent; Z93.6 Other artificial openings of urinary tract status
CPT/HCPCS: 36415; 74176; 80048; 81001; 85025; 96365; 96375; G0378; J1956; J2405

== ENCOUNTER 2025-05-28 02:32 | Emergency (ER) | payer MEDICAID ==
[~2025-05-28] VITALS: Ht 152.4 cm; Wt 86.4 kg
[2025-05-28 02:34] VITALS: BP 132/80; PULSE 114; RESP 16; TEMP 98.1; O2SAT 98
--- NOTE | 2025-05-28 03:21 | ED.PDOC ---
General HPI Comments 49-year-old female who came to ER for flank pains. Patient has been having right flank pains for the past few days, was seen and admitted here 3 days ago for acute pyelonephritis however patient signed AMA. Persistence of right flank pains radiating to her right upper quadrant associated nausea and vomiting prompted patient to come to the ER. Denies any urinary symptoms such as dysuria or hematuria Chief Complaint: Flank Pain Time Seen by MD: 03:20 Primary Care Provider: UNKNOWN Reviewed notes: Nurses Notes Allergies: Coded Allergies: Codeine (Verified Allergy, Unknown, 12/10/24) Morphine (Verified Allergy, Unknown, 12/10/24) Home Meds Active Scripts Gabapentin (Once-Daily) (Gabapentin) 300 Mg Tab, 300 MG PO Q6HP PRN, #30 TAB Prov:REGULO MARTINEZ MD 05/28/25 Sulfamethoxazole W/Trimethopri (Bactrim Ds Tablet) 1 Tab Tb, 1 TAB PO BID for 7 Days, #14 TAB Prov:REGULO MARTINEZ MD 05/28/25 Folic Acid (Folic Acid) 1 Mg Tab, 1 MG PO DAILY for 30 Days, #30 TAB Prov:JOHN ABAD 05/21/25 Sulfasalazine (Sulfasalazine) 500 Mg Tab, 1500 MG PO BID for 30 Days, #180 TAB Prov:JOHN ABAD 05/21/25 Cephalexin (KEFLEX CAPSULE) 250 Mg Cp, 500 MG PO BID for 5 Days, #20 CAP Prov:JOHN ABAD 05/21/25 Oxycodone W/ Acetaminophen (Percocet 5/325MG) 1 Tab Tb, 1 TAB PO QID, #10 TAB 0 Refills Prov:CARMELA SALCIDO 05/19/25 Tramadol HCl (Tramadol HCl) 50 Mg Tab, 50 MG PO QID PRN, #30 TAB Prov:ALYSSA FRANKS MD 05/06/25 Sucralfate (CARAFATE) 1 Gm Tab, 1 GM PO QID, #120 TAB Prov:ALYSSA FRANKS MD 05/06/25 Pantoprazole Sodium Sesquihydr (Pantoprazole Sodium) 40 Mg Tab, 40 MG PO BID, #60 TAB Prov:ALYSSA FRANKS MD 05/06/25 Ergocalciferol (VITAMIN D 09482 UNIT) 50,000 [place], [address] UNIT PO Q7D for 90 Days, #12 CAP Prov:MARY YE RESIDENT 04/02/25 Reported Medications Zolpidem Tartrate (Zolpidem Tartrate) 10 Mg Tab, 1 TAB PO QHSP PRN 05/04/25 Cariprazine Hydrochloride (Vraylar) 1.5 Mg Cap, 1.5 MG PO, CAP 03/31/25 Lorazepam (ATIVAN TABLET) 0.5 Mg Tb, 2 TAB PO DAILY, #30 TAB 03/31/25 Quetiapine Fumerate (Seroquel Xr) 200 Mg Tab, 400 MG PO QHSP for 30 Days, MG 03/31/25 Discontinued Scripts Mesalamine (Mesalamine Dr) 800 Mg Tab, 800 MG PO TID for 30 Days, #90 TAB Prov:JOHN ABAD RESIDENT 05/21/25 Levofloxacin Hemihydrate (LEVAQUIN 500 MG) 500 Mg Tab, 1 TAB PO DAILY, #7 TAB Prov:ALYSSA FRANKS MD 05/06/25 Information Source: Patient Mode of Arrival: Ambulatory Severity: Moderate Inability to void: Mild Timing: Days Duration: Intermittent Has not urinated for: Minutes Onset: Spontaneous History of: UTI, Kidney stone Location: (R) Flank associated signs and symptoms: Abdominal Pain, Nausea, Vomiting, Flank Pain, Back Pain Past Medical History PAST MEDICAL HISTORY: Anxiety, Depression, Kidney Stones, UTI'S Surgical History: Cholecystectomy, Tubal Ligation HOSPITALITY RECRUITER History: Denies all 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 Hx Family History Family History: Family hx of DM, Family hx of heart khoa Social History Smoker: Non-Smoker Alcohol: Denies ETOH Use Drugs: Denies Drug Use Lives In: Home Constitutional: denies: chills, diaphoresis, fatigue, fever, malaise, sweats, weakness, others EENTM: denies: blurred vision, double vision, ear bleeding, ear discharge, ear drainage, ear pain, ear ringing, eye pain, eye redness, hearing loss, mouth pain, mouth swelling, nasal discharge, nose bleeding, nose congestion, nose pain, photophobia, tearing, throat pain, throat swelling, voice changes, others Respiratory: denies: cough, hemoptysis, orthopnea, SOB at rest, shortness of breath, SOB with excertion, stridor, wheezing, others Cardiovascular: denies: chest pain, dizzy spells, diaphoresis, Dyspnea on exertion, edema, irregular heart beat, left arm pain, lightheadedness, palpitations, PND, syncope, others Gastrointestinal: reports: abdominal pain, nausea, vomiting; denies: abdomen distended, blood streaked bowels, constipated, diarrhea, dysphagia, difficulty swallowing, hematemesis, melena, poor appetite, poor fluid intake, rectal bleeding, rectal pain, others Genitourinary: reports: flank pain; denies: abnormal vagina bleeding, burning, dyspareunia, dysuria, frequency, hematuria, incontinence, pain, , vagina discharge, urgency, others Neurological: denies: dizziness, fainting, headache, left sided numbness, left sided weakness, numbness, paresthesia, pre-existing deficit, right sided numbness, right sided weakness, seizure, speech problems, tingling, tremors, weakness, others Musculoskeletal: denies: back pain, gout, joint pain, joint swelling, muscle pain, muscle stiffness, neck pain, others Integumetry: denies: bruises, change in color, change in hair/nails, dryness, laceration, lesions, lumps, rash, wounds, others Allergic/Immunocompromised: denies: Difficulty Healing, Frequent Infections, Hives, Itching, others Hematologic/Lymphatic: denies: anemia, blood clots, easy bleeding, easy bruising, swollen glands, others Endocrine: denies: excessive hunger, excessive sweating, excessive thirst, excessive urination, flushing, intolerance to cold, intolerance to heat, unexplained weight gain, unexplained weight loss, others Psychiatric: denies: anxiety, bipolar disorder, depression, hopeless, panic disorder, schizophrenia, sleepless, suicidal, others Physical Exam General Appearance: No Apparent Distress, Normal HEENT: Normal ENT Inspection, Pharynx Normal, TMs Normal Neck: Full Range of Motion, Non-Tender, Normal, Normal Inspection Respiratory: Chest Non-Tender, Lungs Clear, No Accessory Muscle Use, No Respiratory Distress, Normal Breath Sounds Cardiovascular: No Edema, No JVD, No Murmur, No Gallop, Normal Peripheral Pu lses, Regular Rate/Rhythm Breast Exam: Deferred Gastrointestinal: No Organomegaly, Non Tender, No Pulsatile Mass, Normal Bowel Sounds, Soft Genitalia: Deferred Pelvic: Deferred Rectal: Deferred Extremities: No calf tenderness, Normal capillary refill, Normal inspection, Normal range of motion, Non-tender, No pedal edema Musculoskeletal : Apperance: Normal Neurologic: Alert, medical reimbursement specialist II-XII nml as Tested, No Motor Deficits, Normal Affect, Normal Mood, No Sensory Deficits Cerebellar Function: Normal Reflexes: Normal Skin: Dry, Normal Color, Warm Lymphatic: No Adenopathy Was a procedure done? Was a procedure done?: No Differential Diagnosis Kidney stone (Female): Musculoskeletal pain, Pancreatitis, Pyelonephritis, Renal failure, Strain, Urinary obstruction, Urolithiasis Urinary Problem (Female): Pyelonephritis, Urinary retention, Urolithiasis, UTI X-Ray, Labs, Meds, VS Vital Signs Date Time Temp Pulse Resp B/P (MAP) Pulse Ox O2 Delivery O2 Flow Rate FiO2 05/28/25 02:34 98.1 114 16 132/80 98 98.1 Lab Test 05/28/25 03:42 Range/Units White Blood Count 7.5 4.4-10.8 10^3/uL Red Blood Count 4.75 4.0-5.20 10^6/uL Hemoglobin 15.3 12.2-16.2 g/dL Hematocrit 43.8 36.0-46.0 % Mean Corpuscular Volume 92.1 80.0-100.0 fL Mean Corpuscular Hemoglobin 32.2 H 28.0-32.0 pg Mean Corpuscular Hemoglobin Concent 35.0 32.0-36.0 g/dL Red Cell Distribution Width 14.0 11.8-14.3 % Platelet Count 361 140-450 10^3/uL Mean Platelet Volume 7.5 6.9-10.8 fL Neutrophils (%) (Auto) 45.2 37.0-80.0 % Lymphocytes (%) (Auto) 43.7 10.0-50.0 % Monocytes (%) (Auto) 7.7 0.0-12.0 % Eosinophils (%) (Auto) 2.3 0.0-7.0 % Basophils (%) (Auto) 1.1 0.0-2.0 % Neutrophils # (Auto) 3.4 1.6-8.6 10 ^3/uL Lymphocytes # (Auto) 3.3 0.4-5.4 10 ^3/uL Monocytes # (Auto) 0.6 0-1.3 10 ^3/uL Eosinophils # (Auto) 0.2 0-0.8 10 ^3/uL Basophils # (Auto) 0.1 0-0.2 10 ^3/uL Nucleated Red Blood Cells 0.1 % Sodium Level 141 136-145 mmol/L Potassium Level 3.5 3.5-5.1 mmol/L Chloride Level 109 H 98-107 mmol/L Carbon Dioxide Level 20 20-31 mmol/L Anion Gap 12 5-15 Blood Urea Nitrogen 13 9-23 mg/dL Creatinine 0.93 # 0.550-1.02 mg/dL Glomerular Filtration Rate Calc 76 >90 mL/min BUN/Creatinine Ratio 14.0 10.0-20.0 Serum Glucose 141 H 74-106 mg/dL Calcium Level 9.4 8.7-10.4 mg/dL Total Bilirubin 0.3 0.2-1.0 mg/dL Aspartate Amino Transferase (AST) 19 13-40 U/L Alanine Aminotransferase (ALT) 31 7-40 U/L Alkaline Phosphatase 132 H 46-116 U/L Total Protein 7.2 5.7-8.2 g/dL Albumin 4.3 3.2-4.8 g/dL Lipase 40 12-53 U/L Current Medications Medications (Trade) Dose Ordered Sig/Wanda Route Start Time Stop Time Status Last Admin Acetaminophen/ Hydrocodone Bitart ([place] 5/325MG Tab) 1 tab ONCE ONCE PO 05/28/25 04:00 05/28/25 04:02 DC 05/28/25 04:46 Exam: CT CT AB PEL WO CON-NO ORAL OR IV History: right flank pain Comparison Study: CT CT AB PEL WO CON-NO ORAL OR IV on DOS: 05/25/25, CT CT AB PEL WITH IV CON ONLY on DOS: 05/19/25, CT CT AB PEL WITH IV CON ONLY on DOS: 05/04/25 TECHNIQUE: Multidetector CT of the abdomen and pelvis was performed from lung bases to pubic symphysis. Imaging was performed without IV contrast. Axial, coronal and sagittal multiplanar reformats were obtained from the axial data set by the technologist. Radiation optimization: All CT scans at this facility use at least one of these dose optimization techniques: automated exposure control mA and/or kV adjustment per patient size (includes targeted exams where dose is matched to clinical indication) or iterative reconstruction. Radiation Dose Information: CT Dose: CTDI volume is 16.3 mGy. Dose-length product is 1034.7 mGy*cm FINDINGS: Evaluation of solid organs is limited due to lack of intravenous contrast use. Imaged portions of the lung bases appear unremarkable. Liver, spleen, pancreas and adrenal glands appear unremarkable. There has been prior cholecystectomy. Bilateral nonobstructing renal calculi measuring up to 1.0 cm on the right and 0.3 cm on the left. No hydronephrosis or hydroureter. No evidence of obstructing calculus. Urinary bladder appears unremarkable. There is no evidence of bowel obstruction. Appendix not well visualized, however right lower quadrant appears unremarkable. No free fluid, free air, or adenopathy. IMPRESSION: 1. No acute abdominal or pelvic finding. 2. Nonobstructing renal calculi. Time of 1ST Reevaluation: 03:17 Reevaluation 1ST: Unchanged Patient Education/Counseling: Diagnosis, Treatment Family Education/Counseling: No Family Present SEPSIS Sepsis Screen Date sepsis recognized/suspect: May 28, 2025 Time Sepsis recognized/suspect: 235 Recent Procedure: No On Antibiotic Therapy: No Respiratory Rate >20: No Heart Rate >90: No Temp<36 C (96.8 F) or >38.3 C: No SBP <90 or MAP <65 mmHG: No New Acute Mental Status Change: No Is the patient on CPAP, BIPAP,: No Physician Orders Urinalysis (05/28/25 03:18) Ct Ab Pel Wo Con-No Oral Or Iv (05/28/25 03:18) Vital Signs Date Time Temp Pulse Resp B/P (MAP) Pulse Ox O2 Delivery O2 Flow Rate FiO2 05/28/25 02:34 98.1 114 16 132/80 98 98.1 Laboratory Tests Test 05/28/25 03:42 White Blood Count 7.5 10^3/uL (4.4-10.8) Medications Medications Dose Ordered Sig/Wanda Route Start Time Stop Time Status Last Admin Dose Admin Acetaminophen/ Hydrocodone Bitart 1 tab ONCE ONCE PO 05/28/25 04:00 05/28/25 04:02 DC 05/28/25 04:46 Departure 1 Departure Time of Disposition: 05:00 Impression: Primary Impression: Flank pain Additional Impressions: Right flank pain Urinary tract infection Disposition: HOME / SELF CARE / HOMELESS Condition: Stable e-Prescriptions Gabapentin (Once-Daily) (Gabapentin) 300 Mg Tab 300 MG PO Q6HP PRN, #30 TAB Prov: REGULO MARTINEZ MD 05/28/25 Sulfamethoxazole W/Trimethopri (Bactrim Ds Tablet) 1 Tab Tb 1 TAB PO BID for 7 Days, #14 TAB Prov: REGULO MARTINEZ MD 05/28/25 Discharged With: Self Critical Care Note Critical Care Time?: No Stability Stability form required: No Heart Score Heart Score: Heart Score Response (Comments) Value History N/A 0 EKG N/A 0 Age N/A 0 Risk Factors N/A 0 Troponin N/A 0 Total 0 I personally scribed for REGULO MARTINEZ MD ([email or web address]) on 05/28/25 at 03:21. Electronically submitted by Frederic Castano ([email or web address]). I personally scribed for REGULO MARTINEZ MD ([email or web address]) on 05/28/25 at 04:09. Electronically submitted by Frederic Castano ([email or web address]). REGULO MARTINEZ MD May 28, 2025 03:21
[2025-05-28] MEDS ORDERED: HYDROmorphone HCL 2 MG/ML VL/or syr IV ONE (03:30)
[2025-05-28] MEDS ORDERED: ONDANSETRON HCL 4 MG/2 ML VIAL IV ONE (03:30)
[2025-05-28] MEDS ORDERED: SODIUM CHLORIDE 0.9% 1,000 ML IVB ONE (03:30)
--- NOTE | 2025-05-28 03:46 | DVH ---
Exam: CT CT AB PEL WO CON-NO ORAL OR IV History: right flank pain Comparison Study: CT CT AB PEL WO CON-NO ORAL OR IV on DOS: 05/25/25, CT CT AB PEL WITH IV CON ONLY on DOS: 05/19/25, CT CT AB PEL WITH IV CON ONLY on DOS: 05/04/25 TECHNIQUE: Multidetector CT of the abdomen and pelvis was performed from lung bases to pubic symphysi s. Imaging was performed without IV contrast. Axial, coronal and sagittal multiplanar reformats were obtained from the axial data set by the technologist. Radiation optimization: All CT scans at this facility use at least one of these dose optimization rajesh hniques: automated exposure control mA and/or kV adjustment per patient size (includes targeted exam s where dose is matched to clinical indication) or iterative reconstruction. Radiation Dose Information: CT Dose: CTDI volume is 16.3 mGy. Dose-length product is 1034.7 mGy*cm FINDINGS: Evaluation of solid organs is limited due to lack of intravenous contrast use. Imaged portions of the lung bases appear unremarkable. Liver, spleen, pancreas and adrenal glands appear unremarkable. There has been prior cholecystectomy. Bilateral nonobstructing renal calculi measuring up to 1.0 cm on the right and 0.3 cm on the left. N o hydronephrosis or hydroureter. No evidence of obstructing calculus. Urinary bladder appears unrem arkable. There is no evidence of bowel obstruction. Appendix not well visualized, however right lower quadran t appears unremarkable. No free fluid, free air, or adenopathy. IMPRESSION: 1. No acute abdominal or pelvic finding. 2. Nonobstructing renal calculi.
[2025-05-28 04:12] LABS: Hematocrit 43.8 % (36.0-46.0); Hemoglobin 15.3 g/dL (12.2-16.2); Mean Corpuscular Hemoglobin 32.2 pg (28.0-32.0); Mean Corpuscular Volume 92.1 fL (80.0-100.0); Nucleated Red Blood Cells % 0.1 %
[2025-05-28 04:29] LABS: Alanine Aminotransferase 31 U/L (7-40); Albumin 4.3 g/dL (3.2-4.8); Anion Gap 12 (5-15); BUN/Creatinine Ratio 14.0 (10.0-20.0); Bilirubin, Total 0.3 mg/dL (0.2-1.0); Blood Urea Nitrogen 13 mg/dL (9-23); Calcium 9.4 mg/dL (8.7-10.4); Carbon Dioxide 20 mmol/L (20-31); Lipase 40 U/L (12-53); Potassium 3.5 mmol/L (3.5-5.1); Sodium 141 mmol/L (136-145); Total Protein 7.2 g/dL (5.7-8.2)
[2025-05-28 04:35] LABS: Alkaline Phosphatase 132 U/L (46-116); Chloride 109 mmol/L (98-107); Glucose 141 mg/dL (74-106)
[2025-05-28] MEDS: HYDROcodone-ACET 5/325MG TAB PO ONE (04:46)
[2025-05-28] MEDS ORDERED: BACDST PO (04:49)
[2025-05-28] MEDS ORDERED: GABA300T4 PO (04:49)
[2025-05-28] MEDS: SULFAMETHOX W/TRIMETH(800/160MG) DS TAB PO ONE (05:20)
== END 2025-05-28 05:22 | disposition home or self-care (01) ==
LOC: ER 02:32
DX: N39.0 Urinary tract infection, site not specified (principal); F32.A Depression, unspecified; F41.9 Anxiety disorder, unspecified; Z79.899 Other long term (current) drug therapy; Z87.440 Personal history of urinary (tract) infections; Z87.442 Personal history of urinary calculi; Z90.49 Acquired absence of other specified parts of digestive tract; Z98.51 Tubal ligation status; Z88.5 Allergy status to narcotic agent
CPT/HCPCS: 36415; 74176; 80053; 83690; 85025; J2405

== ENCOUNTER 2025-06-03 04:52 | Emergency (ER) | payer MEDICAID ==
[~2025-06-03] VITALS: Ht 162.6 cm; Wt 72.7 kg
[~2025-06-03 04:52] MED LIST changes: +BACDST PO; +GABA300T4 PO
--- NOTE | 2025-06-03 05:08 | ED.PDOC ---
History of Present Illness HPI Comments 49 year old female presents to the ED via EMS with a chief complaint of overdose onset today. Per EMS, patient took Trazodone 400 mg instead of her usual 100 mg, with Gabapentin and Lorazepam. Patient states room was dark, confused pill and accidently took 400 mg instead of 100 mg. She is experiencing sleepiness, has no further complaints. Called 911 due to being scared of potential overdose. PMHx anxiety, depression. Denies chest pain, shortness of breath, dizziness, headache, blurry vision, nausea, vomiting, numbness/tingling. No other symptoms or modifying factors present at this time. Chief Complaint: Overdose Time Seen by MD: 05:00 Primary Care Provider: UNKNOWN Reviewed Notes: Medications, Allergies Allergies: Coded Allergies: Codeine (Verified Allergy, Unknown, 12/10/24) Morphine (Verified Allergy, Unknown, 12/10/24) Home Meds Active Scripts Gabapentin (Once-Daily) (Gabapentin) 300 Mg Tab, 300 MG PO Q6HP PRN, #30 TAB Prov:REGULO MARTINEZ MD 05/28/25 Sulfamethoxazole W/Trimethopri (Bactrim Ds Tablet) 1 Tab Tb, 1 TAB PO BID for 7 Days, #14 TAB Prov:REGULO MARTINEZ MD 05/28/25 Folic Acid (Folic Acid) 1 Mg Tab, 1 MG PO DAILY for 30 Days, #30 TAB Prov:JOHN ABAD 05/21/25 Sulfasalazine (Sulfasalazine) 500 Mg Tab, 1500 MG PO BID for 30 Days, #180 TAB Prov:JOHN ABAD 05/21/25 Cephalexin (KEFLEX CAPSULE) 250 Mg Cp, 500 MG PO BID for 5 Days, #20 CAP Prov:JOHN ABAD 05/21/25 Oxycodone W/ Acetaminophen (Percocet 5/325MG) 1 Tab Tb, 1 TAB PO QID, #10 TAB 0 Refills Prov:CARMELA SALCIDO 05/19/25 Tramadol HCl (Tramadol HCl) 50 Mg Tab, 50 MG PO QID PRN, #30 TAB Prov:ALYSSA FRANKS MD 05/06/25 Sucralfate (CARAFATE) 1 Gm Tab, 1 GM PO QID, #120 TAB Prov:ALYSSA FRANKS MD 05/06/25 Pantoprazole Sodium Sesquihydr (Pantoprazole Sodium) 40 Mg Tab, 40 MG PO BID, #60 TAB Prov:ALYSSA FRANKS MD 05/06/25 Ergocalciferol (VITAMIN D 26984 UNIT) 50,000 [place], [address] UNIT PO Q7D for 90 Days, #12 CAP Prov:MARY YE RESIDENT 04/02/25 Reported Medications Zolpidem Tartrate (Zolpidem Tartrate) 10 Mg Tab, 1 TAB PO QHSP PRN 05/04/25 Cariprazine Hydrochloride (Vraylar) 1.5 Mg Cap, 1.5 MG PO, CAP 03/31/25 Lorazepam (ATIVAN TABLET) 0.5 Mg Tb, 2 TAB PO DAILY, #30 TAB 03/31/25 Quetiapine Fumerate (Seroquel Xr) 200 Mg Tab, 400 MG PO QHSP for 30 Days, MG 03/31/25 Information Source: Patient, Emergency Med Personnel Mode of Arrival: Ambulatory Severity: Moderate Timing: Hours Duration: Since onset Prehospital treatment: None Past Medical History PAST MEDICAL HISTORY: Anxiety, Depression, Kidney Stones, UTI'S Surgical History: Cholecystectomy, Tubal Ligation 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 LEAF 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 Hx Family History Family History: Family hx of DM, Family hx of heart khoa Social History Smoker: Non-Smoker Alcohol: Denies ETOH Use Drugs: Denies Drug Use Lives In: Home Constitutional: reports: others (overdose); denies: chills, diaphoresis, fatigue, fever, malaise, sweats, weakness EENTM: denies: blurred vision, double vision, ear bleeding, ear discharge, ear drainage, ear pain, ear ringing, eye pain, eye redness, hearing loss, mouth pain, mouth swelling, nasal discharge, nose bleeding, nose congestion, nose pain, photophobia, tearing, throat pain, throat swelling, voice changes, others Cardiovascular: denies: chest pain, dizzy spells, diaphoresis, Dyspnea on exertion, edema, irregular heart beat, left arm pain, lightheadedness, palpitations, PND, syncope, others Gastrointestinal: denies: abdomen distended, abdominal pain, blood streaked bowels, constipated, diarrhea, dysphagia, difficulty swallowing, hematemesis, melena, nausea, poor appetite, poor fluid intake, rectal bleeding, rectal pain, vomiting, others Genitourinary: denies: abnormal vagina bleeding, burning, dyspareunia, dysuria, flank pain, frequency, hematuria, incontinence, pain, , vagina discharge, urgency, others Neurological: denies: dizziness, fainting, headache, left sided numbness, left sided weakness, numbness, paresthesia, pre-existing deficit, right sided numbness, right sided weakness, seizure, speech problems, tingling, tremors, weakness, others Musculoskeletal: denies: back pain, gout, joint pain, joint swelling, muscle pain, muscle stiffness, neck pain, others Integumetry: denies: bruises, change in color, change in hair/nails, dryness, laceration, lesions, lumps, rash, wounds, others Allergic/Immunocompromised: denies: Difficulty Healing, Frequent Infections, Hives, Itching, others Hematologic/Lymphatic: denies: anemia, blood clots, easy bleeding, easy bruising, swollen glands, others Endocrine: denies: excessive hunger, excessive sweating, excessive thirst, excessive urination, flushing, intolerance to cold, intolerance to heat, unexplained weight gain, unexplained weight loss, others Psychiatric: denies: anxiety, bipolar disorder, depression, hopeless, panic disorder, schizophrenia, sleepless, suicidal, others All Other Systems: Reviewed and Negative Physical Exam General Appearance: Normal HEENT: Normal ENT Inspection, Pharynx Normal, TMs Normal Neck: Full Range of Motion, Non-Tender, Normal, Normal Inspection Respiratory: Chest Non-Tender, Lungs Clear, No Accessory Muscle Use, No Respiratory Distress, Normal Breath Sounds Cardiovascular: No Edema, No JVD, No Murmur, No Gallop, Normal Peripheral Pulses, Regular Rate/Rhythm Breast Exam: Deferred Gastrointestinal: No Organomegaly, Non Tender, No Pulsatile Mass, Normal Bowel Sounds, Soft Genitalia: Deferred Pelvic: Deferred Rectal: Deferred Extremities: No calf tenderness, Normal capillary refill, Normal inspection, Normal range of motion, Non-tender, No pedal edema Musculoskeletal : Apperance: Normal Neurologic: Alert, production sound mixer II-XII nml as Tested, No Motor Deficits, Normal Affect, Normal Mood, No Sensory Deficits Cerebellar Function: Normal Reflexes: Normal Skin: Dry, Normal Color, Warm Lymphatic: No Adenopathy Was a procedure done? Was a procedure done?: No Differential Dx Considerations may include: Differential diagnosis includes but not limited to: Toxic overdose, harmful coingestion, encephalopathy, encephalitis, traumatic injury, respiratory depression, hypotension and others X-Ray, Labs, Meds, VS Vital Signs Date Time Temp Pulse Resp B/P (MAP) Pulse Ox O2 Delivery O2 Flow Rate FiO2 06/03/25 05:15 102 06/03/25 05:00 98.3 100 18 135/81 99 98.3 Lab Test 06/03/25 06:00 06/03/25 05:30 Range/Units Urine Color Light-yellow Yellow Urine Clarity Hazy H Clear Urine pH 6.0 5.0-9.0 Urine Specific [place] 1.007 1.001-1.035 Urine Protein Negative Negative Urine Ketones Negative Negative Urine Blood Trace H Negative /uL Urine Nitrite Negative Negative Urine Bilirubin Negative Negative Urine Urobilinogen Normal Negative mg/dL Urine Leukocyte Esterase 2+ Negative /uL Urine RBC 1 0 - 4 /hpf Urine Microscopic WBC 8 H 0-5 /HPF Urine Squamous Epithelial Cells Few <5 /hpf Urine Bacteria Few H None Seen /hpf Urine Glucose Normal Normal mg/dL White Blood Count 9.6 # 4.4-10.8 10^3/uL Red Blood Count 4.92 4.0-5.20 10^6/uL Hemoglobin 16.0 12.2-16.2 g/dL Hematocrit 45.1 36.0-46.0 % Mean Corpuscular Volume 91.8 80.0-100.0 fL Mean Corpuscular Hemoglobin 32.5 H 28.0-32.0 pg Mean Corpuscular Hemoglobin Concent 35.4 32.0-36.0 g/dL Red Cell Distribution Width 13.8 11.8-14.3 % Platelet Count 388 140-450 10^3/uL Mean Platelet Volume 7.6 6.9-10.8 fL Neutrophils (%) (Auto) 53.1 37.0-80.0 % Lymphocytes (%) (Auto) 36.3 10.0-50.0 % Monocytes (%) (Auto) 7.7 0.0-12.0 % Eosinophils (%) (Auto) 2.6 0.0-7.0 % Basophils (%) (Auto) 0.3 0.0-2.0 % Neutrophils # (Auto) 5.1 1.6-8.6 10 ^3/uL Lymphocytes # (Auto) 3.5 0.4-5.4 10 ^3/uL Monocytes # (Auto) 0.7 0-1.3 10 ^3/uL Eosinophils # (Auto) 0.2 0-0.8 10 ^3/uL Basophils # (Auto) 0 0-0.2 10 ^3/uL Nucleated Red Blood Cells 0.0 % Sodium Level 141 136-145 mmol/L Potassium Level 3.9 3.5-5.1 mmol/L Chloride Level 108 H 98-107 mmol/L Carbon Dioxide Level 21 20-31 mmol/L Anion Gap 12 5-15 Blood Urea Nitrogen 10 9-23 mg/dL Creatinine 0.84 0.550-1.02 mg/dL Glomerular Filtration Rate Calc 86 >90 mL/min BUN/Creatinine Ratio 11.9 10.0-20.0 Serum Glucose 112 H 74-106 mg/dL Calcium Level 9.5 8.7-10.4 mg/dL Total Bilirubin 0.4 0.2-1.0 mg/dL Aspartate Amino Transferase (AST) 22 13-40 U/L Alanine Aminotransferase (ALT) 28 7-40 U/L Alkaline Phosphatase 154 H 46-116 U/L Total Protein 7.6 5.7-8.2 g/dL Albumin 4.5 3.2-4.8 g/dL Salicylates Level < 3.0 -30 mg/dL Acetaminophen Level < 2.0 L 10.0-20.0 UG/ML Time of 1ST Reevaluation: 05:30 Reevaluation 1ST: Unchanged Patient Education/Counseling: Diagnosis, Treatment, Prognosis Family Education/Counseling: No Family Present SEPSIS Sepsis Screen Physician Orders Scada Technician (06/03/25 05:20) Pulse Oximetry (06/03/25 05:20) Electrocardigram (06/03/25 09:22) Vital Signs Date Time Temp Pulse Resp B/P (MAP) Pulse Ox O2 Delivery O2 Flow Rate FiO2 06/03/25 05:15 102 06/03/25 05:00 98.3 100 18 135/81 99 98.3 Laboratory Tests Test 06/03/25 05:30 White Blood Count 9.6 10^3/uL (4.4-10.8) # Departure 1 Departure Time of Disposition: 07:38 (Patient is returned to baseline we would like to go home.) Impression: Primary Impression: Accidental overdose Qualified Codes: T50.901A - Poisoning by unspecified drugs, medicaments and biological substances, accidental (unintentional), initial encounter Disposition: HOME / SELF CARE / HOMELESS Condition: Stable Comments I discussed the case with the need at poison control. She recommends observing the patient for a couple hours and if she is stable then it will be safe for her to go home. The patient is pretty clear that she took 400 mg of trazodone as the accidental overdose. She states that with her usual dose of gabapentin and lorazepam. Poison control thinks a dangerous overdose is very unlikely Critical Care Note Critical Care Time?: No Stability Stability form required: No Heart Score Heart Score: Heart Score Response (Comments) Value History N/A 0 EKG N/A 0 Age N/A 0 Risk Factors N/A 0 Troponin N/A 0 Total 0 I personally scribed for REGULO MARTINEZ MD ([email or web address]) on 06/03/25 at 05:08. Electronically submitted by Sophia Byers ([email or web address]). REGULO MARTINEZ MD Jun 03, 2025 05:08 ANTONIO MILLS MD Jun 03, 2025 07:38
[2025-06-03 05:54] LABS: Hematocrit 45.1 % (36.0-46.0); Hemoglobin 16.0 g/dL (12.2-16.2); Mean Corpuscular Hemoglobin 32.5 pg (28.0-32.0); Mean Corpuscular Volume 91.8 fL (80.0-100.0); Nucleated Red Blood Cells % 0.0 %
[2025-06-03 06:25] LABS: Urine Protein, UAD Negative (Negative)
[2025-06-03 06:42] LABS: Alanine Aminotransferase 28 U/L (7-40); Albumin 4.5 g/dL (3.2-4.8); Anion Gap 12 (5-15); BUN/Creatinine Ratio 11.9 (10.0-20.0); Bilirubin, Total 0.4 mg/dL (0.2-1.0); Blood Urea Nitrogen 10 mg/dL (9-23); Calcium 9.5 mg/dL (8.7-10.4); Carbon Dioxide 21 mmol/L (20-31); Potassium 3.9 mmol/L (3.5-5.1); Sodium 141 mmol/L (136-145); Total Protein 7.6 g/dL (5.7-8.2)
[2025-06-03 06:44] LABS: Acetaminophen < 2.0 UG/ML (10.0-20.0); Salicylate < 3.0 mg/dL (-30)
[2025-06-03 06:46] LABS: Alkaline Phosphatase 154 U/L (46-116); Chloride 108 mmol/L (98-107); Glucose 112 mg/dL (74-106)
[2025-06-03 08:00] VITALS: BP 112/82; PULSE 104; RESP 14; TEMP 97.9; O2SAT 97
== END 2025-06-03 08:00 | disposition home or self-care (01) ==
LOC: ER 04:52 → EDBD 04:52 → ER 08:00
DX: R40.0 Somnolence (principal); T42.6X1A Poisoning by other antiepileptic and sedative-hypnotic drugs, accidental (unintentional), initial encounter; F41.9 Anxiety disorder, unspecified; F32.A Depression, unspecified; Z79.899 Other long term (current) drug therapy; Z90.49 Acquired absence of other specified parts of digestive tract; Z88.5 Allergy status to narcotic agent; Y92.89 Other specified places as the place of occurrence of the external cause
CPT/HCPCS: 36415; 80053; 80329; 81001; 85025

== ENCOUNTER 2025-06-07 15:33 | Emergency (ER) | payer MEDICAID ==
[~2025-06-07] VITALS: Ht 152.4 cm; Wt 72.3 kg
--- NOTE | 2025-06-07 16:05 | ED.PDOC ---
GI ASSESSMENT HPI Comments 49 year old female presents to the ED via EMS with a chief complaint of abdominal pain onset 3 days. Patient states she has PMHx Crohn's disease, has not been complaint with her medication. She is currently experiencing diffused abdominal pain, nausea, vomiting, diarrhea, has been experiencing symptoms for the past 3 days, worsened today. Denies fever, chills, chest pain, dizziness, headache, dysuria, hematuria, hematemesis, blood in stool, melena. No other symptoms or modifying factors present at this time. Chief Complaint: Abdominal Pain Time Seen by MD: 16:00 Primary Care Provider: UNKNOWN Reviewed Notes: Medications, Allergies Allergies: Coded Allergies: Codeine (Verified Allergy, Unknown, 12/10/24) Morphine (Verified Allergy, Unknown, 12/10/24) Home Meds Active Scripts Gabapentin (Once-Daily) (Gabapentin) 300 Mg Tab, 300 MG PO Q6HP PRN, #30 TAB Prov:REGULO MARTINEZ MD 05/28/25 Sulfamethoxazole W/Trimethopri (Bactrim Ds Tablet) 1 Tab Tb, 1 TAB PO BID for 7 Days, #14 TAB Prov:REGULO MARTINEZ MD 05/28/25 Folic Acid (Folic Acid) 1 Mg Tab, 1 MG PO DAILY for 30 Days, #30 TAB Prov:JOHN ABAD 05/21/25 Sulfasalazine (Sulfasalazine) 500 Mg Tab, 1500 MG PO BID for 30 Days, #180 TAB Prov:JOHN ABAD 05/21/25 Cephalexin (KEFLEX CAPSULE) 250 Mg Cp, 500 MG PO BID for 5 Days, #20 CAP Prov:JOHN ABAD 05/21/25 Oxycodone W/ Acetaminophen (Percocet 5/325MG) 1 Tab Tb, 1 TAB PO QID, #10 TAB 0 Refills Prov:CARMELA SALCIDO 05/19/25 Tramadol HCl (Tramadol HCl) 50 Mg Tab, 50 MG PO QID PRN, #30 TAB Prov:ALYSSA FRANKS MD 05/06/25 Sucralfate (CARAFATE) 1 Gm Tab, 1 GM PO QID, #120 TAB Prov:ALYSSA FRANKS MD 05/06/25 Pantoprazole Sodium Sesquihydr (Pantoprazole Sodium) 40 Mg Tab, 40 MG PO BID, #60 TAB Prov:ALYSSA FRANKS MD 05/06/25 Ergocalciferol (VITAMIN D 56745 UNIT) 50,000 [place], [address] UNIT PO Q7D for 90 Days, #12 CAP Prov:MARY YE RESIDENT 04/02/25 Reported Medications Zolpidem Tartrate (Zolpidem Tartrate) 10 Mg Tab, 1 TAB PO QHSP PRN 05/04/25 Cariprazine Hydrochloride (Vraylar) 1.5 Mg Cap, 1.5 MG PO, CAP 03/31/25 Lorazepam (ATIVAN TABLET) 0.5 Mg Tb, 2 TAB PO DAILY, #30 TAB 03/31/25 Quetiapine Fumerate (Seroquel Xr) 200 Mg Tab, 400 MG PO QHSP for 30 Days, MG 03/31/25 Information Source: Patient, Emergency Med Personnel Mode of Arrival: EMS Timing: Days Duration: Since onset Prehospital treatment: Pain Meds Quality: Sharp Severity: Moderate Recent: None Recent Hx of: None Pain Location: Diffuse Modifying Factors: Nothing Associated sign and symptoms: Nausea, Vomiting, Diarrhea, Abdominal Pain Past Medical History PAST MEDICAL HISTORY: Anxiety, Depression, Kidney Stones, UTI'S Surgical History: Cholecystectomy, Tubal Ligation 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: 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 all SHOW DOG TRAINER Hx Family History Family History: Family hx of DM, Family hx of heart khoa Social History Smoker: Non-Smoker Alcohol: Denies ETOH Use Drugs: Denies Drug Use Lives In: Home Constitutional: denies: chills, diaphoresis, fatigue, fever, malaise, sweats, weakness, others EENTM: denies: blurred vision, double vision, ear bleeding, ear discharge, ear drainage, ear pain, ear ringing, eye pain, eye redness, hearing loss, mouth pain, mouth swelling, nasal discharge, nose bleeding, nose congestion, nose pain, photophobia, tearing, throat pain, throat swelling, voice changes, others Respiratory: denies: cough, hemoptysis, orthopnea, SOB at rest, shortness of breath, SOB with excertion, stridor, wheezing, others Cardiovascular: denies: chest pain, dizzy spells, diaphoresis, Dyspnea on exertion, edema, irregular heart beat, left arm pain, lightheadedness, palpita tions, PND, syncope, others Gastrointestinal: reports: abdominal pain, diarrhea, nausea, vomiting; denies: abdomen distended, blood streaked bowels, constipated, dysphagia, difficulty swallowing, hematemesis, melena, poor appetite, poor fluid intake, rectal bleeding, rectal pain, others Genitourinary: denies: abnormal vagina bleeding, burning, dyspareunia, dysuria, flank pain, frequency, hematuria, incontinence, pain, , vagina discharge, urgency, others Neurological: denies: dizziness, fainting, headache, left sided numbness, left sided weakness, numbness, paresthesia, pre-existing deficit, right sided numbness, right sided weakness, seizure, speech problems, tingling, tremors, weakness, others Musculoskeletal: denies: back pain, gout, joint pain, joint swelling, muscle pain, muscle stiffness, neck pain, others Integumetry: denies: bruises, change in color, change in hair/nails, dryness, laceration, lesions, lumps, rash, wounds, others Allergic/Immunocompromised: denies: Difficulty Healing, Frequent Infections, Hives, Itching, others Hematologic/Lymphatic: denies: anemia, blood clots, easy bleeding, easy bruising, swollen glands, others Endocrine: denies: excessive hunger, excessive sweating, excessive thirst, excessive urination, flushing, intolerance to cold, intolerance to heat, unexplained weight gain, unexplained weight loss, others Psychiatric: denies: anxiety, bipolar disorder, depression, hopeless, panic disorder, schizophrenia, sleepless, suicidal, others All Other Systems: Reviewed and Negative Physical Exam General Appearance: Moderate Distress, Normal HEENT: Normal ENT Inspection, Pharynx Normal, TMs Normal Neck: Full Range of Motion, Non-Tender, Normal, Normal Inspection Respiratory: Chest Non-Tender, Lungs Clear, No Accessory Muscle Use, No Respiratory Distress, Normal Breath Sounds Cardiovascular: No Edema, No JVD, No Murmur, No Gallop, Normal Peripheral Pulses, Regular Rate/Rhythm Breast Exam: Deferred Gastrointestinal: Diffuse, No Organomegaly, No Pulsatile Mass, Normal Bowel Sounds, Soft Genitalia: Deferred Pelvic: Deferred Rectal: Deferred Extremities: No calf tenderness, Normal capillary refill, Normal inspection, Normal range of motion, Non-tender, No pedal edema Musculoskeletal : Apperance: Normal Neurologic: Alert, precision agriculture specialist II-XII nml as 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 Was a procedure done?: No GI differential Dx Differential Diagnosis: Constipation, Diverticular disease, Esophagitis, Gas tritis/PUD, Gastroenteritis X-Ray, Labs, Meds, VS Vital Signs Date Time Temp Pulse Resp B/P (MAP) Pulse Ox O2 Delivery O2 Flow Rate FiO2 06/07/25 15:43 98.0 97 18 109/65 99 98.0 06/07/25 15:34 86 Lab Test 06/07/25 16:27 Range/Units Urine Color Light-yellow Yellow Urine Clarity Clear Clear Urine pH 6.0 5.0-9.0 Urine Specific [place] 1.020 1.001-1.035 Urine Protein Negative Negative Urine Ketones Negative Negative Urine Blood 1+ H Negative /uL Urine Nitrite Negative Negative Urine Bilirubin Negative Negative Urine Urobilinogen Normal Negative mg/dL Urine Leukocyte Esterase 2+ Negative /uL Urine RBC 7 0 - 4 /hpf Urine Microscopic WBC 12 H 0-5 /HPF Urine Squamous Epithelial Cells Few <5 /hpf Urine Bacteria None seen None Seen /hpf Urine Mucus Few None Seen Urine Glucose Normal Normal mg/dL Patient alert. Complaining of abdominal pain. Vitals stable. Answering questions. Urinalysis shows UTI. Establish intravenous access. Was given fluids. Was given Rocephin. Was given pain medication. Explained to the patient. Continue monitoring. Time of 1ST Reevaluation: 16:30 Reevaluation 1ST: Unchanged Patient Education/Counseling: Diagnosis, Treatment, Prognosis Family Education/Counseling: No Family Present SEPSIS Sepsis Screen Date sepsis recognized/suspect: Jun 07, 2025 Time Sepsis recognized/suspect: 1534 Recent Procedure: No On Antibiotic Therapy: No Respiratory Rate >20: No Heart Rate >90: Yes Temp<36 C (96.8 F) or >38.3 C: No SBP <90 or MAP <65 mmHG: No New Acute Mental Status Change: No Is the patient on CPAP, BIPAP,: No Physician Orders Complete Blood Count (06/07/25 15:37) Basic Metabolic Panel (06/07/25 15:37) Electrocardigram (9/8/25 15:43) 1 Liter Bolus Of 0.9% Ns (06/07/25 16:45) Hydromorphone Injection (Dilaudid Inject (06/07/25 16:45) Ondansetron Hcl (Zofran) (06/07/25 16:45) Ceftriaxone Ivpb Rocephin (06/07/25 16:45) Vital Signs Date Time Temp Pulse Resp B/P (MAP) Pulse Ox O2 Delivery O2 Flow Rate FiO2 06/07/25 15:43 98.0 97 18 109/65 99 98.0 06/07/25 15:34 86 Departure 1 Departure Time of Disposition: 16:47 Impression: Primary Impression: Acute abdominal pain Additional Impression: Urinary tract infection Qualified Codes: N30.00 - Acute cystitis without hematuria Disposition: ADMITTED INPATIENT Admit to: Med Surg Condition: Guarded Critical Care Note Critical Care Time?: No Stability Stability form required: No Heart Score Heart Score: Heart Score Response (Comments) Value History N/A 0 EKG N/A 0 Age N/A 0 Risk Factors N/A 0 Troponin N/A 0 Total 0 I personally scribed for RUSSELL POOL MD ([email or web address]) on 06/07/25 at 16:05. Electronically submitted by Sophia Byers ([email or web address]). RUSSELL POOL MD Jun 07, 2025 16:05
[2025-06-07 16:32] LABS: Urine Protein, UAD Negative (Negative)
[2025-06-07 17:05] VITALS: TEMP 97.7; O2SAT 97
[2025-06-07 17:57] LABS: Hematocrit 46.0 % (36.0-46.0); Hemoglobin 16.3 g/dL (12.2-16.2); Mean Corpuscular Hemoglobin 32.5 pg (28.0-32.0); Mean Corpuscular Volume 91.9 fL (80.0-100.0); Nucleated Red Blood Cells % 0.1 %
[2025-06-07 18:01] LABS: Potassium 4.1 mmol/L (3.5-5.1); Sodium 142 mmol/L (136-145)
[2025-06-07 18:02] LABS: Anion Gap 13 (5-15); Carbon Dioxide 22 mmol/L (20-31)
[2025-06-07 18:03] LABS: Calcium 10.2 mg/dL (8.7-10.4)
[2025-06-07 18:06] LABS: Chloride 107 mmol/L (98-107)
[2025-06-07 18:08] LABS: BUN/Creatinine Ratio 13.4 (10.0-20.0); Blood Urea Nitrogen 11 mg/dL (9-23); Glucose 84 mg/dL (74-106)
[2025-06-07] MEDS: ONDANSETRON HCL 4 MG/2 ML VIAL IV ONE (18:11)
[2025-06-07] MEDS: SODIUM CHLORIDE 0.9% 1,000 ML IV ONE (18:11)
[2025-06-07 18:12] VITALS: BP 122/54; PULSE 90; RESP 16
[2025-06-07] MEDS: HYDROmorphone HCL 2 MG/ML VL/or syr IV ONE (18:12)
--- NOTE | 2025-06-07 19:40 | DVH ---
EXAM: CT CT AB PEL WO CON-NO ORAL OR IV INDICATION: colitis TECHNIQUE: Volumetric multidetector CT images of the abdomen and pelvis were obtained without contras t. All CT scans at this facility use dose modulation, iterative reconstruction, and/or weight based d osing when appropriate to reduce radiation dose to as low as reasonably achievable. COMPARISON: CT CT AB PEL WO CON-NO ORAL OR IV on DOS: 05/28/25 FINDINGS: [LOWER CHEST]: The partially visualized lung bases are clear without a pleural effusion. The cardiac size is normal without pericardial effusion. [LIVER]: Normal hepatic size without suspicious focal lesion. [GALLBLADDER AND BILIARY TREE]: Surgically absent. [SPLEEN]: Unremarkable. [PANCREAS]: Unremarkable. [ADRENAL GLANDS]: Unremarkable [KIDNEYS]: No hydronephrosis. Multiple bilateral renal caliceal stones with the largest in the right inferior calices measuring 8 mm. [BLADDER]: Unremarkable for the degree distention. [REPRODUCTIVE ORGANS]: Unremarkable. [BOWEL/MESENTERY]: Stomach is normal. No CT evidence of bowel obstruction. normal appendix. Subcutane ous fat deposition along the sigmoid colon to high rectum. Question sequelae of colitis. [ASCITES]: Absent [LYMPHADENOPATHY]: No pathologically enlarged lymph nodes by CT size criteria [VASCULATURE]: No aneurysmal dilatation. [ABDOMINAL WALL]: Unremarkable. [MUSCULOSKELETAL]: No acute fracture or aggressive focal osseous lesion. Multifocal degenerative leavitt ge of the visualized spine. Calcification the right posterior gluteal subcutaneous fat. IMPRESSION: 1. No CT evidence of an acute abdominal/pelvic process. 2. Subcutaneous fat deposition along the sigmoid colon to high rectum. Question sequelae of colitis. 3. Multiple bilateral renal caliceal stones.
--- NOTE | 2025-06-08 07:20 | ECG ---
[facility] Test Date: 2025-06-07 Test Time: 15:34:33 Pat Name: KENYA RIVERA Department: Room: Gender: F Court Manager: DIANELYS : 1975 Requested By: EMERGENCY EMERGENCY Order Number: [id number] Reading MD: Measurements Intervals [place] Rate: 86 P: 67 MO: 167 QRS: 77 QRSD: 95 T: 51 QT: 351 QTc: 420 Interpretive Statements Sinus rhythm Abnormal R-wave progression, early transition Please click the below link to view image of tracing.
== END 2025-06-07 20:12 | disposition left against medical advice (07) ==
LOC: ER 15:33 → EDBD 15:33 → ER 20:12
DX: N39.0 Urinary tract infection, site not specified (principal); R10.84 Generalized abdominal pain; Z98.51 Tubal ligation status; Z90.49 Acquired absence of other specified parts of digestive tract; Z88.5 Allergy status to narcotic agent; Z79.899 Other long term (current) drug therapy
CPT/HCPCS: 36415; 74176; 80048; 81001; 85025; 93005; 96365; 96375; 99285; J0696; J1171; J2405

== ENCOUNTER 2025-06-12 19:44 | Inpatient (IN) | payer MEDICAID ==
[~2025-06-12] VITALS: Ht 152.4 cm; Wt 89.5 kg
--- NOTE | 2025-06-12 21:05 | ED.PDOC ---
History of Present Illness HPI Comments 49 y/o F, with a history of Crohn's disease, presents with c/c nonradiating, diffused abdominal pain since 06/07/25. Denies any nausea, vomiting, diarrhea, or further associated symptoms. Chief Complaint: Abdominal Pain Time Seen by MD: 20:30 Primary Care Provider: UNKNOWN Allergies: Coded Allergies: Codeine (Verified Allergy, Unknown, 12/10/24) Morphine (Verified Allergy, Unknown, 12/10/24) Home Meds Active Scripts Gabapentin (Once-Daily) (Gabapentin) 300 Mg Tab, 300 MG PO Q6HP PRN, #30 TAB Prov:REGULO MARTINEZ MD 05/28/25 Sulfamethoxazole W/Trimethopri (Bactrim Ds Tablet) 1 Tab Tb, 1 TAB PO BID for 7 Days, #14 TAB Prov:REGULO MARTINEZ MD 05/28/25 Folic Acid (Folic Acid) 1 Mg Tab, 1 MG PO DAILY for 30 Days, #30 TAB Prov:JOHN ABAD [facility] 05/21/25 Sulfasalazine (Sulfasalazine) 500 Mg Tab, 1500 MG PO BID for 30 Days, #180 TAB Prov:JENNIFFERJOHN [facility] 05/21/25 Cephalexin (KEFLEX CAPSULE) 250 Mg Cp, 500 MG PO BID for 5 Days, #20 CAP Prov:JOHN ABAD [facility] 05/21/25 Oxycodone W/ Acetaminophen (Percocet 5/325MG) 1 Tab Tb, 1 TAB PO QID, #10 TAB 0 Refills Prov:CARMELA SALCIDO 05/19/25 Tramadol HCl (Tramadol HCl) 50 Mg Tab, 50 MG PO QID PRN, #30 TAB Prov:ALYSSA FRANKS MD 05/06/25 Sucralfate (CARAFATE) 1 Gm Tab, 1 GM PO QID, #120 TAB Prov:ALYSSA FRANKS MD 05/06/25 Pantoprazole Sodium Sesquihydr (Pantoprazole Sodium) 40 Mg Tab, 40 MG PO BID, #60 TAB Prov:ALYSSA FRANKS MD 05/06/25 Ergocalciferol (VITAMIN D 58293 UNIT) 50,000 [place], [address] UNIT PO Q7D for 90 Days, #12 CAP Prov:MARY YE RESIDENT 04/02/25 Reported Medications Zolpidem Tartrate (Zolpidem Tartrate) 10 Mg Tab, 1 TAB PO QHSP PRN 05/04/25 Cariprazine Hydrochloride (Vraylar) 1.5 Mg Cap, 1.5 MG PO, CAP 03/31/25 Lorazepam (ATIVAN TABLET) 0.5 Mg Tb, 2 TAB PO DAILY, #30 TAB 03/31/25 Quetiapine Fumerate (Seroquel Xr) 200 Mg Tab, 400 MG PO QHSP for 30 Days, MG 03/31/25 Information Source: Patient Mode of Arrival: Ambulatory Past Medical History PAST MEDICAL HISTORY: Anxiety, Depression, Kidney Stones, UTI'S Surgical History: Cholecystectomy, Tubal Ligation 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 OPERATOR VERTICAL Hx Family History Family History: Family hx of DM, Family hx of heart khoa Social History Smoker: Non-Smoker Alcohol: Denies ETOH Use Drugs: Denies Drug Use Lives In: Home All Other Systems: Reviewed and Negative (As per HPI) Physical Exam General Appearance: No Apparent Distress, Obese HEENT: Normal ENT Inspection, Pharynx Normal, TMs Normal Neck: Full Range of Motion, Non-Tender, Normal, Normal Inspection Respiratory: Chest Non-Tender, Lungs Clear, No Accessory Muscle Use, No Respiratory Distress, Normal Breath Sounds Cardiovascular: No Edema, No JVD, No Murmur, No Gallop, Normal Peripheral Pulses, Regular Rate/Rhythm Breast Exam: Deferred Gastrointestinal: No Organomegaly, Non Tender, No Pulsatile Mass, Normal Bowel Sounds, Soft Genitalia: Deferred Pelvic: Deferred Rectal: Deferred Extremities: No calf tenderness, Normal capillary refill, Normal inspection, Normal range of motion, Non-tender, No pedal edema Musculoskeletal : Apperance: Normal Neurologic: Alert, traffic operations engineer II-XII nml as Tested, No Motor Deficits, Normal Affect, Normal Mood, No Sensory Deficits Cerebellar Function: Normal Reflexes: Normal Skin: Dry, Normal Color, Warm Lymphatic: No Adenopathy Was a procedure done? Was a procedure done?: No Differential Dx Considerations may include: Crohn's disease flair up, gastritis, gastroenteritis, GERD, spoiled food, among others X-Ray, Labs, Meds, VS Vital Signs Date Time Temp Pulse Resp B/P (MAP) Pulse Ox O2 Delivery O2 Flow Rate FiO2 06/12/25 19:46 99.1 110 18 146/86 97 99.1 Lab Test 06/12/25 21:10 06/12/25 21:02 Range/Units White Blood Count 7.8 4.4-10.8 10^3/uL Red Blood Count 5.00 4.0-5.20 10^6/uL Hemoglobin 16.0 12.2-16.2 g/dL Hematocrit 45.6 36.0-46.0 % Mean Corpuscular Volume 91.3 80.0-100.0 fL Mean Corpuscular Hemoglobin 31.9 28.0-32.0 pg Mean Corpuscular Hemoglobin Concent 35.0 32.0-36.0 g/dL Red Cell Distribution Width 13.9 11.8-14.3 % Platelet Count 370 140-450 10^3/uL Mean Platelet Volume 7.2 6.9-10.8 fL Neutrophils (%) (Auto) 59.6 37.0-80.0 % Lymphocytes (%) (Auto) 30.4 10.0-50.0 % Monocytes (%) (Auto) 7.1 0.0-12.0 % Eosinophils (%) (Auto) 1.9 0.0-7.0 % Basophils (%) (Auto) 1.0 0.0-2.0 % Neutrophils # (Auto) 4.6 1.6-8.6 10 ^3/uL Lymphocytes # (Auto) 2.4 0.4-5.4 10 ^3/uL Monocytes # (Auto) 0.5 0-1.3 10 ^3/uL Eosinophils # (Auto) 0.2 0-0.8 10 ^3/uL Basophils # (Auto) 0.1 0-0.2 10 ^3/uL Nucleated Red Blood Cells 0.1 % Sodium Level 144 136-145 mmol/L Potassium Level 3.7 3.5-5.1 mmol/L Chloride Level 110 H 98-107 mmol/L Carbon Dioxide Level 23 20-31 mmol/L Anion Gap 11 5-15 Blood Urea Nitrogen 10 9-23 mg/dL Creatinine 0.86 0.550-1.02 mg/dL Glomerular Filtration Rate Calc 83 >90 mL/min BUN/Creatinine Ratio 11.6 10.0-20.0 Serum Glucose 99 74-106 mg/dL Calcium Level 9.3 8.7-10.4 mg/dL Lipase 35 12-53 U/L Urine Color Yellow Yellow Urine Clarity Clear Clear Urine pH 5.5 5.0-9.0 Urine Specific [place] 1.023 1.001-1.035 Urine Protein Negative Negative Urine Ketones Negative Negative Urine Blood 1+ H Negative /uL Urine Nitrite Negative Negative Urine Bilirubin Negative Negative Urine Urobilinogen Normal Negative mg/dL Urine Leukocyte Esterase 1+ Negative /uL Urine RBC 7 0 - 4 /hpf Urine Microscopic WBC 11 H 0-5 /HPF Urine Squamous Epithelial Cells Few <5 /hpf Urine Bacteria None seen None Seen /hpf Urine Mucus Few None Seen Urine Glucose Normal Normal mg/dL Urine Test Negative Negative Time of 1ST Reevaluation: 21:00 Reevaluation 1ST: Unchanged Patient Education/Counseling: Diagnosis, Treatment Family Education/Counseling: No Family Present Comments Patient has a intractable abdominal pain but with no acute findings in this ER encounter however due to the relentless pain she will be admitted to the hospital she does have a urinary tract infection which she would not account for the degree of pain which she is in Additional Information Previous visits: June 07, 2025 encounter for abdominal pain, CT was negative then The following tests were ordered, and results were reviewed by me: UA, urine test, BMP, CBC, lipase Additional Information was gathered from interviewing the following independent historians: N/A I reviewed and agreed with the following test results read by other providers: N/A I discussed treatment and results with medical personnel and: patient SEPSIS Sepsis Screen Date sepsis recognized/suspect: Jun 12, 2025 Time Sepsis recognized/suspect: 1945 Recent Procedure: No On Antibiotic Therapy: No Respiratory Rate >20: No Heart Rate >90: Yes Temp<36 C (96.8 F) or >38.3 C: No SBP <90 or MAP <65 mmHG: No New Acute Mental Status Change: No Is the patient on CPAP, BIPAP,: No Physician Orders Ct Ab Pel Wo Con-No Oral Or Iv (06/12/25 22:57) Vital Signs Date Time Temp Pulse Resp B/P (MAP) Pulse Ox O2 Delivery O2 Flow Rate FiO2 06/12/25 19:46 99.1 110 18 146/86 97 99.1 Laboratory Tests Test 06/12/25 21:10 White Blood Count 7.8 10^3/uL (4.4-10.8) Departure 1 Departure Time of Disposition: 00:05 Impression: Primary Impression: Acute abdominal pain Additional Impression: Urinary tract infection Disposition: ADMITTED INPATIENT Condition: Stable Discharged With: Self Critical Care Note Critical Care Time?: No Stability Stability form required: No Heart Score Heart Score: Heart Score Response (Comments) Value History N/A 0 EKG N/A 0 Age N/A 0 Risk Factors N/A 0 Troponin N/A 0 Total 0 I personally scribed for RICHARD TORIBIO MD ([email or web address]) on 06/12/25 at 21:05. E lectronically submitted by Huy Canales ([email or web address]). RICHARD TORIBIO MD Jun 12, 2025 21:05
[2025-06-12 21:25] LABS: Hematocrit 45.6 % (36.0-46.0); Hemoglobin 16.0 g/dL (12.2-16.2); Mean Corpuscular Hemoglobin 31.9 pg (28.0-32.0); Mean Corpuscular Volume 91.3 fL (80.0-100.0); Nucleated Red Blood Cells % 0.1 %
[2025-06-12 21:31] LABS: Potassium 3.7 mmol/L (3.5-5.1); Sodium 144 mmol/L (136-145)
[2025-06-12 21:32] LABS: Anion Gap 11 (5-15); Carbon Dioxide 23 mmol/L (20-31)
[2025-06-12 21:33] LABS: Calcium 9.3 mg/dL (8.7-10.4)
[2025-06-12 21:34] LABS: Urine Protein, UAD Negative (Negative)
[2025-06-12 21:37] LABS: BUN/Creatinine Ratio 11.6 (10.0-20.0); Blood Urea Nitrogen 10 mg/dL (9-23); Glucose 99 mg/dL (74-106)
[2025-06-12 21:38] LABS: Chloride 110 mmol/L (98-107); Lipase 35 U/L (12-53)
--- NOTE | 2025-06-12 23:52 | DVH ---
Exam: CT CT AB PEL WO CON-NO ORAL OR IV History: pain Comparison Study: CT CT AB PEL WO CON-NO ORAL OR IV on DOS: 06/07/25, CT CT AB PEL WO CON-NO ORAL OR IV on DOS: 05/28/25, CT CT AB PEL WO CON-NO ORAL OR IV on DOS: 05/25/25, CT CT AB PEL WITH IV CON ONLY on DOS: 05/19/25, CT CT AB PEL WITH IV CON ONLY on DOS: 05/04/25 TECHNIQUE: Multidetector CT of the abdomen and pelvis was performed from lung bases to pubic symphysi s. Imaging was performed without IV contrast. Axial, coronal, and sagittal multiplanar reformats were obtained from the axial data set by the technologist. RADIATION DOSE: CTDI vol 15.6 mGy. DLP 970.29 mGy.cm Findings: Limited evaluation of the solid organs in the absence of IV contrast. Lungs: Basilar atelectasis/scarring. Liver: Unremarkable. Spleen: Unremarkable. Pancreas: Unremarkable. Gallbladder: Prior cholecystectomy. Adrenals: Unremarkable Kidneys: Bilateral nephrolithiasis. No hydronephrosis. Pelvic Viscera: Unremarkable. Vasculature: Unremarkable. Retroperitoneum: Unremarkable. Bowel: There is submucosal fat deposition within the rectum suggesting chronic inflammation. There is no bowel obstruction. Musculoskeletal: Unremarkable. Soft tissues: Unremarkable Impression: 1. No acute abdominopelvic abnormality. 2. Incidental findings as detailed.
[2025-06-13] VITALS (9 sets, daily range): BP systolic 102–118; BP diastolic 66–86; PULSE 78–122; RESP 16–20; TEMP 97.4–98.3; O2SAT 94–99
[2025-06-13] MEDS ORDERED: ONDANSETRON HCL 4 MG/2 ML VIAL IV PRN (00:45)
--- NOTE | 2025-06-13 00:50 | DVHHPRES ---
History of Present Illness Resident Creating Document: ELVER FORBES RESIDENT History of Present Illness Patient is a 49-year-old female with past medical history of Crohn's disease, nephrolithiasis s/p stenting and nephrostomy tube, who comes in due to abdominal pain. According to the patient, since being discharged from the [facility] on Saturday her abdominal pain has continued, she localizes it to the midepigastrium as well as lower abdomen, describes it as constant, cramping and sharp in nature, 8/10 in intensity. According to the patient pain is worsened with eating and relieved by using heat packs, associated with nausea, 3 episodes of vomiting, relieved by Zofran, patient also notes having 3 episodes of diarrhea in the last 24 hours. Patient was discharged from the [facility] on sulfasalazine as mesalamine was not covered by her insurance, however, patient notes she has not been taking any medication for her Crohn's disease since being discharged from the hospital. Also reports feeling more anxious than usual. Patient also had a recent ER visit on 06/03/2025 after overdosing on trazodone plus gabapentin plus lorazepam. Past Medical History Crohn's disease, right-sided nephrolithiasis Past Surgical History Cholecystectomy, tubal ligation, ureteral stents s/p nephrostomy Past Social History Smoking: Denies Alcohol: Denies Drugs: Denies Review of Systems Constitutional: Yes: Fever, Chills; No: Sweats, Weakness, Malaise, Other Eyes: No: Pain, Vision change, Conjunctivae inflammation, Eyelid inflammation, Other, Redness ENT: No: Ear pain, Ear discharge, Nose pain, Nose discharge, Nose congestion, Mouth pain, Mouth swelling, Throat pain, Throat swelling, Other Respiratory: No: Cough, Dry, Shortness of breath, SOB with excertion, Wheezing, Hemoptysis, Pleuritic Pain, Sputum, Wheezing, Other Cardiovascular: No: Chest Pain, Palpitations, Orthopnea, Paroxysmal Noc. Dyspnea, Edema, Lt Headedness, Other Gastrointestinal: Nausea, Vomiting, Abdominal Pain, Diarrhea; No: Constipation, Melena, Hematochezia, Other Genitourinary: Dysuria, Frequency; No Incontinence, No Hematuria, No Retention, No Other Musculoskeletal: No: other, neck pain, shoulder pain, arm pain, back pain, hand pain, leg pain, foot pain Skin: No: Rash, Lesions, Jaundice, Bruising, Other Neurological: No: Weakness, Numbness, Incoordination, Change in speech, Confusion, Seizures, Other Allergies: Coded Allergies: Codeine (Verified Allergy, Unknown, 12/10/24) Morphine (Verified Allergy, Unknown, 12/10/24) Medications Current Medications Medications Dose Ordered Sig/Wanda Route Start Time Stop Time Status Last Admin Dose Admin Ondansetron HCl 4 mg Q4HP PRN IV 06/13/25 00:45 Enoxaparin Sodium 40 mg DAILY SC 06/13/25 10:00 UNV Methylprednisolone Sodium Succinate 40 mg DAILY IV 06/13/25 10:00 UNV Dicyclomine HCl 20 mg QID PO 06/13/25 06:00 UNV Acetaminophen 650 mg Q4HP PRN PO 06/13/25 01:00 UNV Exam Vital Signs Vital Signs Date Time Temp Pulse Resp B/P (MAP) Pulse Ox O2 Delivery O2 Flow Rate FiO2 06/13/25 00:47 104 17 97 Room Air 06/13/25 00:47 98.7 141/91 (108) 98.7 General Appearance: Alert, Oriented X3, Cooperative, mild distress HEENT: Atraumatic, PERRLA Respiratory: Clear to auscultation, Normal air movement Cardiovascular: Regular rate, Normal S1, Normal S2 Abdominal: Normal bowel sounds, Soft, Other (Midepigastric tenderness to palpation, lower abdominal generalized tenderness to palpation) Extremities: No edema, Normal pulses Skin: No rashes Neuro: Normal gait, Normal speech Psych/Mental Status: Mental status NL, Mood NL Labs/Xrays Labs Test 06/12/25 21:10 06/12/25 21:02 Range/Units White Blood Count 7.8 4.4-10.8 10^3/uL Red Blood Count 5.00 4.0-5.20 10^6/uL Hemoglobin 16.0 12.2-16.2 g/dL Hematocrit 45.6 36.0-46.0 % Mean Corpuscular Volume 91.3 80.0-100.0 fL Mean Corpuscular Hemoglobin 31.9 28.0-32.0 pg Mean Corpuscular Hemoglobin Concent 35.0 32.0-36.0 g/dL Red Cell Distribution Width 13.9 11.8-14.3 % Platelet Count 370 140-450 10^3/uL Mean Platelet Volume 7.2 6.9-10.8 fL Neutrophils (%) (Auto) 59.6 37.0-80.0 % Lymphocytes (%) (Auto) 30.4 10.0-50.0 % Monocytes (%) (Auto) 7.1 0.0-12.0 % Eosinophils (%) (Auto) 1.9 0.0-7.0 % Basophils (%) (Auto) 1.0 0.0-2.0 % Neutrophils # (Auto) 4.6 1.6-8.6 10 ^3/uL Lymphocytes # (Auto) 2.4 0.4-5.4 10 ^3/uL Monocytes # (Auto) 0.5 0-1.3 10 ^3/uL Eosinophils # (Auto) 0.2 0-0.8 10 ^3/uL Basophils # (Auto) 0.1 0-0.2 10 ^3/uL Nucleated Red Blood Cells 0.1 % Sodium Level 144 136-145 mmol/L Potassium Level 3.7 3.5-5.1 mmol/L Chloride Level 110 H 98-107 mmol/L Carbon Dioxide Level 23 20-31 mmol/L Anion Gap 11 5-15 Blood Urea Nitrogen 10 9-23 mg/dL Creatinine 0.86 0.550-1.02 mg/dL Glomerular Filtration Rate Calc 83 >90 mL/min BUN/Creatinine Ratio 11.6 10.0-20.0 Serum Glucose 99 74-106 mg/dL Calcium Level 9.3 8.7-10.4 mg/dL Lipase 35 12-53 U/L Urine Color Yellow Yellow Urine Clarity Clear Clear Urine pH 5.5 5.0-9.0 Urine Specific [place] 1.023 1.001-1.035 Urine Protein Negative Negative Urine Ketones Negative Negative Urine Blood 1+ H Negative /uL Urine Nitrite Negative Negative Urine Bilirubin Negative Negative Urine Urobilinogen Normal Negative mg/dL Urine Leukocyte Esterase 1+ Negative /uL Urine RBC 7 0 - 4 /hpf Urine Microscopic WBC 11 H 0-5 /HPF Urine Squamous Epithelial Cells Few <5 /hpf Urine Bacteria None seen None Seen /hpf Urine Mucus Few None Seen Urine Glucose Normal Normal mg/dL Urine Test Negative Negative SEPSIS Sepsis Screen Date sepsis recognized/suspect: Jun 12, 2025 Time Sepsis recognized/suspect: 1945 Recent Procedure: No On Antibiotic Therapy: No Respiratory Rate >20: No Heart Rate >90: Yes Temp<36 C (96.8 F) or >38.3 C: No SBP <90 or MAP <65 mmHG: No New Acute Mental Status Change: No Is the patient on CPAP, BIPAP,: No Physician Orders Ct Ab Pel Wo Con-No Oral Or Iv (06/12/25 22:57) Admit (06/13/25 00:38) Allergies (06/13/25 00:38) Code Status (06/13/25 00:38) Ondansetron Hcl (Zofran) (06/13/25 00:45) Complete Blood Count (06/14/25 04:00) Comprehensive Metabolic Panel (06/14/25 04:00) Condition: Unstable (06/13/25 00:38) Sequential Compression Device (06/13/25 ) Notify Md Of Changes From Base (06/13/25 00:38) Sodium Chloride 0.9% (06/13/25 00:45) Enoxaparin Sodium (Lovenox) (06/13/25 10:00) Methylprednisolone Sod Succ (Solu Medrol (06/13/25 10:00) Stool Occult Blood (06/13/25 00:42) Stool Bacterial Culture (06/13/25 00:42) Stool Wbc (06/13/25 00:42) Clostridium Difficile Toxin (06/13/25 00:42) Npo Except For Medications (06/13/25 00:46) Dicyclomine Capsule (Bentyl Capsule) (06/13/25 06:00) Acetaminophen Tablet (Tylenol Tablet) (06/13/25 01:00) Sucralfate Tab (Carafate Tab) (06/13/25 06:00) (Nf) Gabapentin (Once-Daily) (Gabapentin (06/13/25 01:00) (Nf) Quetiapine Fumerate (Seroquel Xr) (06/13/25 01:00) Pantoprazole (Protonix) (06/13/25 10:00) Pantoprazole (Protonix) (06/13/25 01:00) Covid19 Antigen Noemi (06/13/25 ) Rapid Influenza A&B (06/13/25 00:50) Mrsa Screen (06/13/25 00:50) Vital Signs Date Time Temp Pulse Resp B/P (MAP) Pulse Ox O2 Delivery O2 Flow Rate FiO2 06/13/25 00:47 104 17 97 Room Air 06/13/25 00:47 98.7 104 17 141/91 (108) 97 98.7 06/12/25 19:46 99.1 110 18 146/86 97 99.1 Laboratory Tests Test 06/12/25 21:10 White Blood Count 7.8 10^3/uL (4.4-10.8) Assessment/Plan Assessment/Plan Acute on chronic Crohn's disease in exacerbation Acute intractable abdominal pain due to above Rule out infectious colitis Esophagitis Gastritis - ordered stool WBC, stool occult blood, stool bacterial culture and stool C diff - CT abdomen pelvis: No acute abdominopelvic abnormality. Incidental findings including bilateral nephrolithiasis, submucosal fat deposition within the rectum suggesting chronic inflammation. - IV methylprednisolone 40 mg - IV NS at 75 cc/hour - Protonix 40 mg daily - Carafate 1 g q.i.d. - IV Zofran as needed for nausea and vomiting - acetaminophen for mild pain, dicyclomine q.i.d. - gabapentin 300 mg as needed for abdominal pain - consulted GI Acute complicated UTI - UA shows 1+ leukocyte esterase, 11 WBCs - IV ceftriaxone - urine bacterial culture Medication noncompliance - counseled on the importance of adhering to medication regimen to avoid flare- up of Crohn disease History of bipolar disorder? History of anxiety History of depression - resumed home medication quetiapine Obesity class 3 - counseled on healthy diet and activity DVT prophylaxis: Levonox 40mg Goals of care: Full code, discussed for >16 minutes on 06/13/2025 Plan discussed with patient Plan discussed with Dr. Cano Plan discussed with: Patient, Other (RN) My Orders Orders - ELVER FORBES RESIDENT Procedure Category Date Status Time Admit ADMIT 06/13/25 Transmitted 00:38 Allergies JEREMIE 06/13/25 In Process 00:38 Code Status CODE 06/13/25 Transmitted 00:38 Ondansetron Hcl PHA 06/13/25 In Process (Zofran) 00:45 Complete Blood Count LAB 06/14/25 Verified 04:00 Comprehensive LAB 06/14/25 Verified Metabolic Panel 04:00 Condition: Unstable JEREMIE 06/13/25 In Process 00:38 Sequential JEREMIE 06/13/25 In Process Compression Device Notify Of Changes JEREMIE 06/13/25 In Process From Base 00:38 Sodium Chloride 0.9% PHA 06/13/25 Logged 00:45 Enoxaparin Sodium PHA 06/13/25 Logged (Lovenox) 10:00 Methylprednisolone PHA 06/13/25 Logged Sod Succ (Solu Medrol 10:00 Stool Occult Blood LAB 06/13/25 Logged 00:42 Stool Bacterial JOSIAH 06/13/25 Logged Culture 00:42 Stool Wbc LAB 06/13/25 Logged 00:42 Clostridium Difficile JOSIAH 06/13/25 Logged Toxin 00:42 Npo Except For JEREMIE 06/13/25 In Process Medications 00:46 Dicyclomine Capsule PHA 06/13/25 Logged (Bentyl Capsule) 06:00 Acetaminophen Tablet PHA 06/13/25 Logged (Tylenol Tablet) 01:00 Sucralfate Tab PHA 06/13/25 Transmitted (Carafate Tab) 06:00 (Nf) Gabapentin PHA 06/13/25 Transmitted (Once-Daily) 01:00 (Nf) Quetiapine PHA 06/13/25 Transmitted Fumerate (Seroquel Xr) 01:00 Pantoprazole PHA 06/13/25 Transmitted (Protonix) 10:00 Pantoprazole PHA 06/13/25 Transmitted (Protonix) 01:00 Covid19 Antigen Noemi LAB 06/13/25 Verified Rapid Influenza A&B LAB 06/13/25 Verified 00:50 Mrsa Screen JOSIAH 06/13/25 Verified 00:50 Date of Service: Jun 13, 2025 Billing Provider: KRIS CANO MD Common Visit Codes: 11613-AHSLBEP INP/OBS CARE (HIGH) Secondary Visit Codes: 57711-DTUSDTYR CARE PLAN 30 MINUTES ELVER FORBES Jun 13, 2025 00:50
[2025-06-13] MEDS ORDERED: QUETIAPINE FUMERATE 400 MG PO SCH (01:00)
[2025-06-13] MEDS ORDERED: GABAPENTIN 300 MG CAP PO PRN (01:00)
[2025-06-13] MEDS: SODIUM CHLORIDE 0.9% 1,000 ML IV ONE (03:01)
[2025-06-13] MEDS ORDERED: PANTOPRAZOLE 40 MG/10 ML VIAL INJ IV ONE ×2 (04:37→10:19)
[2025-06-13] MEDS: PANTOPRAZOLE 40 MG/10 ML VIAL INJ IV ONE (04:39)
[2025-06-13] MEDS ORDERED: HYDROMORPHONE HCL 1 MG/ML INJ ONE ×2 (05:43→21:19)
[2025-06-13] MEDS ORDERED: SUCRALFATE 1 GM TAB PO ONE ×2 (05:43→12:01)
[2025-06-13] MEDS: SUCRALFATE 1 GM TAB PO SCH (05:46)
[2025-06-13] MEDS: DICYCLOMINE HCL 10 MG CAP PO SCH (05:49)
[2025-06-13] MEDS: HYDROmorphone HCL 2 MG/ML VL/or syr IV ONE ×2 (05:49→10:28)
[2025-06-13] MEDS ORDERED: HYDROmorphone HCL 2 MG/ML VL/or syr ONE ×2 (10:18→16:55)
[2025-06-13] MEDS ORDERED: ENOXAPARIN SOD 40 MG/0.4 ML SYRINGE SC ONE (10:18)
[2025-06-13] MEDS: PANTOPRAZOLE 40 MG/10 ML VIAL INJ IV SCH ×2 (10:19→21:38)
[2025-06-13] MEDS ORDERED: methylPREDNISolone SOD SUCC 40 MG/ML VL ONE (10:19)
[2025-06-13] MEDS: ENOXAPARIN SOD 40 MG/0.4 ML SYRINGE SC SCH (10:20)
[2025-06-13] MEDS: methylPREDNISolone SOD SUCC 40 MG/ML VL IV SCH (10:20)
--- NOTE | 2025-06-13 10:33 | DVHINCON2 ---
Date of service: Jun 13, [address] Madsen Reason for Consultation Abdominal pain History of Present Illness Patient is a 49-year-old female with past medical history of Crohn's disease, nephrolithiasis s/p stenting and nephrostomy tube, who comes in due to abdominal pain. According to the patient, since being discharged from the [facility] on Saturday her abdominal pain has continued, she localizes it to the midepigastrium as well as lower abdomen, describes it as constant, cramping and sharp in nature, 8/10 in intensity. According to the patient pain is worsened with eating and relieved by using heat packs, associated with nausea, 3 episodes of vomiting, relieved by Zofran, patient also notes having 3 episodes of diarrhea in the last 24 hours. Patient was discharged from the [facility] on sulfasalazine as mesalamine was not covered by her insurance, however, patient notes she has not been taking any medication for her Crohn's disease since being discharged from the hospital. Also reports feeling more anxious than usual. Patient also had a recent ER visit on 06/03/2025 after overdosing on trazodone plus gabapentin plus lorazepam. Recent EGD and Colonoscopy Operative Report DATE OF OPERATION: 05/05/25 PROCEDURE: Colonoscopy with cold biopsy polypectomy. PREOPERATIVE INDICATION: The patient is a 49 -year-old female undergoing colonoscopy for evaluation of chronic diarrhea and history of colitis POSTOPERATIVE DIAGNOSES: 1. There was a 2 mm benign-appearing hyperplastic type rectal polyp that was seen and removed by cold biopsy forceps 2. Patient had minimal nonspecific colitis with loss of haustration overall colitis appeared to be in remission and random colon biopsies were obtained 3. Otherwise normal examination up to the cecum and terminal ileum PROCEDURE PERFORMED BY: Phong Pringle M.D. Operative Report DATE OF OPERATION: 05/05/25 PROCEDURE: Upper Endoscopy with biopsy. PREOPERATIVE INDICATION: The patient is a 49 -year-old female undergoing endoscopy for epigastric and substernal chest pain POSTOPERATIVE DIAGNOSES: 1. Patient had a 1 cm sliding-type hiatal hernia with the acute erosive esophagitis grade B with the 2 cm esophageal ulcer at the GE junction and some linear ulcers extending into the distal esophagus 2. Mild gastritis otherwise normal examination up to the 2nd and 3rd part of the duodenum with good bile drainage and no active bleeding PROCEDURE PERFORMED BY: Phong Pringle Past Medical History Past Medical History Crohn's disease, right-sided nephrolithiasis Past Surgical History Past Surgical History Cholecystectomy, tubal ligation, ureteral stents s/p nephrostomy Family History: Asthma G8 MOTHER Diabetes mellitus G8 FATHER FH: hepatic cirrhosis G8 MOTHER Social History Past Social History Smoking: Denies Alcohol: Denies Drugs: Denies Allergies: Coded Allergies: Codeine (Verified Allergy, Unknown, 12/10/24) Morphine (Verified Allergy, Unknown, 12/10/24) Home Meds Reported Medications Zolpidem Tartrate (Zolpidem Tartrate) 10 Mg Tab, 1 TAB PO QHSP PRN 05/04/25 Lorazepam (ATIVAN TABLET) 0.5 Mg Tb, 2 TAB PO BID, #30 TAB 03/31/25 Current Medications Current Medications Medications (Trade) Dose Ordered Sig/Wanda Route PRN Reason Start Time Stop Time Status Last Admin Ondansetron HCl (Zofran) 4 mg Q4HP PRN IV NAUSEA / VOMITING 06/13/25 00:45 Enoxaparin Sodium (Lovenox) 40 mg DAILY SC 06/13/25 10:00 06/13/25 10:20 Methylprednisolone Sodium Succinate (Solu Medrol) 40 mg DAILY IV 06/13/25 10:00 06/13/25 10:20 Dicyclomine HCl (Bentyl Capsule) 20 mg QID PO 06/13/25 06:00 Acetaminophen (Tylenol Tablet) 650 mg Q4HP PRN PO MILD PAIN (1-3 PAIN SCALE) 06/13/25 01:00 Sucralfate (Carafate Tab) 1 gm QID PO 06/13/25 06:00 06/13/25 05:46 Gabapentin (Neurontin Capsule) 300 mg Q6HP PRN PO abdominal pain 06/13/25 01:00 Patient Own Medication 400 mg QHSP PO 06/13/25 01:00 UNV Pantoprazole Sodium (Protonix) 40 mg DAILY IV 06/13/25 10:00 06/13/25 10:19 Ceftriaxone Sodium 50 ml @ 100 mls/hr Q24H IV 06/13/25 21:00 Vital Signs Vital Signs Date Time Temp Pulse Resp B/P (MAP) Pulse Ox O2 Delivery O2 Flow Rate FiO2 06/13/25 10:28 95 18 102/66 06/13/25 06:00 97.9 99 97.9 06/13/25 02:41 Room Air* 0 21 Physical Exam General Appearance: Alert, Oriented X3, Cooperative, mild distress HEENT: Atraumatic, PERRLA Respiratory: Clear to auscultation, Normal air movement Cardiovascular: Regular rate, Normal S1, Normal S2 Abdominal: Normal bowel sounds, Soft, Other (Midepigastric tenderness to p alpation, lower abdominal generalized tenderness to palpation) Extremities: No edema, Normal pulses Skin: No rashes Neuro: Normal gait, Normal speech Psych/Mental Status: Mental status NL, Mood NL Labs/Diagnostic Data Labs Test 06/13/25 01:20 06/13/25 00:50 06/12/25 21:10 06/12/25 21:02 Range/Units Lactic Acid Level 1.0 0.4-2.0 mmol/L Influenza Type A Antigen Negative Negative Influenza Type B Antigen Negative Negative White Blood Count 7.8 4.4-10.8 10^3/uL Red Blood Count 5.00 4.0-5.20 10^6/uL Hemoglobin 16.0 12.2-16.2 g/dL Hematocrit 45.6 36.0-46.0 % Mean Corpuscular Volume 91.3 80.0-100.0 fL Mean Corpuscular Hemoglobin 31.9 28.0-32.0 pg Mean Corpuscular Hemoglobin Concent 35.0 32.0-36.0 g/dL Red Cell Distribution Width 13.9 11.8-14.3 % Platelet Count 370 140-450 10^3/uL Mean Platelet Volume 7.2 6.9-10.8 fL Neutrophils (%) (Auto) 59.6 37.0-80.0 % Lymphocytes (%) (Auto) 30.4 10.0-50.0 % Monocytes (%) (Auto) 7.1 0.0-12.0 % Eosinophils (%) (Auto) 1.9 0.0-7.0 % Basophils (%) (Auto) 1.0 0.0-2.0 % Neutrophils # (Auto) 4.6 1.6-8.6 10 ^3/uL Lymphocytes # (Auto) 2.4 0.4-5.4 10 ^3/uL Monocytes # (Auto) 0.5 0-1.3 10 ^3/uL Eosinophils # (Auto) 0.2 0-0.8 10 ^3/uL Basophils # (Auto) 0.1 0-0.2 10 ^3/uL Nucleated Red Blood Cells 0.1 % Sodium Level 144 136-145 mmol/L Potassium Level 3.7 3.5-5.1 mmol/L Chloride Level 110 H 98-107 mmol/L Carbon Dioxide Level 23 20-31 mmol/L Anion Gap 11 5-15 Blood Urea Nitrogen 10 9-23 mg/dL Creatinine 0.86 0.550-1.02 mg/dL Glomerular Filtration Rate Calc 83 >90 mL/min BUN/Creatinine Ratio 11.6 10.0-20.0 Serum Glucose 99 74-106 mg/dL Calcium Level 9.3 8.7-10.4 mg/dL Lipase 35 12-53 U/L Urine Color Yellow Yellow Urine Clarity Clear Clear Urine pH 5.5 5.0-9.0 Urine Specific [place] 1.023 1.001-1.035 Urine Protein Negative Negative Urine Ketones Negative Negative Urine Blood 1+ H Negative /uL Urine Nitrite Negative Negative Urine Bilirubin Negative Negative Urine Urobilinogen Normal Negative mg/dL Urine Leukocyte Esterase 1+ Negative /uL Urine RBC 7 0 - 4 /hpf Urine Microscopic WBC 11 H 0-5 /HPF Urine Squamous Epithelial Cells Few <5 /hpf Urine Bacteria None seen None Seen /hpf Urine Mucus Few None Seen Urine Glucose Normal Normal mg/dL Urine Test Negative Negative CT SCAN ABD PELVIS Bowel: There is submucosal fat deposition within the rectum suggesting chronic inflammation. There is no bowel obstruction. Musculoskeletal: Unremarkable. Soft tissues: Unremarkable Impression: 1. No acute abdominopelvic abnormality. 2. Incidental findings as detailed. Problems(with codes): (1) Esophageal ulcer (2) Hiatal hernia with gastroesophageal reflux disease and esophagitis (3) Anxiety (4) Chronic abdominal pain (5) Hx of Crohn's disease (6) Hx of renal calculi (7) Acute abdominal pain (8) Nausea vomiting and diarrhea Plan/Recommendation Assessment plan Patient's Crohn's disease appears to be in remission based on recent colonoscopy Patient was advised to be maintained on mesalamine and Entocort if her symptoms continued Primarily patient appears to have hiatal hernia with GERD and gastritis Maintain Protonix 40 mg p.o. twice a day Carafate 1 g 4 times a day DC aspirin NSAIDs smoking alcohol Anxiety management Patient has chronic abdominal pain and pain medicine seeking behavior We will follow the patient at this time conservatively Plan discussed with: Other (None) PHONG PRINGLE MD Jun 13, 2025 10:33
[2025-06-13] MEDS: DICYCLOMINE HCL 10 MG CAP PO ONE (10:45)
[2025-06-13] MEDS ORDERED: DICYCLOMINE HCL 10 MG CAP ONE ×2 (12:01→12:18)
[2025-06-13] MEDS ORDERED: HYDROcodone-ACET 5/325MG TAB PO PRN (15:00)
[2025-06-13] MEDS: HYDROmorphone HCL 2 MG/ML VL/or syr IV PRN (16:56)
--- NOTE | 2025-06-13 16:57 | DVHPN2 ---
Subjective Patient is still in pain, although improved, seen at bedside today. Reviewed: H&P Changes from previous H/P or p: No Changes General: Per HPI Eyes: No Pain, No Vision change, No Conjunctivae inflammation, No Eyelid inflammation, No Other, No Redness ENT: No Ear pain, No Ear discharge, No Nose pain, No Nose discharge, No Nose congestion, No Mouth pain, No Mouth swelling, No Throat pain, No Throat swelling, No Other Cardiovascular: No Chest Pain, No Palpitations, No Orthopnea, No Paroxysmal Noc. Dyspnea, No Edema, No Lt Headedness, No Other Respiratory: No Cough, No Dry, No Shortness of breath, No SOB with excertion, No Wheezing, No Hemoptysis, No Pleuritic Pain, No Sputum, No Other Gastrointestinal: Nausea, Vomiting, Abdominal Pain, Diarrhea; No Constipation, No Melena, No Hematochezia, No Other Genitourinary: Dysuria, Frequency; No Incontinence, No Hematuria, No Retention, No Other Musculoskeletal: No other, No neck pain, No shoulder pain, No arm pain, No back pain, No hand pain, No leg pain, No foot pain Skin: No Rash, No Lesions, No Jaundice, No Bruising, No Other Objective Vitals Vital Signs Date Time Temp Pulse Resp B/P (MAP) Pulse Ox O2 Delivery O2 Flow Rate FiO2 06/13/25 13:00 97.4 92 18 102/67 (79) 97 97.4 06/13/25 07:55 Room Air* 0 21 Intake/Output Intake and Output 06/13/25 07:00 Intake Total 50 ml Balance 50 ml Intake Oral 0 ml IV Total 50 ml # Voids 1 # Bowel Movements 1 Exam General Appearance: Alert, Oriented X3, Cooperative, mild distress HEENT: Atraumatic, PERRLA Respiratory: Clear to auscultation, Normal air movement Cardiovascular: Regular rate, Normal S1, Normal S2 Abdominal: Normal bowel sounds, Soft, Other (Midepigastric tenderness to palpation, lower abdominal generalized tenderness to palpation) Extremities: No edema, Normal pulses Skin: No rashes Neuro: Normal gait, Normal speech Psych/Mental Status: Mental status NL, Mood NL Medications Current Medications Medications Dose Ordered Sig/Wanda Route Start Time Stop Time Status Last Admin Dose Admin Ondansetron HCl 4 mg Q4HP PRN IV 06/13/25 00:45 Enoxaparin Sodium 40 mg DAILY SC 06/13/25 10:00 06/13/25 10:20 40 MG Methylprednisolone Sodium Succinate 40 mg DAILY IV 06/13/25 10:00 06/13/25 10:20 40 MG Dicyclomine HCl 20 mg QID PO 06/13/25 06:00 06/13/25 12:17 20 MG Acetaminophen 650 mg Q4HP PRN PO 06/13/25 01:00 Sucralfate 1 gm QID PO 06/13/25 06:00 06/13/25 12:05 1 GM Gabapentin 300 mg Q6HP PRN PO 06/13/25 01:00 Patient Own Medication 400 mg QHSP PO 06/13/25 01:00 Hold Ceftriaxone Sodium 50 ml @ 100 mls/hr Q24H IV 06/13/25 21:00 Pantoprazole Sodium 40 mg BID IV 06/13/25 22:00 Acetaminophen/ Hydrocodone Bitart 1 tab Q4HPRN PRN PO 06/13/25 15:00 Hydromorphone HCl 0.5 mg Q4HPRN PRN IV 06/13/25 15:00 Laboratory Results Laboratory Tests 06/12/25 21:10 Chemistry Test 06/12/25 21:10 Calcium Level 9.3 mg/dL (8.7-10.4) Lipid panel Test 06/12/25 21:10 Lipase 35 U/L (12-53) Urinalysis Test 06/12/25 21:02 Urine Color Yellow (Yellow) Urine Clarity Clear (Clear) Urine pH 5.5 (5.0-9.0) Urine Specific [place] 1.023 (1.001-1.035) Urine Protein Negative (Negative) Urine Ketones Negative (Negative) Urine Blood 1+ /uL (Negative) H Urine Nitrite Negative (Negative) Urine Bilirubin Negative (Negative) Urine Urobilinogen Normal mg/dL (Negative) Urine Leukocyte Esterase 1+ /uL (Negative) Urine RBC 7 /hpf (0 - 4) Urine Microscopic WBC 11 /HPF (0-5) H Urine Squamous Epithelial Cells Few /hpf (<5) Urine Bacteria None seen /hpf (None Seen) Urine Mucus Few (None Seen) Urine Glucose Normal mg/dL (Normal) Urine Test Negative (Negative) Microbiology Microbiology Date/Time Source Procedure Growth Status 06/13/25 03:00 Nose MRSA Screen - Final Complete Labs and/or images reviewed: Labs reviewed by me, Image(s) reviewed by me Assessment/Plan Assessment/Plan hpi: Patient is a 49-year-old female with past medical history of Crohn's disease, nephrolithiasis s/p stenting and nephrostomy tube, who comes in due to abdominal pain. According to the patient, since being discharged from the [facility] on Saturday her abdominal pain has continued, she localizes it to the midepigastrium as well as lower abdomen, describes it as constant, cramping and sharp in nature, 8/10 in intensity. According to the patient pain is worsened with eating and relieved by using heat packs, associated with nausea, 3 episodes of vomiting, relieved by Zofran, patient also notes having 3 episodes of diarrhea in the last 24 hours. Patient was discharged from the [facility] on sulfasalazine as mesalamine was not covered by her insurance, however, patient notes she has not been taking any medication for her Crohn's disease since being discharged from the hospital. Also reports feeling more anxious than usual. Patient also had a recent ER visit on 06/03/2025 after overdosing on trazodone plus gabapentin plus lorazepam. 06/13: Patient asking for pain meds, GI knows patient well and believes it is not Crohn's flare in more gastritis, and suspicion of patient pain seeking behavior. Continuing steroids, analgesia prn, antiemetics prn. Appreciate GI recommendations. Continue slow IV fluids 60 cc our continuous. Patient endorses that she needs to leave tomorrow, we will have to wait for clearance and p.o. tolerance, patient asking to advance diet, we will start with clear liquid diet. Acute on chronic Crohn's disease in exacerbation Acute intractable abdominal pain due to above Rule out infectious colitis Esophagitis Gastritis - ordered stool WBC, stool occult blood, stool bacterial culture and stool C diff - CT abdomen pelvis: No acute abdominopelvic abnormality. Incidental findings including bilateral nephrolithiasis, submucosal fat deposition within the rectum suggesting chronic inflammation. - IV methylprednisolone 40 mg - IV NS at 75 cc/hour - Protonix 40 mg daily - Carafate 1 g q.i.d. - IV Zofran as needed for nausea and vomiting - acetaminophen for mild pain, dicyclomine q.i.d. - gabapentin 300 mg as needed for abdominal pain - consulted GI Acute complicated UTI - UA shows 1+ leukocyte esterase, 11 WBCs - IV ceftriaxone - urine bacterial culture Medication noncompliance - counseled on the importance of adhering to medication regimen to avoid flare- up of Crohn disease History of bipolar disorder? History of anxiety History of depression - resumed home medication quetiapine Obesity class 3 - counseled on healthy diet and activity DVT prophylaxis: Levonox 40mg Plan discussed with: Patient My Orders Orders - HEAVENLY DELACRUZ MD Procedure Category Date Status Time Clear Liq Diet DIET 06/13/25 Transmitted Dinner Hydrocodone-Acet PHA 06/13/25 In Process 5/325mg Tab ([place] 15:00 Hydromorphone PHA 06/13/25 In Process Injection (Dilaudid 15:00 Date of Service: Jun 13, 2025 Billing Provider: HEAVENLY DELACRUZ MD Common Visit Codes: [id number] INP/OBS CARE(HIGH) HEAVENLY DELACRUZ MD Jun 13, 2025 16:57
[2025-06-13] MEDS ORDERED: LORazepam 0.5 MG TAB PO PRN (20:45)
[2025-06-13] MEDS: ACETAMINOPHEN 325 MG TAB PO PRN (22:34)
[2025-06-14 01:00] VITALS: BP 113/63; PULSE 124; RESP 20; TEMP 98.3; O2SAT 96
[2025-06-14] MEDS ORDERED: HYDROMORPHONE HCL 1 MG/ML INJ ONE ×2 (02:20→08:21)
[2025-06-14 05:00] VITALS: BP 111/64; PULSE 98; RESP 18; TEMP 98.6; O2SAT 97
[2025-06-14 08:09] LABS: Hematocrit 41.5 % (36.0-46.0); Hemoglobin 14.3 g/dL (12.2-16.2); Mean Corpuscular Hemoglobin 32.5 pg (28.0-32.0); Mean Corpuscular Volume 94.2 fL (80.0-100.0); Nucleated Red Blood Cells % 0.1 %
[2025-06-14 08:33] LABS: Alanine Aminotransferase 25 U/L (7-40); Albumin 4.0 g/dL (3.2-4.8); Alkaline Phosphatase 114 U/L (46-116); Anion Gap 14 (5-15); BUN/Creatinine Ratio 9.5 (10.0-20.0); Calcium 9.0 mg/dL (8.7-10.4); Carbon Dioxide 20 mmol/L (20-31); Potassium 3.6 mmol/L (3.5-5.1); Sodium 142 mmol/L (136-145); Total Protein 6.5 g/dL (5.7-8.2)
[2025-06-14 08:34] LABS: Bilirubin, Total 0.5 mg/dL (0.2-1.0); Blood Urea Nitrogen 8 mg/dL (9-23); Chloride 108 mmol/L (98-107); Glucose 110 mg/dL (74-106)
[2025-06-14] MEDS ORDERED: HYDROmorphone HCL 2 MG/ML VL/or syr ONE ×2 (08:56→11:21)
[2025-06-14 09:00] VITALS: BP 150/69; PULSE 93; RESP 18; TEMP 97.8; O2SAT 95
--- NOTE | 2025-06-14 11:48 | DVHDS2 ---
Discharge Summary Date of Admission Jun 13, 2025 at 00:38 Date of Discharge: Jun 14, 2025 Labs/Diagnostic Data: Laboratory Results Test 06/14/25 06:51 06/13/25 01:20 06/13/25 00:50 06/12/25 21:10 White Blood Count 9.5 10^3/uL (4.4-10.8) Red Blood Count 4.41 10^6/uL (4.0-5.20) Hemoglobin 14.3 g/dL (12.2-16.2) Hematocrit 41.5 % (36.0-46.0) Mean Corpuscular Volume 94.2 fL (80.0-100.0) Mean Corpuscular Hemoglobin 32.5 pg (28.0-32.0) Mean Corpuscular Hemoglobin Concent 34.5 g/dL (32.0-36.0) Red Cell Distribution Width 13.8 % (11.8-14.3) Platelet Count 333 10^3/uL (140-450) Mean Platelet Volume 7.8 fL (6.9-10.8) Neutrophils (%) (Auto) 68.6 % (37.0-80.0) Lymphocytes (%) (Auto) 23.5 % (10.0-50.0) Monocytes (%) (Auto) 6.5 % (0.0-12.0) Eosinophils (%) (Auto) 0.4 % (0.0-7.0) Basophils (%) (Auto) 1.0 % (0.0-2.0) Neutrophils # (Auto) 6.5 10 ^3/uL (1.6-8.6) Lymphocytes # (Auto) 2.2 10 ^3/uL (0.4-5.4) Monocytes # (Auto) 0.6 10 ^3/uL (0-1.3) Eosinophils # (Auto) 0 10 ^3/uL (0-0.8) Basophils # (Auto) 0.1 10 ^3/uL (0-0.2) Nucleated Red Blood Cells 0.1 % Sodium Level 142 mmol/L (136-145) Potassium Level 3.6 mmol/L (3.5-5.1) Chloride Level 108 mmol/L (98-107) Carbon Dioxide Level 20 mmol/L (20-31) Anion Gap 14 (5-15) Blood Urea Nitrogen 8 mg/dL (9-23) Creatinine 0.84 mg/dL (0.550-1.02) Glomerular Filtration Rate Calc 86 mL/min (>90) BUN/Creatinine Ratio 9.5 (10.0-20.0) Serum Glucose 110 mg/dL (74-106) Calcium Level 9.0 mg/dL (8.7-10.4) Total Bilirubin 0.5 mg/dL (0.2-1.0) Aspartate Amino Transferase (AST) 16 U/L (13-40) Alanine Aminotransferase (ALT) 25 U/L (7-40) Alkaline Phosphatase 114 U/L (46-116) Total Protein 6.5 g/dL (5.7-8.2) Albumin 4.0 g/dL (3.2-4.8) Lactic Acid Level 1.0 mmol/L (0.4-2.0) Influenza Type A Antigen Negative (Negative) Influenza Type B Antigen Negative (Negative) Lipase 35 U/L (12-53) Test 06/12/25 21:02 Urine Color Yellow (Yellow) Urine Clarity Clear (Clear) Urine pH 5.5 (5.0-9.0) Urine Specific [place] 1.023 (1.001-1.035) Urine Protein Negative (Negative) Urine Ketones Negative (Negative) Urine Blood 1+ /uL (Negative) Urine Nitrite Negative (Negative) Urine Bilirubin Negative (Negative) Urine Urobilinogen Normal mg/dL (Negative) Urine Leukocyte Esterase 1+ /uL (Negative) Urine RBC 7 /hpf (0 - 4) Urine Microscopic WBC 11 /HPF (0-5) Urine Squamous Epithelial Cells Few /hpf (<5) Urine Bacteria None seen /hpf (None Seen) Urine Mucus Few (None Seen) Urine Glucose Normal mg/dL (Normal) Urine Test Negative (Negative) Other Laboratory Tests 06/14/25 06:51 Brief Hx & Hospital Course: HPI: 49-year-old female with past medical history of Crohn's disease, nephrolithiasis s/p stenting and nephrostomy tube, who comes in due to abdominal pain. According to the patient, since being discharged from the [facility] on Saturday her abdominal pain has continued, she localizes it to the midepigastrium as well as lower abdomen, describes it as constant, cramping and sharp in nature, 8/10 in intensity. According to the patient pain is worsened with eating and relieved by using heat packs, associated with nausea, 3 episodes of vomiting, relieved by Zofran, patient also notes having 3 episodes of diarrhea in the last 24 hours. Patient was discharged from the [facility] on sulfasalazine as mesalamine was not covered by her insurance, however, patient notes she has not been taking any medication for her Crohn's disease since being discharged from the hospital. Also reports feeling more anxious than usual. Patient also had a recent ER visit on 06/03/2025 after overdosing on trazodone plus gabapentin plus lorazepam. 06/13: Patient asking for pain meds, GI knows patient well and believes it is not Crohn's flare in more gastritis, and suspicion of patient pain seeking behavior. Continuing steroids, analgesia prn, antiemetics prn. Appreciate GI recommendations. Continue slow IV fluids 60 cc our continuous. Patient endorses that she needs to leave tomorrow, we will have to wait for clearance and p.o. tolerance, patient asking to advance diet, we will start with clear liquid diet. 06/14:, patient is feeling better, GI following, pathology results were benign in colon and EGD. Patient has not had any menses for 2 or more years, she needs to follow up with Gynecology. Discussed discharge plan with patient and GI, patient will go home on continue Protonix, Florastor, no further antibiotics, natural Kos[place] yogurt tbsp twice daily, full liquid diet, one-week, steroids 40 prednisone p.o. daily for 5 days, patient can otherwise follow up with GI outpatient. And follow up with Gynecology outpatient. Diagnosis: Acute on chronic Crohn's disease in exacerbation, possible infectious colitis, possible Acute intractable abdominal pain due to above Acute complicated UTI Esophagitis Gastritis Medication noncompliance History of bipolar disorder? History of anxiety History of depression Obesity class 3 Plan: - continue Protonix daily - Florastor daily - no further antibiotics, - natural Kos[place] yogurt tbsp twice daily, - full liquid diet, one-week, - steroids 40 prednisone p.o. daily for 5 days, - follow up with GI outpatient. - follow up with Gynecology outpatient. Condition at Discharge: Fair Final Diagnosis/Problems List Acute on chronic Crohn's disease in exacerbation, possible infectious colitis, possible Acute intractable abdominal pain due to above Acute complicated UTI Esophagitis Gastritis Medication noncompliance History of bipolar disorder? History of anxiety History of depression Obesity class 3 Discharge Disposition: Home Discharge Instruct/Medications Scheduled Lorazepam (Ativan Tablet), 2 TAB PO BID, (Reported) Scheduled PRN Zolpidem Tartrate (Zolpidem Tartrate), 1 TAB PO QHSP PRN, (Reported) Discharge Statement: "Patient was advised to return to the ER or call 911 if any headaches, dizziness, shortness of breath, chest pain, abdominal pain, bleeding, fevers, or worsening of medical condition. Patient was counseled about treatment plan, medications, possible side effects, patientverbalized understanding. All questions were answered to the best of my ability. This discharge took greater then 30 minutes in planning, reviewing documentation, counseling the patient, and discussing with other team members." ASSESSMENT ASSESSMENT Assessment Date of Service: Jun 14, 2025 Billing Provider: HEAVENLY DELACRUZ MD Common Visit Codes: [id number] DISCH DAY >30min HEAVENLY DELACRUZ MD Jun 14, 2025 11:47
--- NOTE | 2025-06-14 12:42 | DVHPN2 ---
Subjective Patient admits to improving epigastric pain, very minimal lower abdominal pain. No nausea or vomiting Patient has outpatient GI appointment next week in [place] Pathology of EGD and colonoscopy dated 05/05/2025 reviewed with patient Reviewed: H&P Changes from previous H/P or p: No Changes General: Per HPI Eyes: No Pain, No Vision change, No Conjunctivae inflammation, No Eyelid inflammation, No Other, No Redness ENT: No Ear pain, No Ear discharge, No Nose pain, No Nose discharge, No Nose congestion, No Mouth pain, No Mouth swelling, No Throat pain, No Throat swelling, No Other Cardiovascular: No Chest Pain, No Palpitations, No Orthopnea, No Paroxysmal Noc. Dyspnea, No Edema, No Lt Headedness, No Other Respiratory: No Cough, No Dry, No Shortness of breath, No SOB with excertion, No Wheezing, No Hemoptysis, No Pleuritic Pain, No Sputum, No Other Gastrointestinal: Nausea, Vomiting, Abdominal Pain, Diarrhea; No Constipation, No Melena, No Hematochezia, No Other Genitourinary: Dysuria, Frequency; No Incontinence, No Hematuria, No Retention, No Other Musculoskeletal: No other, No neck pain, No shoulder pain, No arm pain, No back pain, No hand pain, No leg pain, No foot pain Skin: No Rash, No Lesions, No Jaundice, No Bruising, No Other Objective Vitals Vital Signs Date Time Temp Pulse Resp B/P (MAP) Pulse Ox O2 Delivery O2 Flow Rate FiO2 06/14/25 11:26 96 16 117/83 06/14/25 09:00 97.8 95 97.8 06/14/25 08:00 Room Air* 0 21 Intake/Output Intake and Output 06/14/25 07:00 Intake Total 730 ml Balance 730 ml Intake Oral 680 ml IV Total 50 ml # Voids 6 General Appearance: Alert, Oriented X3, Cooperative, No acute distress, mild distress, moderate distress, severe distress, Other Lungs: Clear to auscultation, Normal air movement, Other Cardiovascular: Regular rate, Normal S1, Normal S2, No murmurs, Gallops, Rubs, Other Abdomen: Normal bowel sounds, Soft, No tenderness, No hepatospenomegaly, No masses, Other Medications Current Medications Medications Dose Ordered Sig/Wanda Route Start Time Stop Time Status Last Admin Dose Admin Ondansetron HCl 4 mg Q4HP PRN IV 06/13/25 00:45 Enoxaparin Sodium 40 mg DAILY SC 06/13/25 10:00 06/14/25 09:00 40 MG Methylprednisolone Sodium Succinate 40 mg DAILY IV 06/13/25 10:00 06/14/25 09:01 40 MG Dicyclomine HCl 20 mg QID PO 06/13/25 06:00 06/14/25 11:33 20 MG Acetaminophen 650 mg Q4HP PRN PO 06/13/25 01:00 06/13/25 22:34 650 MG Sucralfate 1 gm QID PO 06/13/25 06:00 06/14/25 11:33 1 GM Gabapentin 300 mg Q6HP PRN PO 06/13/25 01:00 Patient Own Medication 400 mg QHSP PO 06/13/25 01:00 Hold Ceftriaxone Sodium 50 ml @ 100 mls/hr Q24H IV 06/13/25 21:00 06/13/25 21:37 100 MLS/HR Pantoprazole Sodium 40 mg BID IV 06/13/25 22:00 06/14/25 09:01 40 MG Acetaminophen/ Hydrocodone Bitart 1 tab Q4HPRN PRN PO 06/13/25 15:00 Hydromorphone HCl 0.5 mg Q4HPRN PRN IV 06/13/25 15:00 06/14/25 11:26 0.5 MG Lorazepam 0.5 mg Q12HP PRN PO 06/13/25 20:45 Laboratory Results Laboratory Tests 06/14/25 06:51 Chemistry Test 06/14/25 06:51 Albumin 4.0 g/dL (3.2-4.8) Calcium Level 9.0 mg/dL (8.7-10.4) Total Protein 6.5 g/dL (5.7-8.2) LFT Test 06/14/25 06:51 Alanine Aminotransferase (ALT) 25 U/L (7-40) Alkaline Phosphatase 114 U/L (46-116) Aspartate Amino Transferase (AST) 16 U/L (13-40) Total Bilirubin 0.5 mg/dL (0.2-1.0) Urinalysis Test 06/12/25 21:02 Urine Color Yellow (Yellow) Urine Clarity Clear (Clear) Urine pH 5.5 (5.0-9.0) Urine Specific [place] 1.023 (1.001-1.035) Urine Protein Negative (Negative) Urine Ketones Negative (Negative) Urine Blood 1+ /uL (Negative) H Urine Nitrite Negative (Negative) Urine Bilirubin Negative (Negative) Urine Urobilinogen Normal mg/dL (Negative) Urine Leukocyte Esterase 1+ /uL (Negative) Urine RBC 7 /hpf (0 - 4) Urine Microscopic WBC 11 /HPF (0-5) H Urine Squamous Epithelial Cells Few /hpf (<5) Urine Bacteria None seen /hpf (None Seen) Urine Mucus Few (None Seen) Urine Glucose Normal mg/dL (Normal) Urine Test Negative (Negative) Microbiology Microbiology Date/Time Source Procedure Growth Status 06/13/25 03:00 Nose MRSA Screen - Final Complete 06/13/25 01:48 Voided Urine Urine Culture - Preliminary Resulted Labs and/or images reviewed: Labs reviewed by me, Image(s) reviewed by me Assessment/Plan Assessment/Plan Abdominal pain improving History of Crohn's disease pathology negative last colonoscopy 05/05/2025 Nausea vomiting improving Diarrhea Hiatal hernia with GERD Plan Discussed with Dr. Pringle Protonix Continue steroids and mesalamine Outpatient GI follow-up in one-week patient already has appointment for this Plan discussed with: Patient, Other (Dr. Calhoun) Date of Service: Jun 14, 2025 Billing Provider: ZACARIAS FRANKS Common Visit Codes: [id number] INP/OBS CARE(HIGH) ZACARIAS FRANKS Jun 14, 2025 12:42
[2025-06-14 13:00] VITALS: BP 114/69; PULSE 102; RESP 16; TEMP 97.8; O2SAT 95
[2025-06-14] MEDS ORDERED: PRED20TA2 PO (14:30)
[2025-06-14] MEDS ORDERED: PROB1CAP70 PO (14:30)
[2025-06-14] MEDS ORDERED: PANT40TA2 PO (14:30)
== END 2025-06-14 16:20 | disposition home or self-care (01) | DRG 245 ==
LOC: ER 19:46 → OVERFLOW 06-13 00:38 → CENTRAL 06-13 02:37
PROVIDERS: ADMIT Student in an Organized Health Care Education/Training Program; ATTEND Student in an Organized Health Care Education/Training Program
DX: K50.90 Crohn's disease, unspecified, without complications (principal); A09 Infectious gastroenteritis and colitis, unspecified; K44.9 Diaphragmatic hernia without obstruction or gangrene; K29.70 Gastritis, unspecified, without bleeding; K21.00 Gastro-esophageal reflux disease with esophagitis, without bleeding; E66.813 Obesity, class 3; N39.0 Urinary tract infection, site not specified; F41.9 Anxiety disorder, unspecified; F31.9 Bipolar disorder, unspecified; Z88.5 Allergy status to narcotic agent; Z87.442 Personal history of urinary calculi; Z90.49 Acquired absence of other specified parts of digestive tract; Z98.51 Tubal ligation status; Z83.3 Family history of diabetes mellitus; Z82.49 Family history of ischemic heart disease and other diseases of the circulatory system; Z91.148 Patient's other noncompliance with medication regimen for other reason; Z68.38 Body mass index [BMI] 38.0-38.9, adult; Z79.899 Other long term (current) drug therapy; Z93.6 Other artificial openings of urinary tract status; Z82.5 Family history of asthma and other chronic lower respiratory diseases
CPT/HCPCS: 36415; 74176; 80048; 80053; 81001; 81025; 83605; 83690; 85025; 87081; 87086; 87804; 96365; G0378; J2470

== ENCOUNTER 2025-06-27 14:43 | Emergency (ER) | payer MEDICAID ==
[~2025-06-27] VITALS: Ht 152.4 cm; Wt 84.4 kg
[~2025-06-27 14:43] MED LIST changes: -BACDST PO; -CARI1CAP PO; -CEPH250C PO; -ERGO1CAP23 PO; -FOLI-119 PO; -GABA300T4 PO; -PANT40T PO; +PANT40TA2 PO; -PERCOT PO; +PRED20TA2 PO; +PROB1CAP70 PO; -QUET200T4 PO; -SUCR1TAB31 PO; -SULF500T37 PO; -TRAM-626 PO
[2025-06-27 15:19] LABS: Urine Budding Yeast OCCASIONAL /hpf (None Seen); Urine Protein, UAD TRACE (Negative)
--- NOTE | 2025-06-27 16:09 | ED.PDOC ---
History of Present Illness HPI Comments 49-year-old female came to the ER stating that she has been having hard time sleeping. States that she ran out of her Ativan Seroquel Ambien a month ago. She has not able to get to see her primary care physician. Denies suicidal or homicidal ideation. Denies any other symptoms. Chief Complaint: Anxiety Time Seen by MD: 14:51 Primary Care Provider: UNKNOWN Reviewed Notes: Nurses Notes, Medications, Allergies Allergies: Coded Allergies: Codeine (Verified Allergy, Unknown, 12/10/24) Morphine (Verified Allergy, Unknown, 12/10/24) Home Meds Active Scripts Zolpidem Tartrate (Ambien) 10 Mg Tab, 10 MG PO DAILY for 5 Days, #5 TAB Prov:RUSSELL POOL MD 06/27/25 Quetiapine Fumerate (Seroquel) 300 Mg Tab, 300 MG PO DAILY for 10 Days, #10 TAB Prov:RUSSELL POOL MD 06/27/25 Lorazepam (Ativan) 0.5 Mg Tab, 1 TAB PO DAILY for 10 Days, #10 TAB Prov:RUSSELL POOL MD 06/27/25 Nitrofurantoin Monohydrate Mac (Macrobid) 100 Mg Cap, 100 MG PO BID for 7 Days, #14 CAP Prov:RUSSELL POOL MD 06/27/25 Prednisone (Prednisone) 20 Mg Tab, 40 MG PO DAILY for 5 Days, #10 MG 0 Refills Prov:HEAVENLY DELACRUZ MD 06/14/25 Probiotic Product (Florastor Plus) 1 Cap Cap, 1 CAP PO DAILY for 30 Days, #30 CAP 0 Refills Prov:HEAVENLY DELACRUZ MD 06/14/25 Pantoprazole Sodium Sesquihydr (Protonix) 40 Mg Tab, 40 MG PO DAILY for 30 Days, #30 TAB 0 Refills Prov:HEAVENLY DELACRUZ MD 06/14/25 Reported Medications Zolpidem Tartrate (Zolpidem Tartrate) 10 Mg Tab, 1 TAB PO QHSP PRN 05/04/25 Lorazepam (ATIVAN TABLET) 0.5 Mg Tb, 2 TAB PO BID, #30 TAB 03/31/25 Information Source: Patient Mode of Arrival: Ambulatory Severity: Mild Timing: Weeks Duration: Since onset Past Medical History PAST MEDICAL HISTORY: Anxiety, Depression, Kidney Stones, UTI'S Surgical History: Cholecystectomy, Tubal Ligation DISTRICT SALES REPRESENTATIVE History: Denies all DISTRICT SALES REPRESENTATIVE Hx Family History Family History: Family hx of DM, Family hx of heart khoa Social History Smoker: Non-Smoker Alcohol: Denies ETOH Use Drugs: Denies Drug Use Lives In: Home Constitutional: denies: chills, diaphoresis, fatigue, fever, malaise, sweats, weakness, others EENTM: denies: blurred vision, double vision, ear bleeding, ear discharge, ear drainage, ear pain, ear ringing, eye pain, eye redness, hearing loss, mouth pain, mouth swelling, nasal discharge, nose bleeding, nose congestion, nose pain, photophobia, tearing, throat pain, throat swelling, voice changes, others Respiratory: denies: cough, hemoptysis, orthopnea, SOB at rest, shortness of breath, SOB with excertion, stridor, wheezing, others Cardiovascular: denies: chest pain, dizzy spells, diaphoresis, Dyspnea on exertion, edema, irregular heart beat, left arm pain, lightheadedness, palpitations, PND, syncope, others Gastrointestinal: denies: abdomen distended, abdominal pain, blood streaked bowels, constipated, diarrhea, dysphagia, difficulty swallowing, hematemesis, melena, nausea, poor appetite, poor fluid intake, rectal bleeding, rectal pain, vomiting, others Genitourinary: denies: abnormal vagina bleeding, burning, dyspareunia, dysuria, flank pain, frequency, hematuria, incontinence, pain, , vagina discharg e, urgency, others Neurological: denies: dizziness, fainting, headache, left sided numbness, left sided weakness, numbness, paresthesia, pre-existing deficit, right sided numbness, right sided weakness, seizure, speech problems, tingling, tremors, weakness, others Musculoskeletal: denies: back pain, gout, joint pain, joint swelling, muscle pain, muscle stiffness, neck pain, others Integumetry: denies: bruises, change in color, change in hair/nails, dryness, laceration, lesions, lumps, rash, wounds, others Allergic/Immunocompromised: denies: Difficulty Healing, Frequent Infections, Hives, Itching, others Hematologic/Lymphatic: denies: anemia, blood clots, easy bleeding, easy bruising, swollen glands, others Endocrine: denies: excessive hunger, excessive sweating, excessive thirst, excessive urination, flushing, intolerance to cold, intolerance to heat, unexplained weight gain, unexplained weight loss, others Psychiatric: reports: anxiety; denies: bipolar disorder, depression, hopeless, panic disorder, schizophrenia, sleepless, suicidal, others Physical Exam General Appearance: Moderate Distress HEENT: Normal ENT Inspection, Pharynx Normal, TMs Normal Neck: Full Range of Motion, Non-Tender, Normal, Normal Inspection Respiratory: Chest Non-Tender, Lungs Clear, No Accessory Muscle Use, No Respiratory Distress, Normal Breath Sounds Cardiovascular: No Edema, No JVD, No Murmur, No Gallop, Normal Peripheral Pulses, Regular Rate/Rhythm Breast Exam: Deferred Gastrointestinal: No Organomegaly, Non Tender, No Pulsatile Mass, Normal Bowel Sounds, Soft Genitalia: Deferred Pelvic: Deferred Rectal: Deferred Extremities: No calf tenderness, Normal capillary refill, Normal inspection, Normal range of motion, Non-tender, No pedal edema Musculoskeletal : Apperance: Normal 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 Was a procedure done?: No Differential Dx Considerations may include: Anxiety X-Ray, Labs, Meds, VS Vital Signs Date Time Temp Pulse Resp B/P (MAP) Pulse Ox O2 Delivery O2 Flow Rate FiO2 06/27/25 16:56 94 18 98 Room Air* 0 21 06/27/25 16:55 97.4 94 18 136/91 (106) 98 97.4 06/27/25 14:46 98.0 93 18 130/85 97 98.0 Lab Test 06/27/25 15:00 Range/Units Urine Color Yellow Yellow Urine Clarity Clear Clear Urine pH 6.0 5.0-9.0 Urine Specific [place] 1.020 1.001-1.035 Urine Protein Trace H Negative Urine Ketones Negative Negative Urine Blood 1+ H Negative /uL Urine Nitrite Negative Negative Urine Bilirubin Negative Negative Urine Urobilinogen Normal Negative mg/dL Urine Leukocyte Esterase 2+ Negative /uL Urine RBC 7 0 - 4 /hpf Urine Microscopic WBC 12 H 0-5 /HPF Urine Squamous Epithelial Cells Few <5 /hpf Urine Bacteria Few H None Seen /hpf Urine Mucus Few None Seen Urine Yeast (Budding) Occasional None Seen /hpf Urine Glucose Normal Normal mg/dL Current Medications Medications (Trade) Dose Ordered Sig/Wanda Route Start Time Stop Time Status Last Admin Lorazepam (Ativan Tablet) 1 mg ONCE ONCE PO 06/27/25 16:15 06/27/25 16:16 DC 06/27/25 16:52 Patient alert. Vitals stable. Has a history of anxiety. Answering questions pain Urinalysis shows UTI. Abdomen is soft nontender. No leg swelling. Was given prescription of Macrobid antibiotic Atkimmy Jones. Explained to the patient. Was told to follow up with her primary care physician. Was told to come back if there is any problem. Time of 1ST Reevaluation: 16:14 Reevaluation 1ST: Improved Patient Education/Counseling: Diagnosis, Treatment, Prognosis, Need For Follow Up Family Education/Counseling: No Family Present SEPSIS Sepsis Screen Date sepsis recognized/suspect: Jun 27, 2025 Time Sepsis recognized/suspect: 1445 Recent Procedure: No On Antibiotic Therapy: No Respiratory Rate >20: No Heart Rate >90: Yes Temp<36 C (96.8 F) or >38.3 C: No SBP <90 or MAP <65 mmHG: No New Acute Mental Status Change: No Is the patient on CPAP, BIPAP,: No Vital Signs Date Time Temp Pulse Resp B/P (MAP) Pulse Ox O2 Delivery O2 Flow Rate FiO2 06/27/25 16:56 94 18 98 Room Air* 0 21 06/27/25 16:55 97.4 94 18 136/91 (106) 98 97.4 06/27/25 14:46 98.0 93 18 130/85 97 98.0 Medications Medications Dose Ordered Sig/Wanda Route Start Time Stop Time Status Last Admin Dose Admin Lorazepam 1 mg ONCE ONCE PO 06/27/25 16:15 06/27/25 16:16 DC 06/27/25 16:52 Departure 1 Departure Time of Disposition: 16:15 Impression: Primary Impression: Urinary tract infection Qualified Codes: N30.01 - Acute cystitis with hematuria Additional Impression: Anxiety Disposition: 01 HOME / SELF CARE / HOMELESS Condition: Good e-Prescriptions Zolpidem Tartrate (Ambien) 10 Mg Tab 10 MG PO DAILY for 5 Days, #5 TAB Prov: RUSSELL POOL MD 06/27/25 Quetiapine Fumerate (Seroquel) 300 Mg Tab 300 MG PO DAILY for 10 Days, #10 TAB Prov: RUSSELL POOL MD 06/27/25 Lorazepam (Ativan) 0.5 Mg Tab 1 TAB PO DAILY for 10 Days, #10 TAB Prov: RUSSELL POOL MD 06/27/25 Nitrofurantoin Monohydrate Mac (Macrobid) 100 Mg Cap 100 MG PO BID for 7 Days, #14 CAP Prov: RUSSELL POOL MD 06/27/25 Discharged With: Self Critical Care Note Critical Care Time?: No Stability Stability form required: No Heart Score Heart Score: Heart Score Response (Comments) Value History N/A 0 EKG N/A 0 Age N/A 0 Risk Factors N/A 0 Troponin N/A 0 Total 0 RUSSELL POOL MD Jun 27, 2025 16:09
[2025-06-27] MEDS ORDERED: ZOLP10TA PO (16:31)
[2025-06-27] MEDS ORDERED: LORA-655 PO (16:31)
[2025-06-27] MEDS ORDERED: QUET300T14 PO (16:31)
[2025-06-27] MEDS ORDERED: NITR-87 PO (16:31)
[2025-06-27] MEDS: LORazepam 0.5 MG TAB PO ONE (16:52)
[2025-06-27 16:55] VITALS: BP 136/91; TEMP 97.4
[2025-06-27 16:56] VITALS: PULSE 94; RESP 18; O2SAT 98
== END 2025-06-27 16:58 | disposition home or self-care (01) ==
LOC: ER 14:43
DX: N39.0 Urinary tract infection, site not specified (principal); F41.9 Anxiety disorder, unspecified; F32.A Depression, unspecified; Z90.49 Acquired absence of other specified parts of digestive tract; Z88.5 Allergy status to narcotic agent; Z98.51 Tubal ligation status; Z79.899 Other long term (current) drug therapy
CPT/HCPCS: 81001

== ENCOUNTER 2025-07-04 15:38 | Emergency (ER) | payer MEDICAID ==
[~2025-07-04] VITALS: Ht 152.4 cm; Wt 83.8 kg
[~2025-07-04 15:38] MED LIST changes: +LORA-655 PO; +NITR-87 PO; +QUET300T14 PO; +ZOLP10TA PO
[2025-07-04] MEDS ORDERED: ZOLP10TA PO (18:29)
[2025-07-04 18:30] VITALS: BP 112/68; PULSE 93; RESP 18; TEMP 98.4; O2SAT 97
--- NOTE | 2025-07-04 18:30 | ED.PDOC ---
Psychiatric HPI Comments 49 year female presents to ER with complaints of medication refill. Patient with PMH hx anxiety and insomnia reports that she ran out of her Ambien 10 mg two days ago and presents to ER for medication refill of this medication. States she is not currently symptoms and presents to ER ambulatory on arrival, with steady gait, in no distress. Denies headache, hallucinations, shortness of breath, chest pain, nausea/vomiting or any further symptoms/complain Chief Complaint: Anxiety Time Seen by MD: 18:10 Primary Care Provider: UNKNOWN Reviewed Notes: Nurses Notes, Medications, Allergies Information Source: Patient Mode of Arrival: Ambulatory Past Medical History PAST MEDICAL HISTORY: Anxiety, Depression, Kidney Stones, UTI'S Past Medical History (Other): Insomnia Surgical History: Cholecystectomy, Tubal Ligation FAMILY HEALTH NURSE PRACTITIONER History: Denies all FAMILY HEALTH NURSE PRACTITIONER Hx Family History Family History: Family hx of DM, Family hx of heart khoa Social History Smoker: Non-Smoker Alcohol: Denies ETOH Use Drugs: Denies Drug Use Lives In: Home Constitutional: denies: chills, diaphoresis, fatigue, fever, malaise, sweats, weakness, others EENTM: denies: blurred vision, double vision, ear bleeding, ear discharge, ear drainage, ear pain, ear ringing, eye pain, eye redness, hearing loss, mouth pain, mouth swelling, nasal discharge, nose bleeding, nose congestion, nose pain, photophobia, tearing, throat pain, throat swelling, voice changes, others Respiratory: denies: cough, hemoptysis, orthopnea, SOB at rest, shortness of breath, SOB with excertion, stridor, wheezing, others Cardiovascular: denies: chest pain, dizzy spells, diaphoresis, Dyspnea on exertion, edema, irregular heart beat, left arm pain, lightheadedness, palpitations, PND, syncope, others Gastrointestinal: denies: abdomen distended, abdominal pain, blood streaked bowels, constipated, diarrhea, dysphagia, difficulty swallowing, hematemesis, melena, nausea, poor appetite, poor fluid intake, rectal bleeding, rectal pain, vomiting, others Genitourinary: denies: abnormal vagina bleeding, burning, dyspareunia, dysuria, flank pain, frequency, hematuria, incontinence, pain, , vagina discharge, urgency, others Neurological: denies: dizziness, fainting, headache, left sided numbness, left sided weakness, numbness, paresthesia, pre-existing deficit, right sided numbness, right sided weakness, seizure, speech problems, tingling, tremors, weakness, others Musculoskeletal: denies: back pain, gout, joint pain, joint swelling, muscle pain, muscle stiffness, neck pain, others Integumetry: denies: bruises, change in color, change in hair/nails, dryness, laceration, lesions, lumps, rash, wounds, others Allergic/Immunocompromised: denies: Difficulty Healing, Frequent Infections, Hives, Itching, others Hematologic/Lymphatic: denies: anemia, blood clots, easy bleeding, easy bruising, swollen glands, others Endocrine: denies: excessive hunger, excessive sweating, excessive thirst, excessive urination, flushing, intolerance to cold, intolerance to heat, unexplained weight gain, unexplained weight loss, others Psychiatric: reports: others (As stated in HPI) Physical Exam General Appearance: No Apparent Distress HEENT: Normal ENT Inspection, PERRL/EOMI, Pharynx Normal, TMs Normal Neck: Full Range of Motion, Non-Tender, Normal Respiratory: Chest Non-Tender, Lungs Clear, No Accessory Muscle Use, No Respiratory Distress, Normal Breath Sounds Cardiovascular: No Murmur, No Gallop, Regular Rate/Rhythm Breast Exam: Deferred Gastrointestinal: NOT DONE Genitalia: Deferred Pelvic: Deferred Rectal: Deferred Extremities: Normal capillary refill, Normal range of motion 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 Was a procedure done?: No Sedation Sedation?: No Psych Differential Dx Intoxication Differential Dx: Hallucinations, Seizures, Dehydration X-Ray, Labs, Meds, VS Vital Signs Date Time Temp Pulse Resp B/P (MAP) Pulse Ox O2 Delivery O2 Flow Rate FiO2 07/04/25 15:39 98.0 101 15 155/79 98 98.0 Patient asymptomatic during ER visit/prior to discharge Advised to drink plenty of fluids Advised to follow up with PCP and psychiatrist in 1-2 days Patient verbalized understanding and agreeable with current plan of care Advised to return to ER immediately if symptoms worsen Time of 1ST Reevaluation: 18:02 Reevaluation 1ST: N/A Patient Education/Counseling: Diagnosis, Treatment, Prognosis, Need For Follow Up Family Education/Counseling: No Family Present Departure 1 Departure Time of Disposition: 18:29 Impression: Primary Impression: Insomnia Qualified Codes: G47.00 - Insomnia, unspecified Additional Impression: Medication refill Disposition: HOME / SELF CARE / HOMELESS Condition: Stable e-Prescriptions Zolpidem Tartrate (Ambien) 10 Mg Tab 10 MG PO DAILY for 5 Days, #5 TAB Prov: CARMELA SALCIDO 07/04/25 Discharged With: Friend Critical Care Note Critical Care Time?: No Stability Stability form required: No Heart Score Heart Score: Heart Score Response (Comments) Value History N/A 0 EKG N/A 0 Age N/A 0 Risk Factors N/A 0 Troponin N/A 0 Total 0 CARMELA SALCIDO Jul 04, 2025 18:30
== END 2025-07-04 18:59 | disposition home or self-care (01) ==
LOC: ER 15:38
DX: G47.00 Insomnia, unspecified (principal); Z76.0 Encounter for issue of repeat prescription; F41.9 Anxiety disorder, unspecified; Z87.440 Personal history of urinary (tract) infections; Z87.442 Personal history of urinary calculi; Z90.49 Acquired absence of other specified parts of digestive tract; Z98.51 Tubal ligation status

== ENCOUNTER 2025-07-09 13:42 | Inpatient (IN) | payer MEDICAID ==
[~2025-07-09] VITALS: Ht 167.6 cm; Wt 97.0 kg
--- NOTE | 2025-07-09 15:59 | ED.PDOC ---
GI ASSESSMENT HPI Comments Kezia Dukes is a 49-year-old female, with past medical history of Crohn's, depression and anxiety. The patient came to the ED via EMS with chief complain of 2 days of abdominal pain, 8/10, diffuse, colicky-like, no irradiates, associated with nausea, chills, malaise, vomit #5 per day, gastric fluids content and, watery diarrhea with bright blood in the stools. On further questioning, the patient reports she has ran out of the medication HUMIRA for the ulcerative colitis. Today, the vomit and the abdominal pain worsen, this prompted her visit to the ED. The patient denies fever, chest pain, hematochezia or other symptoms. In the ED: BP: 96/40mmgh, HR: 75bpm. The patient was initiated in IV fluids, and will be admitted for further assessment and management. Chief Complaint: Abdominal Pain Time Seen by MD: 15:34 Primary Care Provider: UNKNOWN Reviewed Notes: Nurses Notes, Medications, Allergies Allergies: Coded Allergies: Codeine (Verified Allergy, Unknown, 12/10/24) Morphine (Verified Allergy, Unknown, 12/10/24) Home Meds Active Scripts Zolpidem Tartrate (Ambien) 10 Mg Tab, 10 MG PO DAILY for 5 Days, #5 TAB Prov:CARMELA SALCIDO 07/04/25 Quetiapine Fumerate (Seroquel) 300 Mg Tab, 300 MG PO DAILY for 10 Days, #10 TAB Prov:RUSSELL POOL MD 06/27/25 Lorazepam (Ativan) 0.5 Mg Tab, 1 TAB PO DAILY for 10 Days, #10 TAB Prov:RUSSELL POOL MD 06/27/25 Nitrofurantoin Monohydrate Mac (Macrobid) 100 Mg Cap, 100 MG PO BID for 7 Days, #14 CAP Prov:RUSSELL POOL MD 06/27/25 Prednisone (Prednisone) 20 Mg Tab, 40 MG PO DAILY for 5 Days, #10 MG 0 Refills Prov:HEAVENLY DELACRUZ MD 06/14/25 Probiotic Product (Florastor Plus) 1 Cap Cap, 1 CAP PO DAILY for 30 Days, #30 CAP 0 Refills Prov:HEAVENLY DELACRUZ MD 06/14/25 Pantoprazole Sodium Sesquihydr (Protonix) 40 Mg Tab, 40 MG PO DAILY for 30 Days, #30 TAB 0 Refills Prov:HEAVENLY DELACRUZ MD 06/14/25 Reported Medications Zolpidem Tartrate (Zolpidem Tartrate) 10 Mg Tab, 1 TAB PO QHSP PRN 05/04/25 Lorazepam (ATIVAN TABLET) 0.5 Mg Tb, 2 TAB PO BID, #30 TAB 03/31/25 Discontinued Scripts Zolpidem Tartrate (Ambien) 10 Mg Tab, 10 MG PO DAILY for 5 Days, #5 TAB Prov:RUSSELL POOL MD 06/27/25 Information Source: Patient Mode of Arrival: EMS Timing: Days Duration: Since onset Quality: Colicky Vomitus: Food Particles, Watery Stool: Watery Severity: Moderate Recent: None Past Medical History PAST MEDICAL HISTORY: Anxiety, Depression, Kidney Stones, UTI'S Past Medical History (Other): Crohns disease Surgical History: Cholecystectomy, Tubal Ligation [employer]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: 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 all [employer]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 Hx Family History Family History: Reviewed,noncontributory to illness, Family hx of DM, Family hx of heart khoa Social History Smoker: Non-Smoker Alcohol: Denies ETOH Use Drugs: Denies Drug Use Lives In: Home Constitutional: reports: chills, malaise; denies: diaphoresis, fatigue, fever, sweats, weakness, others EENTM: denies: blurred vision, double vision, ear bleeding, ear discharge, ear drainage, ear pain, ear ringing, eye pain, eye redness, hearing loss, mouth pain, mouth swelling, nasal discharge, nose bleeding, nose congestion, nose pain, photophobia, tearing, throat pain, throat swelling, voice changes, others Respiratory: denies: cough, hemoptysis, orthopnea, SOB at rest, shortness of breath, SOB with excertion, stridor, wheezing, others Cardiovascular: denies: chest pain, dizzy spells, diaphoresis, Dyspnea on exertion, edema, irregular heart beat, left arm pain, lightheadedness, palpitations, PND, syncope, others Gastrointestinal: reports: abdominal pain, blood streaked bowels, diarrhea, nausea, poor fluid intake, vomiting; denies: abdomen distended, constipated, dysphagia, difficulty swallowing, hematemesis, melena, poor appetite, rectal bleeding, rectal pain, others Genitourinary: denies: abnormal vagina bleeding, burning, dyspareunia, dysuria, flank pain, frequency, hematuria, incontinence, pain, , vagina discharge, urgency, others Neurological: denies: dizziness, fainting, headache, left sided numbness, left sided weakness, numbness, paresthesia, pre-existing deficit, right sided num bness, right sided weakness, seizure, speech problems, tingling, tremors, weakness, others Musculoskeletal: denies: back pain, gout, joint pain, joint swelling, muscle pain, muscle stiffness, neck pain, others Integumetry: denies: bruises, change in color, change in hair/nails, dryness, laceration, lesions, lumps, rash, wounds, others Allergic/Immunocompromised: denies: Difficulty Healing, Frequent Infections, Hives, Itching, others Hematologic/Lymphatic: denies: anemia, blood clots, easy bleeding, easy bruising, swollen glands, others Endocrine: denies: excessive hunger, excessive sweating, excessive thirst, excessive urination, flushing, intolerance to cold, intolerance to heat, unexplained weight gain, unexplained weight loss, others Psychiatric: denies: anxiety, bipolar disorder, depression, hopeless, panic disorder, schizophrenia, sleepless, suicidal, others Physical Exam Exam Comments Alert, oriented x3. General Appearance: Moderate Distress HEENT: Normal ENT Inspection, Pharynx Normal, TMs Normal Neck: Full Range of Motion, Non-Tender, Normal, Normal Inspection Respiratory: Chest Non-Tender, Lungs Clear, No Accessory Muscle Use, No Respiratory Distress, Normal Breath Sounds Cardiovascular: No Edema, No JVD, No Murmur, No Gallop, Normal Peripheral Pulses, Regular Rate/Rhythm Breast Exam: Deferred Gastrointestinal: Tenderness (Abdomen is soft, flat, bowel sounds present, tympanic, difussely tender to deep palpation, no rebound or gurding.) Genitalia: Deferred Pelvic: Deferred Rectal: Deferred Extremities: No calf tenderness, Normal capillary refill, Normal inspection, Normal range of motion, Non-tender, No pedal edema Musculoskeletal : Apperance: Normal Neurologic: Alert, pole climber II-XII nml as Tested, No Motor Deficits, Normal Affect, Normal Mood, No Sensory Deficits Cerebellar Function: Normal Reflexes: Normal Skin: Dry, Normal Color, Warm Lymphatic: No Adenopathy Was a procedure done? Was a procedure done?: No GI differential Dx Differential Diagnosis: Gastroenteritis, Ischemic Bowel, UTI, Urolithiasis, Kidney Stone, Other Other Differential Diagnosis #R/O Intraabdominal abscess #Crohn's disease exacerbation/flare X-Ray, Labs, Meds, VS Vital Signs Date Time Temp Pulse Resp B/P (MAP) Pulse Ox O2 Delivery O2 Flow Rate FiO2 07/09/25 13:48 98.2 75 16 96/40 100 98.2 Lab Test 07/09/25 16:31 07/09/25 16:15 Range/Units White Blood Count 9.3 4.4-10.8 10^3/uL Red Blood Count 5.16 4.0-5.20 10^6/uL Hemoglobin 16.7 H 12.2-16.2 g/dL Hematocrit 47.8 H 36.0-46.0 % Mean Corpuscular Volume 92.7 80.0-100.0 fL Mean Corpuscular Hemoglobin 32.4 H 28.0-32.0 pg Mean Corpuscular Hemoglobin Concent 34.9 32.0-36.0 g/dL Red Cell Distribution Width 14.1 11.8-14.3 % Platelet Count 378 140-450 10^3/uL Mean Platelet Volume 7.6 6.9-10.8 fL Neutrophils (%) (Auto) 69.1 37.0-80.0 % Lymphocytes (%) (Auto) 23.2 10.0-50.0 % Monocytes (%) (Auto) 6.0 0.0-12.0 % Eosinophils (%) (Auto) 0.5 0.0-7.0 % Basophils (%) (Auto) 1.2 0.0-2.0 % Neutrophils # (Auto) 6.4 1.6-8.6 10 ^3/uL Lymphocytes # (Auto) 2.2 0.4-5.4 10 ^3/uL Monocytes # (Auto) 0.6 0-1.3 10 ^3/uL Eosinophils # (Auto) 0 0-0.8 10 ^3/uL Basophils # (Auto) 0.1 0-0.2 10 ^3/uL Nucleated Red Blood Cells 0.1 % Sodium Level 142 136-145 mmol/L Potassium Level 3.8 3.5-5.1 mmol/L Chloride Level 109 H 98-107 mmol/L Carbon Dioxide Level 20 20-31 mmol/L Anion Gap 13 5-15 Blood Urea Nitrogen 8 L 9-23 mg/dL Creatinine 0.75 0.550-1.02 mg/dL Glomerular Filtration Rate Calc 98 >90 mL/min BUN/Creatinine Ratio 10.7 10.0-20.0 Serum Glucose 91 74-106 mg/dL Lactic Acid Level 1.2 0.4-2.0 mmol/L Calcium Level 9.7 8.7-10.4 mg/dL Magnesium Level 2.2 1.6-2.6 mg/dL Lipase Pending Urine Color Yellow Yellow Urine Clarity Clear Clear Urine pH 6.5 5.0-9.0 Urine Specific Jerome 1.031 1.001-1.035 Urine Protein Trace H Negative Urine Ketones Trace Negative Urine Blood 1+ H Negative /uL Urine Nitrite Negative Negative Urine Bilirubin Negative Negative Urine Urobilinogen Normal Negative mg/dL Urine Leukocyte Esterase Negative Negative /uL Urine RBC 5 0 - 4 /hpf Urine Microscopic WBC 14 H 0-5 /HPF Urine Squamous Epithelial Cells Few <5 /hpf Urine Bacteria None seen None Seen /hpf Urine Mucus Few None Seen Urine Glucose Normal Normal mg/dL Current Medications Medications (Trade) Dose Ordered Sig/Wanda Route Start Time Stop Time Status Last Admin Sodium Chloride 1,000 ml @ 1,000 mls/hr Q1H ONCE IV 07/09/25 16:00 07/09/25 16:59 DC 07/09/25 16:28 Lorazepam (Ativan Inj) 0.5 mg ONCE ONCE IV 07/09/25 17:00 07/09/25 17:01 DC 07/09/25 16:52 X-Ray, Labs, Meds, VS Comment 17:00 The patient has been reassessed, labs were reviewed. CBC: WBC: 9.3x10e3/uL, Hb: 16.7mg/dl BMP: Na: 142mmol/l K: 3.8mmol/L CT abdomen is pending. Time of 1ST Reevaluation: 17:00 Reevaluation 1ST: Unchanged Patient Education/Counseling: Diagnosis, Treatment, Prognosis, Need For Follow Up Family Education/Counseling: No Family Present SEPSIS Sepsis Screen Date sepsis recognized/suspect: Jul 09, 2025 Time Sepsis recognized/suspect: 1348 Recent Procedure: No On Antibiotic Therapy: No Respiratory Rate >20: No Heart Rate >90: No Temp<36 C (96.8 F) or >38.3 C: No SBP <90 or MAP <65 mmHG: No New Acute Mental Status Change: No Is the patient on CPAP, BIPAP,: No Physician Orders Lipase (07/09/25 15:59) Ct Ab Pel With Iv Con Only (07/09/25 15:59) Magnesium (07/09/25 15:59) Basic Metabolic Panel (07/09/25 15:59) Vital Signs Date Time Temp Pulse Resp B/P (MAP) Pulse Ox O2 Delivery O2 Flow Rate FiO2 07/09/25 13:48 98.2 75 16 96/40 100 98.2 Laboratory Tests Test 07/09/25 16:31 Lactic Acid Level 1.2 mmol/L (0.4-2.0) White Blood Count 9.3 10^3/uL (4.4-10.8) Medications Medications Dose Ordered Sig/Wanda Route Start Time Stop Time Status Last Admin Dose Admin Lorazepam 0.5 mg ONCE ONCE IV 07/09/25 17:00 07/09/25 17:01 DC 07/09/25 16:52 Sodium Chloride 1,000 ml @ 1,000 mls/hr Q1H ONCE IV 07/09/25 16:00 07/09/25 16:59 DC 07/09/25 16:28 Departure 1 Departure Time of Disposition: 17:00 Impression: Primary Impression: Hx of Crohn's disease Additional Impression: Urinary tract infection Disposition: ADMITTED INPATIENT Admit to: Med Surg Condition: Good Comments Goals of care discussed with the patient > 35 min. Discussed plan of care with Dr. Swann Code status: Full code PCP: Plan discussed with: Patient, the patient agrees with the admission plan. Critical Care Note Critical Care Time?: No Stability Stability form required: No Heart Score Heart Score: Heart Score Response (Comments) Value History N/A 0 EKG N/A 0 Age N/A 0 Risk Factors N/A 0 Troponin N/A 0 Total 0 BALJEET DELEON RESIDENT Jul 09, 2025 15:59
[2025-07-09] MEDS: ONDANSETRON ODT 4 MG TAB PO ONE ×2 (16:24→21:13)
[2025-07-09] MEDS: SODIUM CHLORIDE 0.9% 1,000 ML IV ONE ×2 (16:28→23:24)
[2025-07-09 16:37] LABS: Urine Protein, UAD TRACE (Negative)
[2025-07-09 16:49] LABS: Hematocrit 47.8 % (36.0-46.0); Hemoglobin 16.7 g/dL (12.2-16.2); Mean Corpuscular Hemoglobin 32.4 pg (28.0-32.0); Mean Corpuscular Volume 92.7 fL (80.0-100.0); Nucleated Red Blood Cells % 0.1 %
[2025-07-09] MEDS: LORazepam 2MG/ML-1ML VIAL IV ONE (16:52)
[2025-07-09 17:00] LABS: Potassium 3.8 mmol/L (3.5-5.1); Sodium 142 mmol/L (136-145)
[2025-07-09 17:01] LABS: Anion Gap 13 (5-15); Calcium 9.7 mg/dL (8.7-10.4)
[2025-07-09 17:03] LABS: Carbon Dioxide 20 mmol/L (20-31); Chloride 109 mmol/L (98-107)
[2025-07-09 17:06] LABS: Glucose 91 mg/dL (74-106)
[2025-07-09 17:07] LABS: BUN/Creatinine Ratio 10.7 (10.0-20.0); Blood Urea Nitrogen 8 mg/dL (9-23); Magnesium 2.2 mg/dL (1.6-2.6)
[2025-07-09 17:43] LABS: Lipase 42 U/L (12-53)
[2025-07-09] MEDS: HYDROmorphone HCL 2 MG/ML VL/or syr IV ONE (18:48)
--- NOTE | 2025-07-09 19:23 | DVH ---
CLINICAL HISTORY: Abdominal pain/ Hx of ulcerative colitis TECHNIQUE: CT of the abdomen and pelvis was performed with intravenous contrast . This exam was perf ormed according to our departmental dose optimization program. Up-to-date CT equipment and radiation dose reduction techniques are utilized as appropriate. WID: COMPARISON: CT CT AB PEL WO CON-NO ORAL OR IV on DOS: 06/12/25, CT CT AB PEL WO CON-NO ORAL OR IV on D OS: 06/07/25, CT CT AB PEL WO CON-NO ORAL OR IV on DOS: 05/28/25, CT CT AB PEL WO CON-NO ORAL OR IV on D OS: 05/25/25, CT CT AB PEL WITH IV CON ONLY on DOS: 05/19/25 FINDINGS: Minimal subsegmental atelectasis within the right middle lobe and lingula. Mild hypoattenuation of the hepatic parenchyma. The liver measures 11 cm. The spleen, adrenal glands, and pancreas are within normal limits. Status post cholecystectomy. 3 mm bilateral lower pole nonobstructing renal stones. Small chronic left renal cortical infarcts. Th e urinary bladder is unremarkable. The uterus and adnexa are within normal limits. The stomach, small bowel, and appendix are unremarkable. Sequelae of prior descending colitis. Submuc osal fatty infiltration within the rectum and sigmoid colon. No evidence of obstruction or acute infl ammatory change. The imaged vessels are within normal limits. 10 mm metallic object over the right gluteal soft tissue s. No acute osseous abnormality. Minimal degenerative changes within the spine. IMPRESSION: No acute abnormality. 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 Nonobstructing bilateral lower pole renal stones. Mild hepatic steatosis.
--- NOTE | 2025-07-09 20:36 | DVHHPRES ---
History of Present Illness Resident Creating Document: KATHIE ROQUE RESIDENT History of Present Illness A 49-year-old female with past medical history of inflammatory bowel disease, GERD, anxiety, depression, insomnia, recurrent kidney stones with hydronephrosis, presented to the ER with chief complain of abdominal pain, vom iting, diarrhea. Patient reports that the pain and diarrhea started 5 days back, pain is described as diffuse, sharp, cramp like, 7/10, worsens with eating, progressively worsening since the last 2 days. Diarrhea started 5 days ago with almost 15 episodes daily, initially light colored now turned into dark stools, mucus present, no blood seen. Patient also complained of vomiting 3 times since yesterday. Patient also complained of worsening insomnia, anxiety, depression and has associated dizziness and palpitations. She reports subjective fever, chills, 3 lb weight loss since last week. She also reported burning and painful micturition. Previous hospitalization: In April 2025 in [facility] for a inflammatory bowel disease flare-up PMHx: UC/Crohn's disease, GERD, anxiety, depression, insomnia, recurrent kidney stones with hydronephrosis PSHx: Tubal ligation, cholecystectomy, EGD and Colonospy which showed no colitis (gastritis) Social history: Denies smoking, alcohol, recreational drug use. Lives in house with family, full code, next to kin is son and daughter. Home medication: Ativan, Ambien, Seroquel Allergic history: Protein, morphine Patient was examined at bedside today. She is admitted for further evaluation and management. Review of Systems Review of Systems ROS: Constitutional: Weight loss, fever and chills. HEENT: Denies changes in vision and hearing. Respiratory: Denies shortness of breath and cough Cardiovascular: Palpitation, lightheadedness, denies chest discomfort or pain GI: Abdominal pain, nausea, vomiting and diarrhea. : Burning and painful micturition Musculoskeletal: Denies myalgias and joint pain Skin: Denies rash and pruritus. Neurological: Denies dizziness, headache, vision or hearing problems Allergies: Coded Allergies: Codeine (Verified Allergy, Unknown, 12/10/24) Morphine (Verified Allergy, Unknown, 12/10/24) Exam Vital Signs Vital Signs Date Time Temp Pulse Resp B/P (MAP) Pulse Ox O2 Delivery O2 Flow Rate FiO2 07/09/25 19:17 98.4 90 16 139/67 (91) 96 98.4 Exam General: Patient alert and oriented in person, place and time. Patient following commands. HEENT: Normocephalic, atraumatic, moist mucous membranes Respiratory/pulmonary: Clear lungs bilaterally, vesicular murmurs present in almost all lung moreno, no associated crackles or wheezes. Cardiovascular: Normal heart sounds S1 and S2 with no associated murmurs Abdomen: Diffuse abdominal tenderness on deep palpation. Tenderness around umbilicus on light palpation. Extremities: There is no peripheral edema present at the lower extremities. Peripheral Pulses: 3+ Radial (R). 3+ Radial (L). 3+ Dorsalis pedis (R). 3+ Dorsalis pedis(L) Skin: No rashes or pruritus, there is no sacral edema present at this time. Neurological: Intact cranial nerves with no focal neurologic deficits Labs/Xrays Labs Test 07/09/25 16:31 07/09/25 16:15 Range/Units White Blood Count 9.3 4.4-10.8 10^3/uL Red Blood Count 5.16 4.0-5.20 10^6/uL Hemoglobin 16.7 H 12.2-16.2 g/dL Hematocrit 47.8 H 36.0-46.0 % Mean Corpuscular Volume 92.7 80.0-100.0 fL Mean Corpuscular Hemoglobin 32.4 H 28.0-32.0 pg Mean Corpuscular Hemoglobin Concent 34.9 32.0-36.0 g/dL Red Cell Distribution Width 14.1 11.8-14.3 % Platelet Count 378 140-450 10^3/uL Mean Platelet Volume 7.6 6.9-10.8 fL Neutrophils (%) (Auto) 69.1 37.0-80.0 % Lymphocytes (%) (Auto) 23.2 10.0-50.0 % Monocytes (%) (Auto) 6.0 0.0-12.0 % Eosinophils (%) (Auto) 0.5 0.0-7.0 % Basophils (%) (Auto) 1.2 0.0-2.0 % Neutrophils # (Auto) 6.4 1.6-8.6 10 ^3/uL Lymphocytes # (Auto) 2.2 0.4-5.4 10 ^3/uL Monocytes # (Auto) 0.6 0-1.3 10 ^3/uL Eosinophils # (Auto) 0 0-0.8 10 ^3/uL Basophils # (Auto) 0.1 0-0.2 10 ^3/uL Nucleated Red Blood Cells 0.1 % Sodium Level 142 136-145 mmol/L Potassium Level 3.8 3.5-5.1 mmol/L Chloride Level 109 H 98-107 mmol/L Carbon Dioxide Level 20 20-31 mmol/L Anion Gap 13 5-15 Blood Urea Nitrogen 8 L 9-23 mg/dL Creatinine 0.75 0.550-1.02 mg/dL Glomerular Filtration Rate Calc 98 >90 mL/min BUN/Creatinine Ratio 10.7 10.0-20.0 Serum Glucose 91 74-106 mg/dL Lactic Acid Level 1.2 0.4-2.0 mmol/L Calcium Level 9.7 8.7-10.4 mg/dL Magnesium Level 2.2 1.6-2.6 mg/dL Lipase 42 12-53 U/L Urine Color Yellow Yellow Urine Clarity Clear Clear Urine pH 6.5 5.0-9.0 Urine Specific Monitor 1.031 1.001-1.035 Urine Protein Trace H Negative Urine Ketones Trace Negative Urine Blood 1+ H Negative /uL Urine Nitrite Negative Negative Urine Bilirubin Negative Negative Urine Urobilinogen Normal Negative mg/dL Urine Leukocyte Esterase Negative Negative /uL Urine RBC 5 0 - 4 /hpf Urine Microscopic WBC 14 H 0-5 /HPF Urine Squamous Epithelial Cells Few <5 /hpf Urine Bacteria None seen None Seen /hpf Urine Mucus Few None Seen Urine Glucose Normal Normal mg/dL SEPSIS Sepsis Screen Date sepsis recognized/suspect: Jul 09, 2025 Time Sepsis recognized/suspect: 1348 Recent Procedure: No On Antibiotic Therapy: No Respiratory Rate >20: No Heart Rate >90: No Temp<36 C (96.8 F) or >38.3 C: No SBP <90 or MAP <65 mmHG: No New Acute Mental Status Change: No Is the patient on CPAP, BIPAP,: No Physician Orders Ct Ab Pel With Iv Con Only (07/09/25 15:59) Vital Signs Date Time Temp Pulse Resp B/P (MAP) Pulse Ox O2 Delivery O2 Flow Rate FiO2 07/09/25 19:17 98.4 90 16 139/67 (91) 96 98.4 07/09/25 18:48 96 18 121/72 07/09/25 13:48 98.2 75 16 96/40 100 98.2 Laboratory Tests Test 07/09/25 16:31 Lactic Acid Level 1.2 mmol/L (0.4-2.0) White Blood Count 9.3 10^3/uL (4.4-10.8) Medications Medications Dose Ordered Sig/Wanda Route Start Time Stop Time Status Last Admin Dose Admin Ceftriaxone Sodium 50 ml @ 100 mls/hr ONCE ONCE IV 07/09/25 18:15 07/09/25 18:44 DC 07/09/25 18:47 100 MLS/HR Hydromorphone HCl 0.5 mg ONCE ONCE IV 07/09/25 17:15 07/09/25 17:16 DC 07/09/25 18:48 0.5 MG Lorazepam 0.5 mg ONCE ONCE IV 07/09/25 17:00 07/09/25 17:01 DC 07/09/25 16:52 0.5 MG Sodium Chloride 1,000 ml @ 1,000 mls/hr Q1H ONCE IV 07/09/25 16:00 07/09/25 16:59 DC 07/09/25 16:28 1,000 MLS/HR Assessment/Plan Assessment/Plan Complicated UTI Recurrent UTIs U/A: positive for UTI Urine culture ordered IV ceftriaxone and NS ordered Repeat BMP Probable Ulcerative colitis/ Crohn's flare-up Gastritis Esophagitis Sliding hiatal hernia S/p hyperplastic polyp excision CDAI score 201 Mesalamine 800 mg t.i.d. p.o. Stool WBC, culture, SOB, C diff ordered Clear liquid diet and IV fluids Colonoscopy from 05/05/2025 shows 2 mm benign hyperplastic rectal polyp, minimal nonspecific colitis with loss of haustration, normal cecum and terminal ileum Upper GI endoscopy from 03/24 shows DVT is 1 cm sliding hiatal hernia with erosive esophagitis, mild gastritis and 2nd and 3rd part of duodenum Insomnia Anxiety and depression Continue home medication Ativan, Ambien, Seroquel DIET: Clear liquid DVT PROPHYLAXIS: Lovenox GI PROPHYLAXIS: Protonix CODE STATUS: Goals of care discussed with patient at bedside for more than 37 minutes. Full code DISPOSITION: Med/surge Patient's status and plan discussed with the patient. Case discussed with Dr. Cole Plan discussed with: Patient, Other (Nurses) Date of Service: Jul 09, 2025 Billing Provider: JANNY COLE MD Common Visit Codes: 81999-CGNLJPT INP/OBS CARE (HIGH) Secondary Visit Codes: 94939-BZOHEEOX CARE PLAN 30 MINUTES KATHIE ROQUE RESIDENT Jul 09, 2025 20:36 JESU GARCIA RESIDENT Jul 10, 2025 07:47
[2025-07-09] MEDS ORDERED: ONDANSETRON HCL 4 MG/2 ML VIAL IV ONE (20:45)
[2025-07-09 21:13] LABS: INR 1.01 (0.9-1.15); Partial Thromboplastin Time 28.8 SEC (24.5-34.5); Prothrombin Time 10.7 sec (9.3-11.8)
[2025-07-09 21:23] LABS: Alanine Aminotransferase 26.0 U/L (7-40); Albumin 4.8 g/dL (3.2-4.8); Bilirubin, Direct 0.2 mg/dL (<0.3); Bilirubin, Total 0.7 mg/dL (0.2-1.0); HDL Cholesterol 54.0 mg/dL (40-59); Total Protein 7.9 g/dL (5.7-8.2); Triglycerides 135.0 mg/dL (< 150)
[2025-07-09 21:24] LABS: Alkaline Phosphatase 146.0 U/L (46-116); Cholesterol 201.0 mg/dL (< 200)
[2025-07-09 21:31] LABS: Benzodiazephine Screen, Urine Neg (NEGATIVE)
[2025-07-09 21:42] LABS: Amphetamine Screen, Urine Neg (NEGATIVE); Barbiturate Scree,Urine Neg (NEGATIVE); Cannabinoid Screen, Urine Neg (NEGATIVE); Cocaine Screen, Urine Neg (NEGATIVE); Opiate Scree,Urine Neg (NEGATIVE); Phencyclidine Screen, Urine Neg (NEGATIVE)
[2025-07-09] MEDS ORDERED: ONDANSETRON HCL 4 MG/2 ML VIAL IV PRN (22:30)
[2025-07-09] MEDS ORDERED: SODIUM CHLORIDE 0.9% 1,000 ML IV SCH ×2 (22:30)
[2025-07-09] MEDS: MESALAMINE 400mg Delayed Release Cap PO ONE (22:30)
[2025-07-09] MEDS: SODIUM CHLORIDE 0.9% 500 ML IV ONE (23:00)
[2025-07-09] MEDS: ENOXAPARIN SOD 40 MG/0.4 ML SYRINGE SC ONE (23:04)
[2025-07-09] MEDS: ALPRAZolam 0.5 MG TAB PO ONE (23:23)
[2025-07-10 04:36] LABS: Hematocrit 43.6 % (36.0-46.0); Hemoglobin 15.1 g/dL (12.2-16.2); Mean Corpuscular Hemoglobin 32.1 pg (28.0-32.0); Mean Corpuscular Volume 93.1 fL (80.0-100.0); Nucleated Red Blood Cells % 0.0 %
[2025-07-10 04:53] LABS: Alanine Aminotransferase 18 U/L (7-40); Albumin 4.2 g/dL (3.2-4.8); BUN/Creatinine Ratio 14.6 (10.0-20.0); Blood Urea Nitrogen 12 mg/dL (9-23); Calcium 8.8 mg/dL (8.7-10.4); Carbon Dioxide 21 mmol/L (20-31); Glucose 81 mg/dL (74-106); Total Protein 6.6 g/dL (5.7-8.2)
[2025-07-10 04:54] LABS: Bilirubin, Total 0.5 mg/dL (0.2-1.0)
[2025-07-10 05:18] LABS: Alkaline Phosphatase 130 U/L (46-116)
[2025-07-10 05:21] LABS: Anion Gap 14 (5-15); Potassium 4.1 mmol/L (3.5-5.1)
[2025-07-10 05:30] LABS: Chloride 111 mmol/L (98-107); Sodium 146 mmol/L (136-145)
[2025-07-10] MEDS: SODIUM CHLORIDE 0.9% 1,000 ML IV SCH (06:15)
[2025-07-10] MEDS: HYDROcodone-ACET 5/325MG TAB PO ONE ×2 (07:00→20:42)
[2025-07-10] MEDS: LORazepam 0.5 MG TAB PO SCH (08:35)
[2025-07-10] MEDS: PANTOPRAZOLE 40 MG TAB PO SCH (08:35)
[2025-07-10] MEDS: MESALAMINE 400mg Delayed Release Cap PO SCH (08:49)
[2025-07-10 08:53] VITALS: RESP 16; O2SAT 98
[2025-07-10 09:00] VITALS: BP 110/74; PULSE 85; RESP 16; TEMP 99.2; O2SAT 99
[2025-07-10 13:00] VITALS: BP 113/68; PULSE 69; RESP 18; TEMP 98.6; O2SAT 98
--- NOTE | 2025-07-10 13:58 | DVHPNRES ---
Progress Note Date Seen: Jul 10, 2025 Resident Creating Document: RICHI GREENE RESIDENT Has the PT tested + for MRSA If YES, has PT been informed?: No Medical Necessity Reason Pt with a Central, PICC or Fol: No Subjective Review of Systems A 49-year-old female with past medical history of inflammatory bowel disease, GERD, anxiety, depression, insomnia, recurrent kidney stones with hydronephrosis, presented to the ER with chief complain of abdominal pain, vomiting, diarrhea. Patient reports that the pain and diarrhea started 5 days back, pain is described as diffuse, sharp, cramp like, 10/10, worsens with eating, unable to keep any food or liquid down, progressively worsening since the last 2 days. Diarrhea started 5 days ago with more than 8 episodes daily, initially light colored now turned into dark stools which isn't black however, mucus present, no blood seen. Patient also complained of vomiting 3 times since yesterday. Patient also complained of worsening insomnia, anxiety, depression and has associated dizziness and palpitations. She reports subjective fever, chills, 3 lb weight loss since last week. She also reported burning and painful micturition, with increased frequency for the last few weeks. Previous hospitalization: In April 2025 in [facility] for a inflammatory bowel disease flare-up PMHx: UC/Crohn's disease, GERD, anxiety, depression, insomnia, recurrent kidney stones with hydronephrosis PSHx: Tubal ligation, cholecystectomy, EGD and Colonospy which showed no colitis (gastritis) Social history: Denies smoking, alcohol, recreational drug use. Lives in house with family, full code, next to kin is son and daughter. Home medication: Ativan, Isabelaien, Seroquel Allergic history: Protein, morphine Code status: full code ROS: 07/10/2025: Patient was seen and examined by me at the bedside in holding area. Patient reports that the abdominal pain is still there in is 7/10 in intensity. She complains that [place] is not helping much and she wants Dilaudid. She also reports feeling slightly hungry as she has not been able to tolerate any food before and has been taking only liquids. Soft mechanical diet was started today. We will continue with the mesalamine 800 mg t.i.d. as well as metronidazole and ceftriaxone for her GI and UTI symptoms. Objective vital signs Vital Sign Date Time Temp Pulse Resp B/P (MAP) Pulse Ox O2 Delivery O2 Flow Rate FiO2 07/10/25 08:53 16 98 Room Air* 0 21 07/09/25 19:17 98.4 90 139/67 (91) 98.4 Total Intake and Output 07/09/25 07/09/25 07/10/25 15:00 23:00 07:00 Intake Total 1000 ml Balance 1000 ml medications Current Medications Medications Dose Ordered Sig/Wanda Route Start Time Stop Time Status Last Admin Dose Admin Ondansetron HCl 4 mg Q4HP PRN IV 07/09/25 22:30 Enoxaparin Sodium 40 mg DAILY SC 07/11/25 10:00 Ceftriaxone Sodium 50 ml @ 100 mls/hr DAILY@09 IV 07/10/25 09:00 07/10/25 08:49 100 MLS/HR Mesalamine 800 mg TID PO 07/10/25 06:00 07/10/25 08:49 800 MG Lorazepam 1 mg BID PO 07/10/25 10:00 07/10/25 08:35 1 MG Pantoprazole Sodium 40 mg DAILY PO 07/10/25 10:00 07/10/25 08:35 40 MG Quetiapine Fumarate 300 mg DAILY PO 07/10/25 10:00 07/10/25 08:49 300 MG Zolpidem Tartrate 10 mg HS PO 07/10/25 22:00 Sodium Chloride 1,000 ml @ 75 mls/hr [id number] IV 07/09/25 23:15 07/10/25 12:39 75 MLS/HR Metronidazole 100 ml @ 100 mls/hr Q8HR IV 07/10/25 06:00 07/10/25 06:16 100 MLS/HR Examination General: Patient alert and oriented in person, place and time. Patient following commands. HEENT: Normocephalic, atraumatic, moist mucous membranes Respiratory/pulmonary: Clear lungs bilaterally, vesicular murmurs present in almost all lung moreno, no associated crackles or wheezes. Cardiovascular: Normal heart sounds S1 and S2 with no associated murmurs Abdomen: Diffuse abdominal tenderness on deep palpation. Tenderness around umbilicus on light palpation. Extremities: There is no peripheral edema present at the lower extremities. Peripheral Pulses: 3+ Radial (R). 3+ Radial (L). 3+ Dorsalis pedis (R). 3+ Dorsalis pedis(L) Skin: No rashes or pruritus, there is no sacral edema present at this time. Neurological: Intact cranial nerves with no focal neurologic deficits laboratory and microbiology Laboratory Tests 07/10/25 04:15 Test 07/10/25 04:15 Range/Units Serum Glucose 81 74-106 mg/dL Labs and/or images reviewed: Labs reviewed by me, Image(s) reviewed by me Problem List/Assessment/Plan Problem List/Assessment/Plan #Complicated UTI $Recurrent UTIs -U/A: positive for UTI -Urine culture, pending -IV ceftriaxone and NS ordered -Repeat BMP #Probable Ulcerative colitis/ Crohn's flare-up #Gastritis #Esophagitis #Sliding hiatal hernia #S/p hyperplastic polyp excision -CDAI score 201 -Mesalamine 800 mg t.i.d. p.o. -Stool WBC, culture, SOB, C diff ordered -soft mechanical diet -IV fluids -Colonoscopy from 05/05/2025 shows 2 mm benign hyperplastic rectal polyp, minimal nonspecific colitis with loss of haustration, normal cecum and terminal ileum -Upper GI endoscopy from 03/24 shows DVT is 1 cm sliding hiatal hernia with erosive esophagitis, mild gastritis and 2nd and 3rd part of duodenum #Insomnia #Anxiety and depression -Continue home medication Ativan, Ambien, Seroquel DIET: mechanical soft diet DVT PROPHYLAXIS: Lovenox GI PROPHYLAXIS: Protonix Patient's status and plan discussed with the patient. Case discussed with Dr. Sandoval Plan discussed with: Patient My Orders My Orders Orders - RICHI GREENE Procedure Category Date Status Time Mechanical Soft Diet DIET 07/10/25 Transmitted Lunch Date of Service: Jul 10, 2025 Billing Provider: JANNY SANDOVAL MD, SREYA RESIDENT Jul 10, 2025 13:58
[2025-07-10] MEDS: HYDROmorphone HCL 2 MG/ML VL/or syr IV ONE (14:38)
[2025-07-10 19:07] VITALS: BP 101/56; PULSE 92; RESP 18; TEMP 96.6; O2SAT 95
[2025-07-10] MEDS: DICYCLOMINE HCL 10 MG CAP PO ONE (20:42)
[2025-07-10 21:00] VITALS: BP 101/58; PULSE 78; RESP 17; TEMP 98.1; O2SAT 100
[2025-07-10] MEDS: ZOLPIDEM TARTRATE 5 MG TAB PO SCH (21:06)
[2025-07-11 05:00] VITALS: BP 108/75; PULSE 70; RESP 18; TEMP 97.8; O2SAT 96
[2025-07-11 07:51] LABS: Hematocrit 42.7 % (36.0-46.0); Hemoglobin 14.8 g/dL (12.2-16.2); Mean Corpuscular Hemoglobin 32.5 pg (28.0-32.0); Mean Corpuscular Volume 94.1 fL (80.0-100.0); Nucleated Red Blood Cells % 0.1 %
[2025-07-11 07:59] LABS: Potassium 3.8 mmol/L (3.5-5.1); Sodium 144 mmol/L (136-145)
[2025-07-11 08:00] LABS: Anion Gap 12 (5-15); Carbon Dioxide 23 mmol/L (20-31)
[2025-07-11 08:01] LABS: Calcium 8.8 mg/dL (8.7-10.4); Chloride 109 mmol/L (98-107)
[2025-07-11 08:06] LABS: BUN/Creatinine Ratio 9.0 (10.0-20.0); Blood Urea Nitrogen 7 mg/dL (9-23); Glucose 96 mg/dL (74-106)
[2025-07-11 08:10] VITALS: O2SAT 97
[2025-07-11 09:00] VITALS: BP 107/79; PULSE 87; RESP 17; TEMP 97.4; O2SAT 96
[2025-07-11] MEDS: ENOXAPARIN SOD 40 MG/0.4 ML SYRINGE SC SCH (10:05)
[2025-07-11] MEDS: KETOROLAC TROMETH 30 MG/ML 1ML VIAL IV ONE (11:26)
[2025-07-11] MEDS ORDERED: MESALAMINE 4 GM/60 ML RC PR ONE ×2 (12:30→20:00)
[2025-07-11] MEDS: HYDROmorphone HCL 2 MG/ML VL/or syr IV ONE (13:37)
--- NOTE | 2025-07-11 13:46 | DVHPNRES ---
Progress Note Date Seen: Jul 11, 2025 Resident Creating Document: ARUNA PADILLA RESIDENT Has the PT tested + for MRSA If YES, has PT been informed?: No Medical Necessity Reason Pt with a Central, PICC or Fol: No Subjective Review of Systems A 49-year-old female with past medical history of inflammatory bowel disease, GERD, anxiety, depression, insomnia, recurrent kidney stones with hydronephrosis, presented to the ER with chief complain of abdominal pain, vomiting, diarrhea. Patient reports that the pain and diarrhea started 5 days back, pain is described as diffuse, sharp, cramp like, 10/10, worsens with eating, unable to keep any food or liquid down, progressively worsening since the last 2 days. Diarrhea started 5 days ago with more than 8 episodes daily, initially light colored now turned into dark stools which isn't black however, mucus present, no blood seen. Patient also complained of vomiting 3 times since yesterday. Patient also complained of worsening insomnia, anxiety, depression and has associated dizziness and palpitations. She reports subjective fever, chills, 3 lb weight loss since last week. She also reported burning and painful micturition, with increased frequency for the last few weeks. Previous hospitalization: In April 2025 in [facility] for a inflammatory bowel disease flare-up PMHx: UC/Crohn's disease, GERD, anxiety, depression, insomnia, recurrent kidney stones with hydronephrosis PSHx: Tubal ligation, cholecystectomy, EGD and Colonospy which showed no colitis (gastritis) Social history: Denies smoking, alcohol, recreational drug use. Lives in house with family, full code, next to kin is son and daughter. Home medication: Ativan, Ambien, Seroquel Allergic history: Protein, morphine Code status: full code ROS: 07/10/2025: Patient was seen and examined by me at the bedside in holding area. Patient reports that the abdominal pain is still there in is 7/10 in intensity. She complains that [place] is not helping much and she wants Dilaudid. She also reports feeling slightly hungry as she has not been able to tolerate any food before and has been taking only liquids. Soft mechanical diet was started today. We will continue with the mesalamine 800 mg t.i.d. as well as metronidazole and ceftriaxone for her GI and UTI symptoms. 07/11/2025-patient was seen today at bedside. Lebs than chart reviewed. Patient reported ongoing abdominal pain. Had 3 loose bowel movement in the morning. Patient on hydrocortisone rectal enema. Urine culture contaminated growth. Objective vital signs Vital Sign Date Time Temp Pulse Resp B/P (MAP) Pulse Ox O2 Delivery O2 Flow Rate FiO2 07/11/25 13:37 110 16 108/62 07/11/25 09:00 97.4 96 97.4 07/10/25 20:00 Room Air* 0 21 Total Intake and Output 07/10/25 07/10/25 07/11/25 15:00 23:00 07:00 Intake Total 950 ml Balance 950 ml medications Current Medications Medications Dose Ordered Sig/Wanda Route Start Time Stop Time Status Last Admin Dose Admin Ondansetron HCl 4 mg Q4HP PRN IV 07/09/25 22:30 Enoxaparin Sodium 40 mg DAILY SC 07/11/25 10:00 07/11/25 10:05 40 MG Ceftriaxone Sodium 50 ml @ 100 mls/hr DAILY@09 IV 07/10/25 09:00 07/11/25 10:05 100 MLS/HR Mesalamine 800 mg TID PO 07/10/25 06:00 07/11/25 05:58 800 MG Lorazepam 1 mg BID PO 07/10/25 10:00 07/11/25 10:05 1 MG Pantoprazole Sodium 40 mg DAILY PO 07/10/25 10:00 07/11/25 10:05 40 MG Zolpidem Tartrate 10 mg HS PO 07/10/25 22:00 07/10/25 21:06 10 MG Sodium Chloride 1,000 ml @ 75 mls/hr [id number] IV 07/09/25 23:15 07/11/25 02:00 75 MLS/HR Metronidazole 100 ml @ 100 mls/hr Q8HR IV 07/10/25 06:00 07/11/25 05:59 100 MLS/HR Quetiapine Fumarate 400 mg DAILY PO 07/10/25 22:00 07/11/25 10:05 400 MG Hydrocortisone 100 mg HS KS 07/11/25 22:00 Examination General: Patient alert and oriented in person, place and time. Patient following commands. HEENT: Normocephalic, atraumatic, moist mucous membranes Respiratory/pulmonary: Clear lungs bilaterally, vesicular murmurs present in almost all lung moreno, no associated crackles or wheezes. Cardiovascular: Normal heart sounds S1 and S2 with no associated murmurs Abdomen: Diffuse abdominal tenderness on deep palpation. Tenderness around umbilicus on light palpation. Extremities: There is no peripheral edema present at the lower extremities. Peripheral Pulses: 3+ Radial (R). 3+ Radial (L). 3+ Dorsalis pedis (R). 3+ Dorsalis pedis(L) Skin: No rashes or pruritus, there is no sacral edema present at this time. Neurological: Intact cranial nerves with no focal neurologic deficits laboratory and microbiology Laboratory Tests 07/11/25 07:00 Test 07/11/25 07:00 Range/Units Serum Glucose 96 74-106 mg/dL Microbiology Date/Time Source Procedure Growth Status 07/09/25 20:33 Voided Urine Urine Culture - Preliminary Resulted Problem List/Assessment/Plan Problem List/Assessment/Plan Plan #Probable Ulcerative colitis/ Crohn's flare-up #Gastritis #Esophagitis #Sliding hiatal hernia #S/p hyperplastic polyp excision -Mesalamine 800 mg t.i.d. p.o. -Stool WBC, culture, SOB, C diff ordered -soft mechanical diet -IV fluids -Colonoscopy from 05/05/2025 shows 2 mm benign hyperplastic rectal polyp, minimal nonspecific colitis with loss of haustration, normal cecum and terminal ileum -Upper GI endoscopy from 03/24 shows DVT is 1 cm sliding hiatal hernia with erosive esophagitis, mild gastritis and 2nd and 3rd part of duodenum -ordered hydrocortisone enema #Insomnia #Anxiety and depression -Continue home medication Ativan, Ambien, Seroquel DIET: mechanical soft diet DVT PROPHYLAXIS: Lovenox GI PROPHYLAXIS: Protonix Patient's status and plan discussed with the patient. Case discussed with Dr. Sandoval Plan discussed with: Patient Plan discussed with: Other (RN) Date of Service: Jul 11, 2025 Billing Provider: JANNY SANDOVAL MD, MOHAMMED RESIDENT Jul 11, 2025 13:46
[2025-07-11 17:00] VITALS: BP 103/72; PULSE 92; RESP 16; TEMP 97; O2SAT 100
[2025-07-11] MEDS: HYDROcodone-ACET 5/325MG TAB PO PRN (20:39)
[2025-07-11 21:00] VITALS: BP 116/70; PULSE 83; RESP 17; TEMP 98.7; O2SAT 99
[2025-07-11] MEDS: HYDROCORTISONE 100 MG/60 ML RECT ENEMA PR SCH (21:27)
[2025-07-12] VITALS (7 sets, daily range): BP systolic 104–125; BP diastolic 70–82; PULSE 68–81; RESP 14–94; TEMP 96.7–98.2; O2SAT 94–100
[2025-07-12] MEDS: LORazepam 2MG/ML-1ML VIAL IV ONE (00:41)
[2025-07-12 07:59] LABS: Hematocrit 42.7 % (36.0-46.0); Hemoglobin 14.6 g/dL (12.2-16.2); Mean Corpuscular Hemoglobin 32.5 pg (28.0-32.0); Mean Corpuscular Volume 94.8 fL (80.0-100.0); Nucleated Red Blood Cells % 0.0 %
[2025-07-12 08:13] LABS: Alanine Aminotransferase 18 U/L (7-40); Albumin 3.8 g/dL (3.2-4.8); Alkaline Phosphatase 124 U/L (46-116); Anion Gap 9 (5-15); BUN/Creatinine Ratio 10.6 (10.0-20.0); Blood Urea Nitrogen 9 mg/dL (9-23); Calcium 8.6 mg/dL (8.7-10.4); Carbon Dioxide 27 mmol/L (20-31); Chloride 108 mmol/L (98-107); Glucose 95 mg/dL (74-106); Magnesium 2.0 mg/dL (1.6-2.6); Potassium 4.0 mmol/L (3.5-5.1); Sodium 144 mmol/L (136-145); Total Protein 6.3 g/dL (5.7-8.2)
[2025-07-12 08:14] LABS: Bilirubin, Total 0.4 mg/dL (0.2-1.0)
--- NOTE | 2025-07-12 14:32 | DVHPNRES ---
Progress Note Date Seen: Jul 12, 2025 Resident Creating Document: RICHI GREENE RESIDENT Has the PT tested + for MRSA If YES, has PT been informed?: No Medical Necessity Reason Pt with a Central, PICC or Fol: No Subjective Review of Systems A 49-year-old female with past medical history of inflammatory bowel disease, GERD, anxiety, depression, insomnia, recurrent kidney stones with hydronephrosis, presented to the ER with chief complain of abdominal pain, vomiting, diarrhea. Patient reports that the pain and diarrhea started 5 days back, pain is described as diffuse, sharp, cramp like, 10/10, worsens with eating, unable to keep any food or liquid down, progressively worsening since the last 2 days. Diarrhea started 5 days ago with more than 8 episodes daily, initially light colored now turned into dark stools which isn't black however, mucus present, no blood seen. Patient also complained of vomiting 3 times since yesterday. Patient also complained of worsening insomnia, anxiety, depression and has associated dizziness and palpitations. She reports subjective fever, chills, 3 lb weight loss since last week. She also reported burning and painful micturition, with increased frequency for the last few weeks. Previous hospitalization: In April [address] [facility] for a inflammatory bowel disease flare-up PMHx: UC/Crohn's disease, GERD, anxiety, depression, insomnia, recurrent kidney stones with hydronephrosis PSHx: Tubal ligation, cholecystectomy, EGD and Colonospy which showed no colitis (gastritis) Social history: Denies smoking, alcohol, recreational drug use. Lives in house with family, full code, next to kin is son and daughter. Home medication: Ativan, Isabelaien, Seroquel Allergic history: Protein, morphine Code status: full code ROS: 07/10/2025: Patient was seen and examined by me at the bedside in holding area. Patient reports that the abdominal pain is still there in is 7/10 in intensity. She complains that [place] is not helping much and she wants Dilaudid. She also reports feeling slightly hungry as she has not been able to tolerate any food before and has been taking only liquids. Soft mechanical diet was started today. We will continue with the mesalamine 800 mg t.i.d. as well as metronidazole and ceftriaxone for her GI and UTI symptoms. 07/11/2025-patient was seen today at bedside. Lebs than chart reviewed. Patient reported ongoing abdominal pain. Had 3 loose bowel movement in the morning. Patient on hydrocortisone rectal enema. Urine culture contaminated growth. 07/12/2025 patient was seen and examined by me today. Labs and charts were reviewed. Patient reports feeling better but still has cramping abdominal pain. She has had 3 bowel movements since yesterday night which are mushy, no blood or mucus. Patient refused steroid enema believing it would cause more stool, patient was counseled regarding action of steroids and that it was not a laxative. Patient agreed to take the medication. We increased the [place] 01/3252 to [place] 7.5/325 mg. She reports being able to tolerate the soft mechanical diet, no vomiting and no nausea, Possible discharge tomorrow. Objective vital signs Vital Sign Date Time Temp Pulse Resp B/P (MAP) Pulse Ox O2 Delivery O2 Flow Rate FiO2 07/12/25 08:48 97.4 75 14 111/72 (85) 95 97.4 07/12/25 08:00 Room Air* 0 21 Total Intake and Output 07/11/25 07/11/25 07/12/25 15:00 23:00 07:00 Intake Total 50 ml 560 ml 1200 ml Balance 50 ml 560 ml 1200 ml medications Current Medications Medications Dose Ordered Sig/Wanda Route Start Time Stop Time Status Last Admin Dose Admin Ondansetron HCl 4 mg Q4HP PRN IV 07/09/25 22:30 Ceftriaxone Sodium 50 ml @ 100 mls/hr DAILY@09 IV 07/10/25 09:00 07/12/25 09:20 100 MLS/HR Mesalamine 800 mg TID PO 07/10/25 06:00 07/12/25 06:15 800 MG Lorazepam 1 mg BID PO 07/10/25 10:00 07/12/25 09:20 1 MG Pantoprazole Sodium 40 mg DAILY PO 07/10/25 10:00 07/12/25 09:20 40 MG Zolpidem Tartrate 10 mg HS PO 07/10/25 22:00 07/11/25 21:27 10 MG Metronidazole 100 ml @ 100 mls/hr Q8HR IV 07/10/25 06:00 07/12/25 06:14 100 MLS/HR Hydrocortisone 100 mg HS GA 07/11/25 22:00 Quetiapine Fumarate 400 mg DAILY PO 07/12/25 22:00 Acetaminophen/ Hydrocodone Bitart 1 tab Q4HP PRN PO 07/12/25 14:30 UNV Examination General: Patient alert and oriented in person, place and time. Patient following commands. HEENT: Normocephalic, atraumatic, moist mucous membranes Respiratory/pulmonary: Clear lungs bilaterally, vesicular murmurs present in almost all lung moreno, no associated crackles or wheezes. Cardiovascular: Normal heart sounds S1 and S2 with no associated murmurs Abdomen: Diffuse abdominal tenderness on deep palpation. Tenderness around umbilicus on light palpation. Extremities: There is no peripheral edema present at the lower extremities. Peripheral Pulses: 3+ Radial (R). 3+ Radial (L). 3+ Dorsalis pedis (R). 3+ Dorsalis pedis(L) Skin: No rashes or pruritus, there is no sacral edema present at this time. Neurological: Intact cranial nerves with no focal neurologic deficits laboratory and microbiology Laboratory Tests 07/12/25 07:16 Test 07/12/25 07:16 Range/Units Serum Glucose 95 74-106 mg/dL Microbiology Date/Time Source Procedure Growth Status 07/09/25 20:33 Voided Urine Urine Culture - Final Complete Labs and/or images reviewed: Labs reviewed by me, Image(s) reviewed by me Problem List/Assessment/Plan Problem List/Assessment/Plan #Probable Ulcerative colitis/ Crohn's flare-up #Gastritis #Esophagitis #Sliding hiatal hernia #S/p hyperplastic polyp excision -Mesalamine 800 mg t.i.d. p.o. -Stool WBC, culture, SOB, C diff ordered -soft mechanical diet -IV fluids -Colonoscopy from 05/05/2025 shows 2 mm benign hyperplastic rectal polyp, minimal nonspecific colitis with loss of haustration, normal cecum and terminal ileum -Upper GI endoscopy from 03/24 shows DVT is 1 cm sliding hiatal hernia with erosive esophagitis, mild gastritis and 2nd and 3rd part of duodenum -ordered hydrocortisone enema -norco increased from 5 to 7.5/325mg #Insomnia #Anxiety and depression -Continue home medication Ativan, Ambien, Seroquel DIET: mechanical soft diet DVT PROPHYLAXIS: Lovenox GI PROPHYLAXIS: Protonix Patient's status and plan discussed with the patient. Case discussed with Dr. Sandoval Plan discussed with: Patient My Orders My Orders Orders - RICHI GREENE Procedure Category Date Status Time Hydrocodone-Acet PHA 07/12/25 Logged 7.5/325mg Tab ([place] 14:30 Date of Service: Jul 12, 2025 Billing Provider: JANNY SANDOVAL MD, SREYA RESIDENT Jul 12, 2025 14:31
[2025-07-12] MEDS: HYDROcodone-ACET 7.5/325MG TAB PO PRN (15:48)
[2025-07-13 05:00] VITALS: BP 100/67; PULSE 97; RESP 16; TEMP 97; O2SAT 99
[2025-07-13 08:00] VITALS: PULSE 85; RESP 15
[2025-07-13 08:09] LABS: Hematocrit 43.4 % (36.0-46.0); Hemoglobin 15.0 g/dL (12.2-16.2); Mean Corpuscular Hemoglobin 32.1 pg (28.0-32.0); Mean Corpuscular Volume 93.0 fL (80.0-100.0); Nucleated Red Blood Cells % 0.1 %
[2025-07-13 08:17] LABS: Anion Gap 11 (5-15); Carbon Dioxide 22 mmol/L (20-31); Potassium 4.0 mmol/L (3.5-5.1); Sodium 142 mmol/L (136-145)
[2025-07-13 08:18] LABS: Calcium 8.9 mg/dL (8.7-10.4)
[2025-07-13 08:23] LABS: BUN/Creatinine Ratio 10.0 (10.0-20.0); Glucose 98 mg/dL (74-106)
[2025-07-13 08:25] LABS: Blood Urea Nitrogen 8 mg/dL (9-23); Chloride 109 mmol/L (98-107)
[2025-07-13 09:28] VITALS: BP 104/72; PULSE 85; RESP 15; TEMP 98.4; O2SAT 98
[2025-07-13] MEDS ORDERED: LORA-1121 PO ×2 (13:42→16:50)
[2025-07-13 13:44] VITALS: BP 114/77; PULSE 98; RESP 16; TEMP 98.1; O2SAT 100
--- NOTE | 2025-07-13 13:51 | DVHDSRES ---
Discharge Summary Date of Admission Resident Creating Document: RICHI GREENE RESIDENT Jul 09, 2025 at 22:22 Date of Discharge: Jul 13, 2025 Admitting Diagnosis Ulcerative colitis Labs/Diagnostic Data: Laboratory Results Test 07/13/25 07:53 07/12/25 07:16 07/09/25 20:33 07/09/25 16:31 White Blood Count 5.2 10^3/uL (4.4-10.8) Red Blood Count 4.67 10^6/uL (4.0-5.20) Hemoglobin 15.0 g/dL (12.2-16.2) Hematocrit 43.4 % (36.0-46.0) Mean Corpuscular Volume 93.0 fL (80.0-100.0) Mean Corpuscular Hemoglobin 32.1 pg (28.0-32.0) Mean Corpuscular Hemoglobin Concent 34.5 g/dL (32.0-36.0) Red Cell Distribution Width 13.8 % (11.8-14.3) Platelet Count 292 10^3/uL (140-450) Mean Platelet Volume 7.3 fL (6.9-10.8) Neutrophils (%) (Auto) 47.6 % (37.0-80.0) Lymphocytes (%) (Auto) 40.5 % (10.0-50.0) Monocytes (%) (Auto) 8.0 % (0.0-12.0) Eosinophils (%) (Auto) 2.8 % (0.0-7.0) Basophils (%) (Auto) 1.1 % (0.0-2.0) Neutrophils # (Auto) 2.5 10 ^3/uL (1.6-8.6) Lymphocytes # (Auto) 2.1 10 ^3/uL (0.4-5.4) Monocytes # (Auto) 0.4 10 ^3/uL (0-1.3) Eosinophils # (Auto) 0.1 10 ^3/uL (0-0.8) Basophils # (Auto) 0.1 10 ^3/uL (0-0.2) Nucleated Red Blood Cells 0.1 % Sodium Level 142 mmol/L (136-145) Potassium Level 4.0 mmol/L (3.5-5.1) Chloride Level 109 mmol/L (98-107) Carbon Dioxide Level 22 mmol/L (20-31) Anion Gap 11 (5-15) Blood Urea Nitrogen 8 mg/dL (9-23) Creatinine 0.80 mg/dL (0.550-1.02) Glomerular Filtration Rate Calc 91 mL/min (>90) BUN/Creatinine Ratio 10.0 (10.0-20.0) Serum Glucose 98 mg/dL (74-106) Calcium Level 8.9 mg/dL (8.7-10.4) Magnesium Level 2.0 mg/dL (1.6-2.6) Total Bilirubin 0.4 mg/dL (0.2-1.0) Aspartate Amino Transferase (AST) 14 U/L (13-40) Alanine Aminotransferase (ALT) 18 U/L (7-40) Alkaline Phosphatase 124 U/L (46-116) Total Protein 6.3 g/dL (5.7-8.2) Albumin 3.8 g/dL (3.2-4.8) Urine Opiates Screen Neg (NEGATIVE) Urine Fentanyl Screen Neg (NEGATIVE) Urine Barbiturates Screen Neg (NEGATIVE) Urine Phencyclidine Screen Neg (NEGATIVE) Urine Amphetamines Screen Neg (NEGATIVE) Urine Benzodiazepines Screen Neg (NEGATIVE) Urine Cocaine Screen Neg (NEGATIVE) Urine Cannabinoids Screen Neg (NEGATIVE) Prothrombin Time 10.7 sec (9.3-11.8) Prothrombin Time INR 1.01 (0.9-1.15) Activated Partial Thromboplast Time 28.8 SEC (24.5-34.5) Hemoglobin A1c 5.3 % A1C (<5.7) Lactic Acid Level 1.2 mmol/L (0.4-2.0) Phosphorus Level 3.4 mg/dL (2.4-5.1) Direct Bilirubin 0.2 mg/dL (<0.3) Troponin I High Sensitivity < 3 ng/L (</=34) C-Reactive Protein High Sensitivity 0.21 mg/dL (<1.0) Triglycerides Level 135 mg/dL (< 150) Cholesterol Level 201 mg/dL (< 200) LDL Cholesterol 147 mg/dL (< 100) HDL Cholesterol 54 mg/dL (40-59) Lipase 42 U/L (12-53) Vitamin B12 Level 436 pg/mL (211-911) Vitamin D 25-Hydroxy 25.9 ng/mL (30.0-100) Thyroid Stimulating Hormone (TSH) 0.61 uIU/mL (0.55-4.78) Test 07/09/25 16:15 Urine Color Yellow (Yellow) Urine Clarity Clear (Clear) Urine pH 6.5 (5.0-9.0) Urine Specific [place] 1.031 (1.001-1.035) Urine Protein Trace (Negative) Urine Ketones Trace (Negative) Urine Blood 1+ /uL (Negative) Urine Nitrite Negative (Negative) Urine Bilirubin Negative (Negative) Urine Urobilinogen Normal mg/dL (Negative) Urine Leukocyte Esterase Negative /uL (Negative) Urine RBC 5 /hpf (0 - 4) Urine Microscopic WBC 14 /HPF (0-5) Urine Squamous Epithelial Cells Few /hpf (<5) Urine Bacteria None seen /hpf (None Seen) Urine Mucus Few (None Seen) Urine Glucose Normal mg/dL (Normal) Other Laboratory Tests 07/13/25 07:53 Brief Hx & Hospital Course: A 49-year-old female with past medical history of inflammatory bowel disease, GERD, anxiety, depression, insomnia, recurrent kidney stones with hydronephrosis, presented to the ER with chief complain of abdominal pain, vomiting, diarrhea. Patient reports that the pain and diarrhea started 5 days back, pain is described as diffuse, sharp, cramp like, 10/10, worsens with eating, unable to keep any food or liquid down, progressively worsening since the last 2 days. Diarrhea started 5 days ago with more than 8 episodes daily, initially light colored now turned into dark stools which isn't black however, mucus present, no blood seen. Patient also complained of vomiting 3 times since yesterday. Patient also complained of worsening insomnia, anxiety, depression and has associated dizziness and palpitations. She reports subjective fever, chills, 3 lb weight loss since last week. She also reported burning and painful micturition, with increased frequency for the last few weeks. Previous hospitalization: In April 2025 in [facility] for a inflammatory bowel disease flare-up PMHx: UC/Crohn's disease, GERD, anxiety, depression, insomnia, recurrent kidney stones with hydronephrosis PSHx: Tubal ligation, cholecystectomy, EGD and Colonospy which showed no colitis (gastritis) Social history: Denies smoking, alcohol, recreational drug use. Lives in house with family, full code, next to kin is son and daughter. Home medication: Ativan, Ambien, Seroquel Allergic history: Protein, morphine Code status: full code Brief history of hospitalization: Patient came in due to probable ulcerative colitis flare up. A CT of the abdomen and pelvis with IV contrast showed chronic changes related to prior proctocolitis, nonobstructing ilateral ower pole renal stones and mild hepatic steatosis. She has a history of esophagitis and sliding hiatal hernia, status post hyperplastic polyp excision. We started her on mesalamine 800 mg t.i.d. p.o. and IV fluids. She was able to tolerate a soft mechanical diet which we have continued during hospitalization. The frequency of her diarrhea has decreased, in her abdominal cramping has improved as well. We continue to monitor the patient and offered hydrocortisone enema with the patient refused it on both days. throughout the hospitalization we have given her GI prophylaxis with Protonix 40 mg per orally daily as well as DVT prophylaxis Lovenox 40 mg subcutaneously daily. For her insomnia, anxiety and depression we continued with the home medications of Ativan, Ambien, Seroquel. patient has a high BMI of 34.5 in his morbidly obese, we have counseled her regarding the need of exercise, lifestyle modification and importance of weight loss. Patient is now stable and can be discharged home. Patient communicated understanding and has agreed to the discharge plan. We have asked her to follow up with her primary care physician in 1 week, professor of pathology within 2 weeks to follow up at [facility] within 2 weeks as well. She has been counseled to take mesalamine 800 mg 3 times a day until she meets the professor of pathology General: Patient alert and oriented in person, place and time. Patient following commands. HEENT: Normocephalic, atraumatic, moist mucous membranes Respiratory/pulmonary: Clear lungs bilaterally, vesicular murmurs present in almost all lung moreno, no associated crackles or wheezes. Cardiovascular: Normal heart sounds S1 and S2 with no associated murmurs Abdomen: Diffuse abdominal tenderness on deep palpation. Tenderness around umbilicus on light palpation. Extremities: There is no peripheral edema present at the lower extremities. Peripheral Pulses: 3+ Radial (R). 3+ Radial (L). 3+ Dorsalis pedis (R). 3+ Dorsalis pedis(L) Skin: No rashes or pruritus, there is no sacral edema present at this time. Neurological: Intact cranial nerves with no focal neurologic deficits Operations or Procedures PROCEDURE(s): ABPLIV - CT AB PEL WITH IV CON ONLY REASON: Abdominal pain/ Hx of ulcerative colitis CLINICAL HISTORY: Abdominal pain/ Hx of ulcerative colitis IMPRESSION: No acute abnormality. 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 Nonobstructing bilateral lower pole renal stones. Mild hepatic steatosis. Condition at Discharge: Stable Final Diagnosis/Problems List #Acute Ulcerative colitis flare-up #Gastritis #Esophagitis #Sliding hiatal hernia #S/p hyperplastic polyp excision #Insomnia #Anxiety and depression #Nonobstructing bilateral lower pole renal stones. #Mild hepatic steatosis. #Morbid obesity, BMI 34.5 Discharge Disposition: Home Discharge Instruct/Medications Diet: Consistent carbohydrate, Cardiac 2g Na,low cholest Activity: No Restrictions, As Tolerated Follow Up/Referral: Follow up with primary care physician in 10 days Follow up at discharge clinic within 2 weeks Follow up with professor of pathology as soon as possible Medications: Mesalamine 800 mg 3 times a day for 30 days/ until patient meets professor of pathology Resume all home medications Scheduled Lorazepam (Ativan Tablet), 2 TAB PO BID, (Reported) Lorazepam (Ativan), 1 TAB PO DAILY Lorazepam (Ativan Tablet), 1 TAB PO BID Nitrofurantoin Monohydrate Mac (Macrobid), 100 MG PO BID Pantoprazole Sodium Sesquihydr (Protonix), 40 MG PO DAILY Prednisone (Prednisone), 40 MG PO DAILY Probiotic Product (Florastor Plus), 1 CAP PO DAILY Quetiapine Fumerate (Seroquel), 300 MG PO DAILY Zolpidem Tartrate (Ambien), 10 MG PO DAILY Scheduled PRN Zolpidem Tartrate (Zolpidem Tartrate), 1 TAB PO QHSP PRN, (Reported) Discharge Statement: "Patient was advised to return to the ER or call 911 if any headaches, dizziness, shortness of breath, chest pain, abdominal pain, bleeding, fevers, or worsening of medical condition. Patient was counseled about treatment plan, medications, possible side effects, patientverbalized understanding. All questions were answered to the best of my ability. This discharge took greater then 30 minutes in planning, reviewing documentation, counseling the patient, and discussing with other team members." ASSESSMENT ASSESSMENT Assessment #Acute Ulcerative colitis flare-up Date of Service: Jul 13, 2025 Billing Provider: JANNY SANDOVAL MD, SREYA RESIDENT Jul 13, 2025 13:51
[2025-07-13] MEDS ORDERED: QUET400T PO ×2 (16:26→16:32)
[2025-07-13] MEDS ORDERED: MESA800T9 PO ×2 (16:26→16:32)
[2025-07-13 16:50] VITALS: BP 117/87; PULSE 92; RESP 16; TEMP 98.6; O2SAT 97
[2025-07-13 17:01] VITALS: BP 117/87; PULSE 92; RESP 16; TEMP 37; O2SAT 97
== END 2025-07-13 18:30 | disposition home or self-care (01) | DRG 245 ==
LOC: ER 13:42 → EDBD 13:42 → OVERFLOW 22:22 → EAST 07-10 18:46
PROVIDERS: ADMIT Student in an Organized Health Care Education/Training Program; ATTEND Emergency Medicine
DX: K51.90 Ulcerative colitis, unspecified, without complications (principal); E66.01 Morbid (severe) obesity due to excess calories; F32.A Depression, unspecified; K76.0 Fatty (change of) liver, not elsewhere classified; Z68.34 Body mass index [BMI] 34.0-34.9, adult; N39.0 Urinary tract infection, site not specified; F41.9 Anxiety disorder, unspecified; G47.00 Insomnia, unspecified; K44.9 Diaphragmatic hernia without obstruction or gangrene; Z88.5 Allergy status to narcotic agent; Z87.442 Personal history of urinary calculi; Z90.49 Acquired absence of other specified parts of digestive tract
CPT/HCPCS: 36415; 74177; 80048; 80053; 80061; 80076; 80307; 81001; 82306; 82607; 83036; 83605; 83690; 83735; 84100; 84443; 84484; 85025; 85610; 85730; 86141; 87086; 96361; 96365; 96375; G0378; J1885; J3490; Q0162

== ENCOUNTER 2025-07-16 07:55 | Emergency (ER) | payer MEDICAID ==
[~2025-07-16] VITALS: Ht 172.7 cm; Wt 81.8 kg
[~2025-07-16 07:55] MED LIST changes: +MESA800T9 PO; +QUET400T PO
--- NOTE | 2025-07-16 08:13 | ED.PDOC ---
GI ASSESSMENT HPI Comments 49 y.o female with PMHx of UC/Crohn's disease, GERD, anxiety, depression, insomnia, recurrent kidney stones with hydronephrosis, presents to the ED via EMS for a chief complaint of epigastric pain associated with nausea and diarrhea that started 1 week ago. Patient describes pain as sharp and cramping in nature, states it is constant and non radiating with a pain rate of 10/10. Patient was admitted at this facility for 4 days last week and d/c with a diagnose of acute chronic ulcerative colitis. She was rx Mesalamine 800 mg TID x 30 days and was told to f/u with dry kiln feeder for further work up. Patient reports unable to eat given pain that has become unbearable. Patient denies any vomiting, f ever, chills, rectal bleeding. Time Seen by MD: 08:01 Primary Care Provider: UNKNOWN Reviewed Notes: Nurses Notes, Java Programmer Analyst Notes, Medications, Allergies Allergies: Coded Allergies: Codeine (Verified Allergy, Unknown, HIVES, 07/11/25) Morphine (Verified Allergy, Unknown, HIVES, 07/11/25) Home Meds Active Scripts Sulfamethoxazole W/Trimethopri (Bactrim Ds Tablet) 1 Tab Tb, 1 TAB PO BID for 5 Days, #10 TAB Prov:RUSSELL POOL MD 07/16/25 Lorazepam (ATIVAN TABLET) 0.5 Mg Tb, 1 TAB PO BID PRN for 10 Days, #20 TAB Prov:JANNY SANDOVAL MD 07/13/25 Quetiapine Fumerate (Seroquel) 400 Mg Tab, 1 TAB PO QPM for 10 Days, #10 TAB Prov:ARUNA PADILLA RESIDENT 07/13/25 Mesalamine (Mesalamine Dr) 800 Mg Tab, 800 MG PO TID for 30 Days, #90 TAB Prov:ARUNA PADILLA 07/13/25 Zolpidem Tartrate (Ambien) 10 Mg Tab, 10 MG PO DAILY for 5 Days, #5 TAB Prov:CARMELA SALCIDO 07/04/25 Quetiapine Fumerate (Seroquel) 300 Mg Tab, 300 MG PO DAILY for 10 Days, #10 TAB Prov:RUSSELL POOL MD 06/27/25 Lorazepam (Ativan) 0.5 Mg Tab, 1 TAB PO DAILY for 10 Days, #10 TAB Prov:RUSSELL POOL MD 06/27/25 Nitrofurantoin Monohydrate Mac (Macrobid) 100 Mg Cap, 100 MG PO BID for 7 Days, #14 CAP Prov:RUSSELL POOL MD 06/27/25 Prednisone (Prednisone) 20 Mg Tab, 40 MG PO DAILY for 5 Days, #10 MG 0 Refills Prov:HEAVENLY DELACRUZ MD 06/14/25 Probiotic Product (Florastor Plus) 1 Cap Cap, 1 CAP PO DAILY for 30 Days, #30 CAP 0 Refills Prov:HEAVENLY DELACRUZ MD 06/14/25 Pantoprazole Sodium Sesquihydr (Protonix) 40 Mg Tab, 40 MG PO DAILY for 30 Days, #30 TAB 0 Refills Prov:HEAVENLY DELACRUZ MD 06/14/25 Reported Medications Zolpidem Tartrate (Zolpidem Tartrate) 10 Mg Tab, 1 TAB PO QHSP PRN 05/04/25 Lorazepam (ATIVAN TABLET) 0.5 Mg Tb, 2 TAB PO BID, #30 TAB 03/31/25 Information Source: Patient Mode of Arrival: EMS Timing: Weeks (1) Duration: Since onset Quality: Cramping, Sharp Vomitus: None Stool: Loose Severity: Moderate Recent: None Recent Hx of: None Pain Location: Epigastric Modifying Factors: Nothing Associated sign and symptoms: Nausea, Diarrhea, Abdominal Pain Past Medical History PAST MEDICAL HISTORY: Anxiety, Depression, Kidney Stones, UTI'S Past Medical History (Other): UC/Crohn's disease Surgical History: Cholecystectomy, Tubal Ligation POSTPARTUM RN History: Denies all POSTPARTUM RN Hx Family History Family History: Reviewed,noncontributory to illness, Family hx of DM, Family hx of heart khoa Social History Smoker: Non-Smoker Alcohol: Denies ETOH Use Drugs: Denies Drug Use Lives In: Home Constitutional: denies: chills, diaphoresis, fatigue, fever, malaise, sweats, weakness, others EENTM: denies: blurred vision, double vision, ear bleeding, ear discharge, ear drainage, ear pain, ear ringing, eye pain, eye redness, hearing loss, mouth pain, mouth swelling, nasal discharge, nose bleeding, nose congestion, nose pain, photophobia, tearing, throat pain, throat swelling, voice changes, others Respiratory: denies: cough, hemoptysis, orthopnea, SOB at rest, shortness of breath, SOB with excertion, stridor, wheezing, others Cardiovascular: denies: chest pain, dizzy spells, diaphoresis, Dyspnea on exertion, edema, irregular heart beat, left arm pain, lightheadedness, palpitations, PND, syncope, others Gastrointestinal: reports: abdominal pain, diarrhea, nausea; denies: abdomen distended, blood streaked bowels, constipated, dysphagia, difficulty swallowing, hematemesis, melena, poor appetite, poor fluid intake, rectal bleeding, rectal pain, vomiting, others Genitourinary: denies: abnormal vagina bleeding, burning, dyspareunia, dysuria, flank pain, frequency, hematuria, incontinence, pain, , vagina discharge, urgency, others Neurological: denies: dizziness, fainting, headache, left sided numbness, left sided weakness, numbness, paresthesia, pre-existing deficit, right sided numbness, right sided weakness, seizure, speech problems, tingling, tremors, weakness, others Musculoskeletal: denies: back pain, gout, joint pain, joint swelling, muscle pain, muscle stiffness, neck pain, others Integumetry: denies: bruises, change in color, change in hair/nails, dryness, laceration, lesions, lumps, rash, wounds, others Allergic/Immunocompromised: denies: Difficulty Healing, Frequent Infections, Hives, Itching, others Hematologic/Lymphatic: denies: anemia, blood clots, easy bleeding, easy bruising, swollen glands, others Endocrine: denies: excessive hunger, excessive sweating, excessive thirst, excessive urination, flushing, intolerance to cold, intolerance to heat, unexplained weight gain, unexplained weight loss, others Psychiatric: denies: anxiety, bipolar disorder, depression, hopeless, panic disorder, schizophrenia, sleepless, suicidal, others All Other Systems: Reviewed and Negative Physical Exam General Appearance: Moderate Distress HEENT: Normal ENT Inspection, Pharynx Normal, TMs Normal Neck: Full Range of Motion, Non-Tender, Normal, Normal Inspection Respiratory: Chest Non-Tender, Lungs Clear, No Accessory Muscle Use, No Respiratory Distress, Normal Breath Sounds Cardiovascular: No Edema, No JVD, No Murmur, No Gallop, Normal Peripheral Pulses, Regular Rate/Rhythm Breast Exam: Deferred Gastrointestinal: No Organomegaly, Non Tender, No Pulsatile Mass, Normal Bowel Sounds, Soft Genitalia: Deferred Pelvic: Deferred Rectal: Deferred Extremities: No calf tenderness, Normal capillary refill, Normal inspection, Normal range of motion, Non-tender, No pedal edema Musculoskeletal : Apperance: Normal Neurologic: Alert, insulation board back tender II-XII nml as Tested, No Motor Deficits, Normal Affect, Normal Mood, No Sensory Deficits Cerebellar Function: NOT DONE Reflexes: NOT DONE Skin: Dry, Normal Color, Warm Peripheral Pulses: 3+ Radial (R), 3+ Radial (L) Lymphatic: No Adenopathy Was a procedure done? Was a procedure done?: No GI differential Dx Differential Diagnosis: Constipation, Esophagitis, Gastroenteritis, Inflammatory BD, Dehydration, Electrolyte Imbalance, Viral X-Ray, Labs, Meds, VS Vital Signs Date Time Temp Pulse Resp B/P (MAP) Pulse Ox O2 Delivery O2 Flow Rate FiO2 07/16/25 08:49 98.2 116 18 104/59 (74) 99 98.2 07/16/25 08:49 116 18 99 Room Air 07/16/25 08:03 97.7 126 18 146/96 96 97.7 Lab Test 07/16/25 09:22 07/16/25 08:19 Range/Units Urine Color Light-yellow Yellow Urine Clarity Clear Clear Urine pH 6.0 5.0-9.0 Urine Specific [place] 1.021 1.001-1.035 Urine Protein Trace H Negative Urine Ketones Negative Negative Urine Blood 1+ H Negative /uL Urine Nitrite Negative Negative Urine Bilirubin Negative Negative Urine Urobilinogen Normal Negative mg/dL Urine Leukocyte Esterase 3+ Negative /uL Urine RBC 4 0 - 4 /hpf Urine Microscopic WBC 17 H 0-5 /HPF Urine Squamous Epithelial Cells Few <5 /hpf Urine Calcium Oxalate Crystals Few None Seen Urine Bacteria None seen None Seen /hpf Urine Mucus Few None Seen Urine Glucose Normal Normal mg/dL White Blood Count 7.2 # 4.4-10.8 10^3/uL Red Blood Count 4.99 4.0-5.20 10^6/uL Hemoglobin 16.0 12.2-16.2 g/dL Hematocrit 47.1 H 36.0-46.0 % Mean Corpuscular Volume 94.4 80.0-100.0 fL Mean Corpuscular Hemoglobin 32.1 H 28.0-32.0 pg Mean Corpuscular Hemoglobin Concent 34.0 32.0-36.0 g/dL Red Cell Distribution Width 14.1 11.8-14.3 % Platelet Count 323 140-450 10^3/uL Mean Platelet Volume 7.4 6.9-10.8 fL Neutrophils (%) (Auto) 51.7 37.0-80.0 % Lymphocytes (%) (Auto) 37.2 10.0-50.0 % Monocytes (%) (Auto) 8.3 0.0-12.0 % Eosinophils (%) (Auto) 1.9 0.0-7.0 % Basophils (%) (Auto) 0.9 0.0-2.0 % Neutrophils # (Auto) 3.7 1.6-8.6 10 ^3/uL Lymphocytes # (Auto) 2.7 0.4-5.4 10 ^3/uL Monocytes # (Auto) 0.6 0-1.3 10 ^3/uL Eosinophils # (Auto) 0.1 0-0.8 10 ^3/uL Basophils # (Auto) 0.1 0-0.2 10 ^3/uL Nucleated Red Blood Cells 0.1 % Sodium Level 143 136-145 mmol/L Potassium Level 3.5 3.5-5.1 mmol/L Chloride Level 110 H 98-107 mmol/L Carbon Dioxide Level 22 20-31 mmol/L Anion Gap 11 5-15 Blood Urea Nitrogen 10 9-23 mg/dL Creatinine 0.88 0.550-1.02 mg/dL Glomerular Filtration Rate Calc 81 >90 mL/min BUN/Creatinine Ratio 11.4 10.0-20.0 Serum Glucose 159 H 74-106 mg/dL Calcium Level 8.7 8.7-10.4 mg/dL Current Medications Medications (Trade) Dose Ordered Sig/Wanda Route Start Time Stop Time Status Last Admin Sodium Chloride 1,000 ml @ 1,000 mls/hr Q1H ONCE IV 07/16/25 08:15 07/16/25 09:14 DC 07/16/25 08:15 Ondansetron HCl (Zofran) 4 mg ONCE ONCE IV 07/16/25 09:00 07/16/25 09:01 DC 07/16/25 11:37 Sodium Chloride 1,000 ml @ 1,000 mls/hr Q1H ONCE IVB 07/16/25 09:00 07/16/25 09:59 DC 07/16/25 11:38 Lorazepam (Ativan Inj) 1 mg ONCE ONCE IV 07/16/25 09:00 07/16/25 09:01 DC 07/16/25 11:37 Patient alert. Complaining of abdominal discomfort. Was just discharged from this hospital. Vitals stable. Answering questions. WBC within normal limits. Abdomen is soft nontender. Moving all extremities. Not in distress. She is anxious. UA shows UTI. Blood sugar elevated. She was given prescription of Bactrim. Saturation pristine on room air. Explained to the patient. Was told to follow up with her primary care physician. Was told to come back if there is any problem. Time of 1ST Reevaluation: 08:05 Reevaluation 1ST: Improved Patient Education/Counseling: Diagnosis, Treatment, Prognosis Family Education/Counseling: No Family Present SEPSIS Sepsis Screen Vital Signs Date Time Temp Pulse Resp B/P (MAP) Pulse Ox O2 Delivery O2 Flow Rate FiO2 07/16/25 08:49 98.2 116 18 104/59 (74) 99 98.2 07/16/25 08:49 116 18 99 Room Air 07/16/25 08:03 97.7 126 18 146/96 96 97.7 Laboratory Tests Test 07/16/25 08:19 White Blood Count 7.2 10^3/uL (4.4-10.8) # Medications Medications Dose Ordered Sig/Wanda Route Start Time Stop Time Status Last Admin Dose Admin Lorazepam 1 mg ONCE ONCE IV 07/16/25 09:00 07/16/25 09:01 DC 07/16/25 11:37 Ondansetron HCl 4 mg ONCE ONCE IV 07/16/25 09:00 07/16/25 09:01 DC 07/16/25 11:37 Sodium Chloride 1,000 ml @ 1,000 mls/hr Q1H ONCE IV 07/16/25 08:15 07/16/25 09:14 DC 07/16/25 08:15 Sodium Chloride 1,000 ml @ 1,000 mls/hr Q1H ONCE IVB 07/16/25 09:00 07/16/25 09:59 DC 07/16/25 11:38 Departure 1 Departure Time of Disposition: 08:46 Impression: Primary Impression: Uncontrolled diabetes mellitus Qualified Codes: E13.65 - Other specified diabetes mellitus with hyperglycemia Additional Impression: Urinary tract infection Qualified Codes: N30.00 - Acute cystitis without hematuria Disposition: 01 HOME / SELF CARE / HOMELESS Condition: Good e-Prescriptions Zolpidem Tartrate (Ambien) 10 Mg Tab 1 TAB PO QPM for 5 Days, #5 TAB 5 Refills Prov: RUSSELL POOL MD 07/16/25 Sulfamethoxazole W/Trimethopri (Bactrim Ds Tablet) 1 Tab Tb 1 TAB PO BID for 5 Days, #10 TAB Prov: RUSSELL POOL MD 07/16/25 Discharged With: Self Critical Care Note Critical Care Time?: No Stability Stability form required: No I personally scribed for RUSSELL POOL MD ([email or web address]) on 07/16/25 at 08:13. Electronically submitted by Klaudia Melissa ([facility]). RUSSELL POOL MD Jul 16, 2025 08:13
[2025-07-16] MEDS: SODIUM CHLORIDE 0.9% 1,000 ML IV ONE (08:15)
[2025-07-16 08:35] LABS: Hematocrit 47.1 % (36.0-46.0); Hemoglobin 16.0 g/dL (12.2-16.2); Mean Corpuscular Hemoglobin 32.1 pg (28.0-32.0); Mean Corpuscular Volume 94.4 fL (80.0-100.0); Nucleated Red Blood Cells % 0.1 %
[2025-07-16 08:40] LABS: Potassium 3.5 mmol/L (3.5-5.1); Sodium 143 mmol/L (136-145)
[2025-07-16 08:41] LABS: Anion Gap 11 (5-15); Calcium 8.7 mg/dL (8.7-10.4); Carbon Dioxide 22 mmol/L (20-31); Chloride 110 mmol/L (98-107)
[2025-07-16 08:46] LABS: BUN/Creatinine Ratio 11.4 (10.0-20.0); Blood Urea Nitrogen 10 mg/dL (9-23); Glucose 159 mg/dL (74-106)
[2025-07-16 08:49] VITALS: BP 104/59; PULSE 116; RESP 18; TEMP 98.2; O2SAT 99
[2025-07-16 09:47] LABS: Urine Protein, UAD TRACE (Negative)
[2025-07-16] MEDS ORDERED: BACDST PO (10:14)
[2025-07-16] MEDS: ONDANSETRON HCL 4 MG/2 ML VIAL IV ONE (11:37)
[2025-07-16] MEDS: LORazepam 2MG/ML-1ML VIAL IV ONE (11:37)
[2025-07-16] MEDS: SODIUM CHLORIDE 0.9% 1,000 ML IVB ONE (11:38)
[2025-07-16] MEDS ORDERED: ZOLP10TA PO (12:49)
== END 2025-07-16 13:04 | disposition home or self-care (01) ==
LOC: EDBD 07:55 → ER 07:55 → EDUNIT# 07:55 → ER 13:04
DX: N39.0 Urinary tract infection, site not specified (principal); E11.65 Type 2 diabetes mellitus with hyperglycemia; F41.9 Anxiety disorder, unspecified; F32.A Depression, unspecified; Z79.899 Other long term (current) drug therapy; Z87.440 Personal history of urinary (tract) infections; Z87.442 Personal history of urinary calculi; Z90.49 Acquired absence of other specified parts of digestive tract; Z98.51 Tubal ligation status; Z88.5 Allergy status to narcotic agent
CPT/HCPCS: 36415; 80048; 81001; 85025; 96361; 96374; 96375; 99284; J2060; J2405; J7030

== ENCOUNTER 2025-07-24 11:23 | Emergency (ER) | payer MEDICAID ==
[~2025-07-24] VITALS: Ht 154.9 cm; Wt 82.1 kg
[~2025-07-24 11:23] MED LIST changes: +BACDST PO
[2025-07-24 11:27] VITALS: BP 117/78; PULSE 95; RESP 18; TEMP 98.1; O2SAT 99
--- NOTE | 2025-07-24 12:41 | ED.PDOC ---
History of Present Illness HPI Comments A 49 YEAR OLD FEMALE PRESENTS TO THE ED WITH COMPLAINT OF MEDICATION REFILL. PT STATES SHE RAN OUT OF HER ANXIETY AND INSOMNIA MEDICATIONS AND NEEDS REFILLS. PATIENT DENIES SI/HI, FEVER, CHILLS, SHORTNESS OF BREATH, CHEST PAIN, ABDOMINAL PAIN, NAUSEA, VOMITING, HEADACHE, OR OTHER COMPLAINTS. NO OTHER SYMPTOMS OR MODIFYING FACTORS AT THIS TIME. PATIENT IS ALERT, ORIENTED X 4, AND HAS STEADY GAIT. Chief Complaint: Anxiety Time Seen by MD: 12:39 Primary Care Provider: UNKNOWN Reviewed Notes: Nurses Notes, Medications, Allergies Allergies: Coded Allergies: Codeine (Verified Allergy, Unknown, HIVES, 07/11/25) Morphine (Verified Allergy, Unknown, HIVES, 07/11/25) Home Meds Active Scripts Lorazepam (ATIVAN TABLET) 0.5 Mg Tb, 1 TAB PO TID, #15 TAB Prov:WENDY LAND 07/24/25 Quetiapine Fumerate (Seroquel Xr) 400 Mg Tab, 1 TAB PO QPM, #15 TAB Prov:WENDY LAND 07/24/25 Zolpidem Tartrate (Ambien) 10 Mg Tab, 1 TAB PO QPM for 5 Days, #5 TAB 5 Refills Prov:RUSSELL POOL MD 07/16/25 Sulfamethoxazole W/Trimethopri (Bactrim Ds Tablet) 1 Tab Tb, 1 TAB PO BID for 5 Days, #10 TAB Prov:RUSSELL POOL MD 07/16/25 Mesalamine (Mesalamine Dr) 800 Mg Tab, 800 MG PO TID for 30 Days, #90 TAB Prov:ARUNA PADILLA RESIDENT 07/13/25 Zolpidem Tartrate (Ambien) 10 Mg Tab, 10 MG PO DAILY for 5 Days, #5 TAB Prov:CARMELA SALCIDO 07/04/25 Quetiapine Fumerate (Seroquel) 300 Mg Tab, 300 MG PO DAILY for 10 Days, #10 TAB Prov:RUSSELL POOL MD 06/27/25 Lorazepam (Ativan) 0.5 Mg Tab, 1 TAB PO DAILY for 10 Days, #10 TAB Prov:RUSSELL POOL MD 06/27/25 Nitrofurantoin Monohydrate Mac (Macrobid) 100 Mg Cap, 100 MG PO BID for 7 Days, #14 CAP Prov:RUSSELL POOL MD 06/27/25 Prednisone (Prednisone) 20 Mg Tab, 40 MG PO DAILY for 5 Days, #10 MG 0 Refills Prov:HEAVENLY DELACRUZ MD 06/14/25 Probiotic Product (Florastor Plus) 1 Cap Cap, 1 CAP PO DAILY for 30 Days, #30 CAP 0 Refills Prov:HEAVENLY DELACRUZ MD 06/14/25 Pantoprazole Sodium Sesquihydr (Protonix) 40 Mg Tab, 40 MG PO DAILY for 30 Days, #30 TAB 0 Refills Prov:HEAVENLY DELACRUZ MD 06/14/25 Reported Medications Zolpidem Tartrate (Zolpidem Tartrate) 10 Mg Tab, 1 TAB PO QHSP PRN 05/04/25 Lorazepam (ATIVAN TABLET) 0.5 Mg Tb, 2 TAB PO BID, #30 TAB 03/31/25 Discontinued Scripts Lorazepam (ATIVAN TABLET) 0.5 Mg Tb, 1 TAB PO BID PRN for 10 Days, #20 TAB Prov:JANNY SANDOVAL MD 07/13/25 Quetiapine Fumerate (Seroquel) 400 Mg Tab, 1 TAB PO QPM for 10 Days, #10 TAB Prov:ARUNA PADILLA 07/13/25 Information Source: Patient Mode of Arrival: Ambulatory Severity: Mild Timing: Days Duration: Since onset, Days Prehospital treatment: None Medication Refill: Ran out of Medication, For: Psychiatric Past Medical History PAST MEDICAL HISTORY: Anxiety, Depression, Kidney Stones, UTI'S Surgical History: Cholecystectomy, Tubal Ligation [employer] History: Denies all [employer] Hx Family History Family History: Reviewed,noncontributory to illness, Family hx of DM, Family hx of heart khoa Social History Smoker: Non-Smoker Alcohol: Denies ETOH Use Drugs: Denies Drug Use Lives In: Home Constitutional: denies: chills, diaphoresis, fatigue, fever, malaise, sweats, weakness, others EENTM: denies: blurred vision, double vision, ear bleeding, ear discharge, ear drainage, ear pain, ear ringing, eye pain, eye redness, hearing loss, mouth pain, mouth swelling, nasal discharge, nose bleeding, nose congestion, nose pain, photophobia, tearing, throat pain, throat swelling, voice changes, others Respiratory: denies: cough, hemoptysis, orthopnea, SOB at rest, shortness of breath, SOB with excertion, stridor, wheezing, others Cardiovascular: denies: chest pain, dizzy spells, diaphoresis, Dyspnea on exertion, edema, irregular heart beat, left arm pain, lightheadedness, palpi tations, PND, syncope, others Gastrointestinal: denies: abdomen distended, abdominal pain, blood streaked bowels, constipated, diarrhea, dysphagia, difficulty swallowing, hematemesis, melena, nausea, poor appetite, poor fluid intake, rectal bleeding, rectal pain, vomiting, others Genitourinary: denies: abnormal vagina bleeding, burning, dyspareunia, dysuria, flank pain, frequency, hematuria, incontinence, pain, , vagina discharge, urgency, others Neurological: denies: dizziness, fainting, headache, left sided numbness, left sided weakness, numbness, paresthesia, pre-existing deficit, right sided numbness, right sided weakness, seizure, speech problems, tingling, tremors, weakness, others Musculoskeletal: denies: back pain, gout, joint pain, joint swelling, muscle pain, muscle stiffness, neck pain, others Integumetry: denies: bruises, change in color, change in hair/nails, dryness, laceration, lesions, lumps, rash, wounds, others Allergic/Immunocompromised: denies: Difficulty Healing, Frequent Infections, Hives, Itching, others Hematologic/Lymphatic: denies: anemia, blood clots, easy bleeding, easy bru ising, swollen glands, others Endocrine: denies: excessive hunger, excessive sweating, excessive thirst, e xcessive urination, flushing, intolerance to cold, intolerance to heat, unexplained weight gain, unexplained weight loss, others Psychiatric: reports: anxiety; denies: bipolar disorder, depression, hopeless, panic disorder, schizophrenia, sleepless, suicidal, others All Other Systems: Reviewed and Negative Physical Exam General Appearance: No Apparent Distress, Normal HEENT: Normal ENT Inspection, PERRL/EOMI, Pharynx Normal, TMs Normal Neck: Full Range of Motion, Non-Tender, Normal, Normal Inspection Respiratory: Chest Non-Tender, Lungs Clear, No Accessory Muscle Use, No Respiratory Distress, Normal Breath Sounds Cardiovascular: No Edema, No JVD, No Murmur, No Gallop, Normal Peripheral Pulses, Regular Rate/Rhythm Breast Exam: Deferred Gastrointestinal: No Organomegaly, Non Tender, No Pulsatile Mass, Normal Bowel Sounds, Soft Genitalia: Deferred Pelvic: Deferred Rectal: Deferred Extremities: No calf tenderness, Normal capillary refill, Normal inspection, Normal range of motion, Non-tender, No pedal edema Musculoskeletal : Apperance: Normal Neurologic: Alert, rotor winder II-XII nml as Tested, No Motor Deficits, Normal Affect, Normal Mood, No Sensory Deficits Cerebellar Function: Normal Reflexes: Normal Skin: Dry, Normal Color, Warm Peripheral Pulses: 2+ carotid (R), 2+ carotid (L) Lymphatic: No Adenopathy Was a procedure done? Was a procedure done?: No Differential Dx Considerations may include: MEDICATION REFILL, HX OF ANXIETY X-Ray, Labs, Meds, VS Vital Signs Date Time Temp Pulse Resp B/P (MAP) Pulse Ox O2 Delivery O2 Flow Rate FiO2 07/24/25 11:27 98.1 95 18 117/78 99 98.1 X-Ray, Labs, Meds, VS Comment COURSE: EXTERNAL MEDICAL RECORDS REVIEWED: [NONE] INDEPENDENT HISTORIANS: [NONE] SOCIAL DETERMINANTS OF HEALTH: [NONE] LABS ORDERED: NONE REVIEWED AND INTERPRETED RESULTS: NONE IMAGING ORDERED: NONE TREATMENTS ORDERED: NO PROCEDURES PERFORMED: NONE CRITICAL CARE TIME: NONE I HAVE DISCUSSED THE PATIENT WITH THE ATTENDING PHYSICIAN, DR. POOL, HE AGREES WITH THE PATIENT'S PLAN OF CARE AND DISPOSITION. BASED ON HISTORY OF PRESENT ILLNESS, AND PHYSICAL EXAM, PATIENT WILL BE DISCHARGED HOME. DISCUSSED PLAN FOR DISCHARGE HOME WITH RX [ATIVAN 0.5MG]. MEDICATION WARNINGS GIVEN. SHARED DECISION MAKING: DISCUSSED WITH PATIENT THAT THEIR WORKUP WAS NORMAL. PATIENT INSTRUCTED TO FOLLOW UP WITH PRIMARY CARE PROVIDER IN 1-2 DAYS FOR RE- EVALUATION OF SYMPTOMS. PATIENT VERBALIZES UNDERSTANDING TO RETURN TO ED FOR NEW OR WORSENING SYMPTOMS OR IF FOLLOW UP WITH PCP CANNOT BE OBTAINED. PATIENT FEELS COMFORTABLE GOING HOME AT THIS TIME. ALL QUESTIONS ADDRESSED AT TIME OF DISCHARGE. Time of 1ST Reevaluation: 12:48 Reevaluation 1ST: Improved Patient Education/Counseling: Diagnosis, Treatment, Need For Follow Up Family Education/Counseling: Diagnosis, Treatment, No Family Present Medical Screening: No EMC Exist At This Time SEPSIS Sepsis Screen Date sepsis recognized/suspect: Jul 24, 2025 Time Sepsis recognized/suspect: 1128 Recent Procedure: No On Antibiotic Therapy: No Respiratory Rate >20: No Heart Rate >90: Yes Temp<36 C (96.8 F) or >38.3 C: No SBP <90 or MAP <65 mmHG: No New Acute Mental Status Change: No Is the patient on CPAP, BIPAP,: No Vital Signs Date Time Temp Pulse Resp B/P (MAP) Pulse Ox O2 Delivery O2 Flow Rate FiO2 07/24/25 11:27 98.1 95 18 117/78 99 98.1 Departure 1 Departure Time of Disposition: 12:48 Impression: Primary Impression: Medication refill Additional Impression: Hx of anxiety disorder Disposition: HOME / SELF CARE / HOMELESS Condition: Stable Additional Instructions: INSTRUCTIONS: FOLLOW-UP WITH PCP IN 1 TO 2 DAYS. TAKE MEDICATIONS PRESCRIBED. RETURN TO ED FOR ANY NEW OR WORSENING SYMPTOMS. e-Prescriptions Lorazepam (ATIVAN TABLET) 0.5 Mg Tb 1 TAB PO TID, #15 TAB Prov: WENDY LAND 07/24/25 Quetiapine Fumerate (Seroquel Xr) 400 Mg Tab 1 TAB PO QPM, #15 TAB Prov: WENDY LAND 07/24/25 Discharged With: Self Critical Care Note Critical Care Time?: No Stability Stability form required: No Heart Score Heart Score: Heart Score Response (Comments) Value History N/A 0 EKG N/A 0 Age N/A 0 Risk Factors N/A 0 Troponin N/A 0 Total 0 I personally scribed for WENDY LAND ([email or web address]) on 07/24/25 at 12:40. Electronically submitted by Luiz JOSUE). WENDY LAND Jul 24, 2025 12:40
[2025-07-24] MEDS ORDERED: QUET400T4 PO (12:44)
[2025-07-24] MEDS ORDERED: LORA-1121 PO ×3 (12:44→12:45)
== END 2025-07-24 12:38 | disposition home or self-care (01) ==
LOC: ER 11:23
DX: F41.9 Anxiety disorder, unspecified (principal); G47.00 Insomnia, unspecified; Z79.899 Other long term (current) drug therapy; Z88.5 Allergy status to narcotic agent; Z90.49 Acquired absence of other specified parts of digestive tract; Z76.0 Encounter for issue of repeat prescription